=== PATIENT | male | born 1935 | race Caucasian/White ===

== ENCOUNTER 2016-07-30 16:51 | Inpatient (IN) | payer MEDICARE, BC ==
[~2016-07-30] VITALS: Ht 175.3 cm; Wt 82.0 kg
[~2016-07-30 16:51] MED LIST: B-COCAP9 PO; CALC500T17 PO; LORA-373 PO; NEXI40CA PO; VENL75TA PO; VITA20003 PO
[2016-07-30 17:07] VITALS: BP 163/79; PULSE 88; RESP 20; TEMP 98.7; O2SAT 94
[2016-07-30 17:13] VITALS: BP 163/79; PULSE 88; RESP 20; TEMP 98.7; O2SAT 94
[2016-07-30] MEDS ORDERED: SODIUM CHLOR 0.9% 1000 ML INJ 1,000 ML IV SCH (17:23)
[2016-07-30] MEDS ORDERED: SODIUM CHLORIDE 0.9% FLUSH 5 ML FLUSH IVF PRN (17:30)
[2016-07-30 17:40] VITALS: O2SAT 94
[2016-07-30 17:50] LABS: AUTOMATED NEUTROPHIL # 9.4 TH/MM3 (1.8-7.7); BASOPHIL # 0.1 TH/MM3 (0-0.2); BASOPHIL % 0.7 % (0.0-2.0); EOSINOPHIL # 0.1 TH/MM3 (0-0.4); EOSINOPHIL % 0.7 % (0.0-4.0); HEMATOCRIT 40.7 % (39.0-51.0); HEMO FLAGS DIFF FINAL; LYMPH % 13.4 % (9.0-44.0); LYMPHOCYTE # 1.6 TH/MM3 (1.0-4.8); MEAN CELL VOLUME 91.7 FL (80.0-100.0); MEAN CORPUSCULAR HEMOGLOBIN 31.2 PG (27.0-34.0); MONO % 8.7 % (0.0-8.0); NEUT % 76.5 % (16.0-70.0); PLATELET COUNT 389 TH/MM3 (150-450); RED BLOOD COUNT 4.44 MIL/MM3 (4.50-5.90); WHITE BLOOD COUNT 12.3 TH/MM3 (4.0-11.0)
[2016-07-30 17:54] LABS: APTT (PATIENT) 27.2 SEC (24.3-30.1); PROTHROMBIN TIME - PATIENT 11.2 SEC (9.8-11.6)
[2016-07-30 18:09] LABS: BACTERIA, URINE RARE /hpf; BLOOD, URINE NEG (NEG); COMMENT (UR) CULT NOT INDICATED; CULTURE IF INDICATED CULT NOT INDICATED; GLUCOSE,URINE NEG (NEG); KETONE, URINE 80 mg/dL (NEG); MUCUS URINE FEW /lpf (OCC); NITRITE,URINE NEG (NEG); URINE COLOR YELLOW (YELLW/STRAW)
[2016-07-30 18:15] LABS: ALKALINE PHOSPHATASE 135 U/L (45-117); TOTAL BILIRUBIN ADULT 0.5 MG/DL (0.2-1.0)
[2016-07-30] MEDS ORDERED: ONDANSETRON HCL 4 MG/2 ML VIAL IVP ONE (18:15)
[2016-07-30] MEDS ORDERED: MORPHINE SULFATE 4 MG/ML INJ IV PUSH ONE (18:15)
[2016-07-30 18:16] LABS: ALT (GPT) 51 U/L (12-78); ANION GAP 12 MEQ/L (5-15); AST (GOT) 45 U/L (15-37); BLOOD UREA NITROGEN 13 MG/DL (7-18); CHLORIDE 103 MEQ/L (98-107); GLOMERULAR FILTRATION RATE 72 ML/MIN (>89); SODIUM (NA) 138 MEQ/L (136-145)
[2016-07-30 18:17] LABS: POTASSIUM 4.2 MEQ/L (3.5-5.1)
--- NOTE | 2016-07-30 18:38 | RADRPT ---
EXAM DATE/TIME: 07/30/2016 18:19 [place] COMPARISON: No previous studies available for comparison. INDICATIONS : Abdominal pain and possible obstruction. ORAL CONTRAST: No oral contrast ingested. RADIATION DOSE: 15.78 CTDIvol (mGy) MEDICAL HISTORY : Cardiovascular disease. Gastroesophageal reflux disease. SURGICAL HISTORY : Inguinal hernia repair. Shunt placed 2015 ENCOUNTER: Initial ACUITY: 1 day PAIN SCALE: 8/10 LOCATION: Bilateral lower quadrant TECHNIQUE: Volumetric scanning of the abdomen and pelvis was performed. Using automated exposure control and ad justment of the mA and/or kV according to patient size, radiation dose was kept as low as reasonably achievable to obtain optimal diagnostic quality images. FINDINGS: LOWER LUNGS: The visualized lower lungs are clear. LIVER: Homogeneous density without lesion. There is no dilation of the biliary tree. Cholecystectomy clips. SPLEEN: Normal size without lesion. PANCREAS: Within normal limits. KIDNEYS: Normal in size and shape. There is no mass, stone, or hydronephrosis. ADRENAL GLANDS: Within normal limits. VASCULAR: There is no aortic aneurysm. BOWEL/MESENTERY: Copious stool in the rectum. No obstruction. Diverticulosis of the colon without diverticulitis.. Th ere is no free intraperitoneal air or fluid. ABDOMINAL WALL: Within normal limits. RETROPERITONEUM: There is no lymphadenopathy. BLADDER: Michelle catheter decompresses the urinary bladder. REPRODUCTIVE: Prostatectomy.. INGUINAL: There is no lymphadenopathy or hernia. MUSCULOSKELETAL: Within normal limits for patient age. CONCLUSION: 1. Copious amount of stool in the rectum. No bowel obstruction. 2. Diverticulosis without diverticulitis. 3. Status post prostatectomy and cholecystectomy. Krunal Rodriguez MD on July 30, 2016 at 18:31 Board Certified Radiologist. This report was verified electronically.
[2016-07-30] MEDS ORDERED: LORazepam 2 MG/ML VIAL IV PUSH ONE ×2 (18:45→20:15)
[2016-07-30] MEDS ORDERED: MACR100C2 PO (18:51)
--- NOTE | 2016-07-30 18:52 | PD ---
HPI Chief Complaint: Complaint Time Seen by Provider: 17:12 Travel History International Travel<30 days: No Contact w/Intl Traveler<30days: No Traveled to known affect area: No History of Present Illness HPI Patient is a 81-year-old male with history dementia who presents from rehabilitation with complaints of acute urinary retention. Patient with history of dementia, unable to provide history of present illness. As per prison paperwork, patient is currently at the rehabilitation center for treatment of a broken back. Reports concern as patient was experiencing acute urinary retention and was unable to pass his urine. Reports that attempt was made to place Michelle catheter 3 times, Michelle catheter was unable to be placed at rehabilitation Center. Patient was transported to ER for Michelle catheter placement. Patient's daughter is at bedside, reports concern as patient may have constipation and may have small bowel obstruction as she is unsure when he last had a bowel movement. Daughter requests evaluation for possible small bowel obstruction. PFSH Past Medical History Arthritis: No Asthma: No Anxiety: No Depression: No Heart Rhythm Problems: No Cancer: Yes (Skin [place]er--spots removed) Cardiovascular Problems: Yes High Cholesterol: Yes Chest Pain: No Congestive Heart Failure: No COPD: No Cerebrovascular Accident: No Diabetes: No Diminished Hearing: No Endocrine: No GERD: Yes Glaucoma: No Headaches: Yes Hepatitis: No Hiatal Hernia: Yes (repaired) Hypertension: No Kidney Stones: Yes Musculoskeletal: Yes Neurologic: Yes (hydrocephalus) Psychiatric: No Respiratory: Yes Immunizations Current: No Migraines: No Seizures: No Sleep Apnea: Yes Thyroid Disease: No Ulcer: No ?: Not Past Surgical History Abdominal Surgery: Yes AICD: No Arteriovenous Shunt: No Cardiac Surgery: No Cholecystectomy: Yes Ear Surgery: No Eye Surgery: Yes (CATARACTS REMOVED BILAT) Genitourinary Surgery: Yes (PROSTATE, LEFT INGUINAL HERNIA) Insulin Pump: No Joint Replacement: No Oral Surgery: No Pacemaker: No Thoracic Surgery: No Other Surgery: Yes (crainotomy 2013, SHUNT 2015 ) Family History Family History: Negative Social History Alcohol Use: Yes (2 PER NIGHT) Tobacco Use: No Substance Use: No Allergies-Medications (Allergen,Severity, Reaction): Coded Allergies: No Known Allergies (Verified , 06/13/16) Reported Meds & Prescriptions Reported Meds & Active Scripts Active Macrobid (Nitrofurantoin Monoh/Nitrofur Macro) 100 Mg Cap 100 Mg PO BID 10 Days Reported Vitamin D (Cholecalciferol) 2,000 Unit Tab 2,000 Units PO DAILY Calcium (Calcium Carbonate) 1,250 Mg Tab 1,200 Mg PO DAILY 1,250 mg calcium carbonate (500 mg elemental calcium) Super B-Complex (B-Complex W/Biotin & Folic Acid) 1 Cap 1 Cap PO Lorazepam 0.5 Mg Tab 0.5 Mg PO BID PRN Effexor (Venlafaxine HCl) 75 Mg Tab 150 Mg PO BID Nexium (Esomeprazole DR) 40 Mg Capdr 40 Mg PO DAILY Review of Systems ROS Limitations: Altered Mental Status General / Constitutional: No: Fever Eyes: No: Visual changes HENT: No: Headaches Cardiovascular: No: Chest Pain or Discomfort Respiratory: No: Shortness of Breath Gastrointestinal: No: Abdominal Pain Genitourinary: No: Dysuria Musculoskeletal: No: Pain Skin: No Rash Neurologic: No: Weakness Psychiatric: No: Depression Endocrine: No: Polydipsia Hematologic/Lymphatic: No: Easy Bruising Physical Exam Exam Limitations: Altered Mental Status Narrative GENERAL: No acute distress, nontoxic SKIN: Warm and dry. HEAD: Atraumatic. Normocephalic. EYES: Pupils equal and round. No scleral icterus. No injection or drainage. ENT: No nasal bleeding or discharge. Mucous membranes pink and moist. NECK: Trachea midline. No JVD. CARDIOVASCULAR: Regular rate and rhythm. No murmur appreciated. RESPIRATORY: No accessory muscle use. Clear to auscultation. Breath sounds equal bilaterally. GASTROINTESTINAL: Abdomen soft, non-tender, nondistended. Hepatic and splenic margins not palpable. MUSCULOSKELETAL: No obvious deformities. No clubbing. No cyanosis. No edema. NEUROLOGICAL: Awake and alert. No obvious cranial nerve deficits. Motor grossly within normal limits. Normal speech. PSYCHIATRIC: Patient pleasantly confused Data Data Last Documented VS Vital Signs Date Time Temp Pulse Resp B/P Pulse Ox O2 Delivery O2 Flow Rate FiO2 07/30/16 17:40 94 Room Air 07/30/16 17:13 98.7 88 20 163/79 Orders Complete Blood Count With Diff (07/30/16 17:23) Comprehensive Metabolic Panel (07/30/16 17:23) Prothrombin Time / Inr (Pt) (07/30/16 17:23) Act Partial Throm Time (Ptt) (07/30/16 17:23) Urinalysis - C+S If Indicated (07/30/16 17:23) Iv Access Insert/Monitor (07/30/16 17:23) Oximetry (07/30/16 17:23) Sodium Chlor 0.9% 1000 Ml Inj (Ns 1000 M (07/30/16 17:23) Sodium Chloride 0.9% Flush (Ns Flush) (07/30/16 17:30) Urinary Catheter Insert/Apply (07/30/16 17:23) Ct Abd/Pel W/O Iv Contrast (07/30/16 18:02) Morphine Inj (Morphine Inj) (07/30/16 18:15) Ondansetron Inj (Zofran Inj) (07/30/16 18:15) Lorazepam Inj (Ativan Inj) (07/30/16 18:45) Nitrofurantoin Monohyd Macrocr (Macrobid (07/30/16 19:00) Labs Laboratory Tests Test 07/30/16 17:30 White Blood Count 12.3 TH/MM3 Red Blood Count 4.44 MIL/MM3 Hemoglobin 13.8 GM/DL Hematocrit 40.7 % Mean Corpuscular Volume 91.7 FL Mean Corpuscular Hemoglobin 31.2 PG Mean Corpuscular Hemoglobin 34.0 % Concent Red Cell Distribution Width 13.0 % Platelet Count 389 TH/MM3 Mean Platelet Volume 7.6 FL Neutrophils (%) (Auto) 76.5 % Lymphocytes (%) (Auto) 13.4 % Monocytes (%) (Auto) 8.7 % Eosinophils (%) (Auto) 0.7 % Basophils (%) (Auto) 0.7 % Neutrophils # (Auto) 9.4 TH/MM3 Lymphocytes # (Auto) 1.6 TH/MM3 Monocytes # (Auto) 1.1 TH/MM3 Eosinophils # (Auto) 0.1 TH/MM3 Basophils # (Auto) 0.1 TH/MM3 CBC Comment DIFF FINAL Differential Comment Prothrombin Time 11.2 SEC Prothromb Time International 1.0 RATIO Ratio Activated Partial 27.2 SEC Thromboplast Time Urine Color YELLOW Urine Turbidity CLEAR Urine pH 6.0 Urine Specific [place] 1.030 Urine Protein TRACE mg/dL Urine Glucose (UA) NEG mg/dL Urine Ketones 80 mg/dL Urine Occult Blood NEG Urine Nitrite NEG Urine Bilirubin NEG Urine Urobilinogen 2.0 MG/DL Urine Leukocyte Esterase MOD Urine RBC 2 /hpf Urine WBC 4 /hpf Urine Bacteria RARE /hpf Urine Mucus FEW /lpf Microscopic Urinalysis Comment CULT NOT INDICATED Sodium Level 138 MEQ/L Potassium Level 4.2 MEQ/L Chloride Level 103 MEQ/L Carbon Dioxide Level 23.0 MEQ/L Anion Gap 12 MEQ/L Blood Urea Nitrogen 13 MG/DL Creatinine 1.00 MG/DL Estimat Glomerular Filtration 72 ML/MIN Rate Random Glucose 95 MG/DL Calcium Level 9.3 MG/DL Total Bilirubin 0.5 MG/DL Aspartate Amino Transf 45 U/L (AST/SGOT) Alanine Aminotransferase 51 U/L (ALT/SGPT) Alkaline Phosphatase 135 U/L Total Protein 7.6 GM/DL Albumin 3.7 GM/DL MDM Medical Decision Making Medical Screen Exam Complete: Yes Emergency Medical Condition: Yes Interpretation(s) Vital Signs Date Time Temp Pulse Resp B/P Pulse Ox O2 Delivery O2 Flow Rate FiO2 07/30/16 17:40 94 Room Air 07/30/16 17:13 98.7 88 20 163/79 94 Room Air 07/30/16 17:07 98.7 88 20 163/79 94 Laboratory Tests Test 07/30/16 17:30 White Blood Count 12.3 TH/MM3 (4.0-11.0) Red Blood Count 4.44 MIL/MM3 (4.50-5.90) Hemoglobin 13.8 GM/DL (13.0-17.0) Hematocrit 40.7 % (39.0-51.0) Mean Corpuscular Volume 91.7 FL (80.0-100.0) Mean Corpuscular Hemoglobin 31.2 PG (27.0-34.0) Mean Corpuscular Hemoglobin 34.0 % Concent (32.0-36.0) Red Cell Distribution Width 13.0 % (11.6-17.2) Platelet Count 389 TH/MM3 (150-450) Mean Platelet Volume 7.6 FL (7.0-11.0) Neutrophils (%) (Auto) 76.5 % (16.0-70.0) Lymphocytes (%) (Auto) 13.4 % (9.0-44.0) Monocytes (%) (Auto) 8.7 % (0.0-8.0) Eosinophils (%) (Auto) 0.7 % (0.0-4.0) Basophils (%) (Auto) 0.7 % (0.0-2.0) Neutrophils # (Auto) 9.4 TH/MM3 (1.8-7.7) Lymphocytes # (Auto) 1.6 TH/MM3 (1.0-4.8) Monocytes # (Auto) 1.1 TH/MM3 (0-0.9) Eosinophils # (Auto) 0.1 TH/MM3 (0-0.4) Basophils # (Auto) 0.1 TH/MM3 (0-0.2) CBC Comment DIFF FINAL Differential Comment Prothrombin Time 11.2 SEC (9.8-11.6) Prothromb Time International 1.0 RATIO Ratio Activated Partial 27.2 SEC Thromboplast Time (24.3-30.1) Urine Color YELLOW (YELLW/STRAW) Urine Turbidity CLEAR (CLEAR) Urine pH 6.0 (5.0-8.5) Urine Specific [place] 1.030 (1.002-1.035) Urine Protein TRACE mg/dL (NEG-TRACE) Urine Glucose (UA) NEG mg/dL (NEG) Urine Ketones 80 mg/dL (NEG) Urine Occult Blood NEG (NEG) Urine Nitrite NEG (NEG) Urine Bilirubin NEG (NEG) Urine Urobilinogen 2.0 MG/DL (LESS THAN 2.0) Urine Leukocyte Esterase MOD (NEG) Urine RBC 2 /hpf (0-3) Urine WBC 4 /hpf (0-5) Urine Bacteria RARE /hpf (NONE) Urine Mucus FEW /lpf (OCC) Microscopic Urinalysis Comment CULT NOT INDICATED Sodium Level 138 MEQ/L (136-145) Potassium Level 4.2 MEQ/L (3.5-5.1) Chloride Level 103 MEQ/L (98-107) Carbon Dioxide Level 23.0 MEQ/L (21.0-32.0) Anion Gap 12 MEQ/L (5-15) Blood Urea Nitrogen 13 MG/DL (7-18) Creatinine 1.00 MG/DL (0.60-1.30) Estimat Glomerular Filtration 72 ML/MIN (>89) Rate Random Glucose 95 MG/DL (74-106) Calcium Level 9.3 MG/DL (8.5-10.1) Total Bilirubin 0.5 MG/DL (0.2-1.0) Aspartate Amino Transf 45 U/L (15-37) (AST/SGOT) Alanine Aminotransferase 51 U/L (12-78) (ALT/SGPT) Alkaline Phosphatase 135 U/L (45-117) Total Protein 7.6 GM/DL (6.4-8.2) Albumin 3.7 GM/DL (3.4-5.0) Last Impressions Abdomen/Pelvis CT 07/30/16 1802 Signed Impressions: Service Date/Time: Saturday, July 30, 2016 18:19 - CONCLUSION: 1. Copious amount of stool in the rectum. No bowel obstruction. 2. Diverticulosis without diverticulitis. 3. Status post prostatectomy and cholecystectomy. Krunal Rodriguez MD Differential Diagnosis UTI, urinary retention, electrolyte abnormality, constipation, small bowel obstruction Narrative Course Patient is a 81-year-old male with history of dementia who presents to emergency room from rehabilitation Center for evaluation of acute urinary retention. Patient appeared to be in acute urinary retention at rehabilitation Center, attempt was made for Michelle catheter placement 3 at rehabilitation, Michelle catheter was placed easily here in ER. Ct of abdomen and pelvis ordered for evaluation of possible small bowel obstruction. CBC, BMP, UA ordered. Case reviewed with Dr. Silva who request that patient be obs for 23 hours. UA with moderate leuk esterase and rare bacteria, patient with questionable UTI. Concern as patient has increased altered mental status, plan to obs for [address] Silva's service. Physician Communication Physician Communication Dr Silva Diagnosis Primary Impression: Acute urinary retention Additional Impressions: UTI (urinary tract infection) Qualified Code: N30.00 - Acute cystitis without hematuria Constipation Qualified Code: K59.00 - Constipation, unspecified constipation type Admitting Information Admitting Physician Requests: Observation Patient Instructions: General Instructions, Narcotic given in the ED Med/Other Pt SpecificInfo: Prescription(s) given Scripts Polyethylene Glycol 3350 Powder (Miralax Powder)17 Gm Powd17 Gm PO DAILY #1 BOTTLE Ref 0 Mix and dissolve one measuring cap-ful (17 grams) in water or juice. Prov:Jewels Hoover DO 07/30/16 Nitrofurantoin Monohydrate Macrocrystals (Macrobid)100 Mg Hfu325 Mg PO BID 10 Days Ref 0 Prov:Jewels Hoover DO 07/30/16 Disposition: 01 DISCHARGE HOME Condition: Stable Jewels Hoover DO Jul 30, 2016 18:52
[2016-07-30] MEDS ORDERED: MIRA33504 PO (18:58)
[2016-07-30] MEDS ORDERED: NITROFURANTOIN MONOHYD MACROCR 100 MG CAP PO ONE (19:00)
[2016-07-30] MEDS ORDERED: NALOXONE HCL 0.4 MG/ML AMP IV PRN (20:00)
[2016-07-30] MEDS: DOCUSATE SODIUM 100 MG CAP PO SCH (20:00)
[2016-07-30] MEDS ORDERED: ONDANSETRON HCL 4 MG/2 ML VIAL IVP PRN (20:00)
[2016-07-30] MEDS ORDERED: SODIUM CHLORIDE 0.9% FLUSH 5 ML FLUSH FLUSH PRN (20:00)
[2016-07-30] MEDS: LEVOFLOXACIN 500 MG PREMIX INJ 100 ML IV SCH (20:09)
[2016-07-30] MEDS: SODIUM CHLORIDE 0.9% FLUSH 5 ML FLUSH FLUSH SCH (20:10)
[2016-07-30 20:23] VITALS: BP 129/73; PULSE 80; RESP 18; O2SAT 96
[2016-07-30] MEDS: ACETAMINOPHEN 325 MG TAB PO PRN (20:35)
[2016-07-30] MEDS ORDERED: BISACODYL EC 5 MG TABEC PO ONE (21:00)
[2016-07-30] MEDS: ENOXAPARIN SODIUM 40 MG/0.4 ML SYRINGE SQ SCH (21:11)
[2016-07-30] MEDS: VENLAFAXINE HCL XR 75 MG CAP PO SCH (21:12)
[2016-07-30] MEDS: LORazepam 0.5 MG TAB PO PRN (21:12)
[2016-07-30] MEDS: metroNIDAZOLE 500 MG INJ 100 ML IV SCH (21:13)
[2016-07-30] MEDS: TAMSULOSIN HCL 0.4 MG CAP PO SCH (21:13)
[2016-07-30] MEDS: LACTATED RINGER'S 1000 ML INJ 1,000 ML IV SCH (22:39)
[2016-07-31] VITALS: BP 156/84; PULSE 96; RESP 20; TEMP 97.6; O2SAT 95
[2016-07-31 04:00] VITALS: BP 140/74; PULSE 77; RESP 18; TEMP 97; O2SAT 97
[2016-07-31] MEDS: metroNIDAZOLE 500 MG INJ 100 ML IV SCH ×3 (04:40→22:22)
[2016-07-31] MEDS: ACETAMINOPHEN 325 MG TAB PO PRN (04:46)
[2016-07-31 05:08] LABS: AUTOMATED NEUTROPHIL # 8.5 TH/MM3 (1.8-7.7); BASOPHIL # 0.1 TH/MM3 (0-0.2); BASOPHIL % 0.5 % (0.0-2.0); EOSINOPHIL # 0.1 TH/MM3 (0-0.4); EOSINOPHIL % 1.1 % (0.0-4.0); HEMATOCRIT 35.2 % (39.0-51.0); HEMO FLAGS DIFF FINAL; LYMPH % 12.4 % (9.0-44.0); LYMPHOCYTE # 1.4 TH/MM3 (1.0-4.8); MEAN CELL VOLUME 91.4 FL (80.0-100.0); MEAN CORPUSCULAR HEMOGLOBIN 31.5 PG (27.0-34.0); MEAN CORPUSCULAR HGB CONC 34.4 % (32.0-36.0); MONO % 9.9 % (0.0-8.0); NEUT % 76.1 % (16.0-70.0); PLATELET COUNT 313 TH/MM3 (150-450); RED BLOOD COUNT 3.85 MIL/MM3 (4.50-5.90); RED CELL DISTRIBUTION WIDTH 13.3 % (11.6-17.2); WHITE BLOOD COUNT 11.2 TH/MM3 (4.0-11.0)
[2016-07-31 05:40] LABS: BICARBONATE 24.3 MEQ/L (21.0-32.0); INDIRECT BILIRUBIN 0.5 MG/DL (0.0-0.8); MAGNESIUM 1.9 MG/DL (1.5-2.5); POTASSIUM 3.5 MEQ/L (3.5-5.1); TOTAL BILIRUBIN ADULT 0.6 MG/DL (0.2-1.0)
[2016-07-31 08:00] VITALS: BP 132/71; PULSE 92; RESP 16; TEMP 96.6; O2SAT 98
[2016-07-31] MEDS: TAMSULOSIN HCL 0.4 MG CAP PO SCH ×2 (08:01→22:22)
[2016-07-31] MEDS: PANTOPRAZOLE SOD 40 MG DELAYED RELEASE TAB PO SCH (08:01)
[2016-07-31] MEDS: DOCUSATE SODIUM 100 MG CAP PO SCH ×2 (08:01→22:23)
[2016-07-31] MEDS: LORazepam 0.5 MG TAB PO PRN ×2 (08:01→22:21)
[2016-07-31] MEDS: CHOLECALCIFEROL (VIT D3) 1000 UNIT TAB PO SCH (08:01)
[2016-07-31] MEDS: POLYETHYLENE GLYCOL 17 GM PKG PO SCH (08:01)
[2016-07-31] MEDS: SODIUM CHLORIDE 0.9% FLUSH 5 ML FLUSH FLUSH SCH ×2 (08:02→21:00)
[2016-07-31] MEDS: LACTATED RINGER'S 1000 ML INJ 1,000 ML IV SCH ×2 (08:02→16:00)
[2016-07-31 12:00] VITALS: BP 133/69; PULSE 86; RESP 18; TEMP 96.6; O2SAT 96
--- NOTE | 2016-07-31 14:13 | HHI.HP ---
History of Present Illness Service INTERNAL MEDICINE Primary Care Physician ENRIQUE SILVA MD Admission Diagnosis ACUTE GASTROENTERITIS. INTRACTABLE PAIN. SEVERE CONSTIPATION. ALTERED MENTAL STATUS. Diagnoses: History of Present Illness This patient presents with a history of having a change from his usual mentation along with complaints of severe abdominal pain. He also has multiple reports of marked difficulty for any consistent urination. There was also associated nausea and vomiting episodes. Further concern was for a possible urinary tract infection as he was with a change from his usual mentation. He was in a rehabilitation center for history of multiple falls and compression fractures of the spine. Due to the adverse changes, he was transported to the [facility] Emergency Room and evaluation led to his admission. There is no history of recent infection or trauma. Due to the presentation, he is now admitted for further evaluation and treatment. Review of Systems Constitutional: COMPLAINS OF: Fatigue, Weight loss, Change in appetite Gastrointestinal: COMPLAINS OF: Constipation, Nausea, Vomiting Musculoskeletal: COMPLAINS OF: Stiffness, Back pain Neurologic: COMPLAINS OF: Abnormal gait, Poor Balance Psychiatric: COMPLAINS OF: Anxiety, Confusion, Hallucinations, Agitation Past Family Social History Allergies: Coded Allergies: No Known Allergies (Verified , 06/13/16) Past Medical History 1. Chronic Peptic Ulcer Disease. 2. Alcoholism. 3. Hyperlipidemia. 4. Cerebellar Degeneration. 5. Gait Disturbance. 6. Subdural Hematoma. 7. Normal Pressure Hydrocephalus. 8. Obstructive Sleep Apnea Syndrome. 9. Compression Fractures of Spine. 10. Depression. Past Surgical History 1. Ventriculoperitoneal Shunt Placement. 2. Craniotomy with Evacuation of Subdural Hematoma. 3. Cholecystectomy. 4. Inguinal Hernia Repair. 5. Prostatectomy. 6. Colonoscopy. Family History This patient is an only child. He has a daughter with "gastrointestinal problems". He has a granddaughter in good health. Social History He is retired and is . He is a nonsmoker and has a strong history of heavy alcohol intake. His use of alcohol is diminished over the past year to no usage at all at this time There is no use of recreational drugs. Physical Exam Vital Signs Vital Signs Date Time Temp Pulse Resp B/P Pulse Ox O2 Delivery O2 Flow Rate FiO2 07/31/16 12:00 96.6 86 18 133/69 96 07/31/16 08:00 96.6 92 16 132/71 98 07/31/16 04:00 97.0 77 18 140/74 97 07/31/16 00:00 97.6 96 20 156/84 95 07/30/16 20:23 80 18 129/73 96 Room Air 07/30/16 17:40 94 Room Air 07/30/16 17:13 98.7 88 20 163/79 94 Room Air 07/30/16 17:07 98.7 88 20 163/79 94 Physical Exam GENERAL: This is a well-nourished, well-developed patient, in no apparent distress. SKIN: No rashes, ecchymoses or lesions. Cool and dry. HEAD: Atraumatic. Normocephalic. No temporal or scalp tenderness. EYES: Pupils equal round and reactive. Extraocular motions intact. No scleral icterus. No injection or drainage. ENT: Nasal passages are clear and without drainage or septal hematoma. Throat without erythema, tonsillar hypertrophy or exudate. Uvula midline. Airway patent. NECK: Trachea midline. No JVD or lymphadenopathy. Supple with good range of motion. There is no thyromegaly, carotid bruits or masses. The exam is nontender. CARDIOVASCULAR: Regular rate and rhythm without murmurs, gallops, or rubs. RESPIRATORY: Clear to auscultation. Breath sounds equal bilaterally. No wheezes , rales, or rhonchi. GASTROINTESTINAL: Abdomen is soft with some tenderness to palpation in the epigastric and periumbilical areas. It is nondistended. No hepato-splenomegaly or palpable masses. No guarding. MUSCULOSKELETAL: Extremities without clubbing, cyanosis, or edema. No joint tenderness, effusion, or edema noted. No calf tenderness. Negative Homans sign bilaterally. NEUROLOGICAL: Awake and alert. Cranial nerves II through XII intact. Motor and sensory grossly within normal limits. Normal speech. The gait is unsteady. Laboratory Laboratory Tests Test 07/30/16 07/31/16 17:30 03:59 White Blood Count 12.3 11.2 Red Blood Count 4.44 3.85 Hemoglobin 13.8 12.1 Hematocrit 40.7 35.2 Mean Corpuscular Volume 91.7 91.4 Mean Corpuscular Hemoglobin 31.2 31.5 Mean Corpuscular Hemoglobin 34.0 34.4 Concent Red Cell Distribution Width 13.0 13.3 Platelet Count 389 313 Mean Platelet Volume 7.6 7.7 Neutrophils (%) (Auto) 76.5 76.1 Lymphocytes (%) (Auto) 13.4 12.4 Monocytes (%) (Auto) 8.7 9.9 Eosinophils (%) (Auto) 0.7 1.1 Basophils (%) (Auto) 0.7 0.5 Neutrophils # (Auto) 9.4 8.5 Lymphocytes # (Auto) 1.6 1.4 Monocytes # (Auto) 1.1 1.1 Eosinophils # (Auto) 0.1 0.1 Basophils # (Auto) 0.1 0.1 CBC Comment DIFF FINAL DIFF FINAL Differential Comment Prothrombin Time 11.2 Prothromb Time International 1.0 Ratio Activated Partial 27.2 Thromboplast Time Urine Color YELLOW Urine Turbidity CLEAR Urine pH 6.0 Urine Specific [place] 1.030 Urine Protein TRACE Urine Glucose (UA) NEG Urine Ketones 80 Urine Occult Blood NEG Urine Nitrite NEG Urine Bilirubin NEG Urine Urobilinogen 2.0 Urine Leukocyte Esterase MOD Urine RBC 2 Urine WBC 4 Urine Bacteria RARE Urine Mucus FEW Microscopic Urinalysis Comment CULT NOT INDICATED Sodium Level 138 140 Potassium Level 4.2 3.5 Chloride Level 103 104 Carbon Dioxide Level 23.0 24.3 Anion Gap 12 12 Blood Urea Nitrogen 13 12 Creatinine 1.00 0.91 Estimat Glomerular Filtration 72 80 Rate Random Glucose 95 86 Calcium Level 9.3 8.4 Total Bilirubin 0.5 0.6 Aspartate Amino Transf 45 48 (AST/SGOT) Alanine Aminotransferase 51 61 (ALT/SGPT) Alkaline Phosphatase 135 120 Total Protein 7.6 6.1 Albumin 3.7 3.0 Magnesium Level 1.9 Direct Bilirubin 0.1 Indirect Bilirubin 0.5 Result Diagram: 07/31/16 0359 07/31/16 0359 Assessment and Plan Assessment and Plan ASSESSMENT 1. Acute Gastroenteritis. 2. Intractable Nausea and Vomiting. 3. Intractable Abdominal Pain. 4. Acute Urinary Retention. 5. Possible subacute urinary tract infection. 6. Mental Confusion with Episodic Hallucinations. 7. Severe Constipation. 8. Normal Pressure Hydrocephalus. 9. Chronic Peptic Ulcer Disease. PLAN 1. Admit to the hospital as an Inpatient. 2. Intravenous hydration. 3. Consultation to Urology. 4. Consultation to Gstroenterology. 5. Bowel evacuation of excessive stool. 6. Follow up laboratory assessment. 7. DVT, PE and PUD prophylaxis. Enrique Silva MD Jul 31, 2016 14:13
[2016-07-31] MEDS ORDERED: BISACODYL 10 MG SUPP RECTAL ONE (14:45)
[2016-07-31 16:00] VITALS: BP 137/67; PULSE 80; RESP 18; TEMP 97.4; O2SAT 96
[2016-07-31 20:00] VITALS: BP 149/83; PULSE 76; RESP 19; TEMP 98.6; O2SAT 97
[2016-07-31] MEDS: LEVOFLOXACIN 500 MG PREMIX INJ 100 ML IV SCH (22:20)
[2016-07-31] MEDS: ENOXAPARIN SODIUM 40 MG/0.4 ML SYRINGE SQ SCH (22:22)
[2016-07-31] MEDS: VENLAFAXINE HCL XR 75 MG CAP PO SCH (22:23)
[2016-08-01] VITALS: BP 154/80; PULSE 90; RESP 18; TEMP 98.6; O2SAT 95
[2016-08-01] MEDS: LACTATED RINGER'S 1000 ML INJ 1,000 ML IV SCH ×3 (02:26→20:00)
[2016-08-01] MEDS: metroNIDAZOLE 500 MG INJ 100 ML IV SCH ×3 (05:14→20:00)
[2016-08-01] MEDS: LORazepam 0.5 MG TAB PO PRN (05:59)
[2016-08-01] MEDS: POLYETHYLENE GLYCOL 17 GM PKG PO SCH (07:14)
[2016-08-01] MEDS: DOCUSATE SODIUM 100 MG CAP PO SCH (07:14)
[2016-08-01] MEDS: TAMSULOSIN HCL 0.4 MG CAP PO SCH ×2 (07:45→19:57)
[2016-08-01] MEDS: CHOLECALCIFEROL (VIT D3) 1000 UNIT TAB PO SCH (07:45)
[2016-08-01] MEDS: SODIUM CHLORIDE 0.9% FLUSH 5 ML FLUSH FLUSH SCH ×2 (07:45→20:00)
[2016-08-01] MEDS: PANTOPRAZOLE SOD 40 MG DELAYED RELEASE TAB PO SCH (07:45)
[2016-08-01 08:00] VITALS: BP 135/99; PULSE 105
[2016-08-01] MEDS ORDERED: HALOPERIDOL LACTATE 5 MG/ML AMP IM ONE (09:30)
[2016-08-01 12:00] VITALS: BP 123/81; PULSE 83
--- NOTE | 2016-08-01 13:08 | PD.CONS ---
HPI Service Urology Consult Requested By Reason for Consult Hematuria, Retention Primary Care Physician Enrique Silva MD Diagnosis: History of Present Illness 81yo male currently admitted for a UTI with change in mental status now seen in consultation for hematuria. Patient also has a history of radical prostatectomy in the early by Dr. Marks. Patient has been following with Dr. Marks, however has not seen him in a few years. Patient lives an a facility where he was found to be having increasing mental status changes. Family also reports he has been having increasing difficulty with urination. At the facility a catheter was attempted to be placed, however this was unsuccessful. A catheter was successfully placed in the ED here, however hematuria was noted. This has been clearing up with no clots. No fevers. Review of Systems ROS Limitations: Clinical Condition Constitutional: DENIES: Fever Endocrine: DENIES: Heat/cold intolerance Eyes: DENIES: Blurred vision Ears, nose, mouth, throat: DENIES: Hearing loss Respiratory: DENIES: Apneas Cardiovascular: DENIES: Chest pain Gastrointestinal: COMPLAINS OF: Abdominal pain Genitourinary: COMPLAINS OF: Hematuria Musculoskeletal: DENIES: Joint pain Integumentary: DENIES: Abnormal pigmentation Hematologic/lymphatic: DENIES: Bruising Immunologic/allergic: DENIES: Eczema Neurologic: DENIES: Abnormal gait Psychiatric: COMPLAINS OF: Confusion, Agitation, DENIES: Anxiety Past Family Social History Past Medical History Depression AMS Hx of Hydrocephalus Past Surgical History Hydrocephalus CHIP TUNER shunt placement Radical prostatectomy Cholecystectomy Reported Medications Reported Meds & Active Scripts Active Miralax Powder (Polyethylene Glycol 3350 Powder) 17 Gm Powd 17 Gm PO DAILY Mix and dissolve one measuring cap-ful (17 grams) in water or juice. Macrobid (Nitrofurantoin Monoh/Nitrofur Macro) 100 Mg Cap 100 Mg PO BID 10 Days Reported Vitamin D (Cholecalciferol) 2,000 Unit Tab 2,000 Units PO DAILY Calcium (Calcium Carbonate) 1,250 Mg Tab 1,200 Mg PO DAILY 1,250 mg calcium carbonate (500 mg elemental calcium) Super B-Complex (B-Complex W/Biotin & Folic Acid) 1 Cap 1 Cap PO Lorazepam 0.5 Mg Tab 0.5 Mg PO BID PRN Effexor (Venlafaxine HCl) 75 Mg Tab 150 Mg PO BID Nexium (Esomeprazole DR) 40 Mg Capdr 40 Mg PO DAILY Allergies: Coded Allergies: No Known Allergies (Verified , 06/13/16) Active Ordered Medications Current Medications Medications (Trade) Dose Ordered Sig/David Route Start Time Stop Time Status Last Admin (Lr 1000 ml Inj) 1,000 ml @ 100 mls/hr Q10H IV 07/30/16 20:00 08/01/16 02:26 (NS Flush) 2 ml UNSCH PRN FLUSH 07/30/16 20:00 (NS Flush) 2 ml BID FLUSH 07/30/16 21:00 07/30/16 20:10 (Tylenol) 650 mg Q4H PRN PO 07/30/16 20:00 07/31/16 04:46 (Zofran Inj) 4 mg Q6H PRN IVP 07/30/16 20:00 (Colace) 100 mg Q12H PO 07/30/16 20:00 07/31/16 22:23 (Lovenox Inj) 40 mg Q24H SQ 07/30/16 21:00 07/31/16 22:22 Naloxone HCl 0.4 mg 0.4 mg UNSCH PRN IV 07/30/16 20:00 Metronidazole 100 ml @ 100 mls/hr Q8H IV 07/30/16 21:00 08/01/16 12:09 (Levaquin 500 Mg Premix Inj) 100 ml @ 100 mls/hr Q24H IV 07/30/16 20:00 07/31/16 22:20 (Flomax) 0.4 mg Q12HR PO 07/30/16 21:00 07/31/16 22:22 (Ativan) 0.5 mg BID PRN PO 07/30/16 20:00 07/31/16 22:21 (Miralax) 17 gm DAILY PO 07/31/16 09:00 07/31/16 08:01 (Vitamin D3) 2,000 units DAILY PO 07/31/16 09:00 07/31/16 08:01 (Protonix) 40 mg DAILY PO 07/31/16 09:00 07/31/16 08:01 (Effexor Xr) 225 mg Q24H PO 07/30/16 21:00 07/31/16 22:23 Family History Family history reviewed and noncontributory to present illness Social History Former smoker; Occasional ETOH use Physical Exam Vital Signs Vital Signs Date Time Temp Pulse Resp B/P Pulse Ox O2 Delivery O2 Flow Rate FiO2 08/01/16 12:00 83 123/81 08/01/16 08:00 105 135/99 08/01/16 00:00 98.6 90 18 154/80 95 07/31/16 20:00 98.6 76 19 149/83 97 07/31/16 16:00 97.4 80 18 137/67 96 Physical Exam GENERAL: This is a well-nourished, well-developed patient, in no apparent distress. SKIN: No rashes, ecchymoses or lesions. Cool and dry. HEAD: Atraumatic. Normocephalic. EYES: Extraocular motions intact. No scleral icterus. No injection or drainage. ENT: Nose without bleeding, purulent drainage Airway patent. NECK: Trachea midline. No JVD or lymphadenopathy. CARDIOVASCULAR: Extremities well perfused, normal pulses RESPIRATORY: Nonlabored respirations, equal chest rise GASTROINTESTINAL: Abdomen soft, non-tender, nondistended. No hepato-splenomegaly , or palpable masses. No guarding. : 16fr moraes catheter in place with zabrina colored urine; yellow urine in tubing. Penis is uncircumcised with evidence of paraphimosis and distal penile swelling and pain MUSCULOSKELETAL: Extremities without clubbing, cyanosis, or edema. NEUROLOGICAL: Awake, however confused, no oriented. Motor and sensory grossly within normal limits. Normal speech. Result Diagram: 07/31/16 0359 07/31/16 0359 Imaging Last 72 hours Impressions Abdomen/Pelvis CT 07/30/16 1802 Signed Impressions: Service Date/Time: Saturday, July 30, 2016 18:19 - CONCLUSION: 1. Copious amount of stool in the rectum. No bowel obstruction. 2. Diverticulosis without diverticulitis. 3. Status post prostatectomy and cholecystectomy. Krunal Rodriguez MD Assessment and Plan Problem List: (1) Depression ICD Code: F32.9 Status: Acute (2) UTI (urinary tract infection) ICD Code: N39.0 Status: Acute (3) Paraphimosis ICD Code: N47.2 Status: Acute Assessment and Plan 81yo male with hematuria that appears to be resolving as well as paraphimosis -Paraphimosis reduced at bedside with the foreskin overlying the head of the penis. Please continue to ensure foreskin remains in the proper position over the penis. -Continue treatment for UTI based on culture results -Maintain moraes catheter. Given the patient's history, recommend leaving the catheter in place until Urology follow-up with Dr. Marks or myself to further evaluate his urinary retention and hematuria. -Patient may be discharged with catheter in place with close urology follow-up -Please call with questions Discussed Condition With Family and Nurse Problem Qualifiers (1) UTI (urinary tract infection): Qualified Code: N30.00 - Acute cystitis without hematuria Marino Keller MD Aug 01, 2016 13:08
[2016-08-01 16:00] VITALS: BP 133/63; PULSE 88; RESP 17; TEMP 96.6; O2SAT 96
--- NOTE | 2016-08-01 17:19 | HHI.PR ---
Subjective Remarks He was seen by Urology with the assessment and disposition noted. He continues to complain of abdominal pain and recurrent episodes of nausea. He is to start with physical therapy and to continue observation on the current medications with respect to his mental status. He had bowel movements after cathartic agents used. His appetite is still not very good. Objective Vital Signs Date Time Temp Pulse Resp B/P Pulse Ox O2 Delivery O2 Flow Rate FiO2 08/01/16 16:00 96.6 88 17 133/63 96 08/01/16 12:00 83 123/81 08/01/16 08:00 105 135/99 08/01/16 00:00 98.6 90 18 154/80 95 07/31/16 20:00 98.6 76 19 149/83 97 I/O 07/31/16 07/31/16 07/31/16 08/01/16 08/01/16 08/01/16 06:59 14:59 22:59 06:59 14:59 22:59 Intake Total 690 ml 1665 ml 1051 ml 812 ml 796 ml Output Total 250 ml 500 ml 300 ml 450 ml 900 ml Balance 440 ml 1165 ml 751 ml 362 ml -104 ml Intake Oral 750 ml 240 ml 120 ml IV Total 690 ml 915 ml 811 ml 692 ml 796 ml Output Urine Total 250 ml 500 ml 300 ml 450 ml 900 ml # Bowel Movements 0 1 0 2 2 Result Diagram: 07/31/169 07/31/16 035 Objective Remarks GENERAL: Alert with some mental confusion for time. SKIN: Warm and dry. HEAD: Normocephalic. EYES: No scleral icterus. No injection or drainage. NECK: Supple, trachea midline. No JVD or lymphadenopathy. CARDIOVASCULAR: Regular rate and rhythm without murmurs, gallops, or rubs. RESPIRATORY: Breath sounds equal bilaterally. No accessory muscle use. GASTROINTESTINAL: Abdomen is soft with mild tenderness to palpation. It is nondistended. MUSCULOSKELETAL: No cyanosis, or edema. BACK: Mildly tender in the lower thoracic to upper lumbar areas without obvious deformity. No CVA tenderness. Assessment and Plan Assessment and Plan ASSESSMENT 1. Acute Gastroenteritis. 2. Intractable Nausea and Vomiting. 3. Intractable Abdominal Pain. 4. Acute Urinary Retention. 5. Severe Constipation. 6. Chronic Peptic Ulcer Disease. 7. Mental Confusion. 8. Normal Pressure Hydrocephalus. 9. Cerebellar Dysfunction. PLAN 1. Consultation to Gastroenterology. 2. Continue with the current meds. 3. Follow up laboratory assessment. 4. Physical Therapy treatment. 5. DVT, PE and PUD prophylaxis. Enrique Silva MD Aug 01, 2016 17:19
[2016-08-01] MEDS: LORazepam 0.5 MG TAB PO SCH (17:37)
--- NOTE | 2016-08-01 18:04 | RADRPT ---
EXAM DATE/TIME: 08/01/2016 17:17 [place] COMPARISON: No previous studies available for comparison. INDICATIONS : Abdominal pain. MEDICAL HISTORY : None. SURGICAL HISTORY : Shunt. ENCOUNTER: Initial ACUITY: 2 days PAIN SCORE: 10/10 LOCATION: Bilateral lower quadrant abdomen. FINDINGS: Supine and upright views of the abdomen were performed. The abdominal bowel gas pattern is normal. No air fluid levels are seen. No abnormal masses, calcifications, or organomegaly is seen. The visu alized lower lungs are clear. No evidence of free intraperitoneal gas. The osseous structures are u nremarkable. Distal portions of a ventriculoperitoneal shunt catheter are seen, tip left lower quadrant. CONCLUSION: Nonobstructive bowel gas pattern. No evidence of free air. Favio Sneed MD on August 01, 2016 at 18:01 Board Certified Radiologist. This report was verified electronically.
[2016-08-01] MEDS: ENOXAPARIN SODIUM 40 MG/0.4 ML SYRINGE SQ SCH (19:57)
[2016-08-01 20:00] VITALS: BP 125/64; PULSE 86; RESP 20; TEMP 96.9; O2SAT 97
[2016-08-01] MEDS: QUEtiapine FUMARATE 25 MG TAB PO SCH (20:00)
[2016-08-01] MEDS: VENLAFAXINE HCL XR 75 MG CAP PO SCH (20:00)
[2016-08-01] MEDS: LEVOFLOXACIN 500 MG PREMIX INJ 100 ML IV SCH (20:00)
[2016-08-02] VITALS: BP 142/72; PULSE 81; RESP 18; TEMP 97; O2SAT 95
[2016-08-02] MEDS: metroNIDAZOLE 500 MG INJ 100 ML IV SCH ×3 (05:12→21:20)
[2016-08-02] MEDS: LACTATED RINGER'S 1000 ML INJ 1,000 ML IV SCH ×2 (05:14→17:51)
[2016-08-02 05:55] LABS: AUTOMATED NEUTROPHIL # 5.8 TH/MM3 (1.8-7.7); BASOPHIL % 0.4 % (0.0-2.0); EOSINOPHIL # 0.2 TH/MM3 (0-0.4); EOSINOPHIL % 2.4 % (0.0-4.0); HEMATOCRIT 33.2 % (39.0-51.0); HEMO FLAGS DIFF FINAL; LYMPH % 18.2 % (9.0-44.0); LYMPHOCYTE # 1.6 TH/MM3 (1.0-4.8); MEAN CELL VOLUME 90.6 FL (80.0-100.0); MEAN CORPUSCULAR HEMOGLOBIN 32.1 PG (27.0-34.0); MEAN CORPUSCULAR HGB CONC 35.4 % (32.0-36.0); MONO % 11.4 % (0.0-8.0); NEUT % 67.6 % (16.0-70.0); PLATELET COUNT 311 TH/MM3 (150-450); RED BLOOD COUNT 3.67 MIL/MM3 (4.50-5.90); RED CELL DISTRIBUTION WIDTH 12.9 % (11.6-17.2); WHITE BLOOD COUNT 8.5 TH/MM3 (4.0-11.0)
[2016-08-02 06:11] LABS: BICARBONATE 25.7 MEQ/L (21.0-32.0); POTASSIUM 3.4 MEQ/L (3.5-5.1)
[2016-08-02] MEDS: LORazepam 0.5 MG TAB PO SCH ×2 (06:54→17:51)
[2016-08-02 08:00] VITALS: BP 128/70; PULSE 90; RESP 17; TEMP 98.7; O2SAT 94
[2016-08-02] MEDS: SODIUM CHLORIDE 0.9% FLUSH 5 ML FLUSH FLUSH SCH ×2 (09:00→20:08)
[2016-08-02] MEDS: PANTOPRAZOLE SOD 40 MG DELAYED RELEASE TAB PO SCH (09:13)
[2016-08-02] MEDS: CHOLECALCIFEROL (VIT D3) 1000 UNIT TAB PO SCH (09:14)
[2016-08-02] MEDS: POLYETHYLENE GLYCOL 17 GM PKG PO SCH (09:14)
[2016-08-02] MEDS: TAMSULOSIN HCL 0.4 MG CAP PO SCH ×2 (09:14→20:47)
[2016-08-02] MEDS ORDERED: POTASSIUM CHLORIDE 20 MEQ CONTROLLED RELEASE TAB PO ONE (10:00)
[2016-08-02 12:00] VITALS: BP_SYST 126; BP_SYST 142; BP_DIAS 66; BP_DIAS 71; PULSE 64; PULSE 90; RESP 17; TEMP 94.6; TEMP 97.6; O2SAT 94; O2SAT 96
[2016-08-02] MEDS ORDERED: HALOPERIDOL LACTATE 5 MG/ML AMP IM ONE (13:30)
--- NOTE | 2016-08-02 15:00 | PD.CONS ---
HPI History of Present Illness This is a 81 year old male admitted with acute gastroenteritis, intractable abdominal pain, severe constipation and altered mental status. He had many episodes of N/V. He is feeling better today but still has some epigastric tenderness and nausea. His daughter is present at the bedside and states her father's vomiting has been a problem since July. He does have a history of ulcers and has not had an EGD for quite some time. He also has a Hx of irritable bowel with alternating diarrhea or constipation. last colonoscopy was one year ago and he was found to have a polyp. He had a previous subdural hematoma resulting in a shunt and she did notice some nausea/vomiting since that procedure. (Laura Currie) [facility] Past Medical History 1. Chronic Peptic Ulcer Disease. 2. Alcoholism. 3. Hyperlipidemia. 4. Cerebellar Degeneration. 5. Gait Disturbance. 6. Subdural Hematoma. 7. Normal Pressure Hydrocephalus. 8. Obstructive Sleep Apnea Syndrome. 9. Compression Fractures of Spine. 10. Depression. Past Surgical History Past Surgical History 1. Ventriculoperitoneal Shunt Placement. 2. Craniotomy with Evacuation of Subdural Hematoma. 3. Cholecystectomy. 4. Inguinal Hernia Repair. 5. Prostatectomy. 6. Colonoscopy. (Laura Currie) Coded Allergies: No Known Allergies (Verified , 06/13/16) Medications Reported Meds & Active Scripts Active Miralax Powder (Polyethylene Glycol 3350 Powder) 17 Gm Powd 17 Gm PO DAILY Mix and dissolve one measuring cap-ful (17 grams) in water or juice. Macrobid (Nitrofurantoin Monoh/Nitrofur Macro) 100 Mg Cap 100 Mg PO BID 10 Days Reported Vitamin D (Cholecalciferol) 2,000 Unit Tab 2,000 Units PO DAILY Calcium (Calcium Carbonate) 1,250 Mg Tab 1,200 Mg PO DAILY 1,250 mg calcium carbonate (500 mg elemental calcium) Super B-Complex (B-Complex W/Biotin & Folic Acid) 1 Cap 1 Cap PO Lorazepam 0.5 Mg Tab 0.5 Mg PO BID PRN Effexor (Venlafaxine HCl) 75 Mg Tab 150 Mg PO BID Nexium (Esomeprazole DR) 40 Mg Capdr 40 Mg PO DAILY Family History Family history is positive for blood cancers and has a sister with leukemia Social History Retired, non-smoker, strong Hx of alcohol use in the past. (Laura Currie ) Review of Systems Gastrointestinal: COMPLAINS OF: Abdominal pain (epigastric), Constipation, Diarrhea, Nausea, Vomiting, DENIES: Black stools, Difficulty Swallowing (Laura Currie) GI Exam Vitals I&O Vital Signs Date Time Temp Pulse Resp B/P Pulse Ox O2 Delivery O2 Flow Rate FiO2 08/02/16 12:00 94.6 64 17 142/66 96 08/02/16 12:00 97.6 90 17 126/71 94 08/02/16 08:00 98.7 90 17 128/70 94 08/02/16 00:00 97.0 81 18 142/72 95 08/01/16 20:00 96.9 86 20 125/64 97 08/01/16 16:00 96.6 88 17 133/63 96 I/O 08/01/16 08/01/16 08/01/16 08/02/16 08/02/16 08/02/16 07:00 15:00 23:00 07:00 15:00 23:00 Intake Total 812 ml 796 ml 791 ml 720 ml Output Total 450 ml 900 ml 650 ml 350 ml Balance 362 ml -104 ml 141 ml 370 ml Intake Oral 120 ml 240 ml 120 ml IV Total 692 ml 796 ml 551 ml 600 ml Output Urine Total 450 ml 900 ml 650 ml 350 ml # Bowel Movements 2 2 1 1 Imaging Last 72 hours Impressions Abdomen X-Ray 08/01/16 0000 Signed Impressions: Service Date/Time: Monday, August 01, 2016 17:17 - CONCLUSION: Nonobstructive bowel gas pattern. No evidence of free air. Favio Sneed MD Abdomen/Pelvis CT 07/30/16 1802 Signed Impressions: Service Date/Time: Saturday, July 30, 2016 18:19 - CONCLUSION: 1. Copious amount of stool in the rectum. No bowel obstruction. 2. Diverticulosis without diverticulitis. 3. Status post prostatectomy and cholecystectomy. Krunal Rodriguez MD Laboratory Test 08/02/16 04:48 White Blood Count 8.5 TH/MM3 Red Blood Count 3.67 MIL/MM3 Hemoglobin 11.8 GM/DL Hematocrit 33.2 % Mean Corpuscular Volume 90.6 FL Mean Corpuscular Hemoglobin 32.1 PG Mean Corpuscular Hemoglobin 35.4 % Concent Red Cell Distribution Width 12.9 % Platelet Count 311 TH/MM3 Mean Platelet Volume 7.4 FL Neutrophils (%) (Auto) 67.6 % Lymphocytes (%) (Auto) 18.2 % Monocytes (%) (Auto) 11.4 % Eosinophils (%) (Auto) 2.4 % Basophils (%) (Auto) 0.4 % Neutrophils # (Auto) 5.8 TH/MM3 Lymphocytes # (Auto) 1.6 TH/MM3 Monocytes # (Auto) 1.0 TH/MM3 Eosinophils # (Auto) 0.2 TH/MM3 Basophils # (Auto) 0.0 TH/MM3 CBC Comment DIFF FINAL Differential Comment Sodium Level 141 MEQ/L Potassium Level 3.4 MEQ/L Chloride Level 106 MEQ/L Carbon Dioxide Level 25.7 MEQ/L Anion Gap 9 MEQ/L Blood Urea Nitrogen 7 MG/DL Creatinine 0.87 MG/DL Estimat Glomerular Filtration 85 ML/MIN Rate Random Glucose 87 MG/DL Calcium Level 8.2 MG/DL Magnesium Level 2.0 MG/DL Physical Examination HEENT: Pupils round and reactive to light; normocephalic; atraumatic; no jaundice. Throat is clear. NECK: Neck is supple, no JVD, no lymphadenopathy. CHEST: Chest is clear to auscultation and percussion. CARDIAC: Regular rate and rhythm with no murmur gallop or rubs. ABDOMEN: Soft, nondistended, tender epigastric area; no hepatosplenomegaly; bowel sounds are present in all four quadrants. EXTREMITIES: No clubbing, cyanosis, or edema. SKIN: Normal; no rash; no jaundice. PECAN PICKER: No focal deficits; alert and oriented times three. (Laura Currie [facility]) Assessment and Plan Assessment: (1) Acute gastroenteritis Plan: Had N/V and severe accompanied by severe abdominal pain Abdomen X-Ray 08/01/16 -- Nonobstructive bowel gas pattern. No evidence of free air. Abdomen/Pelvis CT 07/30/16 > 1. Copious amount of stool in the rectum. No bowel obstruction. 2. Diverticulosis without diverticulitis. 3. Status post prostatectomy and cholecystectomy Has a Hx of Peptic ulcer disease N/V improved but still has epigastric tenderness (2) Nausea & vomiting Plan: Improving Continue antiemetics (3) Epigastric abdominal pain Plan: Has hx chronic peptic ulcer disease No EGD for many years Continue PPI Will schedule an EGD (4) Irritable bowel disease Plan: Has Hx of IBD Last colonoscopy was one year ago and showed polyps Plan Plan -IV fluids -Antiemetics PRN -Consent for EGD on Tuesday -EGD on Tuesday -Continue PPI -Supportive care Thank you for the consult Patient was seen and examined by and myself this note is written on his behalf. (Laura Currie) Physician Comments Seen and examined, plan as above, agree with management plan, will follow up with you. (Bobby Mcfadden MD) Problem Qualifiers (1) Nausea & vomiting: Qualified Code: R11.2 - Nausea and vomiting, intractability of vomiting not specified, unspecified vomiting type (2) Irritable bowel disease: Qualified Code: K58.2 - Irritable bowel syndrome with both constipation and diarrhea Laura Currie Aug 02, 2016 14:59 Bobby Mcfadden MD Aug 02, 2016 22:08
[2016-08-02 16:00] VITALS: BP 149/67; PULSE 83; RESP 17; TEMP 96.4; O2SAT 95
--- NOTE | 2016-08-02 16:42 | HHI.PR ---
Subjective Remarks He is to be seen by Gastroenterology. He continues to complain of abdominal pain and recurrent episodes of nausea. He had transient agitation and appeared to talk about people who were not real for his mental status. His appetite appears to be improving. Objective Vital Signs Date Time Temp Pulse Resp B/P Pulse Ox O2 Delivery O2 Flow Rate FiO2 08/02/16 16:00 96.4 83 17 149/67 95 08/02/16 12:00 94.6 64 17 142/66 96 08/02/16 12:00 97.6 90 17 126/71 94 08/02/16 08:00 98.7 90 17 128/70 94 08/02/16 00:00 97.0 81 18 142/72 95 08/01/16 20:00 96.9 86 20 125/64 97 I/O 08/01/16 08/01/16 08/01/16 08/02/16 08/02/16 08/02/16 07:00 15:00 23:00 07:00 15:00 23:00 Intake Total 812 ml 796 ml 791 ml 720 ml Output Total 450 ml 900 ml 650 ml 350 ml 600 ml Balance 362 ml -104 ml 141 ml 370 ml -600 ml Intake Oral 120 ml 240 ml 120 ml IV Total 692 ml 796 ml 551 ml 600 ml Output Urine Total 450 ml 900 ml 650 ml 350 ml 600 ml # Bowel Movements 2 2 1 1 3 Result Diagram: 08/02/168 08/02/16 0448 Objective Remarks GENERAL: Alert with some mental confusion for time. SKIN: Warm and dry. HEAD: Normocephalic. EYES: No scleral icterus. No injection or drainage. NECK: Supple, trachea midline. No JVD or lymphadenopathy. CARDIOVASCULAR: Regular rate and rhythm without murmurs, gallops, or rubs. RESPIRATORY: Breath sounds equal bilaterally. No accessory muscle use. GASTROINTESTINAL: Abdomen is soft with mild tenderness to palpation. It is nondistended. MUSCULOSKELETAL: No cyanosis, or edema. BACK: Mildly tender in the lower thoracic to upper lumbar areas without obvious deformity. No CVA tenderness. Assessment and Plan Assessment and Plan ASSESSMENT 1. Acute Gastroenteritis. 2. Intractable Nausea and Vomiting. 3. Intractable Abdominal Pain. 4. Acute Urinary Retention. 5. Severe Constipation. 6. Chronic Peptic Ulcer Disease. 7. Mental Confusion with some hallucinations. 8. Normal Pressure Hydrocephalus. 9. Cerebellar Dysfunction. PLAN 1. Consultation to Gastroenterology. 2. Continue with the current medications. 3. Follow up laboratory assessment. 4. Physical Therapy treatment. 5. DVT, PE and PUD prophylaxis. Enrique Silva MD Aug 02, 2016 16:42
[2016-08-02 20:00] VITALS: BP 149/87
[2016-08-02] MEDS ORDERED: LORazepam 2 MG/ML VIAL IV ONE (20:00)
[2016-08-02] MEDS: LEVOFLOXACIN 500 MG PREMIX INJ 100 ML IV SCH (20:05)
[2016-08-02] MEDS: ENOXAPARIN SODIUM 40 MG/0.4 ML SYRINGE SQ SCH (20:47)
[2016-08-02] MEDS: QUEtiapine FUMARATE 25 MG TAB PO SCH (20:47)
[2016-08-02] MEDS: VENLAFAXINE HCL XR 75 MG CAP PO SCH (20:48)
[2016-08-03] VITALS: BP 138/82; PULSE 88; RESP 22; TEMP 97.4; O2SAT 96
[2016-08-03] MEDS: LACTATED RINGER'S 1000 ML INJ 1,000 ML IV SCH ×3 (04:44→22:43)
[2016-08-03] MEDS: metroNIDAZOLE 500 MG INJ 100 ML IV SCH ×3 (04:44→19:55)
[2016-08-03] MEDS ORDERED: LORazepam 2 MG/ML VIAL IV ONE (04:45)
[2016-08-03 08:00] VITALS: BP 154/79; PULSE 94; RESP 16; TEMP 97.5; O2SAT 95
[2016-08-03] MEDS: SODIUM CHLORIDE 0.9% FLUSH 5 ML FLUSH FLUSH SCH ×2 (08:01→19:55)
[2016-08-03] MEDS: PANTOPRAZOLE SOD 40 MG DELAYED RELEASE TAB PO SCH (08:01)
[2016-08-03] MEDS: TAMSULOSIN HCL 0.4 MG CAP PO SCH ×2 (08:01→19:54)
[2016-08-03] MEDS: CHOLECALCIFEROL (VIT D3) 1000 UNIT TAB PO SCH (08:01)
[2016-08-03] MEDS: POLYETHYLENE GLYCOL 17 GM PKG PO SCH ×2 (08:02→08:04)
[2016-08-03] MEDS: LORazepam 0.5 MG TAB PO SCH ×2 (08:02→17:28)
--- NOTE | 2016-08-03 10:03 | HHI.GIFU ---
Subjective Remarks Resting in bed. Tolerating clears. No n/v. No abdominal pain. (Juana Lamas) Objective Vitals I&O Vital Signs Date Time Temp Pulse Resp B/P Pulse Ox O2 Delivery O2 Flow Rate FiO2 08/03/16 08:00 97.5 94 16 154/79 95 08/03/16 00:00 97.4 88 22 138/82 96 08/02/16 20:00 149/87 08/02/16 16:00 96.4 83 17 149/67 95 08/02/16 12:00 94.6 64 17 142/66 96 08/02/16 12:00 97.6 90 17 126/71 94 I/O 08/02/16 08/02/16 08/02/16 08/03/16 08/03/16 08/03/16 07:00 15:00 23:00 07:00 15:00 23:00 Intake Total 720 ml 903 ml 1040 ml 640 ml Output Total 350 ml 600 ml 850 ml 700 ml Balance 370 ml 303 ml 190 ml -60 ml Intake Oral 120 ml 240 ml 240 ml IV Total 600 ml 903 ml 800 ml 400 ml Output Urine Total 350 ml 600 ml 850 ml 700 ml # Bowel Movements 1 3 2 0 Imaging Last Impressions Abdomen X-Ray 08/01/16 0000 Signed Impressions: Service Date/Time: Monday, August 01, 2016 17:17 - CONCLUSION: Nonobstructive bowel gas pattern. No evidence of free air. Favio Sneed MD Abdomen/Pelvis CT 07/30/16 1802 Signed Impressions: Service Date/Time: Saturday, July 30, 2016 18:19 - CONCLUSION: 1. Copious amount of stool in the rectum. No bowel obstruction. 2. Diverticulosis without diverticulitis. 3. Status post prostatectomy and cholecystectomy. Krunal Rodriguez MD Physical Exam HEENT: Normocephalic; atraumatic; no jaundice. CHEST: CTA. CARDIAC: RRR. ABDOMEN: Soft, nondistended, nontender; no hepatosplenomegaly; bowel sounds are present in all four quadrants. EXTREMITIES: No clubbing, cyanosis, or edema. SKIN: Normal; no rash; no jaundice. INFORMATION TECHNOLOGY PROGRAM MANAGER: No focal deficits; alert and oriented to self and place (Lamas,Juana Blank [employer]) Assessment and Plan Plan ASSESSMENT: - Nausea, vomiting, epigastric pain, possibly gastroenteritis. Abdomen/Pelvis CT (07/30/16)----> 1. Copious amount of stool in the rectum. No bowel obstruction. 2. Diverticulosis without diverticulitis. 3. Status post prostatectomy and cholecystectomy. PPI. Clinically doing well. Plan for EGD in am. - Constipation. CT with copious amount of stool in the rectum, no bowel obstruction. KUB (08/01/16)-----> Nonobstructive bowel gas pattern. No evidence of free air. Miralax. + Multiple BMs. - Anemia. 11.8/33.2 No active bleeding. EGD in am - Mild elevation of lfts. T. Bili 0.6, AST 48, ALT 61, Alk phosph 120. CT unremarkable as far as biliary tract, s/p cholecystectomy PLAN: - Plan for egd in am - Obtain consents - Full liquids today - NPO after MN - Cont. PPI - Cont. Miralax - CBC in am - Supportive care - Further recommendations to follow based on results of above - Pt seen and examined by Dr. Sherman and myself and this note is written on his behalf (Juana Lamas) Physician Comments Patient was seen and examined, agree with above note. we will check labs, continue supportive care.EGD in am (Festus Sherman MD) Juana Lamas Aug 03, 2016 10:03 Festus Shemran MD Aug 03, 2016 21:41
[2016-08-03 10:59] LABS: AUTOMATED NEUTROPHIL # 6.9 TH/MM3 (1.8-7.7); BASOPHIL % 0.5 % (0.0-2.0); EOSINOPHIL # 0.1 TH/MM3 (0-0.4); EOSINOPHIL % 1.4 % (0.0-4.0); HEMATOCRIT 37.7 % (39.0-51.0); HEMO FLAGS DIFF FINAL; LYMPH % 17.9 % (9.0-44.0); LYMPHOCYTE # 1.8 TH/MM3 (1.0-4.8); MEAN CORPUSCULAR HEMOGLOBIN 31.4 PG (27.0-34.0); MEAN CORPUSCULAR HGB CONC 34.2 % (32.0-36.0); MONO % 10.6 % (0.0-8.0); NEUT % 69.6 % (16.0-70.0); PLATELET COUNT 362 TH/MM3 (150-450); RED BLOOD COUNT 4.09 MIL/MM3 (4.50-5.90); RED CELL DISTRIBUTION WIDTH 13.7 % (11.6-17.2); WHITE BLOOD COUNT 9.9 TH/MM3 (4.0-11.0)
[2016-08-03 11:11] LABS: BICARBONATE 24.3 MEQ/L (21.0-32.0); POTASSIUM 3.3 MEQ/L (3.5-5.1)
[2016-08-03 11:25] LABS: INDIRECT BILIRUBIN 0.3 MG/DL (0.0-0.8); THYROXINE (T4) 9.4 MCG/DL (4.5-12.1); TOTAL BILIRUBIN ADULT 0.5 MG/DL (0.2-1.0)
[2016-08-03 12:00] VITALS: BP 157/81; PULSE 100; RESP 17; TEMP 98.2; O2SAT 97
--- NOTE | 2016-08-03 15:58 | PD.CONS ---
Provisional Diagnosis Admission Date Jul 30, 2016 at 19:06 [place] I. Dementia without behavioral disturbances History of Present Illness Service Psychiatry Consult Requested By Primary Care Physician Enrique Silva MD HPI The patient is a 81 years old man, domiciled with in [place] , with psychiatric history of depression and dementia, no previous psychiatric hospitalizations, no previous suicidal attempts, he is on Effexor 225 mg clonazepam 0.5 mg twice a day prescribed by PCP, started on Seroquel 50 mg twice a day or behavior control, medical history of Chronic Peptic Ulcer Disease , Alcoholism, Hyperlipidemia, Cerebellar Degeneration, Gait Disturbance., Subdural Hematoma, Normal Pressure Hydrocephalus, Obstructive Sleep Apnea Syndrome, Compression Fractures of Spine, who was hospitalized this time due to urinary retention, abdominal pain and nausea. He was consulted to psychiatry due to visual hallucinations and recurrent agitation, especially at night. Chart was reviewed, case discussed with nurse in charge, collateral information from his daughter Demi Wiseman, was obtained, patient was evaluated at bedside in the medical floor. On psychiatric evaluation the patient is calm and cooperative, pleasantly demented and confused. Patient is stays that he is happy to be here with his parents and his house in [place]. He described his mood as"very good", he denies depressive symptoms, he denies anxiety, he denies pain or distress, he denies suicidal and homicidal ideation. He says that he loves the life he loves his family and he doesn't want to . He doesn't know the reason he is in the hospital, he does says that he had abdominal pain, and he is going frequent into the back to, but other than that he doesn't have any other complain. Patient is disoriented in time too, he says that he is nov 30 1974. He reports that he takes all his medication "because I want to get better ". Even though patient has visibly memory problems, he is fully alert, and he doesn't seem to have fluctuation of consciousness and attention deficit at this moment. No agitation or aggressive behavior are observed. No mood and behavior dysregulation are present at this moment. He denies visual and auditory hallucinations. He doesn't seem to be internally preoccupied, guarded , paranoid at this moment. Nurse reported the patient at night becomes combative and aggressive, his daughter states that this is not usual on her father. He is usually a very [place] and calm person. Review of Systems Constitutional: DENIES: Diaphoretic episodes, Fatigue, Fever, Weight gain, Weight loss, Chills, Dizziness, Change in appetite, Night Sweats Endocrine: DENIES: Heat/cold intolerance, Polydipsia, Polyuria, Polyphagia Eyes: DENIES: Blurred vision, Diplopia, Eye inflammation, Eye pain, Vision loss , Photosensitivity, Double Vision Respiratory: DENIES: Apneas, Cough, Snoring, Wheezing, Hemoptysis, Sputum production, Shortness of breath Gastrointestinal: COMPLAINS OF: Diarrhea, Nausea Musculoskeletal: DENIES: Joint pain, Muscle aches, Stiffness, Joint Swelling, Back pain, Neck pain Integumentary: DENIES: Abnormal pigmentation, Nail changes, Pruritus, Rash Hematologic/lymphatic: DENIES: Bruising, Lymphadenopathy Immunologic/allergic: DENIES: Eczema, Urticaria Neurologic: DENIES: Abnormal gait, Headache, Localized weakness, Paresthesias, Seizures, Speech Problems, Tremor, Poor Balance Psychiatric: COMPLAINS OF: Confusion Past Family Social History Coded Allergies: No Known Allergies (Verified , 06/13/16) Active Scripts Polyethylene Glycol 3350 Powder (Miralax Powder)17 Gm Powd17 Gm PO DAILY #1 BOTTLE Ref 0 Mix and dissolve one measuring cap-ful (17 grams) in water or juice. Prov:Jewels Hoover DO 07/30/16 Nitrofurantoin Monohydrate Macrocrystals (Macrobid)100 Mg [id number] Mg PO BID 10 Days Ref 0 Prov:Jewels Hoover DO 07/30/16 Reported Medications Cholecalciferol (Vitamin D)2,000 Unit Tab2,000 Units PO DAILY 06/14/16 Calcium Carbonate (Calcium)1,250 Mg Tab1,200 Mg PO DAILY 1,250 mg calcium carbonate (500 mg elemental calcium) 06/13/16 B-Complex W/Biotin & Folic Acid (Super B-Complex)1 Cap1 Cap PO #1 BOTTLE 06/13/16 Lorazepam 0.5 Mg Tab0.5 Mg PO BID PRN (ANXIETY) Ref 0 06/13/16 Venlafaxine (Effexor)75 Mg [id number] Mg PO BID #30 TAB Ref 0 06/13/[address] (Nexium)40 Mg Capdr40 Mg PO DAILY Ref 0 06/13/16 Current Medications Medications (Trade) Dose Ordered Sig/David Route Start Time Stop Time Status Last Admin (Lr 1000 ml Inj) 1,000 ml @ 100 mls/hr Q10H IV 07/30/16 20:00 08/03/16 13:03 (NS Flush) 2 ml UNSCH PRN FLUSH 07/30/16 20:00 (NS Flush) 2 ml BID FLUSH 07/30/16 21:00 07/30/16 20:10 (Tylenol) 650 mg Q4H PRN PO 07/30/16 20:00 07/31/16 04:46 (Zofran Inj) 4 mg Q6H PRN IVP 07/30/16 20:00 (Lovenox Inj) 40 mg Q24H SQ 07/30/16 21:00 Future Hold 08/01/16 19:57 Naloxone HCl 0.4 mg 0.4 mg UNSCH PRN IV 07/30/16 20:00 Metronidazole 100 ml @ 100 mls/hr Q8H IV 07/30/16 21:00 08/03/16 13:02 (Levaquin 500 Mg Premix Inj) 100 ml @ 100 mls/hr Q24H IV 07/30/16 20:00 08/02/16 20:05 (Flomax) 0.4 mg Q12HR PO 07/30/16 21:00 08/03/16 08:01 (Miralax) 17 gm DAILY PO 07/31/16 09:00 08/02/16 09:14 (Vitamin D3) 2,000 units DAILY PO 07/31/16 09:00 08/03/16 08:01 (Protonix) 40 mg DAILY PO 07/31/16 09:00 08/03/16 08:01 (Effexor Xr) 225 mg Q24H PO 07/30/16 21:00 08/01/16 20:00 (SEROquel) 50 mg HS PO 08/01/16 21:00 08/01/16 20:00 (Ativan) 0.5 mg BID@,17 PO 08/01/16 17:10 08/03/16 08:02 Physical Exam Vital Signs Vital Signs Date Time Temp Pulse Resp B/P Pulse Ox O2 Delivery O2 Flow Rate FiO2 08/03/16 12:00 98.2 100 17 157/81 97 07/30/16 20:23 Room Air I/O 08/02/16 08/02/16 08/03/16 08:00 16:00 00:00 Intake Total 720 ml 903 ml 1040 ml Output Total 350 ml 600 ml 850 ml Balance 370 ml 303 ml 190 ml Mental Status Examination Appearance man, overweight, age appearing, calm, superficially cooperative, confused demented Speech: Hesitant, Slow Orientation: Person Memory: Impaired (describe) Thought Process: Loose Association Thought Content: Unremarkable Attention and Concentration: Good Suicidal Ideation: No Homicidal Ideation: No Judgement: Poor Affect: Euthymic Mood: Euthymic Motor Activity: Normal gait Assessment & Plan Problem List: (1) Dementia with behavioral disturbance Assessment & Plan: The patient is a 81 years old man, with psychiatric history of depression and dementia, no previous psychiatric hospitalizations, no previous suicidal attempts, he is on Effexor 225 mg clonazepam 0.5 mg twice a day prescribed by PCP, started on Seroquel 50 mg twice a day or behavior control, medical history of Chronic Peptic Ulcer Disease , Alcoholism, Hyperlipidemia, Cerebellar Degeneration, Gait Disturbance., Subdural Hematoma, Normal Pressure Hydrocephalus, Obstructive Sleep Apnea Syndrome, Compression Fractures of Spine, who was hospitalized this time due to urinary retention, abdominal pain and nausea. He was consulted to psychiatry due to visual hallucinations and recurrent agitation, especially at night. On psychiatric evaluation the patient does not present any evident subjective or objective depression, anxiety, saranya or perceptual disturbances. He is pleasantly demented and confused, which is his baseline, as per daughter, disoriented in time and place, tangential, unable to provide meaningful information for psychiatric assessment. However, no paranoia, delusions, internal preoccupation, visual, auditory hallucinations, aggressive behavior or agitation could not be elicited during this event. No behavior or mood disorder regression could be observed. He was alert, attentive, without any fluctuation of consciousness or attention deficit. Since patient has several risk factors for delirium, it is highly probable that his presenting sundowning at night as a cause of his described agitation and combativeness. Frequent reorientation, sensory stimulation, a familiar face at bedside, visible o'clock and calendar, appropriate like and really help to avoid this episode. Seroquel 50 mg twice a day can really help, if patient continued to be agitated at night Seroquel can be increased at 100 mg at bedtime. He can continue continue clonazepam 0.5 mg and Effexor to 225 mg daily for depression. Patient does not meet criteria for psychiatric admission at this moment. We will continue follow -up. ICD Code: F03.91 Assessment & Plan Estimated LOS: days Problem Qualifiers (1) Dementia with behavioral disturbance: Qualified Code: F01.51 - Vascular dementia with behavior disturbance Shlomo Bolton MD Aug 03, 2016 15:57
[2016-08-03 16:00] VITALS: BP 167/81; PULSE 87; RESP 18; TEMP 98.4; O2SAT 96
[2016-08-03] MEDS: VENLAFAXINE HCL XR 75 MG CAP PO SCH (19:54)
[2016-08-03] MEDS: LEVOFLOXACIN 500 MG PREMIX INJ 100 ML IV SCH (19:54)
[2016-08-03] MEDS: ENOXAPARIN SODIUM 40 MG/0.4 ML SYRINGE SQ SCH (19:54)
[2016-08-03] MEDS: QUEtiapine FUMARATE 25 MG TAB PO SCH (19:54)
[2016-08-03 20:00] VITALS: BP 146/84; PULSE 89; RESP 20; TEMP 97; O2SAT 96
--- NOTE | 2016-08-03 20:36 | HHI.PR ---
Subjective Remarks He is to be seen by Gastroenterology as well as by Psychiatry today. He is being monitored on the current medication regimen for control of the agitation and hallucinogenic type mental behavior. He currently appears to be calm and shows no agitation. He appears to be tolerating the medications well. Objective Vital Signs Date Time Temp Pulse Resp B/P Pulse Ox O2 Delivery O2 Flow Rate FiO2 08/03/16 16:00 98.4 87 18 167/81 96 08/03/16 12:00 98.2 100 17 157/81 97 08/03/16 08:00 97.5 94 16 154/79 95 08/03/16 00:00 97.4 88 22 138/82 96 I/O 08/02/16 08/02/16 08/02/16 08/03/16 08/03/16 08/03/16 07:00 15:00 23:00 07:00 15:00 23:00 Intake Total 720 ml 903 ml 1040 ml 640 ml 1621 ml Output Total 350 ml 600 ml 850 ml 700 ml 1000 ml Balance 370 ml 303 ml 190 ml -60 ml 621 ml Intake Oral 120 ml 240 ml 240 ml 810 ml IV Total 600 ml 903 ml 800 ml 400 ml 811 ml Output Urine Total 350 ml 600 ml 850 ml 700 ml 1000 ml # Bowel Movements 1 3 2 0 4 Result Diagram: 08/03/16 1021 08/03/16 1021 Objective Remarks GENERAL: Alert with some continued mental confusion for time. SKIN: Warm and dry. HEAD: Normocephalic. EYES: No scleral icterus. No injection or drainage. NECK: Supple, trachea midline. No JVD or lymphadenopathy. CARDIOVASCULAR: Regular rate and rhythm without murmurs, gallops, or rubs. RESPIRATORY: Breath sounds equal bilaterally. No accessory muscle use. GASTROINTESTINAL: Abdomen is soft with mild tenderness to palpation. It is nondistended. MUSCULOSKELETAL: No cyanosis, or edema. BACK: Mildly tender in the lower thoracic to upper lumbar areas without obvious deformity. No CVA tenderness. Assessment and Plan Assessment and Plan ASSESSMENT 1. Acute Gastroenteritis. 2. Intractable Nausea and Vomiting. 3. Intractable Abdominal Pain. 4. Acute Urinary Retention. 5. Severe Constipation. 6. Chronic Peptic Ulcer Disease. 7. Mental Confusion with some hallucinations. 8. Normal Pressure Hydrocephalus. 9. Cerebellar Dysfunction. PLAN 1. Continue follow up by Gastroenterology and Psychiatry. 2. Continue with the current medications. 3. Follow up laboratory assessment. 4. Physical Therapy treatment. 5. DVT, PE and PUD prophylaxis. Enrique Silva MD Aug 03, 2016 20:36
[2016-08-04] VITALS (8 sets, daily range): BP systolic 119–151; BP diastolic 64–82; PULSE 74–102; RESP 17–22; TEMP 96.3–98.5; O2SAT 92–97
[2016-08-04] MEDS: LACTATED RINGER'S 1000 ML IV SCH ×2 (01:14→21:25)
[2016-08-04] MEDS: metroNIDAZOLE 500 MG INJ 100 ML IV SCH ×3 (04:35→20:10)
[2016-08-04 06:36] LABS: BASOPHIL # 0.1 TH/MM3 (0-0.2); BASOPHIL % 0.7 % (0.0-2.0); EOSINOPHIL # 0.2 TH/MM3 (0-0.4); EOSINOPHIL % 2.6 % (0.0-4.0); HEMATOCRIT 34.7 % (39.0-51.0); HEMO FLAGS DIFF FINAL; LYMPH % 21.3 % (9.0-44.0); MEAN CELL VOLUME 90.9 FL (80.0-100.0); MEAN CORPUSCULAR HEMOGLOBIN 31.7 PG (27.0-34.0); MEAN CORPUSCULAR HGB CONC 34.9 % (32.0-36.0); NEUT % 64.4 % (16.0-70.0); PLATELET COUNT 369 TH/MM3 (150-450); RED BLOOD COUNT 3.82 MIL/MM3 (4.50-5.90); WHITE BLOOD COUNT 9.4 TH/MM3 (4.0-11.0)
[2016-08-04 06:58] LABS: BICARBONATE 24.5 MEQ/L (21.0-32.0); MAGNESIUM 1.7 MG/DL (1.5-2.5); POTASSIUM 3.3 MEQ/L (3.5-5.1)
[2016-08-04 07:01] LABS: INDIRECT BILIRUBIN 0.3 MG/DL (0.0-0.8); TOTAL BILIRUBIN ADULT 0.4 MG/DL (0.2-1.0)
[2016-08-04] MEDS: CHOLECALCIFEROL (VIT D3) 1000 UNIT TAB PO SCH (08:30)
[2016-08-04] MEDS: SODIUM CHLORIDE 0.9% FLUSH 5 ML FLUSH FLUSH SCH ×2 (08:30→20:15)
[2016-08-04] MEDS: LORazepam 0.5 MG TAB PO SCH ×2 (08:30→16:50)
[2016-08-04] MEDS: TAMSULOSIN HCL 0.4 MG CAP PO SCH ×2 (08:30→20:10)
[2016-08-04] MEDS: POLYETHYLENE GLYCOL 17 GM PKG PO SCH (08:30)
[2016-08-04] MEDS: PANTOPRAZOLE SOD 40 MG DELAYED RELEASE TAB PO SCH (08:30)
[2016-08-04] MEDS: LACTATED RINGER'S 1000 ML INJ 1,000 ML IV SCH ×2 (08:30→20:15)
[2016-08-04] MEDS ORDERED: POTASSIUM CHLORIDE 20 MEQ CONTROLLED RELEASE TAB PO ONE ×2 (09:00→16:00)
[2016-08-04] MEDS ORDERED: PROPOFOL 200 MG/20 ML AMP IV ONE (10:03)
--- NOTE | 2016-08-04 10:42 | HHI.GIFU ---
Subjective Remarks feels ok, mild abdominal discomfort Objective Vitals I&O Vital Signs Date Time Temp Pulse Resp B/P Pulse Ox O2 Delivery O2 Flow Rate FiO2 08/04/16 08:45 97.1 89 17 151/74 96 08/04/16 08:00 97.1 89 17 151/74 96 08/04/16 04:00 97.6 90 22 136/82 97 08/04/16 00:00 97.4 74 20 136/82 95 08/03/16 20:00 97.0 89 20 146/84 96 08/03/16 16:00 98.4 87 18 167/81 96 08/03/16 12:00 98.2 100 17 157/81 97 I/O 08/03/16 08/03/16 08/03/16 08/04/16 08/04/16 08/04/16 07:00 15:00 23:00 07:00 15:00 23:00 Intake Total 640 ml 1621 ml 1130 ml 860 ml Output Total 700 ml 1000 ml 800 ml Balance -60 ml 621 ml 1130 ml 60 ml Intake Oral 240 ml 810 ml 540 ml 0 ml IV Total 400 ml 811 ml 590 ml 860 ml Output Urine Total 700 ml 1000 ml 800 ml # Bowel Movements 0 4 2 Laboratory Laboratory Tests Test 08/04/16 05:02 White Blood Count 9.4 Red Blood Count 3.82 Hemoglobin 12.1 Hematocrit 34.7 Mean Corpuscular Volume 90.9 Mean Corpuscular Hemoglobin 31.7 Mean Corpuscular Hemoglobin 34.9 Concent Red Cell Distribution Width 13.0 Platelet Count 369 Mean Platelet Volume 7.3 Neutrophils (%) (Auto) 64.4 Lymphocytes (%) (Auto) 21.3 Monocytes (%) (Auto) 11.0 Eosinophils (%) (Auto) 2.6 Basophils (%) (Auto) 0.7 Neutrophils # (Auto) 6.0 Lymphocytes # (Auto) 2.0 Monocytes # (Auto) 1.0 Eosinophils # (Auto) 0.2 Basophils # (Auto) 0.1 CBC Comment DIFF FINAL Differential Comment Sodium Level 141 Potassium Level 3.3 Chloride Level 104 Carbon Dioxide Level 24.5 Anion Gap 13 Blood Urea Nitrogen 3 Creatinine 0.90 Estimat Glomerular Filtration 81 Rate Random Glucose 86 Calcium Level 8.5 Magnesium Level 1.7 Total Bilirubin 0.4 Direct Bilirubin 0.1 Indirect Bilirubin 0.3 Aspartate Amino Transf 57 (AST/SGOT) Alanine Aminotransferase 78 (ALT/SGPT) Alkaline Phosphatase 104 Total Protein 6.0 Albumin 2.7 Physical Exam HEENT: Normocephalic; atraumatic; no jaundice. CHEST: CTA. CARDIAC: RRR. ABDOMEN: Soft, nondistended, nontender; no hepatosplenomegaly; bowel sounds are present in all four quadrants. EXTREMITIES: No clubbing, cyanosis, or edema. SKIN: Normal; no rash; no jaundice. LICENSED THERAPIST: No focal deficits; alert and oriented to self and place Assessment and Plan Assessment: (1) Acute gastroenteritis Plan: Had N/V and severe accompanied by severe abdominal pain Abdomen X-Ray 08/01/16 -- Nonobstructive bowel gas pattern. No evidence of free air. Abdomen/Pelvis CT 07/30/16 > 1. Copious amount of stool in the rectum. No bowel obstruction. 2. Diverticulosis without diverticulitis. 3. Status post prostatectomy and cholecystectomy Has a Hx of Peptic ulcer disease N/V improved and less epigastric tenderness EGD today showed small H. Hernia, mild gastritis, O/W normal (2) Nausea & vomiting Plan: Improving Continue antiemetics as needed (3) Epigastric abdominal pain Plan: Has hx chronic peptic ulcer disease, no ulcer on today's EGD Continue PPI (4) Irritable bowel disease Plan: Has Hx of IBD Last colonoscopy was one year ago and showed polyps Plan ASSESSMENT: - Nausea, vomiting, epigastric pain, possibly gastroenteritis. Abdomen/Pelvis CT (07/30/16)----> 1. Copious amount of stool in the rectum. No bowel obstruction. 2. Diverticulosis without diverticulitis. 3. Status post prostatectomy and cholecystectomy. PPI. Clinically doing well. Plan for EGD in am. - Constipation. CT with copious amount of stool in the rectum, no bowel obstruction. KUB (08/01/16)-----> Nonobstructive bowel gas pattern. No evidence of free air. Miralax. + Multiple BMs. - Anemia. 11.8/33.2 No active bleeding. EGD done today pls see results - Mild elevation of lfts. T. Bili 0.6, AST 48, ALT 61, Alk phosph 120. CT unremarkable as far as biliary tract, s/p cholecystectomy PLAN: - ANDREW - NPO after MN - Cont. PPI - Cont. Miralax - Supportive care , we will sign off Problem Qualifiers (1) Nausea & vomiting: Qualified Code: R11.2 - Nausea and vomiting, intractability of vomiting not specified, unspecified vomiting type (2) Irritable bowel disease: Qualified Code: K58.2 - Irritable bowel syndrome with both constipation and diarrhea Festus Sherman MD Aug 04, 2016 10:42
[2016-08-04] MEDS: MAGNESIUM SULFATE 1 GM PREMIX 100 ML IV SCH ×2 (11:43→12:59)
[2016-08-04] MEDS ORDERED: HALOPERIDOL LACTATE 5 MG/ML AMP IM ONE (16:00)
--- NOTE | 2016-08-04 17:39 | HHI.PR ---
Subjective Remarks He had endoscopic procedure done today. He continues follow up by Gastroenterology and by Psychiatry. He continues to be monitored on the current medication regimen for adjustments to establish control of the agitation and hallucinogenic type mental behavior. He was calm earlier and now shows some agitation in the latter part of this evening. He appears to be tolerating the medications well. Laboratory results showed low potassium and low magnesium levels today. Objective Vital Signs Date Time Temp Pulse Resp B/P Pulse Ox O2 Delivery O2 Flow Rate FiO2 08/04/16 16:00 98.5 102 18 119/66 92 08/04/16 12:00 96.3 90 18 150/82 95 08/04/16 10:22 86 16 112/65 98 08/04/16 10:17 87 16 108/63 98 08/04/16 10:12 97.4 90 16 107/63 95 08/04/16 08:45 97.1 89 17 151/74 96 08/04/16 08:00 97.1 89 17 151/74 96 08/04/16 04:00 97.6 90 22 136/82 97 08/04/16 00:00 97.4 74 20 136/82 95 08/03/16 20:00 97.0 89 20 146/84 96 I/O 08/03/16 08/03/16 08/03/16 08/04/16 08/04/16 08/04/16 06:59 14:59 22:59 06:59 14:59 22:59 Intake Total 640 ml 1621 ml 1130 ml 860 ml 1345 ml Output Total 700 ml 1000 ml 800 ml 900 ml Balance -60 ml 621 ml 1130 ml 60 ml 445 ml Intake Oral 240 ml 810 ml 540 ml 0 ml 120 ml IV Total 400 ml 811 ml 590 ml 860 ml 1225 ml Output Urine Total 700 ml 1000 ml 800 ml 900 ml # Bowel Movements 0 4 2 2 Result Diagram: 08/04/16 0502 08/04/16 0502 Objective Remarks GENERAL: Alert with some continued mental confusion for time. SKIN: Warm and dry. HEAD: Normocephalic. EYES: No scleral icterus. No injection or drainage. NECK: Supple, trachea midline. No JVD or lymphadenopathy. CARDIOVASCULAR: Regular rate and rhythm without murmurs, gallops, or rubs. RESPIRATORY: Breath sounds equal bilaterally. No accessory muscle use. GASTROINTESTINAL: Abdomen is soft with mild tenderness to palpation. It is nondistended. MUSCULOSKELETAL: No cyanosis, or edema. BACK: Mildly tender in the lower thoracic to upper lumbar areas without obvious deformity. No CVA tenderness. Assessment and Plan Assessment and Plan ASSESSMENT 1. Acute Gastroenteritis. 2. Intractable Nausea and Vomiting. 3. Intractable Abdominal Pain. 4. Acute Urinary Retention. 5. Severe Constipation. 6. Chronic Peptic Ulcer Disease. 7. Mental Confusion with some hallucinations. 8. Normal Pressure Hydrocephalus. 9. Cerebellar Dysfunction. 10. Hypomagnesemia and Hypokalemia. PLAN 1. Continue follow up by Gastroenterology and Psychiatry. 2. Adjust the medications for better agitation control. 3. Potassium and Magnesium repletion. 4. Physical Therapy treatment. 5. DVT, PE and PUD prophylaxis. Enrique Silva MD Aug 04, 2016 17:39
[2016-08-04] MEDS: VENLAFAXINE HCL XR 75 MG CAP PO SCH (20:10)
[2016-08-04] MEDS: QUEtiapine FUMARATE 25 MG TAB PO SCH (20:10)
[2016-08-04] MEDS: LEVOFLOXACIN 500 MG PREMIX INJ 100 ML IV SCH (20:11)
[2016-08-05] MEDS: metroNIDAZOLE 500 MG INJ 100 ML IV SCH ×3 (05:12→19:33)
[2016-08-05] MEDS: LACTATED RINGER'S 1000 ML INJ 1,000 ML IV SCH ×2 (05:12→17:58)
[2016-08-05 08:00] VITALS: BP 121/62; PULSE 83; RESP 17; TEMP 97.7; O2SAT 94
[2016-08-05] MEDS: SODIUM CHLORIDE 0.9% FLUSH 5 ML FLUSH FLUSH SCH ×2 (09:00→19:32)
[2016-08-05] MEDS: CHOLECALCIFEROL (VIT D3) 1000 UNIT TAB PO SCH (09:49)
[2016-08-05] MEDS: TAMSULOSIN HCL 0.4 MG CAP PO SCH ×2 (09:49→19:34)
[2016-08-05] MEDS: LORazepam 0.5 MG TAB PO SCH ×2 (09:49→17:57)
[2016-08-05] MEDS: PANTOPRAZOLE SOD 40 MG DELAYED RELEASE TAB PO SCH (09:49)
[2016-08-05] MEDS: POLYETHYLENE GLYCOL 17 GM PKG PO SCH (09:49)
[2016-08-05 12:00] VITALS: BP 127/67; PULSE 88; RESP 16; TEMP 96.5; O2SAT 95
[2016-08-05 16:00] VITALS: BP 143/75; PULSE 86; RESP 17; TEMP 97.3; O2SAT 96
[2016-08-05] MEDS: LEVOFLOXACIN 500 MG PREMIX INJ 100 ML IV SCH (19:32)
[2016-08-05] MEDS: VENLAFAXINE HCL XR 75 MG CAP PO SCH (19:33)
[2016-08-05] MEDS: QUEtiapine FUMARATE 25 MG TAB PO SCH (19:34)
[2016-08-05 20:00] VITALS: BP 139/74; PULSE 79; RESP 19; TEMP 96.6; O2SAT 96
[2016-08-06] VITALS: BP 120/77; PULSE 93; RESP 19; TEMP 97.5; O2SAT 94
[2016-08-06] MEDS: LACTATED RINGER'S 1000 ML IV SCH (01:00)
[2016-08-06] MEDS: metroNIDAZOLE 500 MG INJ 100 ML IV SCH ×2 (04:06→12:16)
[2016-08-06] MEDS: LACTATED RINGER'S 1000 ML INJ 1,000 ML IV SCH ×2 (04:08→12:15)
[2016-08-06 08:00] VITALS: BP 140/85; PULSE 90; RESP 20; TEMP 97.7; O2SAT 97
[2016-08-06] MEDS: CHOLECALCIFEROL (VIT D3) 1000 UNIT TAB PO SCH (08:08)
[2016-08-06] MEDS: POLYETHYLENE GLYCOL 17 GM PKG PO SCH (08:08)
[2016-08-06] MEDS: SODIUM CHLORIDE 0.9% FLUSH 5 ML FLUSH FLUSH SCH (08:08)
[2016-08-06] MEDS: LORazepam 0.5 MG TAB PO SCH (08:08)
[2016-08-06] MEDS: TAMSULOSIN HCL 0.4 MG CAP PO SCH (08:08)
[2016-08-06] MEDS: PANTOPRAZOLE SOD 40 MG DELAYED RELEASE TAB PO SCH (08:08)
--- NOTE | 2016-08-06 09:05 | HHI.PR ---
Subjective Remarks He does not have any new adverse changes reported. Current intake appears to be okay. Current medications appear to be tolerated. Objective Vital Signs Date Time Temp Pulse Resp B/P Pulse Ox O2 Delivery O2 Flow Rate FiO2 08/06/16 08:00 97.7 90 20 140/85 97 08/06/16 00:00 97.5 93 19 120/77 94 08/05/16 20:00 96.6 79 19 139/74 96 08/05/16 16:00 97.3 86 17 143/75 96 08/05/16 12:00 96.5 88 16 127/67 95 I/O 08/05/16 08/05/16 08/05/16 08/06/16 08/06/16 08/06/16 07:00 15:00 23:00 07:00 15:00 23:00 Intake Total 1330 ml 1662 ml 706 ml 1200 ml Output Total 1800 ml 1600 ml 2000 ml 950 ml Balance -470 ml 62 ml -1294 ml 250 ml Intake Oral 480 ml 840 ml 120 ml 360 ml IV Total 850 ml 822 ml 586 ml 840 ml Output Urine Total 1800 ml 1600 ml 2000 ml 950 ml # Bowel Movements 1 0 1 2 Result Diagram: 08/04/16 0502 08/04/16 0502 Objective Remarks GENERAL: Alert with improved status for mental confusion. SKIN: Warm and dry. HEAD: Normocephalic. EYES: No scleral icterus. No injection or drainage. NECK: Supple, trachea midline. No JVD or lymphadenopathy. CARDIOVASCULAR: Regular rate and rhythm without murmurs, gallops, or rubs. RESPIRATORY: Breath sounds equal bilaterally. No accessory muscle use. GASTROINTESTINAL: Abdomen is soft with mild tenderness to palpation. It is nondistended. MUSCULOSKELETAL: No cyanosis, or edema. BACK: Mildly tender in the lower thoracic to upper lumbar areas without obvious deformity. No CVA tenderness. Assessment and Plan Assessment and Plan ASSESSMENT 1. Acute Gastroenteritis. 2. Intractable Nausea and Vomiting. 3. Intractable Abdominal Pain. 4. Acute Urinary Retention. 5. Severe Constipation. 6. Chronic Peptic Ulcer Disease. 7. Mental Confusion with some hallucinations. 8. Normal Pressure Hydrocephalus. 9. Cerebellar Dysfunction. 10. Hypomagnesemia and Hypokalemia. OVERALL, MEDICAL STATUS IS IMPROVED. PLAN 1. Continue with the current medication regimen. 2. Activity as per Physical Therapy. 3. Discharge Planning. OKAY TO GO TO SNF FOR REHAB TODAY. Enrique Silva MD Aug 06, 2016 09:04
[2016-08-06] MEDS ORDERED: LORA-392 PO (09:14)
[2016-08-06] MEDS ORDERED: QUET1TAB7 PO (09:14)
[2016-08-06] MEDS ORDERED: TAMS5CAP PO (09:14)
[2016-08-06 12:00] VITALS: BP 143/84; PULSE 103; RESP 20; TEMP 97.9; O2SAT 93
[2016-08-16] MEDS ORDERED: TRAM50TA (09:09)
[2016-08-16] MEDS ORDERED: KETO2SHA (09:09)
[2016-08-16] MEDS ORDERED: PRAV20TA2 (09:09)
[2016-08-16] MEDS ORDERED: DOXY50 (09:09)
[2016-08-16] MEDS ORDERED: AZEL0.056 (09:09)
[2016-08-16] MEDS ORDERED: DESO0.0560 (09:09)
[2016-08-16] MEDS ORDERED: FLUO0.0121 (09:09)
[2016-08-16] MEDS ORDERED: MICR1TAB (09:09)
[2016-08-16] MEDS ORDERED: PYRI60 (09:09)
[2016-08-16] MEDS ORDERED: LORA-373 (09:09)
[2016-08-16] MEDS ORDERED: BACT800T5 PO (09:58)
[2016-10-05] MEDS ORDERED: LEVE500 PO (09:50)
--- NOTE | 2017-01-05 08:14 | MD ---
cc: ROHIT SILVA M.D. ADMISSION DATE: 07/30/2016 DISCHARGE DATE: 08/06/2016 ADMITTING DIAGNOSIS Intractable abdominal pain. DISCHARGE DIAGNOSIS 1. Acute gastroenteritis. 2. Intractable nausea and vomiting. 3. Intractable abdominal pain. 4. Acute urinary retention. 5. Severe constipation. 6. Chronic peptic ulcer disease. 7. Mental confusion with hallucinations. 8. Normal pressure hydrocephalus. 9. Cerebellar dysfunction with ataxia. 10.Hypomagnesemia. 11.Hypokalemia. BRIEF HISTORY This patient is a 81-year-old male who presented with mental status changes and had complaints of severe abdominal pain. The patient had difficulty for any reasonable urination as well. With the symptoms persisting he also had nausea and multiple vomiting episodes. The patient had a major concern for the abdominal and urinary status. For this reason he was transported to the [facility] Department for evaluation. There had been no recent illness or any major trauma. The patient was stabilized and found on presentation to have gastroenteritis in the setting of urinary tract infection. He was admitted to the hospital in this regard. PERTINENT PHYSICAL FINDINGS GENERAL: The patient was alert and periodically with some confused state. HEART: Regular rhythm with S1 and S2 distinct. LUNGS: Clear bilaterally to auscultation. ABDOMEN: Soft with presentation of upper region tenderness. Bowel sounds were mildly hyperactive to exam. EXTREMITIES: Good range of motion. Pulses 2+/4+ and no peripheral edema. NEUROLOGIC: The patient's gait was unsteady. The patient otherwise displayed no lateralizing focal motor deficits to exam. HOSPITAL COURSE The patient was admitted to the hospital and had intravenous hydration with electrolyte repletion. Consultation was made to urology as well as to gastroenterology. Cathartic agents were used for bowel evacuation of excessive stool. Close monitoring of the patient's intake and output was done as well as follow-up of laboratory investigations. With the evaluation by gastroenterology it was felt that the patient would be considered conservatively managed with regard to gastroenteritis and try to establish a bowel regimen with consistent bowel movements. Urology recommended the placement of a urinary catheter for this patient and also felt the patient could benefit from an agent to help with motility of the urinary tract. There was concern for paraphimosis. With the recommendations in place the patient was continued with intravenous hydration, electrolyte replacement and evacuation of the bowel. Discussion was done with the family with regard to the patient's discharge status and recommendation. The family was for a rehabilitation center for the patient to get stronger. With the patient's mental status being of concern consultation also had been made to psychiatry in this regard. It was felt that the patient should be treated conservatively and antidepressant medication would be utilized. He was to be monitored whether or not his hallucinations were to remain consistent or get any worse. This did not occur for the patient and psychiatry deferred to conservative management of the patient's status. With the improvement of his gastrointestinal tract his activity was advanced with physical therapy. On 08/06/2016 the patient appeared with much improved status and discharge disposition was that he was stable for medical discharge on this date. Case Management had been contacted and arrangements were being made for the patient to go to a rehabilitation center. DISCHARGE DISPOSITION Diet: The patient will be on a general healthful diet. Medications: Vitamin-B complex, one daily. Calcium carbonate 1200 mg daily. Vitamin-D3 2000 IU daily. Nexium 40 mg daily. Keppra 500 mg b.i.d. Lorazepam 1 mg q.h.s. Namenda 5 mg daily. Tamsulosin 0.4 mg q.12h. Venlafaxine 75 mg b.i.d. Activity: As per physical therapy at the rehabilitation center. Follow-up: The patient will be discharged to a rehab center for continued rehabilitation on his behalf. It is recommended the patient see Dr. Silva one week after discharge from the rehab center. MD SEVERIANO Jacobsen/BT /12:58 PM /7:45 AM
== END 2016-08-06 13:52 | DRG 392 ==
LOC: NEPA 16:51 → OBSVTOIN 19:06 → NEDA 19:06 → N07A 22:16
PROVIDERS: ADMIT Internal Medicine; ATTEND Internal Medicine
PROC: 0T9B70Z Drainage of Bladder with Drainage Device, Via Natural or Artificial Opening (ICD-10-PCS; 2016-07-30)
PROC: 0VNTXZZ Release Prepuce, External Approach (ICD-10-PCS; 2016-08-01)
PROC: 0DB68ZX Excision of Stomach, Via Natural or Artificial Opening Endoscopic, Diagnostic (ICD-10-PCS; 2016-08-04)
PROC: 0DB48ZX Excision of Esophagogastric Junction, Via Natural or Artificial Opening Endoscopic, Diagnostic (ICD-10-PCS; principal; 2016-08-04 09:30)
DX: K52.9 Noninfective gastroenteritis and colitis, unspecified (principal); F01.51 Vascular dementia, unspecified severity, with behavioral disturbance; G91.2 (Idiopathic) normal pressure hydrocephalus; R33.9 Retention of urine, unspecified; G93.89 Other specified disorders of brain; E83.42 Hypomagnesemia; E87.6 Hypokalemia; N47.2 Paraphimosis; K58.1 Irritable bowel syndrome with constipation; R31.9 Hematuria, unspecified; D64.9 Anemia, unspecified; K29.70 Gastritis, unspecified, without bleeding; K57.30 Diverticulosis of large intestine without perforation or abscess without bleeding; K27.7 Chronic peptic ulcer, site unspecified, without hemorrhage or perforation; K44.9 Diaphragmatic hernia without obstruction or gangrene; G47.33 Obstructive sleep apnea (adult) (pediatric); F32.9 Major depressive disorder, single episode, unspecified; E78.5 Hyperlipidemia, unspecified; K21.9 Gastro-esophageal reflux disease without esophagitis; Z91.81 History of falling; Z98.2 Presence of cerebrospinal fluid drainage device; Z87.891 Personal history of nicotine dependence
CPT/HCPCS: 51702; 74020; 74176; 80048; 80053; 80076; 81001; 82607; 82746; 83735; 84436; 84443; 85025; 85610; 85730; 86592; 88305; 88312; 96361; 96374; 96375; J1630; J1650; J1956; J2060; J2270; J2405; J3475; J7030; J7120

== ENCOUNTER 2016-09-17 18:35 | Inpatient (IN) | payer MEDICARE ==
[~2016-09-17] VITALS: Ht 170.2 cm; Wt 88.3 kg
[~2016-09-17 18:35] MED LIST changes: +AZEL0.056; +BACT800T5 PO; +DESO0.0560; +DOXY50; +FLUO0.0121; +KETO2SHA; +LORA-373; -LORA-373 PO; +LORA-392 PO; +MICR1TAB; +MIRA33504 PO; +PRAV20TA2; +PYRI60; +QUET1TAB7 PO; +TAMS5CAP PO; +TRAM50TA
[2016-09-17 18:40] VITALS: BP 109/57; PULSE 102; RESP 14; TEMP 97.6; O2SAT 95
--- NOTE | 2016-09-17 20:13 | PD ---
HPI . Worsening AMX x 2 days Chief Complaint: Altered Mental Status Time Seen by Provider: 20:00 Travel History International Travel<30 days: No Contact w/Intl Traveler<30days: No Traveled to known affect area: No History of Present Illness HPI 81 yr old male with past medical history significant for chronic peptic ulcer disease, alcoholism in remission for 2 years now, hyperlipidemia, cerebellar degeneration, gait disturbance, subdural hematoma in March 2014 status post craniotomy then, Parkinson's, normal pressure hydrocephalus with [employer] shunt in 2016, vascular dementia, obstructive sleep apnea, compression fractures of the spine and depression here after his daughter noticed worsening altered mental status for 2 days. Unfortunately patient is a poor historian and all of this information was gathered from his daughter Demi. Apparently patient was in his baseline state of functioning (able to stand, walk and slight incontinence) 2 days ago, and then suddenly started to decline. Per daughter's report patient can usually ambulate with assistance and stand on his own, however today he had difficulty walking. Now while he is in the emergency department he is unable to stand. Patient has also been sleeping excessively. Per daughter's report patient had some left-sided weakness 2 days ago that is now resolved. He is also suffering from more incontinence than he usually has. He is a patient of Dr. Silva. He resides at home with his who also has dementia. Demi, the daughter spends most of her time there with them. Patient denies any fever, chills, cold sxs, cp, sob, nausea, vomiting, diarrhea, constipation, or abdominal pain. PFSH Past Medical History Arthritis: No Asthma: No Anxiety: No Depression: No Heart Rhythm Problems: No Cancer: Yes (Skin Cancer--spots removed) Cardiovascular Problems: Yes High Cholesterol: Yes Chest Pain: No Congestive Heart Failure: No COPD: No Cerebrovascular Accident: No Dementia: Yes Diabetes: No Diminished Hearing: No Endocrine: No Gastrointestinal Disorders: Yes GERD: Yes Glaucoma: No Genitourinary: Yes Headaches: Yes Hepatitis: No Hiatal Hernia: Yes (repaired) Hypertension: No Kidney Stones: Yes Musculoskeletal: Yes Neurologic: Yes (hydrocephalus) Parkinson's Disease: Yes Psychiatric: No Reproductive: No Respiratory: Yes Immunizations Current: No Migraines: No Seizures: No Sleep Apnea: Yes Thyroid Disease: No Ulcer: No Tetanus Vaccination: Unknown Influenza Vaccination: No Past Surgical History Abdominal Surgery: Yes AICD: No Arteriovenous Shunt: No Cardiac Surgery: No Cholecystectomy: Yes Ear Surgery: No Eye Surgery: Yes (CATARACTS REMOVED BILAT) Genitourinary Surgery: Yes (PROSTATE, LEFT INGUINAL HERNIA) Insulin Pump: No Joint Replacement: No Oral Surgery: No Pacemaker: No Prostatectomy: Yes Thoracic Surgery: No Other Surgery: Yes (crainotomy 2014, [employer] SHUNT 2016 ) Social History Alcohol Use: No Tobacco Use: No Substance Use: No Allergies-Medications (Allergen,Severity, Reaction): Coded Allergies: No Known Allergies (Verified , 09/17/16) Reported Meds & Prescriptions Reported Meds & Active Scripts Active Flomax (Tamsulosin HCl) 0.4 Mg Cap 0.4 Mg PO Q12HR Quetiapine (Quetiapine Fumarate) 25 Mg Tab 100 Mg PO HS Ativan (Lorazepam) 0.5 Mg Tab 0.5 Mg PO BID@ Reported Lorazepam 0.5 Mg Tab Vitamin D (Cholecalciferol) 2,000 Unit Tab 2,000 Units PO DAILY Calcium (Calcium Carbonate) 1,250 Mg Tab 1,200 Mg PO DAILY 1,250 mg calcium carbonate (500 mg elemental calcium) Super B-Complex (B-Complex W/Biotin & Folic Acid) 1 Cap 1 Cap PO Effexor (Venlafaxine HCl) 75 Mg Tab 150 Mg PO BID Nexium (Esomeprazole DR) 40 Mg Capdr 40 Mg PO DAILY Review of Systems General / Constitutional: No: Fever Eyes: No: Visual changes HENT: No: Headaches Cardiovascular: No: Chest Pain or Discomfort Respiratory: No: Shortness of Breath Gastrointestinal: No: Abdominal Pain Genitourinary: No: Dysuria Musculoskeletal: No: Pain Skin: No Rash Neurologic: Positive: Tremor, Ataxia, Change in Mentation, No: Weakness Psychiatric: No: Depression Endocrine: No: Polydipsia Hematologic/Lymphatic: No: Easy Bruising Physical Exam Narrative GENERAL: AAO x 2, slightly lethargic on examination, but responds appropriately SKIN: Warm and dry. No visible rashes or bruising. HEAD: Normocephalic and atraumatic. EYES: No scleral icterus. No injection or drainage. EOM intact, PERRLA ENT: No nasal drainage noted. Mucous membranes pink. Airway patent. NECK: Supple, trachea midline. No JVD. CARDIOVASCULAR: Distant heart sounds, but regular rate and rhythm without murmurs, gallops, or rubs. RESPIRATORY: Breath sounds equal and slightly diminished bilaterally. No accessory muscle use. No rhonchi or rales. GASTROINTESTINAL: Abdomen soft, non-tender, nondistended. EXTREMITIES: No cyanosis or edema. BACK: Nontender without obvious deformity. No CVA tenderness. PSYCH: AAO x 2, flat affect He is aware of place and person. Data Data Last Documented VS Vital Signs Date Time Temp Pulse Resp B/P Pulse Ox O2 Delivery O2 Flow Rate FiO2 09/17/16 21:54 87 18 115/61 95 Room Air 09/17/16 18:40 97.6 Orders Electrocardiogram (09/17/16 20:13) Complete Blood Count With Diff (09/17/16 20:13) Comprehensive Metabolic Panel (09/17/16 20:13) Creatine Kinase (Cpk) (09/17/16 20:13) Prothrombin Time / Inr (Pt) (09/17/16 20:13) Act Partial Throm Time (Ptt) (09/17/16 20:13) Troponin I (09/17/16 20:13) Lactic Acid Sepsis Protocol (09/17/16 20:13) Urinalysis - C+S If Indicated (09/17/16 20:13) Blood Culture (09/17/16 20:13) Chest, Single Ap (09/17/16 20:13) Ct Brain W/O Iv Contrast(Rout) (09/17/16 20:13) Blood Glucose (09/17/16 20:13) Ecg Monitoring (09/17/16 20:13) Iv Access Insert/Monitor (09/17/16 20:13) Oximetry (09/17/16 20:13) Sodium Chloride 0.9% Flush (Ns Flush) (09/17/16 20:15) Shuntogram (09/17/16 ) Magnesium (Mg) (09/17/16 21:01) Ceftriaxone Inj (Rocephin Inj) (09/17/16 21:45) Azithromycin Inj (Zithromax Inj) (09/17/16 21:45) Admit Order (Ed Use Only) (09/17/16 21:56) Labs Laboratory Tests Test 09/17/16 09/17/16 20:20 20:25 White Blood Count 17.6 TH/MM3 Red Blood Count 4.37 MIL/MM3 Hemoglobin 13.7 GM/DL Hematocrit 40.7 % Mean Corpuscular Volume 93.1 FL Mean Corpuscular Hemoglobin 31.5 PG Mean Corpuscular Hemoglobin 33.8 % Concent Red Cell Distribution Width 13.7 % Platelet Count 336 TH/MM3 Mean Platelet Volume 7.7 FL Neutrophils (%) (Auto) 80.7 % Lymphocytes (%) (Auto) 12.3 % Monocytes (%) (Auto) 5.5 % Eosinophils (%) (Auto) 1.0 % Basophils (%) (Auto) 0.5 % Neutrophils # (Auto) 14.2 TH/MM3 Lymphocytes # (Auto) 2.2 TH/MM3 Monocytes # (Auto) 1.0 TH/MM3 Eosinophils # (Auto) 0.2 TH/MM3 Basophils # (Auto) 0.1 TH/MM3 CBC Comment DIFF FINAL Differential Comment Prothrombin Time 12.2 SEC Prothromb Time International 1.1 RATIO Ratio Activated Partial 28.3 SEC Thromboplast Time Sodium Level 133 MEQ/L Potassium Level 3.9 MEQ/L Chloride Level 99 MEQ/L Carbon Dioxide Level 25.1 MEQ/L Anion Gap 9 MEQ/L Blood Urea Nitrogen 21 MG/DL Creatinine 1.71 MG/DL Estimat Glomerular Filtration 39 ML/MIN Rate Random Glucose 109 MG/DL Calcium Level 9.1 MG/DL Magnesium Level 2.1 MG/DL Total Bilirubin 0.9 MG/DL Aspartate Amino Transf 17 U/L (AST/SGOT) Alanine Aminotransferase 27 U/L (ALT/SGPT) Alkaline Phosphatase 112 U/L Total Creatine Kinase 54 U/L Troponin I LESS THAN 0.02 NG/ML Total Protein 7.9 GM/DL Albumin 3.6 GM/DL Lactic Acid Level 1.7 mmol/L [facility] Medical Decision Making Medical Screen Exam Complete: Yes Emergency Medical Condition: Yes Medical Record Reviewed: Yes Differential Diagnosis worsening NPH, TIA, UTI, sepsis Narrative Course 81 yr old male with past medical history significant for chronic peptic ulcer disease, alcoholism in remission for 2 years now, hyperlipidemia, cerebellar degeneration, gait disturbance, subdural hematoma in March 2014 status post craniotomy then, Parkinson's, normal pressure hydrocephalus with [employer] shunt in 2016, vascular dementia, obstructive sleep apnea, compression fractures of the spine and depression here after his daughter noticed worsening altered mental status for 2 days. Unfortunately patient is a poor historian and all of this information was gathered from his daughter Demi. Apparently patient was in his baseline state of functioning (able to stand, walk and slight incontinence) 2 days ago, and then suddenly started to decline. Per daughter's report patient can usually ambulate with assistance and stand on his own, however today he had difficulty walking. Now while he is in the emergency department he is unable to stand. Patient has also been sleeping excessively. Per daughter's report patient had some left-sided weakness 2 days ago that is now resolved. He is also suffering from more incontinence than he usually has. He is a patient of Dr. Silva. He resides at home with his who also has dementia. Demi, the daughter spends most of her time there with them. Patient denies any cp, sob, nausea, vomiting, diarrhea, constipation, or abdominal pain. Patient seen and examined. Case discussed with Dr. Bolden. Labs, EKG, UA, CT of brain ordered. WBC 17.6, with abnormal cxr likely Pneumonia. Radiologist report: LLL consolidation vs. atelectasis BUN 21/Creatinine 1.71 Na+ 133 Admitted with Sepsis, PNA, AMS, ERIK, Notified patient's daughter of test results and treatment initiated in ED ( rocephin and azithromycin) 21:[address] Silva to call regarding admission on patient discussed with Dr. Silva Sepsis Criteria SIRS Criteria (2 or more): Heart rate over 90, WBC > 47075, < 4000 or > 10% bands Criteria Outcome: Meets sepsis criteria Diagnosis Primary Impression: Sepsis Qualified Code: A41.9 - Sepsis, due to unspecified organism Additional Impression: Pneumonia involving left lung Qualified Code: J18.9 - Pneumonia of left lung due to infectious organism, unspecified part of lung Admitting Information Admitting Physician Requests: Admit Condition: Stable Yolanda Villanueva Sep 17, 2016 20:13
[2016-09-17] MEDS ORDERED: SODIUM CHLORIDE 0.9% FLUSH 5 ML FLUSH IVF PRN (20:15)
[2016-09-17 21:17] LABS: APTT (PATIENT) 28.3 SEC (24.3-30.1); INTERNATIONAL NORMALIZED RATIO 1.1 RATIO; PROTHROMBIN TIME - PATIENT 12.2 SEC (9.8-11.6)
[2016-09-17 21:18] LABS: AUTOMATED NEUTROPHIL # 14.2 TH/MM3 (1.8-7.7); BASOPHIL # 0.1 TH/MM3 (0-0.2); BASOPHIL % 0.5 % (0.0-2.0); EOSINOPHIL # 0.2 TH/MM3 (0-0.4); HEMATOCRIT 40.7 % (39.0-51.0); HEMO FLAGS DIFF FINAL; LYMPH % 12.3 % (9.0-44.0); LYMPHOCYTE # 2.2 TH/MM3 (1.0-4.8); MEAN CELL VOLUME 93.1 FL (80.0-100.0); MEAN CORPUSCULAR HEMOGLOBIN 31.5 PG (27.0-34.0); MEAN CORPUSCULAR HGB CONC 33.8 % (32.0-36.0); MONO % 5.5 % (0.0-8.0); NEUT % 80.7 % (16.0-70.0); PLATELET COUNT 336 TH/MM3 (150-450); RED BLOOD COUNT 4.37 MIL/MM3 (4.50-5.90); RED CELL DISTRIBUTION WIDTH 13.7 % (11.6-17.2); WHITE BLOOD COUNT 17.6 TH/MM3 (4.0-11.0)
[2016-09-17 21:19] LABS: ANION GAP 9 MEQ/L (5-15); AST (GOT) 17 U/L (15-37); BICARBONATE 25.1 MEQ/L (21.0-32.0); BLOOD UREA NITROGEN 21 MG/DL (7-18); CHLORIDE 99 MEQ/L (98-107); GLOMERULAR FILTRATION RATE 39 ML/MIN (>89); POTASSIUM 3.9 MEQ/L (3.5-5.1); SODIUM (NA) 133 MEQ/L (136-145)
[2016-09-17 21:24] LABS: ALKALINE PHOSPHATASE 112 U/L (45-117); ALT (GPT) 27 U/L (12-78); TOTAL BILIRUBIN ADULT 0.9 MG/DL (0.2-1.0)
[2016-09-17 21:26] LABS: CREATINE KINASE 54 U/L (39-308)
[2016-09-17] MEDS ORDERED: cefTRIAXone INJ 1,000 MG in SODIUM CHLORIDE 0.9% INJ 100 ML IV ONE (21:45)
[2016-09-17] MEDS ORDERED: AZITHROMYCIN INJ 500 MG in SODIUM CHLOR 0.9% 250 ML INJ 250 ML IV ONE (21:45)
--- NOTE | 2016-09-17 21:45 | RADRPT ---
EXAM DATE/TIME: 09/17/2016 20:33 [facility] COMPARISON: CT BRAIN W/O CONTRAST, June 13, 2016, 15:27. INDICATIONS : Altered mental status and generalized weakness. RADIATION DOSE: 69.15 CTDIvol (mGy) MEDICAL HISTORY : Parkinson's. Dementia. Hydrocephalus SURGICAL HISTORY : Craniotomy. [employer] Shunt ENCOUNTER: Initial ACUITY: 1 day PAIN SCALE: 0/10 LOCATION: cranial TECHNIQUE: Multiple contiguous axial images were obtained of the head. Using automated exposure control and adjustment of the mA and/or kV according to patient size, radiation dose was kept as low as reasonably achievable to obtain optimal diagnostic quality images. FINDINGS: There is a ventriculostomy tube in place from the right frontal approach with the tip s een in the left lateral ventricle. There is dilatation of the ventricles especially at the lateral an d third ventricles. There is some mild widening of the cortical sulci. There is some expansion of t he extraaxial spaces over the frontal lobes bilaterally likely representing hygromas. An acute area of hemorrhage or mass effect is not seen. An acute area of infarction is not seen. There is some exp ansion of the extraaxial spaces around the cerebellum. The patient is status post right craniotomy. There is ethmoid sinus disease. CONCLUSION: 1. Ventriculostomy tube in place with persistent dilatation of the lateral and third ventricles. Thi s configuration is unchanged. 2. Some expansion of the extraaxial spaces of the frontal lobes and the cerebellar hemispheres. This configuration is unchanged. 3. Age-related atrophy. Favio Salas MD on September 17, 2016 at 21:29 Board Certified Radiologist. This report was verified electronically.
[2016-09-17 21:54] VITALS: BP 115/61; PULSE 87; RESP 18; O2SAT 95
--- NOTE | 2016-09-17 21:57 | RADRPT ---
EXAM DATE/TIME: 09/17/2016 20:34 [facility] COMPARISON: CHEST SINGLE AP, June 13, 2016, 14:10. INDICATIONS : Syncopal episode. MEDICAL HISTORY : None. SURGICAL HISTORY : Shunt. ENCOUNTER: Initial ACUITY: 1 day PAIN SCORE: 0/10 LOCATION: chest FINDINGS: The heart size is upper limits of normal. There is some increased density identified a t the left base. The right lung appears relatively clear. A significant effusion is not clearly seen. There is tubing seen over the right chest likely related to GRIP[employer]ER shunt tubing. CONCLUSION: Suspected left lower lobe consolidation or atelectasis. Favio Salas MD on September 17, 2016 at 21:54 Board Certified Radiologist. This report was verified electronically.
[2016-09-17] MEDS ORDERED: NALOXONE HCL 0.4 MG/ML AMP IV PRN (22:15)
[2016-09-17] MEDS ORDERED: ONDANSETRON HCL 4 MG/2 ML VIAL IVP PRN (22:15)
[2016-09-17] MEDS ORDERED: ACETAMINOPHEN 325 MG TAB PO PRN (22:15)
[2016-09-17] MEDS ORDERED: SODIUM CHLORIDE 0.9% FLUSH 5 ML FLUSH FLUSH PRN (22:15)
[2016-09-17] MEDS: ENOXAPARIN SODIUM 30 MG/0.3 ML SYRINGE SQ SCH (22:21)
[2016-09-17] MEDS: SODIUM CHLOR 0.9% 1000 ML INJ 1,000 ML IV SCH (22:21)
[2016-09-17 23:02] LABS: BACTERIA, URINE RARE /hpf; BLOOD, URINE NEG (NEG); GLUCOSE,URINE NEG (NEG); HYALINE CAST, URINE 1 /lpf (RARE); KETONE, URINE NEG (NEG); MUCUS URINE FEW /lpf (OCC); NITRITE,URINE NEG (NEG); PH, URINE 6.5 (5.0-8.5); SQUAMOUS EPITHELIAL CELL URINE <1 /hpf (0-5); URINE COLOR YELLOW (YELLW/STRAW)
[2016-09-17 23:03] LABS: COMMENT (UR) CATH-CULTURE IND; CULTURE IF INDICATED CATH CULTURE IND
[2016-09-18] VITALS (8 sets, daily range): BP systolic 116–153; BP diastolic 68–84; PULSE 68–97; RESP 17–18; TEMP 97.8–98.7; O2SAT 93–98
[2016-09-18 06:05] LABS: AUTOMATED NEUTROPHIL # 8.5 TH/MM3 (1.8-7.7); BASOPHIL # 0.1 TH/MM3 (0-0.2); BASOPHIL % 0.7 % (0.0-2.0); EOSINOPHIL # 0.3 TH/MM3 (0-0.4); EOSINOPHIL % 2.9 % (0.0-4.0); HEMATOCRIT 35.7 % (39.0-51.0); HEMO FLAGS DIFF FINAL; LYMPH % 19.8 % (9.0-44.0); LYMPHOCYTE # 2.4 TH/MM3 (1.0-4.8); MEAN CELL VOLUME 92.9 FL (80.0-100.0); MEAN CORPUSCULAR HEMOGLOBIN 31.7 PG (27.0-34.0); MEAN CORPUSCULAR HGB CONC 34.1 % (32.0-36.0); MONO % 6.3 % (0.0-8.0); NEUT % 70.3 % (16.0-70.0); PLATELET COUNT 285 TH/MM3 (150-450); RED BLOOD COUNT 3.84 MIL/MM3 (4.50-5.90); RED CELL DISTRIBUTION WIDTH 13.6 % (11.6-17.2); WHITE BLOOD COUNT 12.1 TH/MM3 (4.0-11.0)
[2016-09-18 06:38] LABS: BICARBONATE 24.9 MEQ/L (21.0-32.0); POTASSIUM 3.8 MEQ/L (3.5-5.1)
[2016-09-18] MEDS: RESP: ALBUTEROL 2.5 MG/IPRATROPIUM 0.5 MG NEB (SCH) NEB ×3 (08:39→20:29)
[2016-09-18] MEDS: SODIUM CHLORIDE 0.9% FLUSH 5 ML FLUSH FLUSH SCH ×2 (09:00→21:00)
[2016-09-18] MEDS ORDERED: methylPREDNISolone SOD SUCC 125 MG/2 ML VIAL IV PUSH SCH (09:00)
[2016-09-18] MEDS: CALCIUM CARBONATE 1.25 GM (CA 500 MG) TAB PO SCH (09:21)
[2016-09-18] MEDS: PANTOPRAZOLE SOD 40 MG DELAYED RELEASE TAB PO SCH (09:21)
[2016-09-18] MEDS: CHOLECALCIFEROL (VIT D3) 1000 UNIT TAB PO SCH (09:21)
[2016-09-18] MEDS: BENZONATATE 100 MG CAP PO SCH ×3 (09:21→18:13)
[2016-09-18] MEDS: VENLAFAXINE HCL XR 75 MG CAP PO SCH ×2 (09:21→21:07)
[2016-09-18] MEDS: TAMSULOSIN HCL 0.4 MG CAP PO SCH ×2 (09:21→21:07)
[2016-09-18] MEDS: LORazepam 0.5 MG TAB PO SCH ×2 (09:21→18:13)
[2016-09-18] MEDS: cefTRIAXone INJ 1,000 MG in SODIUM CHLORIDE 0.9% INJ 100 ML IV SCH (09:22)
[2016-09-18] MEDS: AZITHROMYCIN INJ 500 MG in SODIUM CHLOR 0.9% 250 ML INJ 250 ML IV SCH (09:22)
[2016-09-18] MEDS: SODIUM CHLOR 0.9% 1000 ML INJ 1,000 ML IV SCH (09:23)
--- NOTE | 2016-09-18 09:30 | HHI.HP ---
History of Present Illness Service INTERNAL MEDICINE Primary Care Physician ENRIQUE SILVA MD Admission Diagnosis EARLY SEPSIS. PNEUMONIA. ACUTE ENCEPHALOPATHY. ACUTE KIDNEY INJURY. Diagnoses: History of Present Illness This patient is a 81 year old male who has been noticed by his daughter to be with a change of activity and mental character over the past week. He usually gets physical therapy and has had difficulty in following simple instructions. He also has shown signs of becoming very weak to the point of not being able to stand on his own. There was denial of any fever or chills by report. His oral intake of food and drink has been quite diminished as well. Due to the changes observed, he was transported to the [facility] Emergency Room for evaluation. He is found with pneumonia presentation, mental confusion and somewhat dehydrated state. He is admitted to further assess and aggressively treat. Review of Systems Constitutional: COMPLAINS OF: Fatigue, Weight loss, Change in appetite Endocrine: COMPLAINS OF: Polyuria Respiratory: COMPLAINS OF: Cough Cardiovascular: COMPLAINS OF: Dyspnea on Exertion Musculoskeletal: COMPLAINS OF: Stiffness Neurologic: COMPLAINS OF: Abnormal gait, Tremor, Poor Balance Psychiatric: COMPLAINS OF: Anxiety, Confusion, Depression Past Family Social History Allergies: Coded Allergies: No Known Allergies (Verified , 09/17/16) Past Medical History 1. Chronic Peptic Ulcer Disease. 2. Alcoholism. 3. Hyperlipidemia. 4. Cerebellar Degeneration. 5. Gait Disturbance. 6. Subdural Hematoma. 7. Normal Pressure Hydrocephalus. 8. Obstructive Sleep Apnea Syndrome. 9. Compression Fractures of Spine. 10. Parkinson's Disease. 11. Anxiety Disorder. 12. Depression. Past Surgical History 1. Ventriculoperitoneal Shunt Placement. 2. Craniotomy with Evacuation of Subdural Hematoma. 3. Cholecystectomy. 4. Inguinal Hernia Repair. 5. Prostatectomy. 6. Colonoscopy. Family History This patient is an only child. He has a daughter with "gastrointestinal problems". He has a granddaughter in good health. Social History He is retired and is . He is a nonsmoker and has a strong history of heavy alcohol intake. His use of alcohol is diminished over the past year to no usage at all at this time There is no use of recreational drugs. Physical Exam Vital Signs Vital Signs Date Time Temp Pulse Resp B/P Pulse Ox O2 Delivery O2 Flow Rate FiO2 09/18/16 08:42 95 21 09/18/16 07:38 97.9 78 17 116/68 93 09/18/16 05:35 98.7 78 18 131/74 97 09/17/16 21:54 87 18 115/61 95 Room Air 09/17/16 18:40 97.6 102 14 109/57 95 Physical Exam GENERAL: He appears in no severe distress, but appears with some confusion. SKIN: No rashes, ecchymoses or lesions. Cool and dry. HEAD: Atraumatic. Normocephalic. No temporal or scalp tenderness. EYES: Pupils equal round and reactive. Extraocular motions intact. No scleral icterus. No injection or drainage. ENT: Nasal passages are with mild congestive changes. Throat without erythema, tonsillar hypertrophy or exudate. Uvula midline. Airway patent. NECK: Trachea midline. No carotid bruits, thyromegaly or JVD. Supple, nontender and no meningeal signs. CARDIOVASCULAR: Regular rate and rhythm without murmurs, gallops, or rubs. RESPIRATORY: Bilateral rhonchous sounds are present with a few wheezes. Breath sounds appear equal bilaterally. GASTROINTESTINAL: Abdomen is soft, non-tender, nondistended. No hepato- splenomegaly or palpable masses. No guarding. MUSCULOSKELETAL: Extremities without clubbing, cyanosis or edema. No joint tenderness, effusion or edema noted. No calf tenderness. Negative Homans sign bilaterally. NEUROLOGICAL: Awake and alert. Cranial nerves II through XII intact. Normal speech. Laboratory Laboratory Tests Test 09/17/16 09/17/16 09/17/16 09/18/16 20:20 20:25 22:40 05:14 White Blood Count 17.6 12.1 Red Blood Count 4.37 3.84 Hemoglobin 13.7 12.2 Hematocrit 40.7 35.7 Mean Corpuscular Volume 93.1 92.9 Mean Corpuscular Hemoglobin 31.5 31.7 Mean Corpuscular Hemoglobin 33.8 34.1 Concent Red Cell Distribution Width 13.7 13.6 Platelet Count 336 285 Mean Platelet Volume 7.7 7.4 Neutrophils (%) (Auto) 80.7 70.3 Lymphocytes (%) (Auto) 12.3 19.8 Monocytes (%) (Auto) 5.5 6.3 Eosinophils (%) (Auto) 1.0 2.9 Basophils (%) (Auto) 0.5 0.7 Neutrophils # (Auto) 14.2 8.5 Lymphocytes # (Auto) 2.2 2.4 Monocytes # (Auto) 1.0 0.8 Eosinophils # (Auto) 0.2 0.3 Basophils # (Auto) 0.1 0.1 CBC Comment DIFF FINAL DIFF FINAL Differential Comment Prothrombin Time 12.2 Prothromb Time International 1.1 Ratio Activated Partial 28.3 Thromboplast Time Sodium Level 133 140 Potassium Level 3.9 3.8 Chloride Level 99 107 Carbon Dioxide Level 25.1 24.9 Anion Gap 9 8 Blood Urea Nitrogen 21 20 Creatinine 1.71 1.20 Estimat Glomerular Filtration 39 58 Rate Random Glucose 109 90 Calcium Level 9.1 8.4 Magnesium Level 2.1 Total Bilirubin 0.9 Aspartate Amino Transf 17 (AST/SGOT) Alanine Aminotransferase 27 (ALT/SGPT) Alkaline Phosphatase 112 Total Creatine Kinase 54 Troponin I LESS THAN 0.02 Total Protein 7.9 Albumin 3.6 Lactic Acid Level 1.7 Urine Color YELLOW Urine Turbidity CLEAR Urine pH 6.5 Urine Specific [place] 1.024 Urine Protein 30 Urine Glucose (UA) NEG Urine Ketones NEG Urine Occult Blood NEG Urine Nitrite NEG Urine Bilirubin NEG Urine Urobilinogen 2.0 Urine Leukocyte Esterase TRACE Urine WBC 4 Urine Squamous Epithelial <1 Cells Urine Bacteria RARE Urine Hyaline Casts 1 Urine Mucus FEW Microscopic Urinalysis Comment CATH-CULTURE IND Date/Time Procedure Status Source Growth 09/17/16 22:40 Urine Culture Worksheet Urine Catheterized Urine Pending 09/17/16 20:25 Aerobic Blood Culture Received Blood Peripheral Pending 09/17/16 20:25 Anaerobic Blood Culture Received Blood Peripheral Pending Result Diagram: 09/18/16 0514 09/18/16 0514 Assessment and Plan Assessment and Plan ASSESSMENT 1. Early Sepsis. 2. Acute Community Acquired Pneumonia. 3. Acute Encephalopathy. 4. Urinary Tract Infection, on admission. 5. Acute Kidney Injury. 6. Dehydration. 7. 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 PLAN 1. Admit to the hospital as an Inpatient. 2. Blood and urine cultures. 3. Intravenous antibiotics. 4. Bronchodilator via Nebulizer. 5. Intravenous corticosteroids. 6. Intravenous hydration with electrolyte repletion. 7. Monitor intake and output closely. 8. Follow up laboratory assessment. 9. DVT, PE and PUD prophylaxis. Enrique Silva MD Sep 18, 2016 09:30
--- NOTE | 2016-09-18 17:17 | EKG ---
Date Performed: 09/17/2016 Time Performed: 20:30:05 PTAGE: 81 years EKG: Sinus rhythm Left axis deviation Poor R wave progression across the precordium, which may be due to left axis dev iation Low QRS voltage in precordial leads Compared to prior tracing no significant change BORDERLINE ECG PREVIOUS TRACING : 06/13/2016 14.21 DOCTOR: Isauro Garcia Interpretating Date/Time 09/18/2016 17:16:48
[2016-09-18] MEDS: ENOXAPARIN SODIUM 30 MG/0.3 ML SYRINGE SQ SCH (21:07)
[2016-09-18] MEDS: QUEtiapine FUMARATE 25 MG TAB PO SCH (21:07)
[2016-09-19] MEDS: SODIUM CHLOR 0.9% 1000 ML INJ 1,000 ML IV SCH ×3 (04:04→17:31)
[2016-09-19 05:28] LABS: AUTOMATED NEUTROPHIL # 13.3 TH/MM3 (1.8-7.7); BASOPHIL % 0.1 % (0.0-2.0); HEMATOCRIT 34.5 % (39.0-51.0); HEMO FLAGS DIFF FINAL; LYMPH % 8.7 % (9.0-44.0); LYMPHOCYTE # 1.4 TH/MM3 (1.0-4.8); MEAN CELL VOLUME 91.8 FL (80.0-100.0); MEAN CORPUSCULAR HEMOGLOBIN 31.6 PG (27.0-34.0); MEAN CORPUSCULAR HGB CONC 34.4 % (32.0-36.0); MONO % 6.9 % (0.0-8.0); NEUT % 84.3 % (16.0-70.0); PLATELET COUNT 331 TH/MM3 (150-450); RED BLOOD COUNT 3.76 MIL/MM3 (4.50-5.90); RED CELL DISTRIBUTION WIDTH 13.5 % (11.6-17.2); WHITE BLOOD COUNT 15.7 TH/MM3 (4.0-11.0)
[2016-09-19 05:59] LABS: BICARBONATE 22.8 MEQ/L (21.0-32.0); POTASSIUM 4.2 MEQ/L (3.5-5.1)
[2016-09-19] MEDS: RESP: ALBUTEROL 2.5 MG/IPRATROPIUM 0.5 MG NEB (SCH) NEB ×3 (08:00→21:53)
[2016-09-19 08:44] VITALS: BP 136/80; PULSE 78; RESP 20; TEMP 97.8; O2SAT 94
[2016-09-19] MEDS: VENLAFAXINE HCL XR 75 MG CAP PO SCH ×2 (09:00→21:49)
[2016-09-19] MEDS: TAMSULOSIN HCL 0.4 MG CAP PO SCH ×2 (09:00→21:49)
[2016-09-19] MEDS: QUEtiapine FUMARATE 25 MG TAB PO SCH (09:00)
[2016-09-19] MEDS: CHOLECALCIFEROL (VIT D3) 1000 UNIT TAB PO SCH (09:00)
[2016-09-19] MEDS: BENZONATATE 100 MG CAP PO SCH ×4 (09:00→17:32)
[2016-09-19] MEDS: PANTOPRAZOLE SOD 40 MG DELAYED RELEASE TAB PO SCH (09:00)
[2016-09-19] MEDS: LORazepam 0.5 MG TAB PO SCH ×3 (09:00→17:16)
[2016-09-19] MEDS: SODIUM CHLORIDE 0.9% FLUSH 5 ML FLUSH FLUSH SCH ×2 (09:00→21:00)
[2016-09-19] MEDS: CALCIUM CARBONATE 1.25 GM (CA 500 MG) TAB PO SCH (09:00)
[2016-09-19] MEDS: cefTRIAXone INJ 1,000 MG in SODIUM CHLORIDE 0.9% INJ 100 ML IV SCH (10:00)
[2016-09-19] MEDS: AZITHROMYCIN INJ 500 MG in SODIUM CHLOR 0.9% 250 ML INJ 250 ML IV SCH (10:00)
[2016-09-19] MEDS ORDERED: LORazepam 2 MG/ML VIAL IV ONE (12:15)
[2016-09-19 12:18] VITALS: BP 143/86; PULSE 85; RESP 20; TEMP 98.1; O2SAT 92
[2016-09-19 16:18] VITALS: BP 109/60; PULSE 91; RESP 20; TEMP 97.6; O2SAT 93
[2016-09-19 16:51] VITALS: BP 124/69; PULSE 92; RESP 20; TEMP 98.3; O2SAT 96
[2016-09-19] MEDS ORDERED: HALOPERIDOL LACTATE 5 MG/ML AMP IM ONE (18:00)
--- NOTE | 2016-09-19 19:30 | HHI.PR ---
Subjective Remarks He had a great deal of confusion today. He is still with some confusion, but has more cooperativeness. He appears to be tolerating the medications well. His appetite appears to be very good also. Objective Vital Signs Date Time Temp Pulse Resp B/P Pulse Ox O2 Delivery O2 Flow Rate FiO2 09/19/16 16:51 98.3 92 20 124/69 96 09/19/16 16:18 97.6 91 20 109/60 93 09/19/16 12:59 21 09/19/16 12:18 98.1 85 20 143/86 92 09/19/16 08:44 97.8 78 20 136/80 94 09/18/16 23:56 97.8 68 18 121/84 94 09/18/16 20:30 98 09/18/16 19:44 98.3 94 18 128/80 93 I/O 09/18/16 09/18/16 09/18/16 09/19/16 09/19/16 09/19/16 07:00 15:00 23:00 07:00 15:00 23:00 Intake Total 980 ml 1900 ml Output Total 1900 ml 1400 ml Balance -920 ml 1900 ml -1400 ml Intake Oral 980 ml IV Total 1900 ml Output Urine Total 1900 ml 1400 ml # Voids 1 # Bowel Movements 1 Result Diagram: [id number]/19/[id number]/16439 Objective Remarks GENERAL: Alert with some residual confusion. SKIN: Warm and dry. HEAD: Atraumatic. Normocephalic. EYES: Pupils equal and round. No scleral icterus. No injection or drainage. ENT: No nasal bleeding or discharge. Mucous membranes pink and moist. NECK: Trachea midline. No JVD. CARDIOVASCULAR: Regular rate and rhythm. RESPIRATORY: No accessory muscle use. Clear to auscultation. Breath sounds equal bilaterally. GASTROINTESTINAL: Abdomen soft, non-tender, nondistended. Hepatic and splenic margins not palpable. MUSCULOSKELETAL: Extremities without clubbing, cyanosis, or edema. No obvious deformities. NEUROLOGICAL: Awake and alert. No obvious cranial nerve deficits. Motor grossly within normal limits. Five out of 5 muscle strength in the arms and legs. Normal speech. PSYCHIATRIC: Some residual confusion. Assessment and Plan Assessment and Plan ASSESSMENT 1. Early Sepsis. 2. Acute Community Acquired Pneumonia. 3. Acute Encephalopathy with Mental Confusion. 4. Urinary Tract Infection, on admission. 5. Acute Kidney Injury. 6. Dehydration. 7. 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 8. Normal Pressure Hydrocephalus. 9. Dementia with Memory Loss. PLAN 1. Will continue with the current medication regimen. 2. Use of intravenous benzodiazepine as needed. 3. Intravenous antibiotics. 4. Bronchodilator via Nebulizer. 5. Intravenous corticosteroids. 6. Intravenous hydration with electrolyte repletion. 7. Monitor intake and output closely. 8. Follow up laboratory assessment. 9. DVT, PE and PUD prophylaxis. Enrique Silva MD Sep 19, 2016 19:30
[2016-09-19 20:00] VITALS: BP 141/67; PULSE 79; RESP 16; TEMP 98.1; O2SAT 96
[2016-09-19] MEDS: ENOXAPARIN SODIUM 30 MG/0.3 ML SYRINGE SQ SCH (21:49)
[2016-09-19] MEDS: QUEtiapine FUMARATE 100 MG TAB PO SCH (21:49)
--- NOTE | 2016-09-20 07:15 | HHI.PR ---
Subjective Remarks He is still with some confusion this morning, but shows cooperativeness. He appears to be tolerating the medications well, as his Seroquel dose has been increased. His appetite appears to be very good also. Objective Vital Signs Date Time Temp Pulse Resp B/P Pulse Ox O2 Delivery O2 Flow Rate FiO2 09/19/16 20:00 98.1 79 16 141/67 96 09/19/16 16:51 98.3 92 20 124/69 96 09/19/16 16:18 97.6 91 20 109/60 93 09/19/16 12:59 21 09/19/16 12:18 98.1 85 20 143/86 92 09/19/16 08:44 97.8 78 20 136/80 94 I/O 09/19/16 09/19/16 09/19/16 09/20/16 09/20/16 09/20/16 07:00 15:00 23:00 07:00 15:00 23:00 Intake Total 1900 ml 0 ml 80 ml Output Total 1800 ml 1250 ml Balance 1900 ml -1800 ml -1170 ml Intake Oral 0 ml 80 ml IV Total 1900 ml Output Urine Total 1800 ml 1250 ml # Bowel Movements 0 Result Diagram: 09/19/16 0440 09/19/16 0440 Objective Remarks GENERAL: Alert with less presentation of confusion, though some persists. SKIN: Warm and dry. HEAD: Atraumatic. Normocephalic. EYES: Pupils equal and round. No scleral icterus. No injection or drainage. ENT: No nasal bleeding or discharge. Mucous membranes pink and moist. NECK: Trachea midline. No JVD. CARDIOVASCULAR: Regular rate and rhythm. RESPIRATORY: No accessory muscle use. Clear to auscultation. Breath sounds equal bilaterally. GASTROINTESTINAL: Abdomen soft, non-tender, nondistended. Hepatic and splenic margins not palpable. MUSCULOSKELETAL: Extremities without clubbing, cyanosis, or edema. No obvious deformities. NEUROLOGICAL: Awake and alert. No obvious cranial nerve deficits. Motor grossly within normal limits. Five out of 5 muscle strength in the arms and legs. Normal speech. PSYCHIATRIC: Some labile status for periodic confusion. Assessment and Plan Assessment and Plan ASSESSMENT 1. Early Sepsis. 2. Acute Community Acquired Pneumonia. 3. Acute Encephalopathy. 4. Urinary Tract Infection, on admission. 5. Acute Kidney Injury. 6. Dehydration. 7. 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 8. Occlusion of Ventricular-Peritoneal Shunt. 9. Normal Pressure Hydrocephalus. 10. Dementia with Memory Loss. PLAN 1. Will continue with the current medication regimen. 2. Increase the evening dose of Seroquel. 3. Continue Intravenous antibiotics. 4. Bronchodilator via Nebulizer. 5. Taper Intravenous corticosteroids. 6. Intravenous hydration with electrolyte repletion. 7. Monitor intake and output closely. 8. Follow up laboratory assessment. 9. Consultation to Neurosurgery to evaluate the shunt. 10. DVT, PE and PUD prophylaxis. Enrique Silva MD Sep 20, 2016 07:15
[2016-09-20] MEDS: RESP: ALBUTEROL 2.5 MG/IPRATROPIUM 0.5 MG NEB (SCH) NEB ×3 (07:31→20:00)
[2016-09-20 08:00] VITALS: BP 171/81; PULSE 80; RESP 20; TEMP 98.8; O2SAT 94
[2016-09-20] MEDS: SODIUM CHLORIDE 0.9% FLUSH 5 ML FLUSH FLUSH SCH ×2 (09:00→23:00)
--- NOTE | 2016-09-20 10:21 | PD.RAD ---
Post Procedure Progress Note Pre Procedure Diagnosis: (1) Normal pressure hydrocephalus (2) Altered mental status Post Procedure Diagnosis: (1) Normal pressure hydrocephalus (2) Altered mental status Procedure Date: Sep 20, 2016 Supervising Radiologist: Shoaib Saleem JR Proceduralist/Assist: Driss Yu, RT(R), Beth Gannon RT(R)() Anesthesia: Other Plan of Activity Patient to Unit: Nursing Unit Patient Condition: Good Additional Comments: Shunt patency injection. Portion of shunt from valve to lateral ventricle is patent. Component from valve to peritoneum is not patent. See PACS Report for procedural detail/treatment Jr. Stiven,Shaoib Quiñones MD Sep 20, 2016 10:21
[2016-09-20] MEDS: PANTOPRAZOLE SOD 40 MG DELAYED RELEASE TAB PO SCH (11:16)
[2016-09-20] MEDS: QUEtiapine FUMARATE 25 MG TAB PO SCH (11:16)
[2016-09-20] MEDS: LORazepam 0.5 MG TAB PO SCH ×2 (11:16→17:15)
[2016-09-20] MEDS: BENZONATATE 100 MG CAP PO SCH ×3 (11:16→17:15)
[2016-09-20] MEDS: CHOLECALCIFEROL (VIT D3) 1000 UNIT TAB PO SCH (11:16)
[2016-09-20] MEDS: CALCIUM CARBONATE 1.25 GM (CA 500 MG) TAB PO SCH (11:16)
[2016-09-20] MEDS: VENLAFAXINE HCL XR 75 MG CAP PO SCH ×2 (11:16→22:59)
[2016-09-20] MEDS: cefTRIAXone INJ 1,000 MG in SODIUM CHLORIDE 0.9% INJ 100 ML IV SCH (11:17)
[2016-09-20] MEDS: TAMSULOSIN HCL 0.4 MG CAP PO SCH ×2 (11:17→22:59)
[2016-09-20 12:00] VITALS: BP 142/76; PULSE 87; RESP 20; TEMP 98.1; O2SAT 93
[2016-09-20] MEDS: AZITHROMYCIN INJ 500 MG in SODIUM CHLOR 0.9% 250 ML INJ 250 ML IV SCH (13:30)
--- NOTE | 2016-09-20 14:38 | RADRPT ---
EXAM DATE/TIME: 09/20/2016 09:45 [facility] COMPARISON: No previous studies available for comparison. INDICATIONS : Patient is in need of a shuntogram for evaluation due to non functionality. 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 SURGICAL HISTORY : History of ANALYSIS DIRECTOR shunt placement, craniotomy, cholecystectomy, hernia repair, prostatectomy, colonoscopy . ENCOUNTER: Initial ACUITY: 2 days PAIN SCORE: 0/10 2.3 minutes CONTRAST: 10 cc Omnipaque (iohexol) 350 PROCEDURE : 1. Fluoroscopically guided shuntogram. The risks, benefits and alternatives to the procedure were explained and verbal and written consent w as obtained. The site was prepped in sterile fashion. Full sterile technique was used, including ca p, mask, sterile gloves and gown and a large sterile sheet. Hand hygiene and 2% chlorhexidine and/or betadine/alcohol prep was utilized per protocol for cutaneous antisepsis. With fluoroscopic guidance the previously placed shunt was injected with a 25 gauge butterfly needle and positive contrast was injected. The contrast quickly opacifies the intracranial component of the shunt and fills the lateral ventricl es. The ventricles are prominent in size. Repeat compression of the valve was performed. Fluoroscopic evaluation of the ANALYSIS DIRECTOR shunt shows the ANALYSIS DIRECTOR shunt enters via a right approach and terminates in the left lateral ventricle. The shunt courses inferiorly along the right chest and terminates in the upper pe ritoneal cavity. There is contrast opacification of the extracranial portion of the shunt extending f rom the valve to the tubing at the level of the supraclavicular region I see no contrast opacificatio n of the tubing inferior to this. I see no free spillage of contrast into the peritoneal cavity. The tip of the catheter tubing is within the left upper quadrant.. CONCLUSION: The intracranial component of the ANALYSIS DIRECTOR shunt is patent. The extracranial component is patent to the lev el of the upper chest but no patency is seen below this level. In particular, no free spillage of con trast into the peritoneal cavity. Shoaib Saleem Jr., MD on September 20, 2016 at 14:28 Board Certified Radiologist. This report was verified electronically.
[2016-09-20 16:00] VITALS: BP 143/50; PULSE 68; RESP 20; TEMP 98.8; O2SAT 92
[2016-09-20 19:30] VITALS: BP 148/80; PULSE 100; RESP 18; TEMP 97.8; O2SAT 95
[2016-09-20] MEDS: QUEtiapine FUMARATE 100 MG TAB PO SCH (22:59)
[2016-09-20] MEDS: ENOXAPARIN SODIUM 30 MG/0.3 ML SYRINGE SQ SCH (23:07)
[2016-09-20 23:43] VITALS: BP 144/83; PULSE 97; RESP 18; TEMP 97.5; O2SAT 95
[2016-09-21 04:50] VITALS: BP 137/82; PULSE 99; RESP 18; TEMP 98.1; O2SAT 95
[2016-09-21 08:00] VITALS: BP 132/85; PULSE 90; RESP 20; TEMP 97.4; O2SAT 96
[2016-09-21] MEDS: RESP: ALBUTEROL 2.5 MG/IPRATROPIUM 0.5 MG NEB (SCH) NEB ×3 (08:23→19:33)
[2016-09-21 08:24] VITALS: O2SAT 94
[2016-09-21] MEDS: SODIUM CHLORIDE 0.9% FLUSH 5 ML FLUSH FLUSH SCH ×2 (09:00→21:38)
[2016-09-21] MEDS: PANTOPRAZOLE SOD 40 MG DELAYED RELEASE TAB PO SCH (09:17)
[2016-09-21] MEDS: CALCIUM CARBONATE 1.25 GM (CA 500 MG) TAB PO SCH (09:17)
[2016-09-21] MEDS: LORazepam 0.5 MG TAB PO SCH ×2 (09:17→16:49)
[2016-09-21] MEDS: cefTRIAXone INJ 1,000 MG in SODIUM CHLORIDE 0.9% INJ 100 ML IV SCH (09:18)
[2016-09-21] MEDS: TAMSULOSIN HCL 0.4 MG CAP PO SCH ×2 (09:18→21:34)
[2016-09-21] MEDS: QUEtiapine FUMARATE 25 MG TAB PO SCH (09:18)
[2016-09-21] MEDS: BENZONATATE 100 MG CAP PO SCH ×3 (09:18→16:49)
[2016-09-21] MEDS: CHOLECALCIFEROL (VIT D3) 1000 UNIT TAB PO SCH (09:18)
[2016-09-21] MEDS: VENLAFAXINE HCL XR 75 MG CAP PO SCH ×2 (09:18→21:34)
[2016-09-21] MEDS: AZITHROMYCIN INJ 500 MG in SODIUM CHLOR 0.9% 250 ML INJ 250 ML IV SCH (11:19)
[2016-09-21 11:38] VITALS: BP 143/78; PULSE 93; RESP 18; TEMP 96; O2SAT 95
[2016-09-21 15:50] VITALS: BP 116/67; PULSE 102; RESP 20; TEMP 96.8; O2SAT 95
[2016-09-21 20:00] VITALS: BP 124/74; PULSE 96; RESP 22; TEMP 97.5; O2SAT 94
--- NOTE | 2016-09-21 21:01 | HHI.PR ---
Subjective Remarks He does display some confusion, but is much more coherent and participates in conversation as well as discusses things on the television in his room in an appropriate manner. Neurosurgery was consulted to assess the status of his ventricular-peritoneal shunt. He appears to be tolerating the medications well , including the Seroquel dose increase. Objective Vital Signs Date Time Temp Pulse Resp B/P Pulse Ox O2 Delivery O2 Flow Rate FiO2 09/21/16 20:00 97.5 96 22 124/74 94 09/21/16 15:50 96.8 102 20 116/67 95 09/21/16 11:38 96.0 93 18 143/78 95 09/21/16 08:24 94 21 09/21/16 08:00 97.4 90 20 132/85 96 09/21/16 04:50 98.1 99 18 137/82 95 09/20/16 23:43 97.5 97 18 144/83 95 I/O 09/20/16 09/20/16 09/20/16 09/21/16 09/21/16 09/21/16 07:00 15:00 23:00 07:00 15:00 23:00 Intake Total 80 ml 1956 ml 0 ml 120 ml 840 ml Output Total 1250 ml 652 ml 950 ml 750 ml 1125 ml Balance -1170 ml 1304 ml -950 ml -630 ml -285 ml Intake Oral 80 ml 240 ml 0 ml 120 ml 840 ml IV Total 1716 ml Output Urine Total 1250 ml 650 ml 950 ml 750 ml 1125 ml Stool Total 2 ml # Bowel Movements 0 0 1 Result Diagram: 09/19/1643909/19/16439 Objective Remarks GENERAL: Alert and appears in no acute distress. SKIN: Warm and dry. HEAD: Atraumatic. Normocephalic. EYES: Pupils equal and round. No scleral icterus. No injection or drainage. ENT: No nasal bleeding or discharge. Mucous membranes pink and moist. NECK: Trachea midline. No JVD. CARDIOVASCULAR: Regular rate and rhythm. RESPIRATORY: No accessory muscle use. Clear to auscultation. Breath sounds equal bilaterally. GASTROINTESTINAL: Abdomen soft, non-tender, nondistended. Hepatic and splenic margins not palpable. MUSCULOSKELETAL: Extremities without clubbing, cyanosis, or edema. No obvious deformities. NEUROLOGICAL: Awake and alert. No obvious cranial nerve deficits. Motor grossly within normal limits. Five out of 5 muscle strength in the arms and legs. Normal speech. PSYCHIATRIC: More appropriate mood today with periods of mild confusion. Assessment and Plan Assessment and Plan ASSESSMENT 1. Early Sepsis. 2. Acute Community Acquired Pneumonia. 3. Acute Encephalopathy. 4. Urinary Tract Infection, on admission. 5. Acute Kidney Injury. 6. Dehydration. 7. 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 8. Occlusion of the Ventricular-Peritoneal Shunt. 9. Normal Pressure Hydrocephalus. 10. Dementia with Memory Loss. PLAN 1. Will continue with the current medication regimen. 2. Use of intravenous benzodiazepine as needed. 3. Intravenous antibiotics. 4. Bronchodilator via Nebulizer. 5. Intravenous corticosteroids. 6. Intravenous hydration with electrolyte repletion. 7. Monitor intake and output closely. 8. Follow up laboratory assessment. 9. DVT, PE and PUD prophylaxis. Enrique Silva MD Sep 21, 2016 21:01
[2016-09-21] MEDS: QUEtiapine FUMARATE 100 MG TAB PO SCH (21:34)
[2016-09-21] MEDS: ENOXAPARIN SODIUM 30 MG/0.3 ML SYRINGE SQ SCH (21:38)
[2016-09-22] VITALS (7 sets, daily range): BP systolic 122–152; BP diastolic 69–85; PULSE 83–95; RESP 20; TEMP 97.4–98.1; O2SAT 93–96
[2016-09-22] MEDS: RESP: ALBUTEROL 2.5 MG/IPRATROPIUM 0.5 MG NEB (SCH) NEB (07:44)
[2016-09-22] MEDS: CALCIUM CARBONATE 1.25 GM (CA 500 MG) TAB PO SCH (08:49)
[2016-09-22] MEDS: BENZONATATE 100 MG CAP PO SCH ×3 (08:49→17:18)
[2016-09-22] MEDS: QUEtiapine FUMARATE 25 MG TAB PO SCH (08:49)
[2016-09-22] MEDS: LORazepam 0.5 MG TAB PO SCH ×2 (08:49→17:16)
[2016-09-22] MEDS: CHOLECALCIFEROL (VIT D3) 1000 UNIT TAB PO SCH (08:49)
[2016-09-22] MEDS: PANTOPRAZOLE SOD 40 MG DELAYED RELEASE TAB PO SCH (08:49)
[2016-09-22] MEDS: TAMSULOSIN HCL 0.4 MG CAP PO SCH ×2 (08:49→20:38)
[2016-09-22] MEDS: VENLAFAXINE HCL XR 75 MG CAP PO SCH ×2 (08:50→20:38)
[2016-09-22] MEDS: SODIUM CHLORIDE 0.9% FLUSH 5 ML FLUSH FLUSH SCH ×2 (08:50→20:39)
[2016-09-22] MEDS: AZITHROMYCIN INJ 500 MG in SODIUM CHLOR 0.9% 250 ML INJ 250 ML IV SCH (10:00)
[2016-09-22] MEDS: cefTRIAXone INJ 1,000 MG in SODIUM CHLORIDE 0.9% INJ 100 ML IV SCH (10:14)
--- NOTE | 2016-09-22 12:19 | PD.CONS ---
(Jose Gee MD) HPI Consult Requested By Primary Care Physician Enrique Silva MD (Jose Gee MD) Service NRS Consult Requested By Dr. Silva Reason for Consult nonfunctioning shunt History of Present Illness Mr. Kang is a 81 year old male who underwent placement of ventriculoperitoneal shunt on 03/21/16 for Normal Pressure Hydrocephalus. Mr. Kang has had episodes of confusion and has had several hospitalizations due to so. He had suffered thoracic compression fractures that was managed nonsurgically, he also was found to have Urinary Tract Infections. Mr. Kang has been followed up in our office accompanied by his daughter, he was doing ok at that time, still at times confused. We had placed him on Bactrim for UTI. He was brought into [place] as he was becoming weak and was unable to stand on his own. He also has had poor oral intake. He is again positive for UTI, and with metabolic abnormalities. A CT Head showed no acute pathology, there is stable signs of hydrocephalus. He underwent a Shuntogram study a few days ago which showed no patency of the catheter from below the chest, no contrast seen into the peritoneum. A neurosurgical evaluation was requested. (Millie Alvarado) Review of Systems ROS Limitations: Clinical Condition, Altered Mental Status (Millie Alvarado) Past Family Social History Allergies: Coded Allergies: No Known Allergies (Verified , 09/17/16) Past Medical History NPH Hypertension Recurrent UTIs Parkinson's Anxiety Depression Thoracic compression fracture Previous SDH that was evacuated Past Surgical History Ventriculoperitoneal shunt Craniotomy with evac of SDH Prostatectomy Cholecystectomy Reported Medications reviewed in EMR Active Ordered Medications Current Medications Medications (Trade) Dose Ordered Sig/David Route PRN Reason Start Time Stop Time Status Last Admin Dose Admin IV Flush (NS Flush) 2 ml UNSCH PRN FLUSH FLUSH AFTER USING IV ACCESS 09/17/16 22:15 IV Flush (NS Flush) 2 ml BID FLUSH 09/18/16 09:00 09/22/16 08:50 Acetaminophen (Tylenol) 650 mg Q4H PRN PO TEMP > 100.4 09/17/16 22:15 Ondansetron HCl (Zofran Inj) 4 mg Q6H PRN IVP NAUSEA OR VOMITING 09/17/16 22:15 Enoxaparin Sodium (Lovenox Inj) 30 mg Q24H SQ 09/17/16 22:15 09/21/16 21:38 Naloxone HCl (Narcan Inj) 0.4 mg UNSCH PRN IV SEE LABEL COMMENTS 09/17/16 22:15 Lorazepam (Ativan) 0.5 mg BID@, PO 09/18/16 09:00 09/22/16 08:49 Tamsulosin HCl (Flomax) 0.4 mg Q12HR PO 09/18/16 09:00 09/22/16 08:49 Calcium Carbonate (Oscal) 1,000 mg DAILY PO 09/18/16 09:00 09/22/16 08:49 Cholecalciferol (Vitamin D3) 2,000 units DAILY PO 09/18/16 09:00 09/22/16 08:49 Pantoprazole Sodium (Protonix) 40 mg DAILY PO 09/18/16 09:00 09/22/16 08:49 Venlafaxine HCl 150 mg 150 mg BID PO 09/18/16 09:00 09/22/16 08:50 Ceftriaxone Sodium 1000 mg/ Sodium Chloride 100 ml @ 200 mls/hr Q24H IV 09/18/16 10:00 09/22/16 10:14 Azithromycin/ Sodium Chloride (Zithromax Inj/ NS 250 ml Inj) 250 ml @ 250 mls/hr Q24H IV 09/18/16 10:00 09/21/16 11:19 Benzonatate (Tessalon) 200 mg TID PO 09/18/16 09:00 09/22/16 08:49 Quetiapine Fumarate (SEROquel) 50 mg DAILY PO 09/20/16 09:00 09/22/16 08:49 Quetiapine Fumarate (SEROquel) 100 mg HS PO 09/19/16 21:00 09/21/16 21:34 Family History cannot obtain a due to clinical condition Social History Per EMR, no tobacco use, history of previous etoh abuse, no illicit drug use. (Millie Alvarado) Physical Exam Vital Signs Vital Signs Date Time Temp Pulse Resp B/P Pulse Ox O2 Delivery O2 Flow Rate FiO2 09/22/16 08:00 98.1 83 20 143/83 95 09/22/16 07:44 95 09/22/16 04:00 97.8 85 20 143/78 93 09/22/16 00:00 97.4 89 20 122/69 94 09/21/16 21:46 Room Air 09/21/16 20:00 97.5 96 22 124/74 94 09/21/16 15:50 96.8 102 20 116/67 95 Physical Exam Mr. Kang is alert, confused, oriented to self. Not following commands consistently. Cranial nerve examination: pupils 4 mm equal, round, and reactive to light. Facial motor function appears normal and symmetrical. Face sensation, hearing, visual guerrero, and olfaction can not be assessed properly due to the patients condition. Neck is soft and supple. Motor: on soft restraints but moving all four extremities Deep tendon reflexes are 1+ and symmetrical in the biceps, triceps, and brachioradialis, bilaterally, in the upper extremities. In the lower extremities , the patellar and Achilles are 1+, bilaterally. There is a bilateral plantar flexion response. There is no clonus or other abnormal reflexes noted. Cerebellar examination is limited due to the patient condition,Mr. Kang is alert, confused, oriented to self. Not following commands consistently. Cranial nerve examination: pupils 4 mm equal, round, and reactive to light. Facial motor function appears normal and symmetrical. Face sensation, hearing, visual guerrero, and olfaction can not be assessed properly due to the patients condition. Neck is soft and supple. Motor: on soft restraints but moving all four extremities sensory exam symmetrical to pin prick Deep tendon reflexes are 1+ and symmetrical in the biceps, triceps, and brachioradialis, bilaterally, in the upper extremities. In the lower extremities , the patellar and Achilles are 1+, bilaterally. There is a bilateral plantar flexion response. There is no clonus . Cerebellar examination is limited due to the patient condition, Laboratory Date/Time Procedure Status Source Growth 09/17/16 22:40 Urine Culture - Final Complete Urine Catheterized Urine NO GROWTH IN 48 HOURS. 09/17/16 20:25 Aerobic Blood Culture - Final Complete Blood Peripheral NO GROWTH IN 5 DAYS 09/17/16 20:25 Anaerobic Blood Culture - Final Complete Blood Peripheral NO GROWTH IN 5 DAYS (Jose Gee MD) Result Diagram: 09/19/16 0440 09/19/16 0440 Imaging Last Impressions Shunt Study 09/20/16 0000 Signed Impressions: Service Date/Time: Tuesday, September 20, 2016 09:45 - CONCLUSION: The intracranial component of the AIRCRAFT PARTS ASSEMBLER shunt is patent. The extracranial component is patent to the level of the upper chest but no patency is seen below this level. In particular, no free spillage of contrast into the peritoneal cavity. Shoaib Saleem Jr., MD Head CT 09/17/162012 Signed Impressions: Service Date/Time: Saturday, September 17, 2016 20:33 - CONCLUSION: 1. Ventriculostomy tube in place with persistent dilatation of the lateral and third ventricles. This configuration is unchanged. 2. Some expansion of the extraaxial spaces of the frontal lobes and the cerebellar hemispheres. This configuration is unchanged. 3. Age-related atrophy. Favio Salas MD Chest X-Ray 09/17/162012 Signed Impressions: Service Date/Time: Saturday, September 17, 2016 20:34 - CONCLUSION: Suspected left lower lobe consolidation or atelectasis. Favio Salas MD (Millie Alvarado) Attending Statement Neuro. I have reviewed her clinical and radiological findings. neuro checks in a serial fashion. His shunt seems to be occluded by shuntogram. I have discussed his condition with his neurologist, Dr. Jake Jean. There is no other etiology for his encephalopathy. We will obtain further blood work Prior to consider revision of the ventriculoperitoneal shunt Respiratory. pulmonary toilette, nasotracheal suction, and breathing treatments with nebulizers. PT and OT Nutrition. Oral diet Renal. monitor closely urine output, BUN and creatinine Endocrine. Monitor serial Acu checks and SSI for tight control ID monitor for signs of infection Protonix for stress ulcer prophylaxis Prosper hose and SCD's for DVT prophylaxis Discussed with his daughter (Jose Gee MD) Jose Gee MD Sep 22, 2016 12:19 Millie Alvarado Sep 22, 2016 13:10 PT and OT Nutrition. Oral diet Renal. monitor closely urine output, BUN and creatinine Endocrine. Monitor serial Acu checks and SSI for tight control ID monitor for signs of infection Protonix for stress ulcer prophylaxis Prosper hose and SCD's for DVT prophylaxis Discussed with his daughter (Jose Gee MD) Jose Gee MD Sep 22, 2016 12:19 Millie Alvarado Sep 22, 2016 13:10 Millie Alvarado Sep 22, 2016 13:10
--- NOTE | 2016-09-22 15:26 | HHI.PR ---
Subjective Remarks He continues to display some confusion. He appears to be somewhat less coherent today as compared to yesterday. Neurosurgery saw him today with the plan to assess the status of his ventricular-peritoneal shunt to be determined. He appears to be tolerating all of the medications. Objective Vital Signs Date Time Temp Pulse Resp B/P Pulse Ox O2 Delivery O2 Flow Rate FiO2 09/22/16 12:00 97.5 91 20 126/75 93 09/22/16 08:00 98.1 83 20 143/83 95 09/22/16 07:44 95 09/22/16 04:00 97.8 85 20 143/78 93 09/22/16 00:00 97.4 89 20 122/69 94 09/21/16 21:46 Room Air 09/21/16 20:00 97.5 96 22 124/74 94 09/21/16 15:50 96.8 102 20 116/67 95 I/O 09/21/16 09/21/16 09/21/16 09/22/16 09/22/16 09/22/16 07:00 15:00 23:00 07:00 15:00 23:00 Intake Total 120 ml 840 ml Output Total 750 ml 1125 ml 300 ml 150 ml Balance -630 ml -285 ml -300 ml -150 ml Intake Oral 120 ml 840 ml Output Urine Total 750 ml 1125 ml 300 ml 150 ml # Bowel Movements 0 1 0 2 Result Diagram: 09/19/1643909/19/16439 Objective Remarks GENERAL: Alert and appears in no acute distress. SKIN: Warm and dry. HEAD: Atraumatic. Normocephalic. EYES: Pupils equal and round. No scleral icterus. No injection or drainage. ENT: No nasal bleeding or discharge. Mucous membranes pink and moist. NECK: Trachea midline. No JVD. CARDIOVASCULAR: Regular rate and rhythm. RESPIRATORY: No accessory muscle use. Clear to auscultation. Breath sounds equal bilaterally. GASTROINTESTINAL: Abdomen soft, non-tender, nondistended. Hepatic and splenic margins not palpable. MUSCULOSKELETAL: Extremities without clubbing, cyanosis, or edema. No obvious deformities. NEUROLOGICAL: Awake and alert. No obvious cranial nerve deficits. Motor grossly within normal limits. Normal speech. PSYCHIATRIC: Appropriate mood with periods of mild confusion. Assessment and Plan Assessment and Plan ASSESSMENT 1. Early Sepsis. 2. Acute Community Acquired Pneumonia. 3. Acute Encephalopathy. 4. Urinary Tract Infection, on admission. 5. Acute Kidney Injury. 6. Dehydration. 7. 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 8. Occlusion of the Ventricular-Peritoneal Shunt. 9. Normal Pressure Hydrocephalus. 10. Dementia with Memory Loss. PLAN 1. Will continue with the current medication regimen. 2. Intravenous benzodiazepine use, only as needed. 3. Intravenous antibiotics to oral form. 4. Bronchodilator via Nebulizer. 5. Intravenous corticosteroids to oral form. 6. Discontinue intravenous hydration. 7. Monitor intake and output closely. 8. Follow up laboratory assessment. 9. DVT, PE and PUD prophylaxis. Enrique Silva MD Sep 22, 2016 15:26
[2016-09-22] MEDS: ENOXAPARIN SODIUM 30 MG/0.3 ML SYRINGE SQ SCH (20:38)
[2016-09-22] MEDS: QUEtiapine FUMARATE 100 MG TAB PO SCH (20:38)
[2016-09-23] VITALS: BP 140/78; PULSE 93; RESP 18; TEMP 97.6; O2SAT 95
[2016-09-23 04:00] VITALS: BP 134/77; PULSE 86; RESP 18; TEMP 97.9; O2SAT 93
[2016-09-23 08:00] VITALS: BP 153/89; PULSE 80; RESP 20; TEMP 97.3; O2SAT 94
--- NOTE | 2016-09-23 08:31 | RADRPT ---
EXAM DATE/TIME: 09/23/2016 08:14 [facility] COMPARISON: CHEST SINGLE AP, September 17, 2016, 20:34. INDICATIONS : Short of breath. MEDICAL HISTORY : Cardiovascular disease. SURGICAL HISTORY : None. ENCOUNTER: Initial ACUITY: 1 day PAIN SCORE: 10 LOCATION: Bilateral chest FINDINGS: Portable AP view the chest demonstrates a normal-sized cardiac silhouette. Lungs are underinflated wi th mild opacity left lung base that is stable. No effusion or pneumothorax is visualized. The bones a nd soft tissues demonstrate no acute finding. Right PNEUMATIC PRESS HAND shunt tubing remains present. CONCLUSION: Stable chest x-ray with underinflation and mild atelectasis versus consolidation at the left lung bas e. Otherwise, no acute finding is visualized. Favio Gimenez MD on September 23, 2016 at 8:27 Board Certified Radiologist. This report was verified electronically.
[2016-09-23] MEDS: CEFUROXIME AXETIL 500 MG TAB PO SCH ×2 (09:00→22:04)
[2016-09-23] MEDS: LORazepam 0.5 MG TAB PO SCH ×2 (09:00→18:27)
[2016-09-23] MEDS: TAMSULOSIN HCL 0.4 MG CAP PO SCH ×2 (09:00→22:04)
[2016-09-23] MEDS: VENLAFAXINE HCL XR 75 MG CAP PO SCH ×2 (09:00→21:00)
[2016-09-23] MEDS: PANTOPRAZOLE SOD 40 MG DELAYED RELEASE TAB PO SCH (09:01)
[2016-09-23] MEDS: CALCIUM CARBONATE 1.25 GM (CA 500 MG) TAB PO SCH (09:01)
[2016-09-23] MEDS: BENZONATATE 100 MG CAP PO SCH ×3 (09:01→18:27)
[2016-09-23] MEDS: QUEtiapine FUMARATE 25 MG TAB PO SCH (09:01)
[2016-09-23] MEDS: AZITHROMYCIN 250 MG TAB PO SCH (09:02)
[2016-09-23] MEDS: SODIUM CHLORIDE 0.9% FLUSH 5 ML FLUSH FLUSH SCH ×2 (09:02→22:05)
[2016-09-23] MEDS: CHOLECALCIFEROL (VIT D3) 1000 UNIT TAB PO SCH (09:02)
[2016-09-23 11:28] LABS: AUTOMATED NEUTROPHIL # 5.6 TH/MM3 (1.8-7.7); BASOPHIL # 0.1 TH/MM3 (0-0.2); BASOPHIL % 0.9 % (0.0-2.0); EOSINOPHIL # 0.5 TH/MM3 (0-0.4); EOSINOPHIL % 5.9 % (0.0-4.0); HEMATOCRIT 38.5 % (39.0-51.0); LYMPH % 21.2 % (9.0-44.0); LYMPHOCYTE # 1.9 TH/MM3 (1.0-4.8); MEAN CELL VOLUME 91.5 FL (80.0-100.0); MEAN CORPUSCULAR HEMOGLOBIN 31.7 PG (27.0-34.0); MEAN CORPUSCULAR HGB CONC 34.6 % (32.0-36.0); MONO % 10.6 % (0.0-8.0); NEUT % 61.4 % (16.0-70.0); PLATELET COUNT 400 TH/MM3 (150-450); RED BLOOD COUNT 4.21 MIL/MM3 (4.50-5.90); RED CELL DISTRIBUTION WIDTH 13.5 % (11.6-17.2)
[2016-09-23 11:30] LABS: HEMO FLAGS AUTO DIFF
[2016-09-23 11:42] LABS: BICARBONATE 24.9 MEQ/L (21.0-32.0); POTASSIUM 3.9 MEQ/L (3.5-5.1)
[2016-09-23 12:00] VITALS: BP 151/80; PULSE 95; RESP 16; TEMP 97.6; O2SAT 96
[2016-09-23 12:30] LABS: PLATELET ESTIMATE SMEAR NORMAL (NORMAL); PLATELET MORPHOLOGY NORMAL (NORMAL); SCAN/DIFF AUTO DIFF CONFIRMED
[2016-09-23 16:00] VITALS: BP 154/81; PULSE 89; RESP 16; TEMP 98.2; O2SAT 93
--- NOTE | 2016-09-23 17:24 | HHI.NSPN ---
(Jose Gee MD) Note Status Status: Progress Note (Jose Gee MD) Status: Progress Note (Millie Alvarado) Interval History Interval History 09/23. No significant clinical improvement. metabolic workup done (Jose Gee MD) Interval History Mr. Kang is a 81 year old male who underwent placement of ventriculoperitoneal shunt on 03/21/16 for Normal Pressure Hydrocephalus. Mr. Kang has had episodes of confusion and has had several hospitalizations due to so. He had suffered thoracic compression fractures that was managed nonsurgically, he also was found to have Urinary Tract Infections. Mr. Kang has been followed up in our office accompanied by his daughter, he was doing ok at that time, still at times confused. We had placed him on Bactrim for UTI. He was brought into [place] as he was becoming weak and was unable to stand on his own. He also has had poor oral intake. He is again positive for UTI, and with metabolic abnormalities. A CT Head showed no acute pathology, there is stable signs of hydrocephalus. He underwent a Shuntogram study a few days ago which showed no patency of the catheter from below the chest, no contrast seen into the peritoneum. A neurosurgical evaluation was requested. 09/23: still confused, evaluated by Neurologist Dr. Peter (Millie Alvarado) Labs, Micro, & Vital Signs Results Date Time Temp Pulse Resp B/P Pulse Ox O2 Delivery O2 Flow Rate FiO2 09/23/16 12:00 97.6 95 16 151/80 96 09/23/16 08:00 96 Room Air 21 09/23/16 08:00 97.3 80 20 153/89 94 09/23/16 04:00 97.9 86 18 134/77 93 09/23/16 00:00 97.6 93 18 140/78 95 09/22/16 20:30 Room Air 09/22/16 20:00 97.8 92 20 152/85 96 09/23/16 07:00 Intake Total 244 ml Output Total 1900 ml Balance -1656 ml Constitutional Vital Signs Date Time Temp Pulse Resp B/P Pulse Ox O2 Delivery O2 Flow Rate FiO2 09/23/16 12:00 97.6 95 16 151/80 96 09/23/16 08:00 96 Room Air 21 09/23/16 08:00 97.3 80 20 153/89 94 09/23/16 04:00 97.9 86 18 134/77 93 09/23/16 00:00 97.6 93 18 140/78 95 09/22/16 20:30 Room Air 09/22/16 20:00 97.8 92 20 152/85 96 09/23/16 07:00 Intake Total 244 ml Output Total 1900 ml Balance -1656 ml (Jose Gee MD) Medications Current Medications Mr. Kang is alert, confused, oriented to self. Not following commands consistently. Cranial nerve examination: pupils 4 mm equal, round, and reactive to light. Facial motor function appears normal and symmetrical. Face sensation, hearing, visual guerrero, and olfaction can not be assessed properly due to the patients condition. Neck is soft and supple. Motor: on soft restraints but moving all four extremities Deep tendon reflexes are 1+ and symmetrical in the biceps, triceps, and brachioradialis, bilaterally, in the upper extremities. In the lower extremities , the patellar and Achilles are 1+, bilaterally. There is a bilateral plantar flexion response. There is no clonus or other abnormal reflexes noted. Cerebellar examination is limited due to the patient condition, but no obvious deficits are noted. Heart: NSR Lungs: clear (Millie Alvarado) Medical Decision Making MDM Remarks 81 y/o male with worsening confusion, shuntogram shows occluded shunt (Millie Alvarado) Plan Plan Remarks Dr. Gee dw Dr. Peter and Dr. Silva for revision of ventriculoperitoneal shunt tomorrow NPO tonight also dw daughter over the phone (Millie Alvarado) Attending Statement His condition has not improved. There is occlusion of the shunt with abnormal findings on the MRI, ventriculomegaly and trans-ependimal fluid migration. I have discussed the case with the neurologist, Dr. Romero and with his admitting physician, Dr. Silva. I recommend revision of the ventriculoperitoneal shunt. I have discussed the case with his doctor in detail. We have discussed the details including the [id number] details of the surgical procedure, its indications, alternatives, risks, and potential complications. Risks and potential complications include, but are not limited to, infection, blood loss, CSF leak, partial or complete loss of sight in one or both eyes, paresis, paralysis, permanent pain or difficulty swallowing, loss of bowel or bladder function, complications from anesthesia, blood clot, stroke, myocardial infarction, or even . She understands. Her questions have been answered. She is in agreement with the plan. No guarantees were given The exam, history, and the medical decision-making described in the above note were completed with the assistance of the mid-level provider. I reviewed and agree with the findings presented. I attest that I had a [id number] encounter with the patient on the same day, and personally performed and documented my assessment and findings in the medical record. (Jose Gee MD) Jose Gee MD Sep 23, 2016 17:24 Millie Alvarado Sep 23, 2016 17:28
[2016-09-23] MEDS: SODIUM CHLOR 0.9% 1000 ML INJ 1,000 ML IV SCH (17:25)
--- NOTE | 2016-09-23 17:44 | MB ---
cc: AMBERLY WEISS DATE OF CONSULTATION: 09/23/2016. REASON FOR CONSULTATION: HISTORY OF PRESENT ILLNESS: This is a 81-year-old man whom I have been seeing in the office. I last saw him in April of last year. I first saw him in November of 2015. A left-handed man with history of hypercholesterolemia, heavy alcohol for years, had some double vision in the past, some memory problems, a fall, right subdural hematoma after falling and hitting his head drinking with his uncle up in [place]. He had to be evacuated. In 2012, he had some memory problems and some double vision and wound up getting treated with IVIG or Mestinon, which did not help with negative myasthenia gravis antibodies. His balance was somewhat off. He had encephalopathy. He was given thiamine back in 2014. He had normal ejection fraction in the past. When I saw him in November of 2015, I stopped his IVIC. I did not think he had myasthenia gravis. He had some depression. I looked back at his MRI in 2014 and there is significant enlargement of his ventricles and diffuse atrophy. NPH was considered. I next saw him in March of 2016. We tried him on some Sinemet but his walking was not any better. He had some urinary incontinence and emotional lability. MRI was unchanged. I thought he may have some NPH. We stopped the Sinemet. We set up a lumbar drain. He wound up getting a lumbar drain and actually his cognition improved quite a bit. 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 His walking was better. His energy was better. His cognition had improved. The last time I saw him was in April of 2016. Evidently he did not show for some appointments. 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 He became very weak and could not even stand on his own. Decreased p.o. Subsequently admitted to the hospital. He was admitted here in July of 2016 with acute urinary retention and could not provide a history at that time. He was having some hallucinations. He saw psychiatry. He saw Dr. Gee yesterday who noted he had a urinary tract infection. Shuntogram a few days prior. No patency of the catheter from below the chest. CT was unchanged from prior. PAST MEDICAL HISTORY: As above. Also the history of: 1. Peptic ulcer disease. 2. Alcoholism. 3. Hyperlipidemia. 4. Normal pressure hydrocephalus. 5. Subdural in the past. 6. Sleep apnea. 7. Anxiety. 8. Depression. FAMILY HISTORY: The daughter had some GI problems. Negative for cancer, seizure or stroke. SOCIAL HISTORY: Retired. Lives with his and daughter. He does not currently drink. CURRENT MEDICATIONS: 1. He is on Zithromax. 2. Ceftin. 3. Seroquel 50 a day and 100 at bedtime. 4. Ativan, he is getting 0.5 p.o. twice a day. 5. Flomax. 6. Os-Edin. 7. Protonix. 8. Effexor. 9. Narcan. 10. Lovenox subcutaneous. PHYSICAL EXAMINATION: VITAL SIGNS: On exam afebrile, 95, 16 151/80. GENERAL: He does recognize me as I walk into the room. NECK: There were no carotid bruits. HEART: Heart was regular rhythm. I do not detect a murmur. NEUROLOGICAL EXAMINATION: Visual guerrero are full. Pupils are equal. Extraocular movements intact without nystagmus. Face is symmetric. There is no nystagmus. He moves all of his extremities well. Tone is normal throughout. Toes were equivocal bilaterally. He is lying in bed in restraints. He is awake and alert. Speech is fluent. He is not aphasic. He does not know the year. He knows he is in the hospital, but not which one. LABORATORY DATA: CBC is essentially normal. Initially his white count was a bit high. RPR has been negative in the past. ROBB was 1:160 in the past. Anti-Hu antibody has been normal in the past. CSF showed 64 white cells in March of 2016, 2500 red cells, 50% lymphocytes, normal protein and glucose, I believe, this was at the time of his shunt and drain. Urinalysis on this admission was really negative. B6 has been normal. B12 has been normal. Thiamin level has been normal. Thyroid has been normal. ___ level has been normal. He has the MGUS, which is followed by Dr. Durham. Ammonia level in the past has been normal. IMAGING STUDIES: Chest x-ray here: mild atelectasis. CT scan of the brain here: Unchanged from prior compared to June of 2016. On review of those films, there are enlarged ventricles and significant white matter changes also noted. Compared to a head CT in 2013 and that was when he was postop and the ventricles are actually quite a bit larger than they were 2014. As compared to March of 2016 and September of 2016 CTs, I cannot say there is any major change in the ventricular size but there appears to be increased white matter changes and there may be some increased transependymal flow. IMPRESSION: 1. Encephalopathy. 2. Some history of normal pressure hydrocephalus with dementia. 3. Some urinary retention. RECOMMENDATIONS/PLAN: 1. Will check a sleep chart on him. 2. My tendency would be to have him on less sedatives. We will see how he is sleeping at night, if that is one of his main problems. 3. I will talk with Dr. Gee. Evidently the shunt is not functioning entirely properly from the study and possibly from the patient's behavior as he had significant improvement when he had the shunt placed back in March of last year. MD MALIA Vásquez/AUNDREA /4:38 PM /5:10 PM
[2016-09-23 20:00] VITALS: BP 158/77; PULSE 84; RESP 20; TEMP 97.8; O2SAT 93
[2016-09-23] MEDS ORDERED: CHLORHEXIDINE GLUCONATE 4% SOLN 120 ML BTL TOP SCH (21:00)
--- NOTE | 2016-09-23 21:25 | HHI.PR ---
Subjective Remarks He was seen by Neurology earlier today. He appears to be more with confusion persisting in certain discussions. Neurosurgery called me in the office today to discuss the plans of monitoring of his status until a disposition is given by the Neurologist. His oral intake of food and drink is fair. He appears to be tolerating all of the medications. Objective Vital Signs Date Time Temp Pulse Resp B/P Pulse Ox O2 Delivery O2 Flow Rate FiO2 09/23/16 20:00 97.8 84 20 158/77 93 09/23/16 16:00 98.2 89 16 154/81 93 09/23/16 12:00 97.6 95 16 151/80 96 09/23/16 08:00 96 Room Air 21 09/23/16 08:00 97.3 80 20 153/89 94 09/23/16 04:00 97.9 86 18 134/77 93 09/23/16 00:00 97.6 93 18 140/78 95 I/O 09/22/16 09/22/16 09/22/16 09/23/16 09/23/16 09/23/16 07:00 15:00 23:00 07:00 15:00 23:00 Intake Total 240 ml 4 ml 640 ml Output Total 150 ml 350 ml 600 ml 950 ml 450 ml Balance -150 ml -350 ml -360 ml -946 ml 190 ml Intake Oral 240 ml 0 ml 640 ml IV Total 4 ml Output Urine Total 150 ml 350 ml 600 ml 950 ml 450 ml # Bowel Movements 2 3 2 1 1 Result Diagram: 09/23/16 1100 09/23/16 1100 Objective Remarks GENERAL: Alert and appears in no acute distress. SKIN: Warm and dry. HEAD: Atraumatic. Normocephalic. EYES: Pupils equal and round. No scleral icterus. No injection or drainage. ENT: No nasal bleeding or discharge. Mucous membranes pink and moist. NECK: Trachea midline. No JVD. CARDIOVASCULAR: Regular rate and rhythm. RESPIRATORY: No accessory muscle use. Clear to auscultation. Breath sounds equal bilaterally. GASTROINTESTINAL: Abdomen soft, non-tender, nondistended. Hepatic and splenic margins not palpable. MUSCULOSKELETAL: Extremities without clubbing, cyanosis, or edema. No obvious deformities. NEUROLOGICAL: Awake and alert. No obvious cranial nerve deficits. Motor grossly within normal limits. Normal speech. PSYCHIATRIC: Appropriate mood with periods of mild confusion. Assessment and Plan Assessment and Plan ASSESSMENT 1. Early Sepsis. 2. Acute Community Acquired Pneumonia. 3. Acute Encephalopathy. 4. Urinary Tract Infection, on admission. 5. Acute Kidney Injury. 6. Dehydration. 7. 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 8. Occlusion of the Ventricular-Peritoneal Shunt. 9. Normal Pressure Hydrocephalus. 10. Dementia with Memory Loss. PLAN 1. Will continue with the current medication regimen. 2. Intravenous benzodiazepine use, only as needed. 3. Intravenous antibiotics are converted to oral form. 4. Bronchodilator via Nebulizer. 5. Intravenous corticosteroids are converted to oral form. 6. Physical Therapy, as tolerated. 7. Monitor intake and output closely. 8. Follow up laboratory assessment. 9. DVT, PE and PUD prophylaxis. Enrique Silva MD Sep 23, 2016 21:25
[2016-09-23] MEDS: ENOXAPARIN SODIUM 30 MG/0.3 ML SYRINGE SQ SCH (22:05)
[2016-09-23] MEDS: QUEtiapine FUMARATE 100 MG TAB PO SCH (22:05)
[2016-09-24] MEDS: SODIUM CHLOR 0.9% 1000 ML INJ 1,000 ML IV SCH ×2 (04:57→08:01)
[2016-09-24] MEDS: QUEtiapine FUMARATE 25 MG TAB PO SCH ×2 (07:59→20:45)
[2016-09-24] MEDS: CALCIUM CARBONATE 1.25 GM (CA 500 MG) TAB PO SCH (07:59)
[2016-09-24] MEDS: AZITHROMYCIN 250 MG TAB PO SCH (07:59)
[2016-09-24] MEDS: BENZONATATE 100 MG CAP PO SCH ×3 (07:59→19:52)
[2016-09-24] MEDS: CEFUROXIME AXETIL 500 MG TAB PO SCH ×2 (08:00→20:59)
[2016-09-24] MEDS: LORazepam 0.5 MG TAB PO SCH (08:00)
[2016-09-24] MEDS: PANTOPRAZOLE SOD 40 MG DELAYED RELEASE TAB PO SCH (08:00)
[2016-09-24] MEDS: TAMSULOSIN HCL 0.4 MG CAP PO SCH ×2 (08:00→20:59)
[2016-09-24] MEDS: CHOLECALCIFEROL (VIT D3) 1000 UNIT TAB PO SCH (08:00)
[2016-09-24] MEDS: SODIUM CHLORIDE 0.9% FLUSH 5 ML FLUSH FLUSH SCH ×2 (08:01→19:52)
[2016-09-24] MEDS: VENLAFAXINE HCL XR 75 MG CAP PO SCH ×2 (08:01→20:59)
[2016-09-24 08:17] VITALS: BP 137/75; PULSE 88; RESP 18; TEMP 97.6; O2SAT 96
--- NOTE | 2016-09-24 08:37 | HHI.PR ---
Subjective Remarks slept 10pm -1 am and 2-430 am Objective Vital Signs Date Time Temp Pulse Resp B/P Pulse Ox O2 Delivery O2 Flow Rate FiO2 09/24/16 08:17 97.6 88 18 137/75 96 09/23/16 20:30 Room Air 09/23/16 20:00 97.8 84 20 158/77 93 09/23/16 16:00 98.2 89 16 154/81 93 09/23/16 12:00 97.6 95 16 151/80 96 I/O 09/23/16 09/23/16 09/23/16 09/24/16 09/24/16 09/24/16 07:00 15:00 23:00 07:00 15:00 23:00 Intake Total 4 ml 640 ml 120 ml 240 ml Output Total 950 ml 450 ml 275 ml Balance -946 ml 190 ml -155 ml 240 ml Intake Oral 0 ml 640 ml 120 ml 240 ml IV Total 4 ml Output Urine Total 950 ml 450 ml 275 ml # Bowel Movements 1 1 1 Result Diagram: 09/23/16 1100 09/23/16 1100 Objective Remarks awake confused moves all well Assessment and Plan Assessment and Plan [facility] to fix shunt dec sedatives Jake Peter MD Sep 24, 2016 08:37
--- NOTE | 2016-09-24 08:39 | HHI.PR ---
Subjective Remarks slept 10pm -1 am and 2-430 am Objective Vital Signs Date Time Temp Pulse Resp B/P Pulse Ox O2 Delivery O2 Flow Rate FiO2 09/24/16 08:17 97.6 88 18 137/75 96 09/23/16 20:30 Room Air 09/23/16 20:00 97.8 84 20 158/77 93 09/23/16 16:00 98.2 89 16 154/81 93 09/23/16 12:00 97.6 95 16 151/80 96 I/O 09/23/16 09/23/16 09/23/16 09/24/16 09/24/16 09/24/16 07:00 15:00 23:00 07:00 15:00 23:00 Intake Total 4 ml 640 ml 120 ml 240 ml Output Total 950 ml 450 ml 275 ml Balance -946 ml 190 ml -155 ml 240 ml Intake Oral 0 ml 640 ml 120 ml 240 ml IV Total 4 ml Output Urine Total 950 ml 450 ml 275 ml # Bowel Movements 1 1 1 Result Diagram: 09/23/16 1100 09/23/16 1100 Objective Remarks awake confused moves all well Assessment and Plan Assessment and Plan [facility] to fix shunt dec sedatives oob after shunt fixed per nusu i will fu tuesday addendum eeg some sharps dec seroquel and add Jake Ordonez MD Sep 24, 2016 08:39
[2016-09-24] MEDS ORDERED: PHENYLEPH/NS 1000 MCG/10 ML SYR IV ONE (10:41)
[2016-09-24] MEDS ORDERED: ONDANSETRON HCL 4 MG/2 ML VIAL IV PUSH ONE (10:41)
[2016-09-24] MEDS ORDERED: LACTATED RINGER'S 1000 ML INJ 1,000 ML IV ONE (10:41)
[2016-09-24] MEDS ORDERED: NEOSTIGMINE 3 MG/3 ML SYR IV ONE (10:41)
[2016-09-24] MEDS ORDERED: PROPOFOL 200 MG/20 ML AMP IV ONE (10:41)
[2016-09-24] MEDS ORDERED: ePHEDrine/NS 25 MG/5 ML SYR IV ONE (10:41)
[2016-09-24 12:01] VITALS: BP 123/72; PULSE 84; RESP 20; TEMP 98.4; O2SAT 96
[2016-09-24] MEDS: levETIRAcetam 500 MG TAB PO SCH ×2 (13:27→20:59)
--- NOTE | 2016-09-24 14:53 | RADRPT ---
EXAM DATE/TIME: 09/24/2016 14:36 [facility] COMPARISON: CT ABDOMEN & PELVIS W/O CONTRAST, July 30, 2016, 18:19. INDICATIONS : Diffuse abdominal pain; evaluate abdominal area of TIPPLE GREASER shunt. ORAL CONTRAST: No oral contrast ingested. RADIATION DOSE: 13.44 CTDIvol (mGy) MEDICAL HISTORY : Gastroesophageal reflux disease. Renal calculi. Hernia, hiatal.Myasthenia gravis; Hydrocephalus SURGICAL HISTORY : Cholecystectomy. Prostatectomy.Inguinal hernia repair.Hiatal hernia repair ENCOUNTER: Initial ACUITY: 1 day PAIN SCALE: 4/10 LOCATION: Abdomen/pelvis TECHNIQUE: Volumetric scanning of the abdomen and pelvis was performed. Using automated exposure control and ad justment of the mA and/or kV according to patient size, radiation dose was kept as low as reasonably achievable to obtain optimal diagnostic quality images. The lack of IV contrast limits the diagnosis for certain organ pathology. FINDINGS: LOWER LUNGS: Bibasilar atelectasis, left greater than right. LIVER: Homogeneous density without lesion. There is no dilation of the biliary tree. No gallbladder, surgi cody removed.. SPLEEN: Normal size without lesion. PANCREAS: Within normal limits. KIDNEYS: Normal in size and shape. There is no mass, stone, or hydronephrosis. ADRENAL GLANDS: Within normal limits. VASCULAR: There is no aortic aneurysm. BOWEL/MESENTERY: The stomach, small bowel, and colon demonstrate no acute abnormality. There is no free intraperitone al air or fluid. Scattered diverticulosis of the sigmoid colon. No inflammatory changes. There is sto ol throughout the colon. There is a TIPPLE GREASER shunt catheter entering through the right anterior abdomen. Th e catheter tip appears to end in the left mid anterior abdomen. There does not appear to be any surro unding or loculated fluid collections. This is not significant changed in position compared to the pr ior study. ABDOMINAL WALL: Within normal limits. RETROPERITONEUM: There is no lymphadenopathy. BLADDER: No wall thickening or mass. Michelle catheter in place. REPRODUCTIVE: Multiple surgical clips are seen in the deep pelvis characteristic of a prostatectomy. This is stable compared to the prior examination. INGUINAL: There is no lymphadenopathy or hernia. MUSCULOSKELETAL: Within normal limits for patient age. Diffuse bony degenerative changes. CONCLUSION: 1. TIPPLE GREASER shunt catheter enters the abdomen along the right anterior abdominal wall. The tip of the pedro ter is positioned in the anterior left abdomen without surrounding fluid. There is only approximately 11 cm of catheter in the abdomen from its point of insertion. 2. Otherwise, unremarkable and stable CT scan of the abdomen compared to the prior study. 3. Bibasilar atelectasis, left greater than right. Amilcar Palacios MD on September 24, 2016 at 14:46 Board Certified Radiologist. This report was verified electronically.
[2016-09-24] MEDS: ceFAZolin 2 GM PREMIX 50 ML IV SCH ×2 (15:37→15:51)
--- NOTE | 2016-09-24 15:38 | MG ---
cc: YENNIFER RAMOS M.D. Lab No: [id number] Date: Age: 81 Sex: M Race: REFERRING: Dr. Peter. ROOM: 1415. Awake, drowsy asleep study with photic stimulation. CT ventriculostomy tube in place with persistent dilatation of the ventricles. Age-related atrophy. Also some expansion of the frontal and cerebellar hemisphere. A 81-year-old man admitted with difficulty walking, unable to stand or sleep. Sleeping. Left-sided weakness two days ago. Incontinent. History of hydrocephalus, Myasthenia, dementia, tremors, Parkinson's. MEDICATIONS: Vancomycin, erythromycin, Ceftin, Seroquel, Flomax, Effexor, Protonix, Tessalon, Lovenox. DESCRIPTION OF RECORD: The patient has what looks like sharp wave activity seen more over the right hemisphere but it is bilateral. Also phase reversals are noted more over the right hemisphere is seen in various epochs. Photic stimulation did not elicit any significant driving response. IMPRESSION: Abnormal EEG due to diffuse sharp wave activity with phase reversals more right compared to left but seen bilateral on other epochs as well consistent with epileptic events. Clinical correlation. MD MAGGIE Hickman/AUNDREA /3:16 PM /3:31 PM
[2016-09-24] MEDS: VANCOMYCIN INJ 1,000 MG in SODIUM CHLOR 0.9% 250 ML INJ 250 ML IV SCH ×2 (15:45→15:50)
[2016-09-24 16:00] VITALS: BP 129/74; PULSE 82; RESP 18; TEMP 97.6; O2SAT 95
[2016-09-24] MEDS ORDERED: LIDOCAINE 1%/EPINEPHrine 1:100,000 SOLN 30 ML VIAL ONE (16:43)
[2016-09-24] MEDS ORDERED: THROMBIN (TOPICAL) 5,000 UNIT VIAL ONE (16:43)
[2016-09-24] MEDS ORDERED: GELATIN 12 MM/7 MM FOAM ONE (16:43)
[2016-09-24] MEDS ORDERED: BACITRACIN TOP OINT 15 GM TUBE ONE (16:44)
[2016-09-24] MEDS ORDERED: GENTAMICIN SULFATE 80 MG/2 ML VIAL ONE (16:44)
[2016-09-24] MEDS ORDERED: SODIUM CHLORIDE 0.9% FLUSH 5 ML FLUSH IVF PRN (17:30)
[2016-09-24] MEDS ORDERED: ACETAMINOPHEN/HYDROcodone 325 MG/10 MG TAB PO PRN ×2 (17:30)
[2016-09-24] MEDS ORDERED: MORPHINE SULFATE 4 MG/ML INJ IV PUSH PRN ×2 (17:30)
[2016-09-24] MEDS ORDERED: fentaNYL CITRATE 250 MCG/5 ML AMP ONE (19:10)
[2016-09-24] MEDS ORDERED: DO NOT ADM ANY ANTICOAGULANT DRUGS XX PRN (19:30)
[2016-09-24] MEDS: NS + KCL 20 MEQ INJ 1,000 ML IV SCH (19:45)
[2016-09-24] MEDS ORDERED: SODIUM CHLORIDE 0.9% FLUSH 5 ML FLUSH IVF SCH (21:00)
[2016-09-24] MEDS ORDERED: QUEtiapine FUMARATE 25 MG TAB PO SCH (21:00)
[2016-09-24 22:37] LABS: CSF LYMPHOCYTES 0 %; CSF NEUTROPHILS 0 %; SUPERNATE COLOR TUBE #1 CLEAR (CLEAR); WBC TUBE #1 0 /MM3 (0-10)
[2016-09-24 23:45] VITALS: BP 120/98; PULSE 85; RESP 20; TEMP 97; O2SAT 95
[2016-09-25] MEDS: ceFAZolin 2 GM PREMIX 50 ML IV SCH ×3 (00:14→15:27)
[2016-09-25] MEDS: NS + KCL 20 MEQ INJ 1,000 ML IV SCH ×3 (03:20→19:47)
[2016-09-25 04:00] VITALS: BP 144/73; PULSE 86; RESP 22; TEMP 97.5; O2SAT 94
[2016-09-25 08:00] VITALS: BP 133/77; PULSE 71; RESP 17; TEMP 95.8; O2SAT 98
[2016-09-25] MEDS: levETIRAcetam 500 MG TAB PO SCH ×2 (08:15→19:43)
[2016-09-25] MEDS: CEFUROXIME AXETIL 500 MG TAB PO SCH ×2 (08:15→19:44)
[2016-09-25] MEDS: CHOLECALCIFEROL (VIT D3) 1000 UNIT TAB PO SCH (08:15)
[2016-09-25] MEDS: AZITHROMYCIN 250 MG TAB PO SCH (08:15)
[2016-09-25] MEDS: PANTOPRAZOLE SODIUM 40 MG VIAL IVP SCH (08:15)
[2016-09-25] MEDS: TAMSULOSIN HCL 0.4 MG CAP PO SCH ×2 (08:16→19:44)
[2016-09-25] MEDS: CALCIUM CARBONATE 1.25 GM (CA 500 MG) TAB PO SCH (08:16)
[2016-09-25] MEDS: VENLAFAXINE HCL XR 75 MG CAP PO SCH ×2 (08:16→19:44)
[2016-09-25] MEDS: QUEtiapine FUMARATE 25 MG TAB PO SCH ×2 (08:16→19:44)
[2016-09-25] MEDS: BENZONATATE 100 MG CAP PO SCH ×3 (08:16→17:51)
[2016-09-25] MEDS: SODIUM CHLORIDE 0.9% FLUSH 5 ML FLUSH FLUSH SCH ×2 (08:17→19:45)
--- NOTE | 2016-09-25 08:56 | RADRPT ---
EXAM DATE/TIME: 09/25/2016 08:25 [facility] COMPARISON: CT BRAIN W/O CONTRAST, September 17, 2016, 20:33. INDICATIONS : Post operative evaluation of shunt. RADIATION DOSE: 45.29 CTDIvol (mGy) MEDICAL HISTORY : Dementia. SURGICAL HISTORY : Craniotomy. 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 ENCOUNTER: Initial ACUITY: 1 day PAIN SCALE: 0/10 LOCATION: cranial TECHNIQUE: Multiple contiguous axial images were obtained of the head. Using automated exposure control and adj ustment of the mA and/or kV according to patient size, radiation dose was kept as low as reasonably a chievable to obtain optimal diagnostic quality images. FINDINGS: CEREBRUM: The ventricles, sulci, and cisterns are diffusely prominent. Right-sided frontal ventriculostomy cath eter in place. The tip of the catheter is in the frontal horn of the left lateral ventricle. Allowing for differences in imaging plane, no change in size of the ventricles is seen. No evidence of midlin e shift, mass lesion, hemorrhage or acute infarction. No extra-axial fluid collections are seen. POSTERIOR FOSSA: The cerebellum and brainstem are intact. The 4th ventricle is midline. The cerebellopontine angle i s unremarkable. EXTRACRANIAL: Ethmoid sinus opacification again seen. SKULL: The calvaria is intact. No evidence of skull fracture. CONCLUSION: Prominence of the ventricles again seen. Sulci and cisterns are also prominent. Right-sided frontal v entriculostomy catheter in place. No significant interval change in the size of the ventricles. No ac [place] intracranial findings. Terence Lawson MD on September 25, 2016 at 8:50 Board Certified Radiologist. This report was verified electronically.
[2016-09-25 12:00] VITALS: BP 138/78; PULSE 81; RESP 17; TEMP 96.8; O2SAT 97
--- NOTE | 2016-09-25 13:06 | HHI.NSPN ---
(Millie Alvarado) Note Status Status: Progress Note (Millie Alvarado) Interval History Interval History Mr. Kang is a 81 year old male who underwent placement of ventriculoperitoneal shunt on 03/21/16 for Normal Pressure Hydrocephalus. Mr. Kang has had episodes of confusion and has had several hospitalizations due to so. He had suffered thoracic compression fractures that was managed nonsurgically, he also was found to have Urinary Tract Infections. Mr. Kang has been followed up in our office accompanied by his daughter, he was doing ok at that time, still at times confused. We had placed him on Bactrim for UTI. He was brought into [facility] as he was becoming weak and was unable to stand on his own. He also has had poor oral intake. He is again positive for UTI, and with metabolic abnormalities. A CT Head showed no acute pathology, there is stable signs of hydrocephalus. He underwent a Shuntogram study a few days ago which showed no patency of the catheter from below the chest, no contrast seen into the peritoneum. A neurosurgical evaluation was requested. 09/23: still confused, evaluated by Neurologist Dr. Peter 09/25: POD 1 s/p revision of [employer] shunt. Confused, sitter in room. (Millie Alvarado) Labs, Micro, & Vital Signs Results Date Time Temp Pulse Resp B/P Pulse Ox O2 Delivery O2 Flow Rate FiO2 09/25/16 08:00 95.8 71 17 133/77 98 09/25/16 04:00 97.5 86 22 144/73 94 09/24/16 23:45 97.0 85 20 120/98 95 09/24/16 23:00 98.1 76 14 137/77 97 Nasal Cannula 3 09/24/16 22:00 98.1 82 14 135/80 97 Nasal Cannula 3 09/24/16 21:00 74 17 125/79 96 Nasal Cannula 3 09/24/16 20:00 97.3 77 11 129/73 97 Nasal Cannula 3 09/24/16 19:45 73 10 131/78 97 Nasal Cannula 3 09/24/16 19:30 75 10 126/73 97 Nasal Cannula 4 09/24/16 19:15 78 12 124/76 97 Nasal Cannula 4 09/24/16 19:04 97.9 86 12 128/76 93 Nasal Cannula 4 09/24/16 16:00 97.6 82 18 129/74 95 09/25/16 07:00 Intake Total 2185 ml Output Total 1525 ml Balance 660 ml Constitutional Vital Signs Date Time Temp Pulse Resp B/P Pulse Ox O2 Delivery O2 Flow Rate FiO2 09/25/16 08:00 95.8 71 17 133/77 98 09/25/16 04:00 97.5 86 22 144/73 94 09/24/16 23:45 97.0 85 20 120/98 95 09/24/16 23:00 98.1 76 14 137/77 97 Nasal Cannula 3 09/24/16 22:00 98.1 82 14 135/80 97 Nasal Cannula 3 09/24/16 21:00 74 17 125/79 96 Nasal Cannula 3 09/24/16 20:00 97.3 77 11 129/73 97 Nasal Cannula 3 09/24/16 19:45 73 10 131/78 97 Nasal Cannula 3 09/24/16 19:30 75 10 126/73 97 Nasal Cannula 4 09/24/16 19:15 78 12 124/76 97 Nasal Cannula 4 09/24/16 19:04 97.9 86 12 128/76 93 Nasal Cannula 4 09/24/16 16:00 97.6 82 18 129/74 95 09/25/16 07:00 Intake Total 2185 ml Output Total 1525 ml Balance 660 ml (Millie Alvarado) Review of Systems/Exam Exam Mr. Kang is alert, confused, oriented to self, pleasant and smiling. In bed comfortable, no apparent distress. Follows simple commands. Surgical wounds are clean, jackie intact. Cranial nerve: pupils to be equal, round, and reactive to light. Extra-ocular movements are intact with normal convergence. Facial motor function appears normal and symmetrical. Neck is soft and supple. Moves: moves all four extremities symmetrically Sensory: reports intact to light touch x 4 Cerebellar examination is limited due to the patient condition, but no obvious deficits are noted. (Millie Alvarado) Medications Current Medications Current Medications Medications (Trade) Dose Ordered Sig/David Route PRN Reason Start Time Stop Time Status Last Admin Dose Admin IV Flush (NS Flush) 2 ml UNSCH PRN FLUSH FLUSH AFTER USING IV ACCESS 09/17/16 22:15 09/23/16 09:03 IV Flush (NS Flush) 2 ml BID FLUSH 09/18/16 09:00 09/25/16 08:17 Ondansetron HCl (Zofran Inj) 4 mg Q6H PRN IVP NAUSEA OR VOMITING 09/17/16 22:15 Naloxone HCl (Narcan Inj) 0.4 mg UNSCH PRN IV SEE LABEL COMMENTS 09/17/16 22:15 Tamsulosin HCl (Flomax) 0.4 mg Q12HR PO 09/18/16 09:00 09/25/16 08:16 Calcium Carbonate (Oscal) 1,000 mg DAILY PO 09/18/16 09:00 09/25/16 08:16 Cholecalciferol (Vitamin D3) 2,000 units DAILY PO 09/18/16 09:00 09/25/16 08:15 Venlafaxine HCl (Effexor Xr) 150 mg BID PO 09/18/16 09:00 09/25/16 08:16 Benzonatate (Tessalon) 200 mg TID PO 09/18/16 09:00 09/25/16 08:16 Azithromycin (Zithromax) 500 mg DAILY PO 09/23/16 09:00 09/25/16 08:15 Cefuroxime Axetil (Ceftin) 500 mg Q12HR PO 09/23/16 09:00 09/25/16 08:15 Quetiapine Fumarate (SEROquel) 25 mg HS PO 09/24/16 21:00 Quetiapine Fumarate (SEROquel) 25 mg DAILY PO 09/25/16 09:00 09/25/16 08:16 Levetriacetam 500 mg 500 mg Q12HR PO 09/24/16 14:00 09/25/16 08:15 Potassium Chloride/Sodium Chloride 1,000 ml @ 100 mls/hr Q10H IV 09/24/16 17:20 09/24/16 19:45 Cefazolin Sodium/ Dextrose (Ancef 2 Gm Premix) 50 ml @ 100 mls/hr Q8H IV 09/25/16 00:00 09/25/16 16:29 09/25/16 08:14 Pantoprazole Sodium (Protonix Inj) 40 mg DAILY IVP 09/25/16 09:00 09/25/16 08:15 Acetaminophen/ Hydrocodone Bitart ([place] 10-325 Mg) 1 tab Q4H PRN PO PAIN SCALE 1 TO 5 09/24/16 17:30 Acetaminophen/ Hydrocodone Bitart ([place] 10-325 Mg) 2 tab Q4H PRN PO PAIN SCALE 6 TO 10 09/24/16 17:30 Morphine Sulfate (Morphine Inj) 2 mg Q2H PRN IV PUSH PAIN SCALE 1 TO 6 09/24/16 17:30 Morphine Sulfate (Morphine Inj) 4 mg Q2H PRN IV PUSH PAIN SCALE 7 TO 10 09/24/16 17:30 Acetaminophen (Tylenol) 650 mg Q4H PRN PO TEMPERATURE > 101.5 F 09/24/16 17:30 Miscellaneous Information ALL NURSING DEPARTME... UNSCH PRN XX SEE LABEL COMMENTS 09/24/16 19:30 09/25/16 19:29 Enoxaparin Sodium (Lovenox Inj) 30 mg Q24H SQ 09/25/16 19:10 (Millie Alvarado) Medical Decision Making MDM Remarks 81 y/o male with worsening confusion, shuntogram shows occluded shunt, s/p revision of [employer] shunt 09/24/16 (Millie Alvarado) Plan Plan Remarks cont serial neuro checks therapy and rehab (Millie Alvarado) Attending Statement The exam, history, and the medical decision-making described in the above note were completed with the assistance of the mid-level provider. I reviewed and agree with the findings presented. I attest that I had a [id number] encounter with the patient on the same day, and personally performed and documented my assessment and findings in the medical record. (Jose Gee MD) Millie Alvarado Sep 25, 2016 13:06 Jose Gee MD Sep 25, 2016 18:53
--- NOTE | 2016-09-25 13:20 | PD.OP ---
Operative Report Date of Surgery: Sep 25, 2016 Preoperative Diagnosis: Hydrocephalus. Ventriculoperitoneal shunt malfunction Postoperative Diagnosis: Hydrocephalus. Ventriculoperitoneal shunt malfunction Procedure: Revision of ventriculoperitoneal shunt. Replacement of the peritoneal catheter Anesthesia: general Surgeon: Jose Gee Swimming Pool Servicer(s): tim russell Operation and Findings: NTRAOPERATIVE FINDINGS: Clear cerebrospinal fluid INDICATIONS FOR PROCEDURE: Mr Kang is a 81 year old male with history of hydrocephalus who presented with symptoms ofshunt malfunction. He had chronic communicating hydrocephalus and developed progressive altered mental status. A shuntogram with injection of contrast show occlusion of the shunt at the peritoneal catheter. A revision of the ventriculo peritoneal shunt was indicated The [id number] details of the procedure, its indications, alternatives, risks , and potential complications of the surgery were fully discussed with the patients daughter. She fully understood. All her questions were answered. No guarantees were given. She voiced requesting the surgery and signed informed consent. They were offered the alternative of continuing nonsurgical treatment. DETAILS OF THE SURGICAL PROCEDURE:After the induction of general anesthesia, endotracheal intubation was performed. A Michelle catheter, bilateral WALDO hose and sequential compression devices were placed and kept throughout the procedure. The patient was positioned supine on a 30-80 table with the head over a gel doughnut. All pressure points were carefully padded with eggcrate mattress. The right frontotemporal parietal area was shaved prepped and draped in the usual sterile fashion, as well as the neck , chest and abdomen. An incision was made adjacent to the valve with a #10 blade. Small subcutaneous bleeders were controlled with the bipolar. Using the Bovie the valve, including the proximal and distal connections were exposed. Initially the valve was disconnected at its distal point from the from the peritoneal catheter. Cerebrospinal fluid was flowing well through the valve, we small, constant, persistent drip of clear cerebrospinal fluid. Specimen was obtained and sent to the lab for analysis of the glucose protein cell count and cultures. Using the manometer filled with saline solution, the flow through the peritoneal catheter was assessed. There was no proper flow. At the attempt was made to flash the peritoneal catheter using a syringe and saline, using a luer lock connector. Proper flow with will not be established. Revision and replacement of the peritoneal catheter was indicated. A small incision was made in the patient's right upper quadrant with a #10 blade and the dissection was carried out through the subcutaneous tissue and Toy's fascia. The rectus sheath was carefully opened with Metzenbaum scissors and the rectus muscles were split along its fibers. The posterior rectus sheath was elevated and carefully opened. The peritoneum was elevated with mosquitoes and opened in the standard fashion. The peritoneal cavity was visualized and exposed. A pursestring suture was placed around the peritoneal opening. Using a tunneler a subcutaneous tunnel was created connecting the abdominal incision with the head incision. The valve was then secured to the proximal end of the peritoneal catheter using a 2-0 silk tie. Cerebrospinal fluid was noted to drip through the distal end of the peritoneal catheter. The peritoneal catheter was placed in the peritoneal cavity under direct visualization. The pursestring suture was carefully adjusted with special care not to strangulate the catheter. The rectus sheath was closed using interrupted 2-0 Vicryl suture. The Toy's fascia was approximated with 3-0 Vicryl, and the subcutaneous with 3-0 Vicryl. The skin was closed with running subcuticular 4-0 Vicryl in the abdomen. The skin incision was closed using interrupted 3-0 Vicryl for the galea and jackie to the skin. At the end of the procedure, the sponge, needle and instrument counts were all correct. The estimated blood was less than 30-50 cc. No blood transfusion was given. No intraoperative complications occurred. The patient received preoperative prophylactic antibiotics. The patient was then extubated and transferred to the recovery room in stable condition. Jose Gee MD Sep 25, 2016 13:20
[2016-09-25 16:00] VITALS: BP 142/83; PULSE 100; RESP 18; TEMP 95.7; O2SAT 98
--- NOTE | 2016-09-25 19:01 | HHI.PR ---
Subjective Remarks He had replacement of the ventricular-peritoneal catheter by Neurosurgery on yesterday. His oral intake of food and drink continues to be fair, though he feels that he did better today as compared to yesterday. He appears to be tolerating all of the medications. Objective Vital Signs Date Time Temp Pulse Resp B/P Pulse Ox O2 Delivery O2 Flow Rate FiO2 09/25/16 16:00 95.7 100 18 142/83 98 09/25/16 12:00 96.8 81 17 138/78 97 09/25/16 09:00 98 Nasal Cannula 3.00 09/25/16 08:00 95.8 71 17 133/77 98 09/25/16 04:00 97.5 86 22 144/73 94 09/24/16 23:45 97.0 85 20 120/98 95 09/24/16 23:00 98.1 76 14 137/77 97 Nasal Cannula 3 09/24/16 22:00 98.1 82 14 135/80 97 Nasal Cannula 3 09/24/16 21:00 74 17 125/79 96 Nasal Cannula 3 09/24/16 20:00 97.3 77 11 129/73 97 Nasal Cannula 3 09/24/16 19:45 73 10 131/78 97 Nasal Cannula 3 09/24/16 19:30 75 10 126/73 97 Nasal Cannula 4 09/24/16 19:15 78 12 124/76 97 Nasal Cannula 4 09/24/16 19:04 97.9 86 12 128/76 93 Nasal Cannula 4 I/O 09/24/16 09/24/16 09/24/16 09/25/16 09/25/16 09/25/16 07:00 15:00 23:00 07:00 15:00 23:00 Intake Total 240 ml 360 ml 1675 ml 150 ml 480 ml 229 ml Output Total 400 ml 425 ml 700 ml 1200 ml Balance 240 ml -40 ml 1250 ml -550 ml -720 ml 229 ml Intake Oral 240 ml 360 ml 75 ml 150 ml 480 ml IV Total 300 ml 229 ml Other 1300 ml Output Urine Total 400 ml 175 ml 700 ml 1200 ml Estimated Blood Loss 50 ml Other 200 ml # Bowel Movements 1 0 Result Diagram: 09/23/16 1100 09/23/16 1100 Objective Remarks GENERAL: Alert and appears in no acute distress. SKIN: Warm and dry. HEAD: Atraumatic. Normocephalic. EYES: Pupils equal and round. No scleral icterus. No injection or drainage. ENT: No nasal bleeding or discharge. Mucous membranes pink and moist. NECK: Trachea midline. No JVD. CARDIOVASCULAR: Regular rate and rhythm. RESPIRATORY: No accessory muscle use. Clear to auscultation. Breath sounds equal bilaterally. GASTROINTESTINAL: Abdomen soft, non-tender, nondistended. Hepatic and splenic margins not palpable. MUSCULOSKELETAL: Extremities without clubbing, cyanosis, or edema. No obvious deformities. NEUROLOGICAL: Awake and alert. No obvious cranial nerve deficits. Motor grossly within normal limits. Normal speech. PSYCHIATRIC: Appropriate mood with periods of mild confusion. Assessment and Plan Assessment and Plan ASSESSMENT 1. Early Sepsis. 2. Acute Community Acquired Pneumonia. 3. Acute Encephalopathy. 4. Urinary Tract Infection, on admission. 5. Acute Kidney Injury. 6. Dehydration. 7. 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 8. Replacement of the Ventricular-Peritoneal Shunt. 9. Normal Pressure Hydrocephalus. 10. Dementia with Memory Loss. PLAN 1. Will continue with the current medication regimen. 2. Increase activity and observe tolerance. 3. Bronchodilator via Nebulizer. 4. Monitor intake and output closely. 5. Physical Therapy to assist with increasing activity. 6. Follow up laboratory assessment. 7. DVT, PE and PUD prophylaxis. Enrique Silva MD Sep 25, 2016 19:01 Enrique Silva MD Sep 25, 2016 19:01
[2016-09-25] MEDS: ENOXAPARIN SODIUM 30 MG/0.3 ML SYRINGE SQ SCH (19:43)
[2016-09-25 20:00] VITALS: BP 145/79; PULSE 81; RESP 20; TEMP 97.7; O2SAT 99
[2016-09-26] VITALS (9 sets, daily range): BP systolic 125–149; BP diastolic 66–79; PULSE 77–97; RESP 16–20; TEMP 96.6–98.5; O2SAT 95–98
[2016-09-26 07:42] LABS: AUTOMATED NEUTROPHIL # 6.3 TH/MM3 (1.8-7.7); BASOPHIL % 0.5 % (0.0-2.0); EOSINOPHIL # 0.4 TH/MM3 (0-0.4); EOSINOPHIL % 4.2 % (0.0-4.0); HEMATOCRIT 36.4 % (39.0-51.0); HEMO FLAGS DIFF FINAL; LYMPHOCYTE # 1.6 TH/MM3 (1.0-4.8); MEAN CELL VOLUME 92.1 FL (80.0-100.0); MEAN CORPUSCULAR HEMOGLOBIN 31.2 PG (27.0-34.0); MEAN CORPUSCULAR HGB CONC 33.9 % (32.0-36.0); MONO % 10.9 % (0.0-8.0); NEUT % 67.4 % (16.0-70.0); PLATELET COUNT 348 TH/MM3 (150-450); RED BLOOD COUNT 3.95 MIL/MM3 (4.50-5.90); RED CELL DISTRIBUTION WIDTH 13.5 % (11.6-17.2); WHITE BLOOD COUNT 9.3 TH/MM3 (4.0-11.0)
[2016-09-26 07:51] LABS: BICARBONATE 23.5 MEQ/L (21.0-32.0); MAGNESIUM 1.9 MG/DL (1.5-2.5); POTASSIUM 4.1 MEQ/L (3.5-5.1)
[2016-09-26 07:53] LABS: INDIRECT BILIRUBIN 0.3 MG/DL (0.0-0.8); TOTAL BILIRUBIN ADULT 0.4 MG/DL (0.2-1.0)
[2016-09-26] MEDS: QUEtiapine FUMARATE 25 MG TAB PO SCH ×2 (08:22→22:36)
[2016-09-26] MEDS: CALCIUM CARBONATE 1.25 GM (CA 500 MG) TAB PO SCH (08:22)
[2016-09-26] MEDS: CEFUROXIME AXETIL 500 MG TAB PO SCH ×2 (08:22→22:38)
[2016-09-26] MEDS: CHOLECALCIFEROL (VIT D3) 1000 UNIT TAB PO SCH (08:22)
[2016-09-26] MEDS: AZITHROMYCIN 250 MG TAB PO SCH (08:22)
[2016-09-26] MEDS: TAMSULOSIN HCL 0.4 MG CAP PO SCH ×2 (08:23→22:36)
[2016-09-26] MEDS: levETIRAcetam 500 MG TAB PO SCH ×2 (08:23→22:38)
[2016-09-26] MEDS: BENZONATATE 100 MG CAP PO SCH ×3 (08:23→18:02)
[2016-09-26] MEDS: VENLAFAXINE HCL XR 75 MG CAP PO SCH ×2 (08:23→21:00)
[2016-09-26] MEDS: SODIUM CHLORIDE 0.9% FLUSH 5 ML FLUSH FLUSH SCH ×2 (08:23→22:38)
[2016-09-26] MEDS: PANTOPRAZOLE SODIUM 40 MG VIAL IVP SCH (08:23)
[2016-09-26] MEDS: NS + KCL 20 MEQ INJ 1,000 ML IV SCH (08:24)
[2016-09-26] MEDS: ENOXAPARIN SODIUM 30 MG/0.3 ML SYRINGE SQ SCH (18:02)
[2016-09-27 06:00] VITALS: BP 133/78; PULSE 89; RESP 15; TEMP 97.6; O2SAT 97
--- NOTE | 2016-09-27 06:39 | HHI.PR ---
Subjective Remarks He was sleeping when I came into the room this morning. The sitter for him stated that he rested well overnight. He was easily aroused from sleep and quite pleasant. He has report of tolerating all of the medications. Overall, his behavior and alertness appears to be improved since his surgery to replace the shunt. Objective Vital Signs Date Time Temp Pulse Resp B/P Pulse Ox O2 Delivery O2 Flow Rate FiO2 09/26/16 23:30 97.8 82 16 133/76 97 09/26/16 20:00 96.7 96 18 140/71 97 09/26/16 16:00 97.3 97 18 125/66 95 09/26/16 12:00 96.6 82 17 145/78 96 09/26/16 08:00 98.1 95 17 126/69 96 09/26/16 07:36 77 I/O 09/26/16 09/26/16 09/26/16 09/27/16 09/27/16 09/27/16 07:00 15:00 23:00 07:00 15:00 23:00 Intake Total 916 ml 960 ml 240 ml Output Total 550 ml 1325 ml 450 ml Balance 366 ml -365 ml -210 ml Intake Oral 960 ml 240 ml IV Total 916 ml Output Urine Total 550 ml 1325 ml 450 ml # Bowel Movements 0 1 2 Result Diagram: 09/26/1646 09/26/16 0646 Objective Remarks GENERAL: Alert and appears in no acute distress. SKIN: Warm and dry. HEAD: Atraumatic. Normocephalic. EYES: Pupils equal and round. No scleral icterus. No injection or drainage. ENT: No nasal bleeding or discharge. Mucous membranes pink and moist. NECK: Trachea midline. No JVD. CARDIOVASCULAR: Regular rate and rhythm. RESPIRATORY: No accessory muscle use. Clear to auscultation. Breath sounds equal bilaterally. GASTROINTESTINAL: Abdomen soft, non-tender, nondistended. Hepatic and splenic margins not palpable. MUSCULOSKELETAL: Extremities without clubbing, cyanosis, or edema. No obvious deformities. NEUROLOGICAL: Awake and alert. No obvious cranial nerve deficits. Motor grossly within normal limits. Normal speech. PSYCHIATRIC: Appropriate mood with periods of mild confusion. Assessment and Plan Assessment and Plan ASSESSMENT 1. Early Sepsis. 2. Acute Community Acquired Pneumonia. 3. Acute Encephalopathy. 4. Urinary Tract Infection, on admission. 5. Acute Kidney Injury. 6. Dehydration. 7. 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 8. Replacement of the Ventricular-Peritoneal Shunt. 9. Normal Pressure Hydrocephalus. 10. Dementia with Memory Loss. PLAN 1. Continue with the current medications. 2. Continue with Physical Therapy activity. 3. Continue to monitor intake and output. 4. Follow up laboratory assessment as needed. 5. DVT, PE and PUD prophylaxis. Enrique Silva MD Sep 27, 2016 06:39 Enrique Silva MD Sep 27, 2016 06:39
--- NOTE | 2016-09-27 07:48 | HHI.PR ---
Subjective Remarks slept well acc to sitter Objective Vital Signs Date Time Temp Pulse Resp B/P Pulse Ox O2 Delivery O2 Flow Rate FiO2 09/27/16 06:00 97.6 89 15 133/78 97 09/26/16 23:30 97.8 82 16 133/76 97 09/26/16 20:00 96.7 96 18 140/71 97 09/26/16 16:00 97.3 97 18 125/66 95 09/26/16 12:00 96.6 82 17 145/78 96 09/26/16 08:00 98.1 95 17 126/69 96 I/O 09/26/16 09/26/16 09/26/16 09/27/16 09/27/16 09/27/16 07:00 15:00 23:00 07:00 15:00 23:00 Intake Total 916 ml 960 ml 240 ml 240 ml Output Total 550 ml 1325 ml 450 ml 600 ml Balance 366 ml -365 ml -210 ml -360 ml Intake Oral 960 ml 240 ml 240 ml IV Total 916 ml Output Urine Total 550 ml 1325 ml 450 ml 600 ml # Bowel Movements 0 1 2 0 Result Diagram: 09/26/1646 09/26/16 0646 Objective Remarks awake confused stil not place, db moves all well Assessment and Plan Assessment and Plan imp still confused sp shunt revision dc seroquel oob addendum eeg some sharps on keppra recheck eeg am Jake Peter MD Sep 27, 2016 07:48
[2016-09-27 08:00] VITALS: BP 127/82; PULSE 79; RESP 18; TEMP 96.7; O2SAT 96
[2016-09-27] MEDS: VENLAFAXINE HCL XR 75 MG CAP PO SCH ×2 (09:00→22:51)
[2016-09-27] MEDS: CEFUROXIME AXETIL 500 MG TAB PO SCH ×2 (11:54→22:51)
[2016-09-27] MEDS: BENZONATATE 100 MG CAP PO SCH ×3 (11:54→18:26)
[2016-09-27] MEDS: PANTOPRAZOLE SODIUM 40 MG VIAL IVP SCH (11:54)
[2016-09-27] MEDS: AZITHROMYCIN 250 MG TAB PO SCH (11:55)
[2016-09-27] MEDS: CALCIUM CARBONATE 1.25 GM (CA 500 MG) TAB PO SCH (11:55)
[2016-09-27] MEDS: levETIRAcetam 500 MG TAB PO SCH ×2 (11:55→22:51)
[2016-09-27] MEDS: TAMSULOSIN HCL 0.4 MG CAP PO SCH ×2 (11:55→22:51)
[2016-09-27] MEDS: CHOLECALCIFEROL (VIT D3) 1000 UNIT TAB PO SCH (11:56)
[2016-09-27] MEDS: SODIUM CHLORIDE 0.9% FLUSH 5 ML FLUSH FLUSH SCH ×2 (11:57→21:00)
[2016-09-27 12:00] VITALS: BP 148/80; PULSE 81; RESP 17; TEMP 96; O2SAT 96
--- NOTE | 2016-09-27 14:01 | MG ---
cc: CARL HUNT M.D. Lab No: [id number] Date: 09/27/2016 Age: Sex: M TECHNIQUE 17-channel EEG. DESCRIPTION The background rhythm reveals slowing in the delta frequency. The patient is described as being asleep. Vertex sharp waves are identified. There are no lateralizing features. I do not see any true epileptiform features. There are sharp waves present but I think these are mainly vertex sharp waves from sleep. Photic stimulation was done with no significant driving response. Only sleep activity is seen. INTERPRETATION Normal sleep EEG. MD KIARRA Cook/LEXIE /1:53 PM /1:59 PM
--- NOTE | 2016-09-27 14:30 | HHI.NSPN ---
Note Status Status: Progress Note Interval History Interval History THIS NOTE IS FOR YESTERDAY 09/26/16, PATIENT SEEN AND EXAMINED Mr. Kang is a 81 year old male who underwent placement of ventriculoperitoneal shunt on 03/21/16 for Normal Pressure Hydrocephalus. Mr. Kang has had episodes of confusion and has had several hospitalizations due to so. He had suffered thoracic compression fractures that was managed nonsurgically, he also was found to have Urinary Tract Infections. Mr. Kang has been followed up in our office accompanied by his daughter, he was doing ok at that time, still at times confused. We had placed him on Bactrim for UTI. He was brought into [facility] as he was becoming weak and was unable to stand on his own. He also has had poor oral intake. He is again positive for UTI, and with metabolic abnormalities. A CT Head showed no acute pathology, there is stable signs of hydrocephalus. He underwent a Shuntogram study a few days ago which showed no patency of the catheter from below the chest, no contrast seen into the peritoneum. A neurosurgical evaluation was requested. 09/23: still confused, evaluated by Neurologist Dr. Peter 09/25: POD 1 s/p revision of [employer] shunt. Confused, sitter in room. 09/26: POD 2, denies any headaches, Labs, Micro, & Vital Signs Results Date Time Temp Pulse Resp B/P Pulse Ox O2 Delivery O2 Flow Rate FiO2 09/27/16 08:00 96.7 79 18 127/82 96 09/27/16 06:00 97.6 89 15 133/78 97 09/26/16 23:30 97.8 82 16 133/76 97 09/26/16 20:00 96.7 96 18 140/71 97 09/26/16 16:00 97.3 97 18 125/66 95 09/27/16 07:00 Intake Total 1440 ml Output Total 2375 ml Balance -935 ml Constitutional Vital Signs Date Time Temp Pulse Resp B/P Pulse Ox O2 Delivery O2 Flow Rate FiO2 09/27/16 08:00 96.7 79 18 127/82 96 09/27/16 06:00 97.6 89 15 133/78 97 09/26/16 23:30 97.8 82 16 133/76 97 09/26/16 20:00 96.7 96 18 140/71 97 09/26/16 16:00 97.3 97 18 125/66 95 09/27/16 07:00 Intake Total 1440 ml Output Total 2375 ml Balance -935 ml Review of Systems/Exam Exam THIS NOTE IS FOR YESTERDAY 09/26/16, PATIENT SEEN AND EXAMINED Mr. Kang is alert, confused, oriented to self only, sitting up . Follows simple commands. Surgical wounds are clean, jackie intact. Cranial nerve: pupils to be equal, round, and reactive to light. Extra-ocular movements are intact with normal convergence. Facial motor function appears normal and symmetrical. Neck is soft and supple. Moves: moves all four extremities symmetrically Sensory: reports intact to light touch x 4 Cerebellar examination is limited due to the patient condition, but no obvious deficits are noted. Medical Decision Making MDM Remarks THIS NOTE IS FOR YESTERDAY 09/26/16, PATIENT SEEN AND EXAMINED 81 y/o male with worsening confusion, shuntogram shows occluded shunt, s/p revision of [employer] shunt 09/24/16, stable postoperative Plan Plan Remarks THIS NOTE IS FOR YESTERDAY 09/26/16, PATIENT SEEN AND EXAMINED stable neuro exam therapy and rehab efforts THIS NOTE IS FOR YESTERDAY 09/26/16, PATIENT SEEN AND EXAMINED Millie Alvarado Sep 27, 2016 14:30
--- NOTE | 2016-09-27 15:09 | HHI.NSPN ---
(Millie Alvarado) Note Status Status: Progress Note (Millie Alvarado) Interval History Interval History Mr. Kang is a 81 year old male who underwent placement of ventriculoperitoneal shunt on 03/21/16 for Normal Pressure Hydrocephalus. Mr. Kang has had episodes of confusion and has had several hospitalizations due to so. He had suffered thoracic compression fractures that was managed nonsurgically, he also was found to have Urinary Tract Infections. Mr. Kang has been followed up in our office accompanied by his daughter, he was doing ok at that time, still at times confused. We had placed him on Bactrim for UTI. He was brought into [place] as he was becoming weak and was unable to stand on his own. He also has had poor oral intake. He is again positive for UTI, and with metabolic abnormalities. A CT Head showed no acute pathology, there is stable signs of hydrocephalus. He underwent a Shuntogram study a few days ago which showed no patency of the catheter from below the chest, no contrast seen into the peritoneum. A neurosurgical evaluation was requested. 09/23: still confused, evaluated by Neurologist Dr. Peter 09/25: POD 1 s/p revision of STOCK CLERK shunt. Confused, sitter in room. 09/26: POD 2, denies any headaches, 09/27: POD 3, he says he feels better today, has has no complaints for us, moves all four extremities. denies head pain (Millie Alvarado) Labs, Micro, & Vital Signs Results Date Time Temp Pulse Resp B/P Pulse Ox O2 Delivery O2 Flow Rate FiO2 09/27/16 08:00 96.7 79 18 127/82 96 09/27/16 06:00 97.6 89 15 133/78 97 09/26/16 23:30 97.8 82 16 133/76 97 09/26/16 20:00 96.7 96 18 140/71 97 09/26/16 16:00 97.3 97 18 125/66 95 09/27/16 07:00 Intake Total 1440 ml Output Total 2375 ml Balance -935 ml Constitutional Vital Signs Date Time Temp Pulse Resp B/P Pulse Ox O2 Delivery O2 Flow Rate FiO2 09/27/16 08:00 96.7 79 18 127/82 96 09/27/16 06:00 97.6 89 15 133/78 97 09/26/16 23:30 97.8 82 16 133/76 97 09/26/16 20:00 96.7 96 18 140/71 97 09/26/16 16:00 97.3 97 18 125/66 95 09/27/16 07:00 Intake Total 1440 ml Output Total 2375 ml Balance -935 ml (Millie Alvarado) Review of Systems/Exam Exam Mr. Kang is alert, oriented to name only, in bed appears comfortable . Follows simple commands. Surgical wounds are clean, jackie intact. Right STOCK CLERK shunt palpated with good bubble rebound Cranial nerve: pupils to be equal, round, and reactive to light. Extra-ocular movements are intact with normal convergence. Facial motor function appears normal and symmetrical. Neck is soft and supple. Moves: moves all four extremities symmetrically Sensory: reports intact to light touch x 4 Cerebellar examination is limited due to the patient condition, but no obvious deficits are noted. (Millie Alvarado) Medications Current Medications Current Medications Medications (Trade) Dose Ordered Sig/David Route PRN Reason Start Time Stop Time Status Last Admin Dose Admin IV Flush (NS Flush) 2 ml UNSCH PRN FLUSH FLUSH AFTER USING IV ACCESS 09/17/16 22:15 09/23/16 09:03 IV Flush (NS Flush) 2 ml BID FLUSH 09/18/16 09:00 09/27/16 11:57 Ondansetron HCl (Zofran Inj) 4 mg Q6H PRN IVP NAUSEA OR VOMITING 09/17/16 22:15 Naloxone HCl (Narcan Inj) 0.4 mg UNSCH PRN IV SEE LABEL COMMENTS 09/17/16 22:15 Tamsulosin HCl (Flomax) 0.4 mg Q12HR PO 09/18/16 09:00 09/27/16 11:55 Calcium Carbonate (Oscal) 1,000 mg DAILY PO 09/18/16 09:00 09/27/16 11:55 Cholecalciferol (Vitamin D3) 2,000 units DAILY PO 09/18/16 09:00 09/27/16 11:56 Venlafaxine HCl (Effexor Xr) 150 mg BID PO 09/18/16 09:00 09/27/16 09:00 Benzonatate (Tessalon) 200 mg TID PO 09/18/16 09:00 09/27/16 14:18 Azithromycin (Zithromax) 500 mg DAILY PO 09/23/16 09:00 09/27/16 11:55 Cefuroxime Axetil (Ceftin) 500 mg Q12HR PO 09/23/16 09:00 09/27/16 11:54 Levetriacetam 500 mg 500 mg Q12HR PO 09/24/16 14:00 09/27/16 11:55 Potassium Chloride/Sodium Chloride (NS + KCl 20 Meq Inj) 1,000 ml @ 100 mls/hr Q10H IV 09/24/16 17:20 09/26/16 08:24 Pantoprazole Sodium (Protonix Inj) 40 mg DAILY IVP 09/25/16 09:00 09/27/16 11:54 Acetaminophen/ Hydrocodone Bitart (Roe 10-325 Mg) 1 tab Q4H PRN PO PAIN SCALE 1 TO 5 09/24/16 17:30 Acetaminophen/ Hydrocodone Bitart (Roe 10-325 Mg) 2 tab Q4H PRN PO PAIN SCALE 6 TO 10 09/24/16 17:30 Morphine Sulfate (Morphine Inj) 2 mg Q2H PRN IV PUSH PAIN SCALE 1 TO 6 09/24/16 17:30 Morphine Sulfate (Morphine Inj) 4 mg Q2H PRN IV PUSH PAIN SCALE 7 TO 10 09/24/16 17:30 Acetaminophen (Tylenol) 650 mg Q4H PRN PO TEMPERATURE > 101.5 F 09/24/16 17:30 Enoxaparin Sodium (Lovenox Inj) 30 mg Q24H SQ 09/25/16 19:10 09/26/16 18:02 (Millie Alvarado) Medical Decision Making MDM Remarks 81 y/o male with occluded shunt, s/p revision of STOCK CLERK shunt 09/24/16, stable postoperative (Millie Alvarado) Plan Plan Remarks cont therapy and rehab effort, dw pt to avoid falls and head trauma jackie dc 10/04/16 (Millie Alvarado) Attending Statement The exam, history, and the medical decision-making described in the above note were completed with the assistance of the mid-level provider. I reviewed and agree with the findings presented. I attest that I had a [id number] encounter with the patient on the same day, and personally performed and documented my assessment and findings in the medical record. (Jose Gee MD) Millie Alvarado Sep 27, 2016 15:09 Jsoe Gee MD Sep 29, 2016 14:45
[2016-09-27] MEDS: NS + KCL 20 MEQ INJ 1,000 ML IV SCH (15:20)
[2016-09-27 16:00] VITALS: BP 154/82; PULSE 92; RESP 18; TEMP 98.5; O2SAT 96
[2016-09-27] MEDS: ENOXAPARIN SODIUM 30 MG/0.3 ML SYRINGE SQ SCH (18:26)
[2016-09-27 21:15] VITALS: BP 139/81; PULSE 95; RESP 18; TEMP 98.3; O2SAT 94
[2016-09-28] MEDS: NS + KCL 20 MEQ INJ 1,000 ML IV SCH ×2 (01:20→11:20)
[2016-09-28 04:00] VITALS: BP 148/83; PULSE 80; RESP 18; TEMP 96.8; O2SAT 96
--- NOTE | 2016-09-28 07:59 | HHI.PR ---
Subjective Remarks slept well acc to sitter again Objective Vital Signs Date Time Temp Pulse Resp B/P Pulse Ox O2 Delivery O2 Flow Rate FiO2 09/27/16 23:52 18 09/27/16 21:15 98.3 95 18 139/81 94 09/27/16 18:32 Room Air 09/27/16 16:00 98.5 92 18 154/82 96 09/27/16 12:00 96.0 81 17 148/80 96 09/27/16 08:00 96.7 79 18 127/82 96 I/O 09/27/16 09/27/16 09/27/16 09/28/16 09/28/16 09/28/16 07:00 15:00 23:00 07:00 15:00 23:00 Intake Total 240 ml 720 ml 667 ml 489 ml Output Total 600 ml 850 ml 325 ml Balance -360 ml -130 ml 342 ml 489 ml Intake Oral 240 ml 720 ml 120 ml IV Total 547 ml 489 ml Output Urine Total 600 ml 850 ml 325 ml # Bowel Movements 0 0 Result Diagram: 09/26/16 0646 09/26/16 0646 Objective Remarks awake confused still knows hospital not town or yr knows he lives in po not street moves all well vff mood good Assessment and Plan Assessment and Plan imp still confused sp shunt revision oob addendum eeg some sharps on keppra recheck eeg am nl he is ok neurowise for dc if ok with nusu and fu office i start low dose namenda today needs rehab and fu office Jake Peter MD Sep 28, 2016 07:59
[2016-09-28 08:00] VITALS: BP 134/79; PULSE 80; RESP 18; TEMP 97.1; O2SAT 95
[2016-09-28] MEDS: VENLAFAXINE HCL XR 75 MG CAP PO SCH ×2 (09:00→20:44)
[2016-09-28] MEDS: CALCIUM CARBONATE 1.25 GM (CA 500 MG) TAB PO SCH (09:01)
[2016-09-28] MEDS: TAMSULOSIN HCL 0.4 MG CAP PO SCH ×2 (09:01→20:32)
[2016-09-28] MEDS: CEFUROXIME AXETIL 500 MG TAB PO SCH ×2 (09:02→20:31)
[2016-09-28] MEDS: AZITHROMYCIN 250 MG TAB PO SCH (09:02)
[2016-09-28] MEDS: levETIRAcetam 500 MG TAB PO SCH ×2 (09:02→20:31)
[2016-09-28] MEDS: CHOLECALCIFEROL (VIT D3) 1000 UNIT TAB PO SCH (09:02)
[2016-09-28] MEDS: PANTOPRAZOLE SODIUM 40 MG VIAL IVP SCH (09:02)
[2016-09-28] MEDS: MEMANTINE HCL 5 MG TAB PO SCH (09:02)
[2016-09-28] MEDS: SODIUM CHLORIDE 0.9% FLUSH 5 ML FLUSH FLUSH SCH ×2 (09:03→20:37)
[2016-09-28] MEDS: BENZONATATE 100 MG CAP PO SCH ×3 (09:07→17:32)
[2016-09-28] MEDS: ACETAMINOPHEN 325 MG TAB PO PRN (09:07)
[2016-09-28 12:00] VITALS: BP 140/75; PULSE 89; RESP 18; TEMP 97.2; O2SAT 97
--- NOTE | 2016-09-28 13:25 | HHI.NSPN ---
(Millie Alvarado) Note Status Status: Progress Note (Millie Alvarado) Interval History Interval History Mr. Kang is a 81 year old male who underwent placement of ventriculoperitoneal shunt on 03/21/16 for Normal Pressure Hydrocephalus. Mr. Kang has had episodes of confusion and has had several hospitalizations due to so. He had suffered thoracic compression fractures that was managed nonsurgically, he also was found to have Urinary Tract Infections. Mr. Kang has been followed up in our office accompanied by his daughter, he was doing ok at that time, still at times confused. We had placed him on Bactrim for UTI. He was brought into [place] as he was becoming weak and was unable to stand on his own. He also has had poor oral intake. He is again positive for UTI, and with metabolic abnormalities. A CT Head showed no acute pathology, there is stable signs of hydrocephalus. He underwent a Shuntogram study a few days ago which showed no patency of the catheter from below the chest, no contrast seen into the peritoneum. A neurosurgical evaluation was requested. 09/23: still confused, evaluated by Neurologist Dr. Peter 09/25: POD 1 s/p revision of SCIENTIST ELECTRONICS shunt. Confused, sitter in room. 09/26: POD 2, denies any headaches, 09/27: POD 3, he says he feels better today, has has no complaints for us, moves all four extremities. denies head pain 09/28: POD 4, appears more alert, he is oriented to name, place, and year today. (Millie Alvarado) Labs, Micro, & Vital Signs Results Date Time Temp Pulse Resp B/P Pulse Ox O2 Delivery O2 Flow Rate FiO2 09/28/16 08:00 97.1 80 18 134/79 95 09/28/16 04:00 96.8 80 18 148/83 96 09/27/16 23:52 18 09/27/16 21:15 98.3 95 18 139/81 94 09/27/16 18:32 Room Air 09/27/16 16:00 98.5 92 18 154/82 96 09/28/16 07:00 Intake Total 1996 ml Output Total 1625 ml Balance 371 ml Constitutional Vital Signs Date Time Temp Pulse Resp B/P Pulse Ox O2 Delivery O2 Flow Rate FiO2 09/28/16 08:00 97.1 80 18 134/79 95 09/28/16 04:00 96.8 80 18 148/83 96 09/27/16 23:52 18 09/27/16 21:15 98.3 95 18 139/81 94 09/27/16 18:32 Room Air 09/27/16 16:00 98.5 92 18 154/82 96 09/28/16 07:00 Intake Total 1995 ml Output Total 1625 ml Balance 371 ml (Millie Alvarado) Review of Systems/Exam Exam Mr. Kang is alert, oriented to name, place, and year. Follows commands. Surgical wounds are healing well, jackie intact. Right SCIENTIST ELECTRONICS shunt palpated with good bubble rebound Cranial nerve: pupils to be equal, round, and reactive to light. Extra-ocular movements are intact with normal convergence. Facial motor function appears normal and symmetrical. Neck is soft and supple. Moves: moves all four extremities symmetrically Sensory: reports intact to light touch x 4 Plantars downgoing b/l Cerebellar examination is intact to finger to nose b/l. (Millie Alvarado) Medications Current Medications Current Medications Medications (Trade) Dose Ordered Sig/David Route PRN Reason Start Time Stop Time Status Last Admin Dose Admin IV Flush (NS Flush) 2 ml UNSCH PRN FLUSH FLUSH AFTER USING IV ACCESS 09/17/16 22:15 09/23/16 09:03 IV Flush (NS Flush) 2 ml BID FLUSH 09/18/16 09:00 09/28/16 09:03 Ondansetron HCl (Zofran Inj) 4 mg Q6H PRN IVP NAUSEA OR VOMITING 09/17/16 22:15 Naloxone HCl (Narcan Inj) 0.4 mg UNSCH PRN IV SEE LABEL COMMENTS 09/17/16 22:15 Tamsulosin HCl (Flomax) 0.4 mg Q12HR PO 09/18/16 09:00 09/28/16 09:01 Calcium Carbonate (Oscal) 1,000 mg DAILY PO 09/18/16 09:00 09/28/16 09:01 Cholecalciferol (Vitamin D3) 2,000 units DAILY PO 09/18/16 09:00 09/28/16 09:02 Venlafaxine HCl (Effexor Xr) 150 mg BID PO 09/18/16 09:00 09/28/16 09:00 Benzonatate (Tessalon) 200 mg TID PO 09/18/16 09:00 09/28/16 09:07 Azithromycin (Zithromax) 500 mg DAILY PO 09/23/16 09:00 09/28/16 09:02 Cefuroxime Axetil (Ceftin) 500 mg Q12HR PO 09/23/16 09:00 09/28/16 09:02 Levetriacetam 500 mg 500 mg Q12HR PO 09/24/16 14:00 09/28/16 09:02 Potassium Chloride/Sodium Chloride (NS + KCl 20 Meq Inj) 1,000 ml @ 100 mls/hr Q10H IV 09/24/16 17:20 09/26/16 08:24 Pantoprazole Sodium (Protonix Inj) 40 mg DAILY IVP 09/25/16 09:00 09/28/16 09:02 Acetaminophen (Tylenol) 650 mg Q4H PRN PO TEMPERATURE > 101.5 F 09/24/16 17:30 09/28/16 09:07 Enoxaparin Sodium (Lovenox Inj) 30 mg Q24H SQ 09/25/16 19:10 09/27/16 18:26 Memantine (Namenda) 5 mg DAILY PO 09/28/16 09:00 09/28/16 09:02 (Millie Alvarado) Medical Decision Making MDM Remarks 81 y/o male with occluded shunt, s/p revision of SCIENTIST ELECTRONICS shunt 09/24/16, doing well, mental status improving (Millie Alvarado) Plan Plan Remarks cont therapy, gait training, rehab dw pt to avoid falls and head trauma jackie dc 10/04/16 clear to dc from NRS standpoint (Millie Alvarado) Attending Statement The exam, history, and the medical decision-making described in the above note were completed with the assistance of the mid-level provider. I reviewed and agree with the findings presented. I attest that I had a [id number] encounter with the patient on the same day, and personally performed and documented my assessment and findings in the medical record. (Jose Gee MD) Millie Alvarado Sep 28, 2016 13:25 Jose Gee MD Sep 29, 2016 14:37
[2016-09-28 16:00] VITALS: BP 140/81; PULSE 83; RESP 18; TEMP 97.2; O2SAT 96
[2016-09-28 17:16] VITALS: PULSE 88
[2016-09-28] MEDS: ENOXAPARIN SODIUM 30 MG/0.3 ML SYRINGE SQ SCH (17:31)
[2016-09-28 20:15] VITALS: BP 142/80; PULSE 83; RESP 18; TEMP 96.5; O2SAT 96
[2016-09-29 00:15] VITALS: BP 131/88; PULSE 90; RESP 18; TEMP 97.9; O2SAT 95
[2016-09-29 04:00] VITALS: BP 131/88; PULSE 86; RESP 18; TEMP 97.3; O2SAT 95
--- NOTE | 2016-09-29 07:51 | HHI.PR ---
Subjective Remarks slept well acc to sitter again Objective Vital Signs Date Time Temp Pulse Resp B/P Pulse Ox O2 Delivery O2 Flow Rate FiO2 09/29/16 04:00 97.3 86 18 131/88 95 09/29/16 00:15 97.9 90 18 131/88 95 09/28/16 20:15 96.5 83 18 142/80 96 09/28/16 17:16 88 09/28/16 16:00 97.2 83 18 140/81 96 09/28/16 12:00 97.2 89 18 140/75 97 09/28/16 08:00 97.1 80 18 134/79 95 I/O 09/28/16 09/28/16 09/28/16 09/29/16 09/29/16 09/29/16 07:00 15:00 23:00 07:00 15:00 23:00 Intake Total 609 ml 400 ml 120 ml 120 ml Output Total 450 ml 200 ml 225 ml Balance 159 ml 200 ml 120 ml -105 ml Intake Oral 120 ml 400 ml 120 ml 120 ml IV Total 489 ml Output Urine Total 450 ml 200 ml 225 ml # Voids 1 2 1 # Bowel Movements 0 0 1 1 Result Diagram: 09/26/1646 09/26/1646 Objective Remarks awake confused still knows hospital today know town not yr but remembered it later knows he lives in not street moves all well vff mood good gait near nl Assessment and Plan Assessment and Plan imp still confused sp shunt revision oob addendum eeg some sharps on keppra recheck eeg am nl he is ok neurowise for dc if ok with nusu and fu office i start low dose namenda today needs rehab and fu office 09/29/16 he can be dced neurowise fu my office one month ? home vs rehab as gait much better Jake Peter MD Sep 29, 2016 07:51
[2016-09-29 08:00] VITALS: BP 109/62; PULSE 85; RESP 18; TEMP 96.6; O2SAT 97
--- NOTE | 2016-09-29 08:05 | HHI.PR ---
Subjective Remarks He appears comfortable sitting up in the bed. The sitter for him stated that he rested well again overnight. He has report of tolerating all of the medications. Dispositions of Neurology and Neurosurgery are appreciated. No other new adverse changes are reported. Objective Vital Signs Date Time Temp Pulse Resp B/P Pulse Ox O2 Delivery O2 Flow Rate FiO2 09/29/16 04:00 97.3 86 18 131/88 95 09/29/16 00:15 97.9 90 18 131/88 95 09/28/16 20:15 96.5 83 18 142/80 96 09/28/16 17:16 88 09/28/16 16:00 97.2 83 18 140/81 96 09/28/16 12:00 97.2 89 18 140/75 97 I/O 09/28/16 09/28/16 09/28/16 09/29/16 09/29/16 09/29/16 07:00 15:00 23:00 07:00 15:00 23:00 Intake Total 609 ml 400 ml 120 ml 120 ml Output Total 450 ml 200 ml 225 ml Balance 159 ml 200 ml 120 ml -105 ml Intake Oral 120 ml 400 ml 120 ml 120 ml IV Total 489 ml Output Urine Total 450 ml 200 ml 225 ml # Voids 1 2 1 # Bowel Movements 0 0 1 1 Result Diagram: 09/26/1664509/26/16645 Objective Remarks GENERAL: Alert and appears in no acute distress. SKIN: Warm and dry. HEAD: Atraumatic. Normocephalic. EYES: Pupils equal and round. No scleral icterus. No injection or drainage. ENT: No nasal bleeding or discharge. Mucous membranes pink and moist. NECK: Trachea midline. No JVD. CARDIOVASCULAR: Regular rate and rhythm. RESPIRATORY: No accessory muscle use. Clear to auscultation. Breath sounds equal bilaterally. GASTROINTESTINAL: Abdomen soft, non-tender, nondistended. Hepatic and splenic margins not palpable. MUSCULOSKELETAL: Extremities without clubbing, cyanosis, or edema. No obvious deformities. NEUROLOGICAL: Awake and alert. No obvious cranial nerve deficits. Motor grossly within normal limits. Normal speech. PSYCHIATRIC: Appropriate mood with periods of mild confusion. Assessment and Plan Assessment and Plan ASSESSMENT 1. Early Sepsis. 2. Acute Community Acquired Pneumonia. 3. Acute Encephalopathy. 4. Urinary Tract Infection, on admission. 5. Acute Kidney Injury. 6. Dehydration. 7. 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 8. Occlusion of the Ventricular-Peritoneal Shunt. 9. Normal Pressure Hydrocephalus. 10. Dementia with Memory Loss. PLAN 1. Will continue with the current medication regimen. 2. Continue to monitor intake and output closely. 3. Continue with Physical Therapy. 4. Monitor his behavior without a sitter. 5. DVT, PE and PUD prophylaxis. Enrique Silva MD Sep 29, 2016 08:05 Enrique Silva MD Sep 29, 2016 08:05
[2016-09-29] MEDS: CEFUROXIME AXETIL 500 MG TAB PO SCH ×2 (09:00→22:48)
[2016-09-29] MEDS: levETIRAcetam 500 MG TAB PO SCH ×2 (09:34→22:48)
[2016-09-29] MEDS: CALCIUM CARBONATE 1.25 GM (CA 500 MG) TAB PO SCH (09:34)
[2016-09-29] MEDS: CHOLECALCIFEROL (VIT D3) 1000 UNIT TAB PO SCH (09:34)
[2016-09-29] MEDS: MEMANTINE HCL 5 MG TAB PO SCH (09:34)
[2016-09-29] MEDS: AZITHROMYCIN 250 MG TAB PO SCH (09:35)
[2016-09-29] MEDS: BENZONATATE 100 MG CAP PO SCH ×3 (09:35→17:46)
[2016-09-29] MEDS: TAMSULOSIN HCL 0.4 MG CAP PO SCH ×2 (09:35→22:48)
[2016-09-29] MEDS: VENLAFAXINE HCL XR 75 MG CAP PO SCH ×2 (09:35→22:48)
[2016-09-29] MEDS: PANTOPRAZOLE SODIUM 40 MG VIAL IVP SCH (09:36)
[2016-09-29] MEDS: SODIUM CHLORIDE 0.9% FLUSH 5 ML FLUSH FLUSH SCH ×2 (09:36→22:48)
[2016-09-29] MEDS: NS + KCL 20 MEQ INJ 1,000 ML IV SCH ×3 (09:37→22:48)
[2016-09-29 12:00] VITALS: BP 137/76; PULSE 89; RESP 20; TEMP 96.9; O2SAT 96
[2016-09-29] MEDS: ACETAMINOPHEN 325 MG TAB PO PRN (14:08)
--- NOTE | 2016-09-29 14:54 | HHI.NSPN ---
(Millie Alvarado) Note Status Status: Progress Note (Millie Alvarado) Interval History Interval History Mr. Kang is a 81 year old male who underwent placement of ventriculoperitoneal shunt on 03/21/16 for Normal Pressure Hydrocephalus. Mr. Kang has had episodes of confusion and has had several hospitalizations due to so. He had suffered thoracic compression fractures that was managed nonsurgically, he also was found to have Urinary Tract Infections. Mr. Kang has been followed up in our office accompanied by his daughter, he was doing ok at that time, still at times confused. We had placed him on Bactrim for UTI. He was brought into [place] as he was becoming weak and was unable to stand on his own. He also has had poor oral intake. He is again positive for UTI, and with metabolic abnormalities. A CT Head showed no acute pathology, there is stable signs of hydrocephalus. He underwent a Shuntogram study a few days ago which showed no patency of the catheter from below the chest, no contrast seen into the peritoneum. A neurosurgical evaluation was requested. 09/23: still confused, evaluated by Neurologist Dr. Peter 09/25: POD 1 s/p revision of SCHOOL INSPECTOR shunt. Confused, sitter in room. 09/26: POD 2, denies any headaches, 09/27: POD 3, he says he feels better today, has has no complaints for us, moves all four extremities. denies head pain 09/28: POD 4, appears more alert, he is oriented to name, place, and year today. 09/29: POD 5, doing well, denies headaches, vomiting, no acute events overnight. (Millie Alvarado) Labs, Micro, & Vital Signs Results Date Time Temp Pulse Resp B/P Pulse Ox O2 Delivery O2 Flow Rate FiO2 09/29/16 12:00 96.9 89 20 137/76 96 09/29/16 08:00 96.6 85 18 109/62 97 09/29/16 04:00 97.3 86 18 131/88 95 09/29/16 00:15 97.9 90 18 131/88 95 09/28/16 20:15 96.5 83 18 142/80 96 09/28/16 17:16 88 09/28/16 16:00 97.2 83 18 140/81 96 09/29/16 07:00 Intake Total 640 ml Output Total 425 ml Balance 215 ml Constitutional Vital Signs Date Time Temp Pulse Resp B/P Pulse Ox O2 Delivery O2 Flow Rate FiO2 09/29/16 12:00 96.9 89 20 137/76 96 09/29/16 08:00 96.6 85 18 109/62 97 09/29/16 04:00 97.3 86 18 131/88 95 09/29/16 00:15 97.9 90 18 131/88 95 09/28/16 20:15 96.5 83 18 142/80 96 09/28/16 17:16 88 09/28/16 16:00 97.2 83 18 140/81 96 09/29/16 07:00 Intake Total 640 ml Output Total 425 ml Balance 215 ml (Millie Alvarado) Review of Systems/Exam Exam Mr. Kang is alert, oriented to name, place, and year. Follows commands. Surgical wounds, scalp and abdomen, are healing well, scalp jackie intact. Right SCHOOL INSPECTOR shunt palpated with good bubble rebound Cranial nerve: pupils to be equal, round, and reactive to light. Extra-ocular movements are intact with normal convergence. Facial motor function appears normal and symmetrical. Neck is soft and supple. Moves: moves all four extremities symmetrically Sensory: reports intact to light touch x 4 Plantars downgoing b/l Cerebellar examination is intact to finger to nose b/l. (Millie Alvarado) Medical Decision Making MDM Remarks 81 y/o male with occluded shunt, s/p revision of SCHOOL INSPECTOR shunt 09/24/16, doing well, mental status improving (Millie Alvarado) Plan Plan Remarks cont therapy, gait training, rehab dw pt to avoid falls and head trauma jackie dc 1 week, can f/u in our office clear to dc from NRS standpoint (Millie Alvarado) Attending Statement The exam, history, and the medical decision-making described in the above note were completed with the assistance of the mid-level provider. I reviewed and agree with the findings presented. I attest that I had a [id number] encounter with the patient on the same day, and personally performed and documented my assessment and findings in the medical record. (Jose Gee MD) Millie Alvarado Sep 29, 2016 14:54 Jose Gee MD Oct 01, 2016 08:42
[2016-09-29 16:00] VITALS: BP 125/68; PULSE 85; RESP 19; TEMP 96.8; O2SAT 97
[2016-09-29] MEDS: ENOXAPARIN SODIUM 30 MG/0.3 ML SYRINGE SQ SCH (17:46)
[2016-09-29 20:00] VITALS: BP 119/76; PULSE 87; RESP 16; TEMP 96.6; O2SAT 96
[2016-09-29] MEDS: LORazepam 1 MG TAB PO SCH (22:48)
[2016-09-30] VITALS: BP 128/82; PULSE 86; RESP 17; TEMP 97; O2SAT 97
[2016-09-30 08:00] VITALS: BP 136/82; PULSE 86; RESP 18; TEMP 97.3; O2SAT 95
[2016-09-30] MEDS: SODIUM CHLORIDE 0.9% FLUSH 5 ML FLUSH FLUSH SCH ×2 (09:22→23:09)
[2016-09-30] MEDS: PANTOPRAZOLE SODIUM 40 MG VIAL IVP SCH (09:23)
[2016-09-30] MEDS: levETIRAcetam 500 MG TAB PO SCH ×2 (09:24→21:05)
[2016-09-30] MEDS: CEFUROXIME AXETIL 500 MG TAB PO SCH ×2 (09:24→21:06)
[2016-09-30] MEDS: CALCIUM CARBONATE 1.25 GM (CA 500 MG) TAB PO SCH (09:24)
[2016-09-30] MEDS: AZITHROMYCIN 250 MG TAB PO SCH (09:24)
[2016-09-30] MEDS: MEMANTINE HCL 5 MG TAB PO SCH (09:24)
[2016-09-30] MEDS: TAMSULOSIN HCL 0.4 MG CAP PO SCH ×2 (09:24→21:06)
[2016-09-30] MEDS: VENLAFAXINE HCL XR 75 MG CAP PO SCH ×2 (09:25→21:06)
[2016-09-30] MEDS: BENZONATATE 100 MG CAP PO SCH ×3 (09:25→17:45)
[2016-09-30] MEDS: CHOLECALCIFEROL (VIT D3) 1000 UNIT TAB PO SCH (09:25)
[2016-09-30 12:00] VITALS: BP 115/78; PULSE 86; RESP 18; TEMP 97.5; O2SAT 95
--- NOTE | 2016-09-30 12:30 | HHI.PR ---
Subjective Remarks He appears comfortable sitting up in the chair with his legs elevated. He did not require a sitter overnight. He has report of tolerating all of the medications. He appears quite pleasant and states he is ready to go to Rehab. Objective Vital Signs Date Time Temp Pulse Resp B/P Pulse Ox O2 Delivery O2 Flow Rate FiO2 09/30/16 08:00 97.3 86 18 136/82 95 09/30/16 00:00 97.0 86 17 128/82 97 09/29/16 20:00 96.6 87 16 119/76 96 09/29/16 19:15 Room Air 09/29/16 16:00 96.8 85 19 125/68 97 I/O 09/29/16 09/29/16 09/29/16 09/30/16 09/30/16 09/30/16 06:59 14:59 22:59 06:59 14:59 22:59 Intake Total 120 ml 240 ml 240 ml 240 ml Output Total 225 ml Balance -105 ml 240 ml 240 ml 240 ml Intake Oral 120 ml 240 ml 240 ml 240 ml Output Urine Total 225 ml # Voids 1 2 1 2 # Bowel Movements 1 0 0 1 Result Diagram: 09/26/1646 09/26/16 0646 Objective Remarks GENERAL: Alert and appears in no acute distress. SKIN: Warm and dry. HEAD: Atraumatic. Normocephalic. EYES: Pupils equal and round. No scleral icterus. No injection or drainage. ENT: No nasal bleeding or discharge. Mucous membranes pink and moist. NECK: Trachea midline. No JVD. CARDIOVASCULAR: Regular rate and rhythm. RESPIRATORY: No accessory muscle use. Clear to auscultation. Breath sounds equal bilaterally. GASTROINTESTINAL: Abdomen soft, non-tender, nondistended. Hepatic and splenic margins not palpable. MUSCULOSKELETAL: Extremities without clubbing, cyanosis, or edema. No obvious deformities. NEUROLOGICAL: Awake and alert. No obvious cranial nerve deficits. Motor grossly within normal limits. Normal speech. PSYCHIATRIC: Appropriate mood with periods of mild confusion. Assessment and Plan Assessment and Plan ASSESSMENT 1. Early Sepsis. 2. Acute Community Acquired Pneumonia. 3. Acute Encephalopathy. 4. Urinary Tract Infection, on admission. 5. Acute Kidney Injury. 6. Dehydration. 7. 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 8. Replacement of the Ventricular-Peritoneal Shunt. 9. Normal Pressure Hydrocephalus. 10. Dementia with Memory Loss. PLAN 1. Continue with the current treatment regimen. 2. Continue with Physical Therapy. 3. Discharge Planning for Rehab. 4. Observe his oral intake closely. 5. DVT, PE and PUD prophylaxis. Enrique Silva MD Sep 30, 2016 12:30 9. DVT, PE and PUD prophylaxis. Enrique Silva MD Sep 30, 2016 12:30
[2016-09-30] MEDS ORDERED: LORA-474 PO (12:37)
[2016-09-30] MEDS ORDERED: LEVE500 PO (12:37)
[2016-09-30] MEDS ORDERED: NAME5TAB2 PO (12:37)
[2016-09-30] MEDS: NS + KCL 20 MEQ INJ 1,000 ML IV SCH ×2 (13:20→23:20)
[2016-09-30 16:45] VITALS: BP 131/79; PULSE 87; RESP 16; TEMP 97.3; O2SAT 95
[2016-09-30] MEDS: ENOXAPARIN SODIUM 30 MG/0.3 ML SYRINGE SQ SCH (17:45)
[2016-09-30 19:55] VITALS: BP 142/78; PULSE 88; RESP 16; TEMP 98.3; O2SAT 95
[2016-09-30] MEDS: LORazepam 1 MG TAB PO SCH (21:05)
[2016-10-01] VITALS: BP 115/73; PULSE 83; RESP 18; TEMP 97.1; O2SAT 97
[2016-10-01 04:00] VITALS: BP 118/76; PULSE 84; RESP 16; TEMP 97.4; O2SAT 95
[2016-10-01 08:00] VITALS: BP 130/79; PULSE 83; RESP 15; TEMP 96.2; O2SAT 95
[2016-10-01] MEDS: VENLAFAXINE HCL XR 75 MG CAP PO SCH (09:00)
[2016-10-01] MEDS: NS + KCL 20 MEQ INJ 1,000 ML IV SCH (09:20)
[2016-10-01] MEDS: CEFUROXIME AXETIL 500 MG TAB PO SCH (10:08)
[2016-10-01] MEDS: AZITHROMYCIN 250 MG TAB PO SCH (10:08)
[2016-10-01] MEDS: MEMANTINE HCL 5 MG TAB PO SCH (10:08)
[2016-10-01] MEDS: BENZONATATE 100 MG CAP PO SCH (10:08)
[2016-10-01] MEDS: levETIRAcetam 500 MG TAB PO SCH (10:09)
[2016-10-01] MEDS: TAMSULOSIN HCL 0.4 MG CAP PO SCH (10:09)
[2016-10-01] MEDS: CALCIUM CARBONATE 1.25 GM (CA 500 MG) TAB PO SCH (10:09)
[2016-10-01] MEDS: SODIUM CHLORIDE 0.9% FLUSH 5 ML FLUSH FLUSH SCH (10:11)
[2016-10-01] MEDS: PANTOPRAZOLE SODIUM 40 MG VIAL IVP SCH (10:11)
[2016-10-01] MEDS: CHOLECALCIFEROL (VIT D3) 1000 UNIT TAB PO SCH (10:17)
[2016-10-05] MEDS ORDERED: LEVE500 PO (09:50)
--- NOTE | 2017-01-20 17:54 | MD ---
cc: ROHIT SILVA M.D. ADMISSION DATE: 09/17/2016 DISCHARGE DATE: 10/01/2016 ADMISSION DIAGNOSES 1. Change in mental status. 2. Difficulty standing. DISCHARGE DIAGNOSES 1. Early sepsis. 2. Acute community-acquired pneumonia. 3. Acute metabolic encephalopathy. 4. Urinary tract infection, on admission. 5. Acute kidney injury. 6. Dehydration. 7. Chronic anemia secondary to chronic illness. 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 9. Normal pressure hydrocephalus. 10. Dementia with memory loss. BRIEF HISTORY This patient is a 81-year-old male who had been noticed by his daughter to have a change in his overall mental character as well as change in activity. The patient would normally get physical therapy but was having difficulty understanding simple instruction commands from the therapist. He had also become very weak and was not able to stand very long on his own. Due to the major changes of his status, the daughter became quite concerned. There was denial of any fever or any chills. The patient also was with report of having decrease in oral intake of food and drink. Secondary to the major changes in his status, the patient was transported to [facility] Emergency Department for evaluation. He was found with a presentation of pneumonia, mental confusion and dehydrated state. He was admitted to the hospital for aggressive treatment in this regard. PERTINENT PHYSICAL FINDINGS GENERAL: The patient was alert and appeared with some confusion. HEENT: The head appeared atraumatic. Pupils were equal and reactive. The nasal passages were clear. Oropharynx was clear as well. Tongue protruded in the midline. Gag reflex was intact. NECK: Supple without presence of carotid bruits, thyromegaly, jugular venous distension or masses. HEART: Regular rhythm with S1 and S2 distinct. LUNGS: A few rhonchus sounds were noted with few expiratory wheezes. Breath sounds appear to be equal. ABDOMEN: Soft and nontender status. Bowel sounds were present. EXTREMITIES: Good range of motion. Pulses at 3+/4+. No peripheral edema to exam. NEUROLOGICAL: The patient was awake, he appeared alert. No lateralizing focal motor deficits to gross examination. HOSPITAL COURSE The patient was admitted to the hospital and blood and urine cultures were obtained. Intravenous antibiotic was started. The patient also was placed on intravenous corticosteroid therapy, intravenous hydration with electrolyte repletion. Bronchodilator therapy via nebulizer was given in his behalf as well. He had monitoring of his intake and output status and followup laboratory investigations were to be done. The patient had shown some improvement by the third hospitalization day, and physical therapy was consulted with regard to improving the patient's activity. He also had better breathing status with less presentation for rhonchi and wheezes. As the patient did not do well for his standing and his navigation was somewhat erratic and ataxic, consultation was made to Neurosurgery. The consultation to Neurosurgery was to reassess the patient's ventriculoperitoneal shunt for patency. With the evaluation done on this patient, consultation was also made to Neurology in his regard. It was felt by Neurology that the primary dysfunction for the patient was related to his ventricular shunt. As the evaluation showed that the patient required improvement of the ventricular shunt, plans were made by Neurosurgery for replacement and revision. Revision of the ventriculoperitoneal shunt was done with replacement of the peritoneal catheter. This was performed on 09/25/2016. After the shunt was placed, physical therapy was resumed for this patient and he had followup chest x-ray which it showed improved status with regard to the pneumonia. He continued with aggressive antibiotic treatment as well as bronchodilator therapy treatment via nebulizer. On 09/29/2016 the patient was comfortable and was sitting up in bed and was having less complaints with regard to disorientation thoughts. For 2-3 days prior to this date, the patient had been with mental confusion and was requiring a sitter to be with him most of the night. Medications have been adjusted to assist in this and he had continued progress for his overall status. He was assessed again on 09/30/2016 and the patient was comfortable, sitting up in his chair and also did not require a sitter overnight. He appeared quite pleasant and was quite oriented. He stated he was ready to attend rehabilitation to get stronger. Case Management was notified in this regard and plans were made for the patient to go to a rehabilitation center. The discharge plans were finalized on 10/01/2016 and the patient was medically stable for discharge. DISCHARGE DISPOSITION Diet. The patient will be of a low-salt diet. MEDICATIONS 1. Venlafaxine 150 mg b.i.d. 2. Tamsulosin 0.4 mg q.12 hours. 3. Namenda 5 mg daily. 4. Lorazepam 1 mg q.h.s. 5. Keppra 500 mg q.12 hours. 6. Nexium 40 mg daily. 7. Vitamin D3 2000 I.U. daily. 8. Calcium carbonate 1200 mg daily. 9. Vitamin B complex with biotin and folic acid one capsule daily. ACTIVITY The patient will be discharged to a rehab center and his activity will be as per physical therapy recommendations. FOLLOWUP The patient will followup with Dr. Silva one week after discharge from the rehabilitation center. MD SEVERIANO Jacobsen/BJF /4:53 PM /5:33 PM
== END 2016-10-01 12:04 | DRG 853 ==
LOC: NEPE 18:35 → NEDA 22:00 → NEPHCDU 09-18 00:46 → N04B 09-19 16:52 → N06B 09-24 17:14 → N06A 09-27 17:51
PROVIDERS: ADMIT Internal Medicine; ATTEND Internal Medicine
PROC: B0281ZZ Computerized Tomography (CT Scan) of Cerebral Ventricle(s) using Low Osmolar Contrast (ICD-10-PCS; 2016-09-20)
PROC: 0WWG0JZ Revision of Synthetic Substitute in Peritoneal Cavity, Open Approach (ICD-10-PCS; principal; 2016-09-24 16:54)
DX: A41.9 Sepsis, unspecified organism (principal); J18.9 Pneumonia, unspecified organism; G93.40 Encephalopathy, unspecified; N17.9 Acute kidney failure, unspecified; T85.01XA Breakdown (mechanical) of ventricular intracranial (communicating) shunt, initial encounter; E86.0 Dehydration; G91.2 (Idiopathic) normal pressure hydrocephalus; N39.0 Urinary tract infection, site not specified; G20 Parkinson's disease; D63.8 Anemia in other chronic diseases classified elsewhere; F02.80 Dementia in other diseases classified elsewhere, unspecified severity, without behavioral disturbance, psychotic disturbance, mood disturbance, and anxiety; E78.5 Hyperlipidemia, unspecified; G47.33 Obstructive sleep apnea (adult) (pediatric); K21.9 Gastro-esophageal reflux disease without esophagitis; F10.21 Alcohol dependence, in remission; F01.50 Vascular dementia, unspecified severity, without behavioral disturbance, psychotic disturbance, mood disturbance, and anxiety; I10 Essential (primary) hypertension; F41.8 Other specified anxiety disorders; Z87.11 Personal history of peptic ulcer disease; Z85.828 Personal history of other malignant neoplasm of skin; Z87.442 Personal history of urinary calculi; Y75.2 Prosthetic and other implants, materials and neurological devices associated with adverse incidents; Z87.440 Personal history of urinary (tract) infections
CPT/HCPCS: 61070; 70450; 71010; 74176; 75809; 76000; 80048; 80053; 80076; 81001; 82550; 82945; 83605; 83735; 84157; 84484; 85025; 85610; 85730; 87040; 87070; 87086; 87205; 89051; 93005; 94640; 94664; 95819; 96374; 96375; C9113; J0456; J0690; J0696; J1580; J1630; J1650; J2060; J2370; J2405; J2710; J2930; J3010; J3370; J3480; J7030; J7050; J7120

== ENCOUNTER 2017-04-20 13:59 | Inpatient (IN) | payer MEDICARE ==
[~2017-04-20] VITALS: Ht 175.3 cm; Wt 93.7 kg
[~2017-04-20 13:59] MED LIST changes: -AZEL0.056; -BACT800T5 PO; -DESO0.0560; -DOXY50; -FLUO0.0121; -KETO2SHA; +LEVE500 PO; -LORA-373; -LORA-392 PO; +LORA-474 PO; -MICR1TAB; -MIRA33504 PO; +NAME5TAB2 PO; -PRAV20TA2; -PYRI60; -QUET1TAB7 PO; -TRAM50TA
[2017-04-20 14:00] VITALS: BP 160/82; PULSE 90; RESP 20; TEMP 97.8; O2SAT 95
--- NOTE | 2017-04-20 14:06 | PD ---
Physical Exam Date Seen by Provider: Apr 20, 2017 Time Seen by Provider: 14:03 Narrative 82-year-old white male presents to emergency Department with complaints of urinary incontinence. He states that he has hydrocephalus with a ONION TIER shunt. Patient has worsening chronic gait disturbance, dizziness and incontinence over the last 2 days. Patient's neurosurgeon is Dr. Gee. PCP is Frederick Silva. No trauma. No recent illness. No fever or chills. No nausea vomiting. No focal numbness or tingling. Vital signs reviewed. Awaiting bed placement. Data Data Last Documented VS Vital Signs Date Time Temp Pulse Resp B/P (MAP) Pulse Ox O2 Delivery O2 Flow Rate FiO2 04/20/17 14:00 97.8 90 20 160/82 (108) 95 Room Air [facility] Medical Record Reviewed: No Supervised Visit with JANIYA: Jose Hicks Apr 20, 2017 14:06
--- NOTE | 2017-04-20 15:39 | PD ---
HPI Chief Complaint: Neuro Symptoms/ Deficits Time Seen by Provider: 14:36 Travel History International Travel<30 days: No Contact w/Intl Traveler<30days: No Traveled to known affect area: No History of Present Illness HPI 82-year-old male that presents to the ED for evaluation of balance issues, confusion and urinary incontinence. Patient has a history of dementia as well as hydrocephalus that presents to the ED for evaluation of 2 days of having issues with his balance as well as increased confusion and urinary incontinence. Daughter takes care of the patient and he is noted to decline for the past 2 days. Patient for the most part is demented but is able to recognize family members but for the past today his been more confused per family members. He has urinary retention. He has a history of hydrocephalus and had a shunt placed by Dr. Gee about a year and a half ago and had one episode where it got obstructed. Patient states that the symptoms feel very similar to that episode. He denies any other medical issues. No fevers chills or sweats. No chest pain. Patient complains of no pain whatsoever. He does appear to be pleasantly confused. Per daughter he checked the urine yesterday for possible UTI and this was negative. He has no allergies to medication. No other medical issues. He complains of no pain. Most of the history is obtained from family members. Vision has had a couple of "stumbles "but per family member he has not hit his head or falling. PFSH Past Medical History Arthritis: No Asthma: No Anxiety: No Depression: No Heart Rhythm Problems: No Cancer: Yes (Skin Cancer--spots removed) Cardiovascular Problems: Yes High Cholesterol: Yes Chest Pain: No Congestive Heart Failure: No COPD: No Cerebrovascular Accident: No Dementia: Yes Diabetes: No Diminished Hearing: No Endocrine: No Gastrointestinal Disorders: Yes GERD: Yes Glaucoma: No Genitourinary: Yes Headaches: Yes Hepatitis: No Hiatal Hernia: Yes (repaired) Hypertension: No Kidney Stones: Yes Medical other: No Musculoskeletal: Yes Neurologic: Yes (hydrocephalus) Parkinson's Disease: Yes Psychiatric: No Reproductive: No Respiratory: Yes Immunizations Current: No Migraines: No Seizures: No Sleep Apnea: Yes Thyroid Disease: No Ulcer: No ?: Not Past Surgical History Abdominal Surgery: Yes AICD: No Arteriovenous Shunt: No Cardiac Surgery: No Cholecystectomy: Yes Ear Surgery: No Eye Surgery: Yes (CATARACTS REMOVED BILAT) Genitourinary Surgery: Yes (PROSTATE, LEFT INGUINAL HERNIA) Insulin Pump: No Joint Replacement: No Oral Surgery: No Pacemaker: No Prostatectomy: Yes Thoracic Surgery: No Other Surgery: Yes (crainotomy 2014, EPIC INTERFACE ANALYST SHUNT 2016 ) Social History Alcohol Use: Yes (ocassionally) Tobacco Use: No Substance Use: No Allergies-Medications (Allergen,Severity, Reaction): Coded Allergies: No Known Allergies (Verified , 04/20/17) Reported Meds & Prescriptions Reported Meds & Active Scripts Active Namenda (Memantine) 5 Mg Tab 5 Mg PO DAILY Ativan (Lorazepam) 1 Mg Tab 1 Mg PO HS Keppra (Levetiracetam) 500 Mg Tab 500 Mg PO Q12HR Flomax (Tamsulosin HCl) 0.4 Mg Cap 0.4 Mg PO Q12HR Reported Keppra (Levetiracetam) 500 Mg Tab 500 Mg PO BID Vitamin D (Cholecalciferol) 2,000 Unit Tab 2,000 Units PO DAILY Calcium (Calcium Carbonate) 1,250 Mg Tab 1,200 Mg PO DAILY 1,250 mg calcium carbonate (500 mg elemental calcium) Super B-Complex (B-Complex W/Biotin & Folic Acid) 1 Cap 1 Cap PO Effexor (Venlafaxine HCl) 75 Mg Tab 150 Mg PO BID Nexium (Esomeprazole DR) 40 Mg Capdr 40 Mg PO DAILY Review of Systems Except as stated in HPI: all other systems reviewed are Neg Physical Exam Narrative GENERAL: SKIN: Warm and dry. HEAD: Atraumatic. Normocephalic. EYES: Pupils equal and round 4 mm reactive to light and accommodation. No scleral icterus. No injection or drainage. ENT: No nasal bleeding or discharge. Mucous membranes pink and moist. Tongue is midline. No uvula deviation. NECK: Trachea midline. No JVD. CARDIOVASCULAR: Regular rate and rhythm. No murmurs, S3, S4. RESPIRATORY: No accessory muscle use. Clear to auscultation. Breath sounds equal bilaterally. GASTROINTESTINAL: Abdomen soft, non-tender, nondistended. Hepatic and splenic margins not palpable. MUSCULOSKELETAL: Extremities without clubbing, cyanosis, or edema. No obvious deformities. Full range of motion of the upper and lower extremities bilaterally. 2+ pulses bilaterally. NEUROLOGICAL: Awake and alert. No obvious cranial nerve deficits. Motor grossly within normal limits. Five out of 5 muscle strength in the arms and legs. Normal speech. PSYCHIATRIC: Appropriate mood and affect; insight and judgment normal. Data Data Last Documented VS Vital Signs Date Time Temp Pulse Resp B/P (MAP) Pulse Ox O2 Delivery O2 Flow Rate FiO2 04/20/17 14:00 97.8 90 20 160/82 (108) 95 Room Air Orders Orders Electrocardiogram (04/20/17 14:36) Complete Blood Count With Diff (04/20/17 14:36) Comprehensive Metabolic Panel (04/20/17 14:36) Troponin I (04/20/17 14:36) Urinalysis - C+S If Indicated (04/20/17 14:36) Cath For Specimen (04/20/17 14:36) Magnesium (Mg) (04/20/17 14:36) Thyroid Stimulating Hormone (04/20/17 14:36) Ct Brain W/O Iv Contrast(Rout) (04/20/17 14:36) Iv Access Insert/Monitor (04/20/17 14:36) Ecg Monitoring (04/20/17 14:36) Oximetry (04/20/17 14:36) Orthostatic Vital Signs (04/20/17 14:36) Shunt Series (04/20/17 ) Lactic Acid Sepsis Protocol (04/20/17 16:02) Admit Order (Ed Use Only) (04/20/17 17:30) Labs Laboratory Tests Test 04/20/17 16:19 White Blood Count 8.3 TH/MM3 Red Blood Count 4.48 MIL/MM3 Hemoglobin 14.6 GM/DL Hematocrit 42.8 % Mean Corpuscular Volume 95.6 FL Mean Corpuscular Hemoglobin 32.6 PG Mean Corpuscular Hemoglobin Concent 34.2 % Red Cell Distribution Width 13.3 % Platelet Count 311 TH/MM3 Mean Platelet Volume 7.0 FL Neutrophils (%) (Auto) 56.6 % Lymphocytes (%) (Auto) 26.6 % Monocytes (%) (Auto) 12.6 % Eosinophils (%) (Auto) 3.7 % Basophils (%) (Auto) 0.5 % Neutrophils # (Auto) 4.7 TH/MM3 Lymphocytes # (Auto) 2.2 TH/MM3 Monocytes # (Auto) 1.0 TH/MM3 Eosinophils # (Auto) 0.3 TH/MM3 Basophils # (Auto) 0.0 TH/MM3 CBC Comment DIFF FINAL Differential Comment Blood Urea Nitrogen 13 MG/DL Creatinine 1.19 MG/DL Random Glucose 112 MG/DL Total Protein 7.8 GM/DL Albumin 3.8 GM/DL Calcium Level 8.9 MG/DL Magnesium Level 2.2 MG/DL Alkaline Phosphatase 94 U/L Aspartate Amino Transf (AST/SGOT) 15 U/L Alanine Aminotransferase (ALT/SGPT) 25 U/L Total Bilirubin 0.5 MG/DL Sodium Level 138 MEQ/L Potassium Level 4.1 MEQ/L Chloride Level 105 MEQ/L Carbon Dioxide Level 25.2 MEQ/L Anion Gap 8 MEQ/L Estimat Glomerular Filtration Rate 59 ML/MIN Lactic Acid Level 1.0 mmol/L Troponin I LESS THAN 0.02 NG/ML Thyroid Stimulating Hormone 3rd Gen 1.830 uIU/ML MDM Medical Decision Making Medical Screen Exam Complete: Yes Emergency Medical Condition: Yes Medical Record Reviewed: Yes Interpretation(s) Last Impressions Head CT 04/20/17 1436 Signed Impressions: Service Date/Time: Thursday, April 20, 2017 15:42 - CONCLUSION: 1. Ventricles are again noted the prominent but unchanged. 2. Chronic ischemic small vessel arthropathy. Krunal Rodriguez MD Shunt Study (Imaging) 04/20/17 0000 Signed Impressions: Service Date/Time: Thursday, April 20, 2017 15:25 - CONCLUSION: Shunt is intact, however, distal tip now overlies the right upper quadrant and inferior heart. This represents a change from the prior study. Suggest correlation with clinical history to determine if it has been revised since the prior examination. Favio Gimenez MD CBC & BMP Diagram 04/20/17 16:19 Total Protein 7.8, Albumin 3.8, Calcium Level 8.9, Magnesium Level 2.2, Alkaline Phosphatase 94, Aspartate Amino Transf (AST/SGOT) 15, Alanine Aminotransferase (ALT/SGPT) 25, Total Bilirubin 0.5 Differential Diagnosis Normal pressure hydrocephalus versus versus altered mental status versus UTI versus sepsis versus CVA Narrative Course 82-year-old male that presents to the ED for evaluation of confusion and balance issues. Patient was properly examined and was found to have signs and symptoms concerning for possible normal pressure hydrocephalus. Patient does have a history of this in the past and there is concern for blockage again. Labs and imaging were ordered. Labs and imaging showed no sign of acute disease. Case was discussed in my attending Dr Bedolla who recommends admission. Case discussed with Dr. Silva as well as the family who agree with admission plan. Diagnosis Primary Impression: Altered mental status Qualified Codes: R41.82 - Altered mental status, unspecified Additional Impression: Normal pressure hydrocephalus Admitting Information Admitting Physician Requests: Observation Brien Carmona Apr 20, 2017 15:39
--- NOTE | 2017-04-20 15:53 | RADRPT ---
EXAM DATE/TIME: 04/20/2017 15:42 [facility] COMPARISON: CT BRAIN W/O CONTRAST, September 25, 2016, 8:25. INDICATIONS : Confusion with altered mental status. RADIATION DOSE: 38.77 CTDIvol (mGy) MEDICAL HISTORY : Hydrocephalus. SURGICAL HISTORY : NUTRITIONAL SERVICES DIRECTOR Shunt. ENCOUNTER: Initial ACUITY: 1 day PAIN SCALE: 3/10 LOCATION: Bilateral cranial TECHNIQUE: Multiple contiguous axial images were obtained of the head. Using automated exposure control and adj ustment of the mA and/or kV according to patient size, radiation dose was kept as low as reasonably a chievable to obtain optimal diagnostic quality images. DICOM format image data is available electro nically for review and comparison. FINDINGS: CEREBRUM: Right frontal ventriculostomy catheter is unchanged. Areas of low-attenuation in the periventricular white matter. The ventricles are again noted to be mildly prominent. No evidence of midline shift, m ass lesion, hemorrhage or acute infarction. No extra-axial fluid collections are seen. POSTERIOR FOSSA: The cerebellum and brainstem are intact. The 4th ventricle is midline. The cerebellopontine angle i s unremarkable. EXTRACRANIAL: The visualized portion of the orbits is intact. SKULL: Right eye craniotomy. No evidence of skull fracture. CONCLUSION: 1. Ventricles are again noted the prominent but unchanged. 2. Chronic ischemic small vessel arthropathy. Krunal Rodriguez MD on April 20, 2017 at 15:51 Board Certified Radiologist. This report was verified electronically.
--- NOTE | 2017-04-20 16:26 | RADRPT ---
EXAM DATE/TIME: 04/20/2017 15:25 [facility] COMPARISON: CT ABDOMEN & PELVIS W/O CONTRAST, September 24, 2016, 14:36. SHUNT SERIES, June 13, 2016, 14:59. INDICATIONS : Dizziness. MEDICAL HISTORY : Dementia. SURGICAL HISTORY : Craniotomy. SEGMENT ASSEMBLER Shunt. Prior shunt malfunction. ENCOUNTER: Initial ACUITY: 1 day PAIN SCORE: 0/10 LOCATION: Shunt. FINDINGS: 7 views were obtained and demonstrate a right sided ventricular shunt in place with tip crossing the midline. The reservoir demonstrates no abnormality. Tubing is intact throughout its course along the right neck, a right anterior chest wall, and right abdomen. Distal tip overlies the right upper quadr ant and inferior heart. This represents a change from the prior studies. The visualized surrounding s tructures demonstrate no acute finding. CONCLUSION: Shunt is intact, however, distal tip now overlies the right upper quadrant and inferior heart. This r epresents a change from the prior study. Suggest correlation with clinical history to determine if it has been revised since the prior examination. Favio Gimenez MD on April 20, 2017 at 16:16 Board Certified Radiologist. This report was verified electronically.
[2017-04-20 16:38] LABS: AUTOMATED NEUTROPHIL # 4.7 TH/MM3 (1.8-7.7); BASOPHIL % 0.5 % (0.0-2.0); EOSINOPHIL # 0.3 TH/MM3 (0-0.4); EOSINOPHIL % 3.7 % (0.0-4.0); HEMATOCRIT 42.8 % (39.0-51.0); HEMO FLAGS DIFF FINAL; LYMPH % 26.6 % (9.0-44.0); LYMPHOCYTE # 2.2 TH/MM3 (1.0-4.8); MEAN CELL VOLUME 95.6 FL (80.0-100.0); MEAN CORPUSCULAR HEMOGLOBIN 32.6 PG (27.0-34.0); MEAN CORPUSCULAR HGB CONC 34.2 % (32.0-36.0); MONO % 12.6 % (0.0-8.0); NEUT % 56.6 % (16.0-70.0); PLATELET COUNT 311 TH/MM3 (150-450); RED BLOOD COUNT 4.48 MIL/MM3 (4.50-5.90); RED CELL DISTRIBUTION WIDTH 13.3 % (11.6-17.2); WHITE BLOOD COUNT 8.3 TH/MM3 (4.0-11.0)
[2017-04-20 17:02] LABS: ALT (GPT) 25 U/L (12-78); ANION GAP 8 MEQ/L (5-15); AST (GOT) 15 U/L (15-37); BICARBONATE 25.2 MEQ/L (21.0-32.0); BLOOD UREA NITROGEN 13 MG/DL (7-18); CHLORIDE 105 MEQ/L (98-107); GLOMERULAR FILTRATION RATE 59 ML/MIN (>89); MAGNESIUM 2.2 MG/DL (1.5-2.5); POTASSIUM 4.1 MEQ/L (3.5-5.1); SODIUM (NA) 138 MEQ/L (136-145)
[2017-04-20 17:12] LABS: ALKALINE PHOSPHATASE 94 U/L (45-117); TOTAL BILIRUBIN ADULT 0.5 MG/DL (0.2-1.0)
[2017-04-20 17:57] VITALS: BP_SYST 109; BP_SYST 121; BP_SYST 134; BP_DIAS 65; BP_DIAS 68; RESP 20
[2017-04-20 17:58] VITALS: BP 121/68; PULSE 92; RESP 20; O2SAT 96
[2017-04-20] MEDS ORDERED: NALOXONE HCL 0.4 MG/ML AMP IV PUSH PRN (18:00)
[2017-04-20] MEDS ORDERED: BISACODYL 10 MG SUPP RECTAL PRN (18:00)
[2017-04-20] MEDS ORDERED: LACTULOSE SYRUP 20 GM/30 ML CUP PO PRN (18:00)
[2017-04-20] MEDS ORDERED: SODIUM CHLORIDE 0.9% FLUSH 10 ML FLUSH IV FLUSH PRN (18:00)
[2017-04-20] MEDS ORDERED: TEMAZEPAM 15 MG CAP PO PRN (18:00)
[2017-04-20] MEDS ORDERED: ONDANSETRON HCL 4 MG/2 ML VIAL IVP PRN (18:00)
[2017-04-20] MEDS ORDERED: SENNOSIDES 8.6 MG TAB PO PRN (18:00)
[2017-04-20] MEDS ORDERED: MAGNESIUM HYDROXIDE SUSP 30 ML CUP PO PRN (18:00)
[2017-04-20] MEDS ORDERED: LORA1TAB12 PO (18:11)
[2017-04-20] MEDS ORDERED: VITATAB11 PO (18:11)
[2017-04-20] MEDS ORDERED: VITA1000 PO (18:11)
[2017-04-20 18:34] LABS: BLOOD, URINE NEG (NEG); GLUCOSE,URINE NEG (NEG); KETONE, URINE NEG (NEG); NITRITE,URINE NEG (NEG); SQUAMOUS EPITHELIAL CELL URINE <1 /hpf (0-5); URINE COLOR YELLOW (YELLW/STRAW)
[2017-04-20 18:37] LABS: COMMENT (UR) CULT NOT INDICATED; CULTURE IF INDICATED CULT NOT INDICATED
[2017-04-20] MEDS: HEPARIN SODIUM - SQ 10,000 UNITS/ML VIAL SQ SCH (19:59)
[2017-04-20 20:00] VITALS: BP 150/78; PULSE 80; RESP 18; TEMP 97.7; O2SAT 97
[2017-04-20] MEDS: TAMSULOSIN HCL 0.4 MG CAP PO SCH (22:45)
[2017-04-20] MEDS: DOCUSATE SODIUM 50 MG/SENNA 8.6 MG TAB PO SCH (22:45)
[2017-04-20] MEDS: levETIRAcetam 500 MG TAB PO SCH (22:45)
[2017-04-20] MEDS: LORazepam 1 MG TAB PO SCH (22:45)
[2017-04-20] MEDS: SODIUM CHLORIDE 0.9% FLUSH 10 ML FLUSH IV FLUSH SCH (22:46)
--- NOTE | 2017-04-20 23:34 | EKG ---
Date Performed: 04/20/2017 Time Performed: 16:09:23 PTAGE: 82 years EKG: Sinus rhythm MARKED LEFT AXIS DEVIATION LOW QRS VOLTAGE IN PRECORDIAL LEADS POSSIBLE ANTERIOR MYOCARDIAL INFARCTI ON ABNORMAL ECG PREVIOUS TRACING : 09/17/2016 20.30 Compared to prior tracing no significant change DOCTOR: Farhat Bolden Interpretating Date/Time 04/20/2017 23:33:51
[2017-04-21 04:00] VITALS: BP 137/74; PULSE 90; RESP 18; TEMP 97.2; O2SAT 95
--- NOTE | 2017-04-21 08:49 | HHI.HP ---
History of Present Illness Service INTERNAL MEDICINE Primary Care Physician ENRIQUE SILVA MD Admission Diagnosis NORMAL PRESSURE HYDROCEPHALUS. MENTAL CONFUSION. FREQUENT FALLS. Diagnoses: History of Present Illness This patient is an 82 year old male who has had off and on occurrences of severe lower extremity weakness and several falls. In the past two to three days, he has shown changes from his baseline mental status. He is showing more confusion. He has further been noted to have urinary incontinence much more than his normal baseline of occasional urinary leakage. He was seen in the office two days ago and had little difficulty for standing from sitting in a chair unassisted. He was also able to take his time and have reasonable ambulation. The current symptoms are a departure from his usual state. He is in need of evaluation of his ventricular shunt and his metabolic status. Review of Systems Constitutional: COMPLAINS OF: Fatigue, Weight loss, Change in appetite Endocrine: COMPLAINS OF: Polyuria Neurologic: COMPLAINS OF: Abnormal gait, Poor Balance Psychiatric: COMPLAINS OF: Confusion, Mood changes Past Family Social History Allergies: Coded Allergies: No Known Allergies (Verified , 04/20/17) Past Medical History 1. Chronic Peptic Ulcer Disease. 2. Alcoholism. 3. Hyperlipidemia. 4. Cerebellar Degeneration. 5. Gait Disturbance. 6. Subdural Hematoma. 7. Normal Pressure Hydrocephalus. 8. Obstructive Sleep Apnea Syndrome. 9. Compression Fractures of Spine. 10. Parkinson's Disease. 11. Anxiety Disorder. 12. Depression. Past Surgical History 1. Ventriculoperitoneal Shunt Placement. 2. Craniotomy with Evacuation of Subdural Hematoma. 3. Cholecystectomy. 4. Inguinal Hernia Repair. 5. Prostatectomy. 6. Colonoscopy. Family History This patient is an only child. He has a daughter with "gastrointestinal problems". He has a granddaughter in good health. Social History He is retired and is . He is a nonsmoker and has a strong history of heavy alcohol intake. His use of alcohol is diminished over the past year to no usage at all at this time There is no use of recreational drugs. Physical Exam Vital Signs Vital Signs Date Time Temp Pulse Resp B/P (MAP) Pulse Ox O2 Delivery O2 Flow Rate FiO2 04/21/17 04:00 97.2 90 18 137/74 (95) 95 04/20/17 20:11 04/20/17 20:00 97.7 80 18 150/78 (102) 97 04/20/17 17:58 92 20 121/68 (85) 96 Room Air 04/20/17 17:57 84 20 134/68 (90) 89 20 109/65 (80) 92 20 121/68 (85) 04/20/17 14:00 97.8 90 20 160/82 (108) 95 Room Air Physical Exam GENERAL: This is a well-nourished, well-developed patient, in no apparent distress. He is with periods of confusion. SKIN: No rashes, ecchymoses or lesions. Cool and dry. HEAD: Atraumatic. Normocephalic. No temporal or scalp tenderness. EYES: Pupils equal round and reactive. Extraocular motions intact. No scleral icterus. No injection or drainage. ENT: Nose without bleeding, purulent drainage or septal hematoma. Throat without erythema, tonsillar hypertrophy or exudate. Uvula midline. Airway patent. NECK: Trachea midline. No JVD or lymphadenopathy. Supple, nontender, no meningeal signs. CARDIOVASCULAR: Regular rate and rhythm without murmurs, gallops, or rubs. RESPIRATORY: Clear to auscultation. Breath sounds equal bilaterally. No wheezes , rales, or rhonchi. GASTROINTESTINAL: Abdomen soft, non-tender, nondistended. No hepato-splenomegaly , or palpable masses. No guarding. MUSCULOSKELETAL: Extremities without clubbing, cyanosis, or edema. No joint tenderness, effusion, or edema noted. No calf tenderness. Negative Homans sign bilaterally. NEUROLOGICAL: Awake and alert. Cranial nerves II through XII intact. Motor and sensory grossly within normal limits. Five out of 5 muscle strength in all muscle groups. Normal speech. Unsteady gait. Laboratory Laboratory Tests Test 04/20/17 16:19 04/20/17 18:00 White Blood Count 8.3 Red Blood Count 4.48 Hemoglobin 14.6 Hematocrit 42.8 Mean Corpuscular Volume 95.6 Mean Corpuscular Hemoglobin 32.6 Mean Corpuscular Hemoglobin Concent 34.2 Red Cell Distribution Width 13.3 Platelet Count 311 Mean Platelet Volume 7.0 Neutrophils (%) (Auto) 56.6 Lymphocytes (%) (Auto) 26.6 Monocytes (%) (Auto) 12.6 Eosinophils (%) (Auto) 3.7 Basophils (%) (Auto) 0.5 Neutrophils # (Auto) 4.7 Lymphocytes # (Auto) 2.2 Monocytes # (Auto) 1.0 Eosinophils # (Auto) 0.3 Basophils # (Auto) 0.0 CBC Comment DIFF FINAL Differential Comment Blood Urea Nitrogen 13 Creatinine 1.19 Random Glucose 112 Total Protein 7.8 Albumin 3.8 Calcium Level 8.9 Magnesium Level 2.2 Alkaline Phosphatase 94 Aspartate Amino Transf (AST/SGOT) 15 Alanine Aminotransferase (ALT/SGPT) 25 Total Bilirubin 0.5 Sodium Level 138 Potassium Level 4.1 Chloride Level 105 Carbon Dioxide Level 25.2 Anion Gap 8 Estimat Glomerular Filtration Rate 59 Lactic Acid Level 1.0 Troponin I LESS THAN 0.02 Thyroid Stimulating Hormone 3rd Gen 1.830 Urine Color YELLOW Urine Turbidity CLEAR Urine pH 6.0 Urine Specific [place] 1.013 Urine Protein NEG Urine Glucose (UA) NEG Urine Ketones NEG Urine Occult Blood NEG Urine Nitrite NEG Urine Bilirubin NEG Urine Urobilinogen LESS THAN 2.0 Urine Leukocyte Esterase NEG Urine RBC LESS THAN 1 Urine WBC 1 Urine Squamous Epithelial Cells <1 Microscopic Urinalysis Comment CULT NOT INDICATED Result Diagram: 04/20/17 1619 04/20/17 161 Caprini VTE Risk Assessment Caprini VTE Risk Assessment: Mod/High Risk (score >= 2) Caprini Risk Assessment Model Point Value = 1 Point Value = 2 Point Value = 3 Point Value = 5 Age 41-60 Minor surgery BMI > 25 kg/m2 Swollen legs Varicose veins or History of unexplained or recurrent spontaneous Oral contraceptives or hormone replacement Sepsis (< 1 month) Serious lung disease, including pneumonia (< 1 month) Abnormal pulmonary function Acute myocardial infarction Congestive heart failure (< 1 month) History of inflammatory bowel disease Medical patient at bed rest Age 61-74 Arthroscopic surgery Major open surgery (> 45 min) Laparoscopic surgery (> 45 min) Malignancy Confined to bed (> 72 hours) Immobilizing plaster cast Central venous access Age >= 75 History of VTE Family history of VTE Factor V Leiden Prothrombin [id number] Lupus anticoagulant Anticardiolipin antibodies Elevated serum homocysteine Heparin-induced thrombocytopenia Other congenital or acquired thrombophilia Stroke (< 1 month) Elective arthroplasty Hip, pelvis, or leg fracture Acute spinal cord injury (< 1 month) Prophylaxis Regimen Total Risk Factor Score Risk Level Prophylaxis Regimen 0-1 Low Early ambulation 2 Moderate Order ONE of the following: *Sequential Compression Device (SCD) *Heparin 5000 units SQ BID 3-4 Higher Order ONE of the following medications: *Heparin 5000 units SQ TID *Enoxaparin/Lovenox 40 mg SQ daily (WT < 150 kg, CrCl > 30 mL/min) *Enoxaparin/Lovenox 30 mg SQ daily (WT < 150 kg, CrCl > 10-29 mL/min) *Enoxaparin/Lovenox 30 mg SQ BID (WT < 150 kg, CrCl > 30 mL/min) AND/OR *Sequential Compression Device (SCD) 5 or more Highest Order ONE of the following medications: *Heparin 5000 units SQ TID (Preferred with Epidurals) *Enoxaparin/Lovenox 40 mg SQ daily (WT < 150 kg, CrCl > 30 mL/min) *Enoxaparin/Lovenox 30 mg SQ daily (WT < 150 kg, CrCl > 10-29 mL/min) *Enoxaparin/Lovenox 30 mg SQ BID (WT < 150 kg, CrCl > 30 mL/min) AND *Sequential Compression Device (SCD) Assessment and Plan Assessment and Plan ASSESSMENT 1. Normal Pressure Hydrocephalus. 2. Acute Encephalopathy. 3. Mental Confusion. 4. Frequent Falls. 5. 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 PLAN 1. Admit to the hospital as an Inpatient. 2. Laboratory assessment to be done. 3. Consultation to Neurosurgery. 4. Monitor intake and output closely. 5. DVT, PE and PUD prophylaxis. Enrique Silva MD Apr 21, 2017 08:49
[2017-04-21 09:19] VITALS: BP 107/60; PULSE 80; RESP 20; TEMP 97.4; O2SAT 92
[2017-04-21] MEDS: CHOLECALCIFEROL (VIT D3) 1000 UNIT TAB PO SCH (09:59)
[2017-04-21] MEDS: TAMSULOSIN HCL 0.4 MG CAP PO SCH ×2 (09:59→22:04)
[2017-04-21] MEDS: PANTOPRAZOLE SOD 40 MG DELAYED RELEASE TAB PO SCH (09:59)
[2017-04-21] MEDS: VENLAFAXINE HCL XR 75 MG CAP PO SCH (09:59)
[2017-04-21] MEDS: DOCUSATE SODIUM 50 MG/SENNA 8.6 MG TAB PO SCH ×2 (09:59→22:04)
[2017-04-21] MEDS: MEMANTINE HCL 5 MG TAB PO SCH (10:00)
[2017-04-21] MEDS: levETIRAcetam 500 MG TAB PO SCH ×2 (10:00→22:05)
[2017-04-21] MEDS: HEPARIN SODIUM - SQ 10,000 UNITS/ML VIAL SQ SCH ×2 (10:00→22:05)
[2017-04-21] MEDS: SODIUM CHLORIDE 0.9% FLUSH 10 ML FLUSH IV FLUSH SCH ×2 (10:00→22:05)
[2017-04-21 11:20] LABS: AUTOMATED NEUTROPHIL # 4.2 TH/MM3 (1.8-7.7); BASOPHIL # 0.1 TH/MM3 (0-0.2); BASOPHIL % 0.8 % (0.0-2.0); EOSINOPHIL # 0.3 TH/MM3 (0-0.4); EOSINOPHIL % 4.1 % (0.0-4.0); HEMATOCRIT 40.5 % (39.0-51.0); HEMO FLAGS DIFF FINAL; LYMPH % 31.8 % (9.0-44.0); LYMPHOCYTE # 2.6 TH/MM3 (1.0-4.8); MEAN CELL VOLUME 96.4 FL (80.0-100.0); MEAN CORPUSCULAR HEMOGLOBIN 32.1 PG (27.0-34.0); MEAN CORPUSCULAR HGB CONC 33.3 % (32.0-36.0); MONO % 12.2 % (0.0-8.0); NEUT % 51.1 % (16.0-70.0); PLATELET COUNT 327 TH/MM3 (150-450); RED CELL DISTRIBUTION WIDTH 13.3 % (11.6-17.2); WHITE BLOOD COUNT 8.3 TH/MM3 (4.0-11.0)
[2017-04-21 11:51] LABS: ALT (GPT) 21 U/L (12-78); ANION GAP 7 MEQ/L (5-15); AST (GOT) 12 U/L (15-37); BICARBONATE 26.7 MEQ/L (21.0-32.0); BLOOD UREA NITROGEN 14 MG/DL (7-18); CHLORIDE 106 MEQ/L (98-107); GLOMERULAR FILTRATION RATE 61 ML/MIN (>89); POTASSIUM 4.1 MEQ/L (3.5-5.1); SODIUM (NA) 140 MEQ/L (136-145)
[2017-04-21 11:54] LABS: ALKALINE PHOSPHATASE 90 U/L (45-117); TOTAL BILIRUBIN ADULT 0.5 MG/DL (0.2-1.0)
[2017-04-21 12:14] VITALS: BP 129/75; PULSE 80; RESP 19; TEMP 97.4; O2SAT 95
--- NOTE | 2017-04-21 15:21 | HHI.NSPN ---
(Millie Alvarado) Note Status Status: Progress Note (Millie Alvarado) Interval History Interval History Mr. Kang is a 82 year old male with NPH underwent ventriculoperitoneal shunt placement. His shunt was last reprogrammed to 100 cm H20. He complains of gait instability, urine incontinence and memory loss. CT Brain showed prominent ventricles. Neurosurgery was asked to evaluate. (Millie Alvarado) Labs, Micro, & Vital Signs Results Date Time Temp Pulse Resp B/P (MAP) Pulse Ox O2 Delivery O2 Flow Rate FiO2 04/21/17 12:14 97.4 80 19 129/75 (93) 95 04/21/17 09:19 97.4 80 20 107/60 (76) 92 04/21/17 04:00 97.2 90 18 137/74 (95) 95 04/20/17 20:11 04/20/17 20:00 97.7 80 18 150/78 (102) 97 04/20/17 17:58 92 20 121/68 (85) 96 Room Air 04/20/17 17:57 84 20 134/68 (90) 89 20 109/65 (80) 92 20 121/68 (85) 04/22/17 07:00 Intake Total 360 ml Balance 360 ml Constitutional Vital Signs Date Time Temp Pulse Resp B/P (MAP) Pulse Ox O2 Delivery O2 Flow Rate FiO2 04/21/17 12:14 97.4 80 19 129/75 (93) 95 04/21/17 09:19 97.4 80 20 107/60 (76) 92 04/21/17 04:00 97.2 90 18 137/74 (95) 95 04/20/17 20:11 04/20/17 20:00 97.7 80 18 150/78 (102) 97 04/20/17 17:58 92 20 121/68 (85) 96 Room Air 04/20/17 17:57 84 20 134/68 (90) 89 20 109/65 (80) 92 20 121/68 (85) 04/22/17 07:00 Intake Total 360 ml Balance 360 ml (Millie Alvarado) Medications Current Medications Current Medications Medications (Trade) Dose Ordered Sig/David Route PRN Reason Start Time Stop Time Status Last Admin Dose Admin Sodium Chloride (NS Flush) 2 ml UNSCH PRN IV FLUSH FLUSH AFTER USING IV ACCESS 04/20/17 18:00 Sodium Chloride (NS Flush) 2 ml BID IV FLUSH 04/20/17 21:00 04/21/17 10:00 Ondansetron HCl (Zofran Inj) 4 mg Q6H PRN IVP NAUSEA OR VOMITING 04/20/17 18:00 Heparin Sodium (Porcine) (Heparin Inj) 5,000 units Q12H SQ 04/20/17 20:00 04/21/17 10:00 Naloxone HCl (Narcan Inj) 0.4 mg UNSCH PRN IV PUSH SEE LABEL COMMENTS 04/20/17 18:00 Senna/Docusate Sodium (Tiffanie-Colace) 1 tab BID PO 04/20/17 21:00 04/21/17 09:59 Magnesium Hydroxide (Milk Of Magnesia Liq) 30 ml Q12H PRN PO MILD - MODERATE CONSTIPATION 04/20/17 18:00 Sennosides (Senokot) 17.2 mg Q12H PRN PO MODERATE - SEVERE CONSTIPATION 04/20/17 18:00 Bisacodyl (Dulcolax Supp) 10 mg DAILY PRN RECTAL SEVERE CONSITIPATION 04/20/17 18:00 Lactulose (Lactulose Liq) 30 ml DAILY PRN PO SEVERE CONSITIPATION 04/20/17 18:00 Levetriacetam (Keppra) 500 mg Q12HR PO 04/20/17 21:00 04/21/17 10:00 Lorazepam (Ativan) 1 mg HS PO 04/20/17 21:00 04/20/17 22:45 Memantine (Namenda) 5 mg DAILY PO 04/21/17 09:00 04/21/17 10:00 Tamsulosin HCl (Flomax) 0.4 mg Q12HR PO 04/20/17 21:00 04/21/17 09:59 Cholecalciferol (Vitamin D3) 2,000 units DAILY PO 04/21/17 09:00 04/21/17 09:59 Pantoprazole Sodium (Protonix) 40 mg DAILY PO 04/21/17 09:00 04/21/17 09:59 Venlafaxine HCl (Effexor Xr) 300 mg DAILY PO 04/21/17 09:00 04/21/17 09:59 (Millie Alvarado) Medical Decision Making MDM Remarks 82 y/o male with persistent NPH symptoms (Millie Alvarado) Plan Plan Remarks His shunt setting will be lowered to allow for more CSF drainage. Using a [employer] computer, the shunt was reprogrammed as follows: Ultrasound gel was placed over the valve and the transfuser was calibrated at a pressure of 90 mm/H20. The shunt was then reprogrammed and a visual and audible sound confirmed the new settings. The patient tolerated the procedure well without complication. (Millie Alvarado) Attending Statement Using a [employer] computer, the shunt was reprogrammed as follows: Ultrasound gel was placed over the valve and the transfuser was calibrated at a pressure of 90 mm/H20. The shunt was then reprogrammed and a visual and audible sound confirmed the new settings. The patient tolerated the procedure well without complication. The exam, history, and the medical decision-making described in the above note were completed with the assistance of the mid-level provider. I reviewed and agree with the findings presented. I attest that I had a [id number] encounter with the patient on the same day, and personally performed and documented my assessment and findings in the medical record. (Jose Gee MD) Millie Alvarado Apr 21, 2017 15:21 Jose Gee MD Apr 24, 2017 20:47
[2017-04-21 16:36] VITALS: BP 132/74; PULSE 89; RESP 20; TEMP 98.5; O2SAT 94
[2017-04-21 20:30] VITALS: BP 125/77; PULSE 84; RESP 17; TEMP 98.4; O2SAT 97
[2017-04-21] MEDS: LORazepam 1 MG TAB PO SCH (22:04)
[2017-04-22 01:10] VITALS: BP 132/75; PULSE 79; RESP 17; TEMP 97.9; O2SAT 98
[2017-04-22 05:52] VITALS: BP 125/70; PULSE 81; RESP 17; TEMP 98.1; O2SAT 95
[2017-04-22 08:26] VITALS: BP 129/74; PULSE 79; RESP 17; TEMP 98; O2SAT 96
[2017-04-22] MEDS: DOCUSATE SODIUM 50 MG/SENNA 8.6 MG TAB PO SCH (08:45)
[2017-04-22] MEDS: CHOLECALCIFEROL (VIT D3) 1000 UNIT TAB PO SCH (08:45)
[2017-04-22] MEDS: PANTOPRAZOLE SOD 40 MG DELAYED RELEASE TAB PO SCH (08:45)
[2017-04-22] MEDS: levETIRAcetam 500 MG TAB PO SCH (08:45)
[2017-04-22] MEDS: TAMSULOSIN HCL 0.4 MG CAP PO SCH (08:45)
[2017-04-22] MEDS: MEMANTINE HCL 5 MG TAB PO SCH (08:45)
[2017-04-22] MEDS: VENLAFAXINE HCL XR 75 MG CAP PO SCH (08:45)
[2017-04-22] MEDS: HEPARIN SODIUM - SQ 10,000 UNITS/ML VIAL SQ SCH (08:46)
[2017-04-22] MEDS: SODIUM CHLORIDE 0.9% FLUSH 10 ML FLUSH IV FLUSH SCH (08:46)
--- NOTE | 2017-04-22 10:51 | HHI.NSPN ---
(Millie Alvarado) Note Status Status: Progress Note (Millie Alvarado) Interval History Interval History Mr. Kang is a 82 year old male with NPH underwent ventriculoperitoneal shunt placement. His shunt was last reprogrammed to 100 cm H20. He complains of gait instability, urine incontinence and memory loss. CT Brain showed prominent ventricles. Neurosurgery was asked to evaluate. 04/22: reprots today thinking much clearer. has not ambulated much so cannot tell if walking is better, still using depends for incontinence but using the bathroom this morning to urinate. (Millie Alvarado) Labs, Micro, & Vital Signs Results Date Time Temp Pulse Resp B/P (MAP) Pulse Ox O2 Delivery O2 Flow Rate FiO2 04/22/17 08:26 98.0 79 17 129/74 (92) 96 04/22/17 05:52 98.1 81 17 125/70 (88) 95 04/22/17 01:10 97.9 79 17 132/75 (94) 98 04/21/17 20:30 98.4 84 17 125/77 (93) 97 04/21/17 16:36 98.5 89 20 132/74 (93) 94 04/21/17 12:14 97.4 80 19 129/75 (93) 95 Constitutional Vital Signs Date Time Temp Pulse Resp B/P (MAP) Pulse Ox O2 Delivery O2 Flow Rate FiO2 04/22/17 08:26 98.0 79 17 129/74 (92) 96 04/22/17 05:52 98.1 81 17 125/70 (88) 95 04/22/17 01:10 97.9 79 17 132/75 (94) 98 04/21/17 20:30 98.4 84 17 125/77 (93) 97 04/21/17 16:36 98.5 89 20 132/74 (93) 94 04/21/17 12:14 97.4 80 19 129/75 (93) 95 (Millie Alvarado) Review of Systems Constitutional: DENIES: Fever, Chills Eyes: DENIES: Diplopia Ears, nose, mouth, throat: DENIES: Vertigo Gastrointestinal: DENIES: Nausea, Vomiting Genitourinary: COMPLAINS OF: Urinary incontinence Neurologic: COMPLAINS OF: Abnormal gait, Poor Balance, DENIES: Headache (Millie Alvarado) Physical Exam Mr. Kang is alert, awake and oriented to month, year, city, place and person. Speech is fluent. Follows commands well. Cranial nerve examination: pupils equal. Extra-ocular movements are intact. Facial motor and sensory function are normal and symmetrical. Neck is soft and supple. Muscle strength is 5/5 in all muscle groups of both upper and lower extremities Gait: ambulated with minimal side assistance, taking short steps (Millie Alvarado) Medical Decision Making MDM Remarks 82 y/o male with persistent NPH symptoms (Millie Alvarado) Plan Plan Remarks cont shunt drainage at 90 mm H20, follow up NPH symptoms, may continue to lower accordingly if no significant improvement, this may be done in the office as outpatient cont medical management physical therapy (Millie Alvarado) Attending Statement The patient tolerated the procedure well without complication. The exam, history , and the medical decision-making described in the above note were completed with the assistance of the mid-level provider. I reviewed and agree with the findings presented. I attest that I had a [id number] encounter with the patient on the same day, and personally performed and documented my assessment and findings in the medical record. (Jose Gee MD) Millie Alvarado Apr 22, 2017 10:51 Jose Gee MD Apr 24, 2017 20:50
[2017-04-22 12:02] VITALS: BP 128/76; PULSE 80; RESP 18; TEMP 97.8; O2SAT 95
[2017-04-22 16:15] VITALS: BP 120/76; PULSE 81; RESP 18; TEMP 97.7; O2SAT 94
--- NOTE | 2017-04-22 16:18 | HHI.PR ---
Subjective Remarks He is lying in bed at this time. He was seen by Neurosurgery earlier this morning. Disposition is given for discharge and follow up. Objective - Vital Signs Date Time Temp Pulse Resp B/P (MAP) Pulse Ox O2 Delivery O2 Flow Rate FiO2 04/22/17 12:02 97.8 80 18 128/76 (93) 95 04/22/17 08:26 98.0 79 17 129/74 (92) 96 04/22/17 05:52 98.1 81 17 125/70 (88) 95 04/22/17 01:10 97.9 79 17 132/75 (94) 98 04/21/17 20:30 98.4 84 17 125/77 (93) 97 04/21/17 16:36 98.5 89 20 132/74 (93) 94 I/O 04/21/17 04/21/17 04/21/17 04/22/17 04/22/17 04/22/17 07:00 15:00 23:00 07:00 15:00 23:00 Intake Total 360 ml 360 ml Balance 360 ml 360 ml Intake Oral 360 ml 360 ml # Voids 4 2 3 Result Diagram: 04/21/17 1000 04/21/17 1000 Objective Remarks GENERAL: SKIN: Warm and dry. HEAD: Normocephalic. EYES: No scleral icterus. No injection or drainage. NECK: Supple, trachea midline. No JVD or lymphadenopathy. CARDIOVASCULAR: Regular rate and rhythm without murmurs, gallops, or rubs. RESPIRATORY: Breath sounds equal bilaterally. No accessory muscle use. GASTROINTESTINAL: Abdomen soft, non-tender, nondistended. MUSCULOSKELETAL: No cyanosis, or edema. BACK: Nontender without obvious deformity. No CVA tenderness. A/P Assessment and Plan ASSESSMENT 1. Normal Pressure Hydrocephalus. 2. Acute Encephalopathy. 3. Mental Confusion. 4. Frequent Falls. 5. 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 PLAN 1. Adjustmenets have been made in the ventricular shunt flow. 2. Neurosurgery disposition is noted. 3. Activity up as tolerated with assistance. 4. DVT, PE and PUD prophylaxis. 5. Home Today with Close Outpatient Follow Up. Enrique Silva MD Apr 22, 2017 16:18
--- NOTE | 2017-04-24 12:34 | MB ---
cc: JOSE MORENO DANNIE E. MD VINAS, FEDERICO C. M.D. DATE OF CONSULTATION: 04/24/2017 CHIEF COMPLAINT: Dizziness. REQUESTING PHYSICIAN: Dr. Jose Moreno HISTORY OF PRESENT ILLNESS Mr. Kang is an 82-year-old male who reportedly had suffered from lower extremity weakness and recurrent falls. The patient came to the emergency room reporting three days of difficulty ambulating, and altered mental status. He has a history of normal pressure hydrocephalus and he has an implanted peritoneal shunt with good results. He is now showing more confusion. He has developed progressive memory loss, urinary incontinence and occasional urinary leakage. He had developed difficulty standing from a sitting position. His symptoms have been accentuated over the week prior to admission. He denies any focal motor weakness. He does not experience no nausea, no vomiting. No stool incontinence. CT of the brain was obtained which failed to show any hemorrhage, mild ventriculomegaly. Neurosurgical consultation was requested. PAST MEDICAL HISTORY 1. Peptic ulcer disease. 2. Hyperlipidemia. 3. Cerebellar degeneration. 4. Alcoholism 5. History of subdural hematoma. 6. Normal pressure hydrocephalus. 7. Obstructive sleep apnea. 8. Compression fractures of his spine with osteoporosis. 9. Parkinson's disease 10. Anxiety disorder. 11. Depression 12. Osteoporosis PAST SURGICAL HISTORY: 1. Ventriculoperitoneal shunt 2. Craniotomy with evacuation of subdural hematoma. 3. Cholecystectomy. 4. Herniorrhaphy. 5. Prostatectomy. 6. Colonoscopy. FAMILY HISTORY: The patient is an only child. He does not remember the history of his parents. He was told to have some gastrointestinal disease. He has a granddaughter who is healthy. SOCIAL HISTORY: The patient is retired. He is . He is a nonsmoker. He has a prior history of alcohol use but has diminished over the past year. No history of illicit drug use. REVIEW OF SYSTEMS: He denies any double vision. He denies any visual loss. Denies any headaches. Denies any nauseous, denies any vomiting. Denies any chest pain, shortness of breath. Denies any palpitations. Denies any history of hepatic, pulmonary, renal, thyroid disease, cancer, lupus, seizure, stroke. He denies any skin conditions. He denies any bleeding disorder. He has mild hearing loss. Denies any visual loss. He has urinary incontinence. He has been having progressive difficulty with his gait. NEUROLOGIC EXAMINATION Cranial Nerves: Pupils are equal, round, reactive to light. Extraocular movements are intact. There is no nystagmus. There is no papilledema. Face musculature is symmetrical in all branches of the distribution of the facial nerve. Face sensation is symmetrical in a V1, V2 and V3 distribution of the trigeminal nerve to pinprick. The tongue protrudes in the midline and moves normally. The sternocleidomastoid and trapezius are symmetrical. There is no evidence of rhinorrhea. There is no evidence of hemotympanum. Neck/cervical spine has a full range of motion on flexion, extension, lateral bending and rotation without pain. There is no tenderness to palpation of the spinous processes or paraspinal muscles. Muscle tone and bulk is normal. Strength is 5/5 in all major muscle groups of both upper and lower extremities symmetrically including both extensor hallucis longus. There is no spasticity, tone is normal. There is no cogwheel rigidity. Deep tendon reflexes are 1+ in both brachioradialis, biceps, knees and ankles. There is a bilateral plantar flexion response. There is no clonus, spasticity, fasciculations or abnormal reflexes. Sensory examination is intact to light touch, pinprick, proprioception and double simultaneous stimuli in both upper and lower extremities. Cerebellar examination is unremarkable. Caprini VTE Risk Assessment Caprini Risk Assessment Model Point Value = 1 Point Value = 2 Point Value = 3 Point Value = 5 Age 41-60 Minor surgery BMI > 25 kg/m2 Swollen legs Varicose veins or History of unexplained or recurrent spontaneous Oral contraceptives or hormone replacement Sepsis (< 1 month) Serious lung disease, including pneumonia (< 1 month) Abnormal pulmonary function Acute myocardial infarction Congestive heart failure (< 1 month) History of inflammatory bowel disease Medical patient at bed rest Age 61-74 Arthroscopic surgery Major open surgery (> 45 min) Laparoscopic surgery (> 45 min) Malignancy Confined to bed (> 72 hours) Immobilizing plaster cast Central venous access Age >= 75 History of VTE Family history of VTE Factor V Leiden Prothrombin [id number] Lupus anticoagulant Anticardiolipin antibodies Elevated serum homocysteine Heparin-induced thrombocytopenia Other congenital or acquired thrombophilia Stroke (< 1 month) Elective arthroplasty Hip, pelvis, or leg fracture Acute spinal cord injury (< 1 month) Prophylaxis Regimen Total Risk Factor Score Risk Level Prophylaxis Regimen 0-1 Low Early ambulation 2 Moderate Order ONE of the following: *Sequential Compression Device (SCD) *Heparin 5000 units SQ BID 3-4 Higher Order ONE of the following medications: *Heparin 5000 units SQ TID *Enoxaparin/Lovenox 40 mg SQ daily (WT < 150 kg, CrCl > 30 mL/min) *Enoxaparin/Lovenox 30 mg SQ daily (WT < 150 kg, CrCl > 10-29 mL/min) *Enoxaparin/Lovenox 30 mg SQ BID (WT < 150 kg, CrCl > 30 mL/min) AND/OR *Sequential Compression Device (SCD) 5 or more Highest Order ONE of the following medications: *Heparin 5000 units SQ TID (Preferred with Epidurals) *Enoxaparin/Lovenox 40 mg SQ daily (WT < 150 kg, CrCl > 30 mL/min) *Enoxaparin/Lovenox 30 mg SQ daily (WT < 150 kg, CrCl > 10-29 mL/min) *Enoxaparin/Lovenox 30 mg SQ BID (WT < 150 kg, CrCl > 30 mL/min) AND *Sequential Compression Device (SCD) IMPRESSION 1. The patient is an 82 year-old male with normal pressure hydrocephalus, progressive memory loss, cognitive dysfunction and urinary incontinence. 2. Chronic anemia. MEDICAL DECISION MAKING The patient has been admitted to [facility]. I recommend neuro checks in a serial fashion. I have reviewed his head CT which shows mild ventriculomegaly but no evidence of hemorrhage or acute changes. Shunt series will be beneficial. I RECOMMEND A SHUNTOGRAM WITH CONTRAST I recommend to readjust his shunt to a lower setting in order to allow moderate intracerebral spinal fluid. We will assess whether these changes benefit his symptoms. If the patient fails to improve, he may need to under shuntogram with injection of contrast into the shunt. With regard to his anemia, this is secondary to chronic disease. I will defer workup to Dr. Silva. Pulmonary.. Continue aggressive pulmonary toilette, nasotracheal suction, and breathing treatments with nebulizers. Nutrition. NPO Renal. monitor closely urine output, BUN and creatinine Endocrine. Monitor serial Acu checks and SSI as needed in detail ID monitor for signs of infection Protonix for stress ulcer prophylaxis Prosper lizarraga and SCD's for DVT prophylaxis. MD NANCY Gates /10:51 AM /11:53 AM [id number]
== END 2017-04-22 18:09 | disposition home or self-care (01) | DRG 56 ==
LOC: NEPC 13:59 → NEDA 17:31 → N05A 20:17
PROVIDERS: ADMIT Physician Assistant Medical; ATTEND Physician Assistant Medical
DX: G91.2 (Idiopathic) normal pressure hydrocephalus (principal); G93.40 Encephalopathy, unspecified; F03.90 Unspecified dementia, unspecified severity, without behavioral disturbance, psychotic disturbance, mood disturbance, and anxiety; G20 Parkinson's disease; K21.9 Gastro-esophageal reflux disease without esophagitis; E78.5 Hyperlipidemia, unspecified; F41.9 Anxiety disorder, unspecified; F32.9 Major depressive disorder, single episode, unspecified; D63.8 Anemia in other chronic diseases classified elsewhere; G47.33 Obstructive sleep apnea (adult) (pediatric); R26.2 Difficulty in walking, not elsewhere classified; M81.0 Age-related osteoporosis without current pathological fracture; R29.6 Repeated falls; Z98.2 Presence of cerebrospinal fluid drainage device; Z85.828 Personal history of other malignant neoplasm of skin
CPT/HCPCS: 70250; 70450; 71010; 72040; 74000; 80053; 81001; 83605; 83735; 84443; 84484; 85025; 93005; 96372; J1644

== ENCOUNTER 2017-06-02 22:09 | Inpatient (IN) | payer OTHER, MEDICARE ==
[~2017-06-02] VITALS: Ht 175.3 cm; Wt 86.6 kg
[~2017-06-02 22:09] MED LIST changes: -B-COCAP9 PO; -CALC500T17 PO; -LEVE500 PO; -LORA-474 PO; +LORA1TAB12 PO; +VITATAB11 PO
[2017-06-02 22:11] VITALS: BP 155/85; PULSE 105; RESP 16; TEMP 98.4; O2SAT 95
[2017-06-02] MEDS ORDERED: SODIUM CHLORIDE 0.9% FLUSH 5 ML FLUSH IV FLUSH PRN (22:45)
--- NOTE | 2017-06-02 22:46 | PD ---
HPI Chief Complaint: Altered Mental Status Time Seen by Provider: 22:33 Travel History International Travel<30 days: No Contact w/Intl Traveler<30days: No Traveled to known affect area: No History of Present Illness HPI 82-year-old male with history of early Parkinson's, and normal pressure hydrocephalus as well as history of subarachnoid bleed, treated by Dr. Gee in April with CP shunt and evacuation of subarachnoid hemorrhage. Patient has been seen several times by Dr. Gee with adjustments to his shunt flow, and the daughter who is here with him states that his physical ailments such as his gait and urinary symptoms are improved. Patient is felt to have increased confusion, and delusions according to the daughter. She states she thinks she has 10 houses, and told under his homes. The patient has no complaints of recent illness. He appears alert and oriented. Dr. Silva, his primary care physician, felt that he should be seen here for evaluation due to the daughter's concerns about his psychiatric symptoms. The daughter states that he was recently seen by his neuropsych Doctor, and a few of his meds were decreased, as they were felt to possibly exacerbate his confusion. These include Nexium and Xanax. The patient has no known drug allergies. PFSH Past Medical History Arthritis: No Asthma: No Anxiety: No Depression: No Heart Rhythm Problems: No Cancer: Yes (Skin Cancer--spots removed) Cardiovascular Problems: Yes High Cholesterol: Yes Chest Pain: No Congestive Heart Failure: No COPD: No Cerebrovascular Accident: Yes (MICRO BLEEDS) Dementia: Yes Diabetes: No Diminished Hearing: No Endocrine: No Gastrointestinal Disorders: Yes GERD: Yes Glaucoma: No Genitourinary: Yes Headaches: Yes Hepatitis: No Hiatal Hernia: Yes (repaired) Hypertension: No Immune Disorder: No Kidney Stones: Yes Musculoskeletal: Yes Neurologic: Yes (hydrocephalus) Parkinson's Disease: Yes Psychiatric: No Reproductive: No Respiratory: Yes Immunizations Current: No Migraines: No Seizures: No Sleep Apnea: Yes Thyroid Disease: No Ulcer: No Past Surgical History Abdominal Surgery: Yes AICD: No Arteriovenous Shunt: No Cardiac Surgery: No Cholecystectomy: Yes Ear Surgery: No Eye Surgery: Yes (CATARACTS REMOVED BILAT) Genitourinary Surgery: Yes (PROSTATE, LEFT INGUINAL HERNIA) Insulin Pump: No Joint Replacement: No Oral Surgery: No Pacemaker: No Prostatectomy: Yes Thoracic Surgery: No Other Surgery: Yes (crainotomy 2014, CUSTOMER TRAINING SPECIALIST SHUNT 2016 ) Social History Alcohol Use: Yes (ocassionally) Tobacco Use: No Substance Use: No Allergies-Medications (Allergen,Severity, Reaction): Coded Allergies: No Known Allergies (Verified Adverse Reaction, Unknown, 06/02/17) Reported Meds & Prescriptions Reported Meds & Active Scripts Active Namenda (Memantine) 5 Mg Tab 5 Mg PO DAILY Flomax (Tamsulosin HCl) 0.4 Mg Cap 0.4 Mg PO Q12HR Reported Vitamin B Complex (B-Complex Vitamins) 1 Tab 1 Tab PO DAILY Lorazepam 1 Mg Tab 1 Mg PO BID PRN Vitamin D (Cholecalciferol) 2,000 Unit Tab 2,000 Units PO DAILY Effexor (Venlafaxine HCl) 75 Mg Tab 150 Mg PO BID Nexium (Esomeprazole DR) 40 Mg Capdr 40 Mg PO DAILY Review of Systems ROS Limitations: Altered Mental Status Except as stated in HPI: all other systems reviewed are Neg General / Constitutional: No: Fever Eyes: No: Visual changes HENT: No: Headaches Cardiovascular: No: Chest Pain or Discomfort Respiratory: No: Shortness of Breath Gastrointestinal: No: Abdominal Pain Genitourinary: No: Dysuria Musculoskeletal: No: Pain Skin: No Rash Neurologic: No: Weakness Psychiatric: No: Depression Endocrine: No: Polydipsia Hematologic/Lymphatic: No: Easy Bruising Physical Exam Exam Limitations: Altered Mental Status Narrative GENERAL: Patient appears in no acute distress. SKIN: Warm and dry. Normal color. Normal turgor. HEAD: Atraumatic. Normocephalic. EYES: Pupils equal and round. No scleral icterus. No injection or drainage. ENT: No nasal bleeding or discharge. Mucous membranes pink and moist. NECK: Trachea midline. Supple and nontender. CARDIOVASCULAR: Regular rate and rhythm. RESPIRATORY: No accessory muscle use. Clear to auscultation. Breath sounds equal bilaterally. GASTROINTESTINAL: Abdomen soft, non-tender, nondistended. Hepatic and splenic margins not palpable. MUSCULOSKELETAL: Extremities without clubbing, cyanosis, or edema. No obvious deformities. NEUROLOGICAL: Awake and alert. No obvious cranial nerve deficits. Motor grossly within normal limits. Five out of 5 muscle strength in the arms and legs. Normal speech. PSYCHIATRIC: Appropriate mood and affect; insight and judgment normal. Patient is alert to person, place, and time. He knows his daughter's name. He states that he has one home. He is confused as to his address only. Data Data Last Documented VS Vital Signs Date Time Temp Pulse Resp B/P (MAP) Pulse Ox O2 Delivery O2 Flow Rate FiO2 06/02/17 22:11 98.4 105 16 155/85 (108) 95 Room Air Orders Orders Electrocardiogram (06/02/17 22:31) Ammonia (06/02/17 22:31) Complete Blood Count With Diff (06/02/17:) Comprehensive Metabolic Panel (06/02/17 22:31) Creatine Kinase (Cpk) (06/02/17 22:31) Prothrombin Time / Inr (Pt) (06/02/17:) Act Partial Throm Time (Ptt) (06/02/17:) Urinalysis - C+S If Indicated (06/02/17 22:31) Ct Brain W/O Iv Contrast(Rout) (06/02/17 22:31) Blood Glucose (06/02/17 22:31) Ecg Monitoring (06/02/17:31) Iv Access Insert/Monitor (06/02/17 22:31) Oximetry (06/02/17 22:31) Sodium Chloride 0.9% Flush (Ns Flush) (06/02/17 22:45) MDM Medical Decision Making Medical Screen Exam Complete: Yes Emergency Medical Condition: Yes Medical Record Reviewed: Yes Differential Diagnosis Altered mental status. Confusion. Possible psychiatric issue. History normal pressure hydrocephalus. History dementia with behavioral disturbance. Narrative Course Patient appears medically stable at time of exam. Altered mental status protocol is initiated with chest x-ray, EKG, labs, and CT of the brain. Patient is discussed with Dr. Ortega. 2300 hrs., Dr. Ortega assumes care of the patient will determine final disposition. Condition: Stable Gustavo Esposito Jun 02, 2017 22:46
[2017-06-02 22:47] VITALS: RESP 20
[2017-06-02 23:05] LABS: AUTOMATED NEUTROPHIL # 6.7 TH/MM3 (1.8-7.7); BASOPHIL # 0.1 TH/MM3 (0-0.2); BASOPHIL % 0.7 % (0.0-2.0); EOSINOPHIL # 0.3 TH/MM3 (0-0.4); HEMATOCRIT 40.6 % (39.0-51.0); HEMOGLOBIN 14.3 GM/DL (13.0-17.0); LYMPH % 22.6 % (9.0-44.0); LYMPHOCYTE # 2.5 TH/MM3 (1.0-4.8); MEAN CELL VOLUME 94.8 FL (80.0-100.0); MEAN CORPUSCULAR HEMOGLOBIN 33.5 PG (27.0-34.0); MEAN CORPUSCULAR HGB CONC 35.3 % (32.0-36.0); MEAN PLATELET VOLUME 7.2 FL (7.0-11.0); MONO % 11.8 % (0.0-8.0); MONOCYTE # 1.3 TH/MM3 (0-0.9); NEUT % 61.9 % (16.0-70.0); PLATELET COUNT 320 TH/MM3 (150-450); RED BLOOD COUNT 4.29 MIL/MM3 (4.50-5.90); RED CELL DISTRIBUTION WIDTH 13.1 % (11.6-17.2); WHITE BLOOD COUNT 10.9 TH/MM3 (4.0-11.0)
[2017-06-02 23:13] LABS: ALBUMIN 3.5 GM/DL (3.4-5.0); AST (GOT) 16 U/L (15-37); BICARBONATE 23.8 MEQ/L (21.0-32.0); BLOOD UREA NITROGEN 24 MG/DL (7-18); CALCIUM 8.9 MG/DL (8.5-10.1); CHLORIDE 102 MEQ/L (98-107); CREATININE 1.43 MG/DL (0.60-1.30); GLOMERULAR FILTRATION RATE 48 ML/MIN (>89); GLUCOSE,RANDOM 105 MG/DL (74-106); PROTHROMBIN TIME - PATIENT 10.9 SEC (9.8-11.6); SODIUM (NA) 136 MEQ/L (136-145)
[2017-06-02 23:14] LABS: ALT (GPT) 25 U/L (12-78)
[2017-06-02 23:16] LABS: ALKALINE PHOSPHATASE 91 U/L (45-117); TOTAL BILIRUBIN ADULT 0.3 MG/DL (0.2-1.0); TOTAL PROTEIN 7.3 GM/DL (6.4-8.2)
--- NOTE | 2017-06-02 23:51 | RADRPT ---
EXAM DATE/TIME: 06/02/2017 23:32 [facility] COMPARISON: CT BRAIN W/O CONTRAST, September 17, 2016, 20:33. CT BRAIN W/O CONTRAST, April 20, 2017, 15:42. INDICATIONS : Altered mental status. RADIATION DOSE: 56.35 CTDIvol (mGy) MEDICAL HISTORY : Dementia. Parkinsons. CVA. Hydrocephalus. SURGICAL HISTORY : Craniotomy. Shunt. ENCOUNTER: Initial ACUITY: 1 day PAIN SCALE: 0/10 LOCATION: cranial TECHNIQUE: Multiple contiguous axial images were obtained of the head. Using automated exposure control and adj ustment of the mA and/or kV according to patient size, radiation dose was kept as low as reasonably a chievable to obtain optimal diagnostic quality images. DICOM format image data is available electro nically for review and comparison. FINDINGS: No intracranial hemorrhage or hematoma. No mass, mass effect or midline shift. Ventriculostomy cathet er again noted with tip in the left lateral ventricle. Moderate ventriculomegaly is unchanged. No zara dence of transependymal flow of CSF. Atrophy and chronic periventricular white matter changes are again noted. Patient has had previous ri ght craniotomy. CONCLUSION: No acute abnormality demonstrated. Moderate diffuse ventriculomegaly without change. Patient is shunt ed. Favio Sneed MD on June 02, 2017 at 23:48 Board Certified Radiologist. This report was verified electronically.
[2017-06-03 01:07] LABS: AMORPHOUS SEDIMENT, URINE RARE; BILIRUBIN, URINE NEG (NEG); BLOOD, URINE NEG (NEG); GLUCOSE,URINE NEG (NEG); KETONE, URINE NEG (NEG); NITRITE,URINE NEG (NEG); PH, URINE 5.5 (5.0-8.5); SQUAMOUS EPITHELIAL CELL URINE 1 /hpf (0-5); URINE COLOR LIGHT-YELLOW (YELLW/STRAW); URINE LEUKOCYTE ESTERASE NEG (NEG)
--- NOTE | 2017-06-03 01:15 | PD ---
Physical Exam Narrative I, Dr. Ortega, have reviewed the advance practice practitioner's documentation and am in agreement, met with the patient face to face, made the diagnosis, and the medical decision making was done by me. *My assessment and Findings: Delirium vs. dementia 82yo M with parkinson's and normal pressure hydrocephalus s/p HOME CHILD CARE PROVIDER shunt sent here by PMD for psych evaluation. Pt has been more delusional as per daughter. He said he has a grilfriend when he has been for years. Said there is an underground tunnel. Pt is AAOx3 and denies any headache, chest pain, sob, n/v, abdominal pain, focal weakness or numbness. Daughter said it was worst for the last week and his neurologist Dr. Peter recently decreased his ativan. Labs reviewed, no leukocytosis. Ammonia normal. UA negative. CT brain negative. Patient is shunted. His daughter's name and number is Ruba Wiseman [phone]. She is the health care proxy. I think this is more dementia. Pt is medically clear for psych evaluation. Data Data Last Documented VS Vital Signs Date Time Temp Pulse Resp B/P (MAP) Pulse Ox O2 Delivery O2 Flow Rate FiO2 06/03/17 08:15 77 18 127/87 (100) 98 Room Air 06/02/17 22:11 98.4 Orders Orders Electrocardiogram (06/02/17 22:31) Ammonia (06/02/17 22:31) Complete Blood Count With Diff (06/02/17 22:31) Comprehensive Metabolic Panel (06/02/17 22:31) Creatine Kinase (Cpk) (06/02/17 22:31) Prothrombin Time / Inr (Pt) (06/02/17 22:31) Act Partial Throm Time (Ptt) (06/02/17 22:31) Urinalysis - C+S If Indicated (06/02/17 22:31) Ct Brain W/O Iv Contrast(Rout) (06/02/17 22:31) Blood Glucose (06/02/17 22:31) Ecg Monitoring (06/02/17 22:31) Iv Access Insert/Monitor (06/02/17 22:31) Oximetry (06/02/17 22:31) Sodium Chloride 0.9% Flush (Ns Flush) (06/02/17 22:45) Psych Screen (06/03/17 01:11) Admit Order (Ed Use Only) (06/03/17 09:45) Labs Laboratory Tests Test 06/02/17 22:45 06/03/17 01:00 White Blood Count 10.9 TH/MM3 Red Blood Count 4.29 MIL/MM3 Hemoglobin 14.3 GM/DL Hematocrit 40.6 % Mean Corpuscular Volume 94.8 FL Mean Corpuscular Hemoglobin 33.5 PG Mean Corpuscular Hemoglobin Concent 35.3 % Red Cell Distribution Width 13.1 % Platelet Count 320 TH/MM3 Mean Platelet Volume 7.2 FL Neutrophils (%) (Auto) 61.9 % Lymphocytes (%) (Auto) 22.6 % Monocytes (%) (Auto) 11.8 % Eosinophils (%) (Auto) 3.0 % Basophils (%) (Auto) 0.7 % Neutrophils # (Auto) 6.7 TH/MM3 Lymphocytes # (Auto) 2.5 TH/MM3 Monocytes # (Auto) 1.3 TH/MM3 Eosinophils # (Auto) 0.3 TH/MM3 Basophils # (Auto) 0.1 TH/MM3 CBC Comment DIFF FINAL Differential Comment Prothrombin Time 10.9 SEC Prothromb Time International Ratio 1.0 RATIO Activated Partial Thromboplast Time 26.0 SEC Blood Urea Nitrogen 24 MG/DL Creatinine 1.43 MG/DL Random Glucose 105 MG/DL Total Protein 7.3 GM/DL Albumin 3.5 GM/DL Calcium Level 8.9 MG/DL Alkaline Phosphatase 91 U/L Aspartate Amino Transf (AST/SGOT) 16 U/L Alanine Aminotransferase (ALT/SGPT) 25 U/L Total Bilirubin 0.3 MG/DL Sodium Level 136 MEQ/L Potassium Level 4.3 MEQ/L Chloride Level 102 MEQ/L Carbon Dioxide Level 23.8 MEQ/L Anion Gap 10 MEQ/L Estimat Glomerular Filtration Rate 48 ML/MIN Ammonia 25 MCMOL/L Total Creatine Kinase 67 U/L Urine Color LIGHT-YELLOW Urine Turbidity CLEAR Urine pH 5.5 Urine Specific [place] 1.012 Urine Protein NEG mg/dL Urine Glucose (UA) NEG mg/dL Urine Ketones NEG mg/dL Urine Occult Blood NEG Urine Nitrite NEG Urine Bilirubin NEG Urine Urobilinogen LESS THAN 2.0 MG/DL Urine Leukocyte Esterase NEG Urine WBC LESS THAN 1 /hpf Urine Squamous Epithelial Cells 1 /hpf Urine Amorphous Sediment RARE Microscopic Urinalysis Comment CATH-CULT NOT IND MDM Supervised Visit with JANIYA: Yes Interpretation(s) EKG: NSR 85bpm. LAD. No ST segment elevation or depression. Unchanged from prior. Diagnosis Primary Impression: Delusion Condition: Stable Sharda Ortega DO Jun 03, 2017 01:15
[2017-06-03 04:11] VITALS: PULSE 78; RESP 22; O2SAT 98
[2017-06-03 08:15] VITALS: BP 127/87; PULSE 77; RESP 18; O2SAT 98
[2017-06-03] MEDS ORDERED: ACETAMINOPHEN 325 MG TAB PO PRN (10:00)
[2017-06-03] MEDS ORDERED: MAGNESIUM HYDROXIDE SUSP 30 ML CUP PO PRN (10:00)
[2017-06-03] MEDS ORDERED: ALUMINUM/MAGNESIUM/SIMETH 30 ML CUP PO PRN (10:00)
[2017-06-03] MEDS ORDERED: LORazepam 2 MG/ML VIAL IM PRN (10:00)
--- NOTE | 2017-06-03 10:08 | HHI.HP ---
Provisional Diagnosis Admission Date Jun 03, 2017 at 09:47 [place] I. Dementia with behavioral disturbance Certification of Person's Competence To Provide Express and Informed Consent I have personally examined Eric Kang , a person being served at [facility] on, Jun 03, 2017 09:55. Express and informed consent means consent voluntarily given in writing, by a competent person, after sufficient explanation and disclosure of the subject matter involved to enable the person to make a knowing and willful decision without any element of force, fraud, deceit, duress, or other form of constraint or coercion. This person is 18 years of age or older, is not now known to be incompetent to consent to treatment with a guardian advocate, and does not have a health care surrogate or proxy currently making medical treatment decisions. I have found this person to be one of the following: [] Competent to provide express and informed consent, as defined above, for voluntary admission to this facility and is competent to provide express and informed consent for treatment. He/she has the consistent capacity to make well reasoned, willful, and knowing decisions concerning his or her medical or mental health treatment. The person fully and consistently understands the purpose of the admission for examination/placement and is fully capable of personally exercising all rights [place] [x] Incompetent to provide express and informed consent to voluntary admission, and this is incompetent to provide express and informed consent to treatment. The person must be transferred to involuntary status and a petition for a guardian advocate filed with the Circuit Court. [] Refusing to provide express and informed consent to voluntary admission but is competent to provide express and informed consent for treatment. The person must be discharged or transferred to involuntary status. Form shall be completed within 24 hours of a person's arrival at the receiving facility and filed in the clinical record of each person: 1. Admitted on a voluntary basis 2. Permitted to provide express and informed consent to his/her own treatment 3. Allowed to transfer from involuntary to voluntary status 4. Prior to permitting a person to consent to his or her own treatment after having been previously found incompetent to consent to treatment. History of Present Illness Capacity: Lacks Capacity HPI 82-year-old male brought in by his daughter for delusional thinking, agitation, anxiety and sundowning-like behavior. Patient reportedly has diagnosis of early Parkinson's, dementia, status post subarachnoid hemorrhage, status post CP shunt for normal pressure hydrocephalus and evacuation of subarachnoid bleed. He has been treated by Dr. Stanley and undergone adjustments to his shunt. Daughter reports patient appears to be getting more anxious, more confused, delusional, agitated and unable to care for when he sun downs and fights her. Patient has made comments that he has 10 houses that he owns. He has apparently made comments that he has gold under his houses. He has made comments that his girlfriend lives in [place]. (Apparently he has been to his for over 50 years.) Lastly, there have been some adjustments to his medications recently which may have been causing or contributing to his deterioration of behavior and delusional thinking. Patient is followed by Dr. Silva as his primary care physician and Dr. Peter as his neurologist. Review of Systems ROS Limitations: Altered Mental Status Except as stated in HPI: all other systems reviewed are Neg Past Psych History Psychological trauma history No known psychological trauma or psychiatric history. Violence risk - others (6 mos) High. Violence risk - self (6 mos) Unable to care for himself. Substance Abuse History Drugs/Alcohol past 12 months None Past Family Social History Coded Allergies: No Known Allergies (Verified Adverse Reaction, Unknown, 06/02/17) Active Scripts Memantine (Namenda) 5 Mg Tab, 5 MG PO DAILY for dementia, #30 TAB Prov:Enrique Silva MD 09/30/16 Tamsulosin (Flomax) 0.4 Mg Cap, 0.4 MG PO Q12HR for URINARY RETENTION, #60 CAP Prov:Enrique Silva MD 08/06/16 Reported Medications B-Complex Vitamins (Vitamin B Complex) 1 Tab, 1 TAB PO DAILY 04/20/17 Lorazepam (Lorazepam) 1 Mg Tab, 1 MG PO BID Y for ANXIETY, TAB 0 Refills 04/20/17 Cholecalciferol (Vitamin D) 2,000 Unit Tab, 2000 UNITS PO DAILY 06/14/16 Venlafaxine (Effexor) 75 Mg Tab, 150 MG PO BID, #30 TAB 0 Refills 06/13/[address] (Nexium) 40 Mg Capdr, 40 MG PO DAILY, CAP 0 Refills 06/13/16 Current Medications Medications (Trade) Dose Ordered Sig/David Route Start Time Stop Time Status Last Admin (NS Flush) 2 ml UNSCH PRN IV FLUSH 06/02/17 22:45 (Ativan) 1 mg Q6H PRN PO 06/03/17 10:00 UNV (Ativan Inj) 1 mg Q6H PRN IM 06/03/17 10:00 UNV (Tylenol) 650 mg Q4H PRN PO 06/03/17 10:00 UNV (Milk Of Magnesia Liq) 30 ml DAILY PRN PO 06/03/17 10:00 UNV (Mag-Al Plus Susp Liq) 30 ml Q6H PRN PO 06/03/17 10:00 UNV Family Psych History Unknown Social History Patient is retired and unemployed. He does have some family support from his daughter. His is reportedly alcoholic and they are no longer living together. Daughter is attempting to care for patient at her home. Patient's is apparently staying in their home. Patient's Strengths (min. 2) Verbal and has access to healthcare. Physical Exam GENERAL: SKIN: Warm and dry. HEAD: Normocephalic. EYES: No scleral icterus. No injection or drainage. NECK: Supple, trachea midline. No JVD or lymphadenopathy. CARDIOVASCULAR: Regular rate and rhythm without murmurs, gallops, or rubs. RESPIRATORY: Breath sounds equal bilaterally. No accessory muscle use. GASTROINTESTINAL: Abdomen soft, non-tender, nondistended. MUSCULOSKELETAL: No cyanosis, or edema. BACK: Nontender without obvious deformity. No CVA tenderness. Vital Signs Vital Signs Date Time Temp Pulse Resp B/P (MAP) Pulse Ox O2 Delivery O2 Flow Rate FiO2 06/03/17 08:15 77 18 127/87 (100) 98 Room Air 06/02/17 22:11 98.4 Lab Results Test 06/02/17 22:45 06/03/17 01:00 White Blood Count 10.9 TH/MM3 Red Blood Count 4.29 MIL/MM3 Hemoglobin 14.3 GM/DL Hematocrit 40.6 % Mean Corpuscular Volume 94.8 FL Mean Corpuscular Hemoglobin 33.5 PG Mean Corpuscular Hemoglobin Concent 35.3 % Red Cell Distribution Width 13.1 % Platelet Count 320 TH/MM3 Mean Platelet Volume 7.2 FL Neutrophils (%) (Auto) 61.9 % Lymphocytes (%) (Auto) 22.6 % Monocytes (%) (Auto) 11.8 % Eosinophils (%) (Auto) 3.0 % Basophils (%) (Auto) 0.7 % Neutrophils # (Auto) 6.7 TH/MM3 Lymphocytes # (Auto) 2.5 TH/MM3 Monocytes # (Auto) 1.3 TH/MM3 Eosinophils # (Auto) 0.3 TH/MM3 Basophils # (Auto) 0.1 TH/MM3 CBC Comment DIFF FINAL Differential Comment Prothrombin Time 10.9 SEC Prothromb Time International Ratio 1.0 RATIO Activated Partial Thromboplast Time 26.0 SEC Blood Urea Nitrogen 24 MG/DL Creatinine 1.43 MG/DL Random Glucose 105 MG/DL Total Protein 7.3 GM/DL Albumin 3.5 GM/DL Calcium Level 8.9 MG/DL Alkaline Phosphatase 91 U/L Aspartate Amino Transf (AST/SGOT) 16 U/L Alanine Aminotransferase (ALT/SGPT) 25 U/L Total Bilirubin 0.3 MG/DL Sodium Level 136 MEQ/L Potassium Level 4.3 MEQ/L Chloride Level 102 MEQ/L Carbon Dioxide Level 23.8 MEQ/L Anion Gap 10 MEQ/L Estimat Glomerular Filtration Rate 48 ML/MIN Ammonia 25 MCMOL/L Total Creatine Kinase 67 U/L Urine Color LIGHT-YELLOW Urine Turbidity CLEAR Urine pH 5.5 Urine Specific [place] 1.012 Urine Protein NEG mg/dL Urine Glucose (UA) NEG mg/dL Urine Ketones NEG mg/dL Urine Occult Blood NEG Urine Nitrite NEG Urine Bilirubin NEG Urine Urobilinogen LESS THAN 2.0 MG/DL Urine Leukocyte Esterase NEG Urine WBC LESS THAN 1 /hpf Urine Squamous Epithelial Cells 1 /hpf Urine Amorphous Sediment RARE Microscopic Urinalysis Comment CATH-CULT NOT IND Mental Status Examination Appearance: Appropriate Consciousness: Alert Orientation: Person, Place Motor Activity: Abnormal gait Speech: Hesitant Language: Other Fund of Knowledge: Inadequate Attention and Concentration: Easily Distracted Memory: Impaired Mood: Appropriate, Anxious Affect: Anxious Thought Process & Associations: Circumstantial, Disorganized, Tangential Thought Content: Bizarre thinking, Delusional Hallucination Type: None Delusion Type: Bizarre Suicidal Ideation: No Suicidal Plan: No Suicidal Intention: No Homicidal Ideation: No Homicidal Plan: No Homicidal Intention: No Insight: Adequate Judgment: Adequate Assessment & Plan Problem List: (1) Parkinson's disease dementia ICD Codes: G20 - Parkinson's disease; F02.80 - Dementia in other diseases classified elsewhere without behavioral disturbance (2) Dementia in other diseases classified elsewhere with behavioral disturbance ICD Codes: F02.81 - Dementia in other diseases classified elsewhere with behavioral disturbance (3) Normal pressure hydrocephalus ICD Codes: G91.2 - (Idiopathic) normal pressure hydrocephalus Assessment & Plan Estimated LOS: days. 82-year-old male brought in by daughter due to inability to care for patient. Patient apparently sundowning, delusional, becoming agitated and aggressive with caretakers, making his situation precarious and dangerous. This physician feels because of the sundowning behavior and delusional thinking that patient is a danger to self and unable to care for self. For these reasons he is being admitted for evaluation and treatment. This physician is ordering a CBC and comprehensive metabolic panel to determine if any infectious process or metabolic process may be causing or contributing to his confusion and delusions. Additionally, this physician is checking the patient's thyroid-stimulating hormone level, vitamin B-12 level and vitamin D level to determine if deficiencies in these areas exist and may be causing or contributing to his confusion and psychosis. This physician has consulted the hospitalist regarding the patient's multiple medical issues including urinary incontinence. This physician has also consulted the patient's neurologist, Dr. Peter to assist with evaluation of his Parkinson's, etc. This physician has ordered an EKG to determine the patient's cardiac conduction status. Patient is noted to be on Effexor, 75 mg twice a day but it is uncertain as to whether this is for depression or simply being left in place due to a possible withdrawal syndrome. This physician has placed the patient back on when necessary Ativan as this is another possible source of confusion for him. Nexium was also restarted. This physician spoke to the patient's nurse, Ros, regarding his recent behavioral and psychotic issues. Finally, case management will be involved to gather more information and assist with disposition planning. Isauro Blanton MD Jun 03, 2017 10:08
[2017-06-03] MEDS: PANTOPRAZOLE SOD 40 MG DELAYED RELEASE TAB PO SCH (11:14)
[2017-06-03] MEDS: CHOLECALCIFEROL (VIT D3) 1000 UNIT TAB PO SCH (11:14)
[2017-06-03] MEDS: TAMSULOSIN HCL 0.4 MG CAP PO SCH ×2 (11:14→21:11)
[2017-06-03 11:27] VITALS: BP 145/78; PULSE 82; RESP 18; TEMP 98.8; O2SAT 97
--- NOTE | 2017-06-03 12:08 | EKG ---
Date Performed: 06/02/2017 Time Performed: 22:41:38 PTAGE: 82 years EKG: Sinus rhythm LOW QRS VOLTAGE IN PRECORDIAL LEADS LEFT ANTERIOR FASCICULAR BLOCK POSSIBLE ANTERIOR MYOCARDIAL INFA RCTION ABNORMAL ECG Compared to prior tracing no significant change PREVIOUS TRACING : 04/20/2017 16.09 DOCTOR: Anup Spivey Interpretating Date/Time 06/03/2017 12:07:17
[2017-06-03] MEDS: VENLAFAXINE HCL 75 MG TAB PO SCH ×2 (14:11→21:11)
[2017-06-03] MEDS: VITAMIN B COMPLEX/VIT C TAB PO SCH (14:11)
[2017-06-03] MEDS: MEMANTINE HCL 5 MG TAB PO SCH (14:11)
[2017-06-03 21:00] VITALS: BP 158/67; PULSE 97
[2017-06-03] MEDS: LORazepam 1 MG TAB PO PRN (21:11)
[2017-06-04 05:18] VITALS: BP 104/56; PULSE 86; RESP 18; TEMP 97.4; O2SAT 96
[2017-06-04] MEDS: MEMANTINE HCL 5 MG TAB PO SCH (08:38)
[2017-06-04] MEDS: VITAMIN B COMPLEX/VIT C TAB PO SCH (08:38)
[2017-06-04] MEDS: TAMSULOSIN HCL 0.4 MG CAP PO SCH ×2 (08:38→20:29)
[2017-06-04] MEDS: CHOLECALCIFEROL (VIT D3) 1000 UNIT TAB PO SCH (08:39)
[2017-06-04] MEDS: PANTOPRAZOLE SOD 40 MG DELAYED RELEASE TAB PO SCH (08:39)
[2017-06-04] MEDS: VENLAFAXINE HCL 75 MG TAB PO SCH ×2 (08:39→20:30)
[2017-06-04 12:20] LABS: AUTOMATED NEUTROPHIL # 7.4 TH/MM3 (1.8-7.7); BASOPHIL # 0.1 TH/MM3 (0-0.2); BASOPHIL % 0.6 % (0.0-2.0); EOSINOPHIL # 0.2 TH/MM3 (0-0.4); HEMATOCRIT 41.5 % (39.0-51.0); HEMOGLOBIN 14.2 GM/DL (13.0-17.0); LYMPH % 16.4 % (9.0-44.0); LYMPHOCYTE # 1.7 TH/MM3 (1.0-4.8); MEAN CELL VOLUME 95.2 FL (80.0-100.0); MEAN CORPUSCULAR HEMOGLOBIN 32.6 PG (27.0-34.0); MEAN CORPUSCULAR HGB CONC 34.2 % (32.0-36.0); MEAN PLATELET VOLUME 6.9 FL (7.0-11.0); MONO % 8.7 % (0.0-8.0); MONOCYTE # 0.9 TH/MM3 (0-0.9); NEUT % 72.3 % (16.0-70.0); PLATELET COUNT 336 TH/MM3 (150-450); RED BLOOD COUNT 4.36 MIL/MM3 (4.50-5.90); WHITE BLOOD COUNT 10.2 TH/MM3 (4.0-11.0)
[2017-06-04 12:53] LABS: ALBUMIN 3.6 GM/DL (3.4-5.0); AST (GOT) 17 U/L (15-37); BICARBONATE 23.1 MEQ/L (21.0-32.0); BLOOD UREA NITROGEN 20 MG/DL (7-18); CALCIUM 9.1 MG/DL (8.5-10.1); CHLORIDE 105 MEQ/L (98-107); CHOLESTEROL 163 MG/DL (120-200); CREATININE 1.18 MG/DL (0.60-1.30); GLOMERULAR FILTRATION RATE 59 ML/MIN (>89); GLUCOSE,RANDOM 126 MG/DL (74-106); MAGNESIUM 1.9 MG/DL (1.5-2.5); SODIUM (NA) 137 MEQ/L (136-145); TRIGLYCERIDES 122 MG/DL (42-150)
--- NOTE | 2017-06-04 13:15 | PD.PSY.CON ---
Provisional Diagnosis Admission Date Jun 03, 2017 at 09:47 [place]. Dementia with behavioral disturbance History of Present Illness Service Psychiatry Consult Requested By Psychiatry Reason for Consult 2nd Opinion Primary Care Physician Enrique Silva MD HPI Chart reviewed, Pt seen and chart reviewed. He was admitted due to agitation and delusional thinking. Staff report that pt sundowned yesterday evening and became highly agitated and tried to call 911. Today he was suspicious about medications and expressed paranoia toward nurses and treatment. He has previous diagnoses of early Parkinson's, dementia, status post subarachnoid hemorrhage, status post CP shunt for normal pressure hydrocephalus and evacuation of subarachnoid bleed. Today pt states that his mood is fine but he has to "get out of here." He states that he gets "confused a bit" at times but isn't worried about it. No SI/HI Past Family Social History Coded Allergies: No Known Allergies (Verified Adverse Reaction, Unknown, 06/02/17) Active Scripts Memantine (Namenda) 5 Mg Tab, 5 MG PO DAILY for dementia, #30 TAB Prov:Enrique Silva MD 09/30/16 Tamsulosin (Flomax) 0.4 Mg Cap, 0.4 MG PO Q12HR for URINARY RETENTION, #60 CAP Prov:Enrique Silva MD 08/06/16 Reported Medications B-Complex Vitamins (Vitamin B Complex) 1 Tab, 1 TAB PO DAILY 04/20/17 Lorazepam (Lorazepam) 1 Mg Tab, 1 MG PO BID Y for ANXIETY, TAB 0 Refills 04/20/17 Cholecalciferol (Vitamin D) 2,000 Unit Tab, 2000 UNITS PO DAILY 06/14/16 Venlafaxine (Effexor) 75 Mg Tab, 150 MG PO BID, #30 TAB 0 Refills 06/13/[address] (Nexium) 40 Mg Capdr, 40 MG PO DAILY, CAP 0 Refills 06/13/16 Current Medications Medications (Trade) Dose Ordered Sig/David Route Start Time Stop Time Status Last Admin (NS Flush) 2 ml UNSCH PRN IV FLUSH 06/02/17 22:45 (Ativan) 1 mg Q6H PRN PO 06/03/17 10:00 06/03/17 21:11 (Ativan Inj) 1 mg Q6H PRN IM 06/03/17 10:00 (Tylenol) 650 mg Q4H PRN PO 06/03/17 10:00 (Milk Of Magnesia Liq) 30 ml DAILY PRN PO 06/03/17 10:00 (Mag-Al Plus Susp Liq) 30 ml Q6H PRN PO 06/03/17 10:00 (Namenda) 5 mg DAILY PO 06/03/17 10:00 06/04/17 08:38 (Flomax) 0.4 mg Q12HR PO 06/03/17 10:00 06/04/17 08:38 (Allbee C) 1 tab DAILY PO 06/03/17 11:00 06/04/17 08:38 (Vitamin D3) 2,000 units DAILY PO 06/03/17 11:00 06/04/17 08:39 (Protonix) 40 mg DAILY PO 06/03/17 11:00 06/04/17 08:39 (Effexor) 150 mg BID PO 06/03/17 12:00 06/04/17 08:39 Social History . Lives with family, retired Patient's Strengths (min. 2) Verbal and has access to healthcare. Physical Exam Vital Signs Vital Signs Date Time Temp Pulse Resp B/P (MAP) Pulse Ox O2 Delivery O2 Flow Rate FiO2 06/04/17 05:18 97.4 86 18 104/56 (72) 96 06/03/17 08:15 Room Air I/O 06/04/17 06/04/17 06/05/17 08:00 16:00 00:00 Intake Total 360 ml Balance 360 ml Lab Results Test 06/04/17 11:52 White Blood Count 10.2 TH/MM3 Red Blood Count 4.36 MIL/MM3 Hemoglobin 14.2 GM/DL Hematocrit 41.5 % Mean Corpuscular Volume 95.2 FL Mean Corpuscular Hemoglobin 32.6 PG Mean Corpuscular Hemoglobin Concent 34.2 % Red Cell Distribution Width 13.0 % Platelet Count 336 TH/MM3 Mean Platelet Volume 6.9 FL Neutrophils (%) (Auto) 72.3 % Lymphocytes (%) (Auto) 16.4 % Monocytes (%) (Auto) 8.7 % Eosinophils (%) (Auto) 2.0 % Basophils (%) (Auto) 0.6 % Neutrophils # (Auto) 7.4 TH/MM3 Lymphocytes # (Auto) 1.7 TH/MM3 Monocytes # (Auto) 0.9 TH/MM3 Eosinophils # (Auto) 0.2 TH/MM3 Basophils # (Auto) 0.1 TH/MM3 CBC Comment DIFF FINAL Differential Comment Erythrocyte Sedimentation Rate 31 mm/hr Blood Urea Nitrogen 20 MG/DL Creatinine 1.18 MG/DL Random Glucose 126 MG/DL Albumin 3.6 GM/DL Calcium Level 9.1 MG/DL Magnesium Level 1.9 MG/DL Aspartate Amino Transf (AST/SGOT) 17 U/L Sodium Level 137 MEQ/L Potassium Level 4.0 MEQ/L Chloride Level 105 MEQ/L Carbon Dioxide Level 23.1 MEQ/L Anion Gap 9 MEQ/L Estimat Glomerular Filtration Rate 59 ML/MIN Triglycerides Level 122 MG/DL Cholesterol Level 163 MG/DL Mental Status Examination Appearance: Appropriate Consciousness: Alert Orientation: Person, Place Motor Activity: Abnormal gait Speech: Hesitant Language: Other Fund of Knowledge: Inadequate Attention and Concentration: Easily Distracted Memory: Impaired Mood: Appropriate, Anxious Affect: Anxious Thought Process & Associations: Tangential Thought Content: Bizarre thinking, Delusional Hallucination Type: None Delusion Type: Paranoid Suicidal Ideation: No Suicidal Plan: No Suicidal Intention: No Homicidal Ideation: No Homicidal Plan: No Homicidal Intention: No Insight: Adequate Judgment: Adequate Assessment & Plan Problem List: (1) Parkinson's disease dementia ICD Codes: G20 - Parkinson's disease; F02.80 - Dementia in other diseases classified elsewhere without behavioral disturbance (2) Dementia in other diseases classified elsewhere with behavioral disturbance ICD Codes: F02.81 - Dementia in other diseases classified elsewhere with behavioral disturbance (3) Normal pressure hydrocephalus ICD Codes: G91.2 - (Idiopathic) normal pressure hydrocephalus Assessment & Plan continue current tx plan. Estimated LOS: Shruthi Caballero MD Jun 04, 2017 13:15
[2017-06-04 13:20] LABS: ALKALINE PHOSPHATASE 97 U/L (45-117); ALT (GPT) 26 U/L (12-78); C-REACTIVE PROTEIN LESS THAN 0.29 MG/DL (0.00-0.30); CHOLESTEROL/ HDL RATIO 2.63 RATIO; HDL CHOLESTEROL 61.8 MG/DL (40.0-60.0); LDL CHOLESTEROL 77 MG/DL (0-99); THYROXINE (T4) 8.5 MCG/DL (4.5-12.1); TOTAL BILIRUBIN ADULT 0.7 MG/DL (0.2-1.0); TOTAL PROTEIN 7.6 GM/DL (6.4-8.2)
[2017-06-04 13:23] LABS: FOLATE GREATER THAN 20.0 NG/ML (3.1-17.5)
--- NOTE | 2017-06-04 13:29 | PD.CONS ---
History of Present Illness Service INTERNAL MEDICINE Consult Requested By ROSALVA ROMERO M.D. Reason for Consult MANAGE OF MEDICAL PROBLEMS Primary Care Physician ENRIQUE STEVENS MD Diagnoses: History of Present Illness This patient is an 82 year old male who has a history of having a ventricular- peritoneal shunt placed secondary to having Normal Pressure Hydrocephalus. He also has a history of heavy alcohol intake to the point of alcoholism. This has resulted in Cerebellar Degeneration by imaging studies. He further has a diagnosis of Parkinson's Disease. He has been noted with recurrent behavior changes for inappropriate actions and confusion for his mentation. He has been found with loss of orientation for his home surroundings and confusion for the family members at times. There is no history of recent travel, recent illness or recent trauma. He is admitted to the Psychiatry Service to manage his mental state. He is now seen by me for management of his medical problems. Past Family Social History Allergies: Coded Allergies: No Known Allergies (Verified Adverse Reaction, Unknown, 06/02/17) Physical Exam Vital Signs Vital Signs Date Time Temp Pulse Resp B/P (MAP) Pulse Ox O2 Delivery O2 Flow Rate FiO2 06/04/17 05:18 97.4 86 18 104/56 (72) 96 06/03/17 21:00 97 158/67 (97) Physical Exam GENERAL: This is a well-nourished, well-developed patient, in no apparent distress. SKIN: No rashes, ecchymoses or lesions. Cool and dry. HEAD: Atraumatic. Normocephalic. No temporal or scalp tenderness. EYES: Pupils equal round and reactive. Extraocular motions intact. No scleral icterus. No injection or drainage. ENT: Nose without bleeding, purulent drainage or septal hematoma. Throat without erythema, tonsillar hypertrophy or exudate. Uvula midline. Airway patent. NECK: Trachea midline. No JVD or lymphadenopathy. Supple, nontender, no meningeal signs. CARDIOVASCULAR: Regular rate and rhythm without murmurs, gallops, or rubs. RESPIRATORY: Clear to auscultation. Breath sounds equal bilaterally. No wheezes , rales, or rhonchi. GASTROINTESTINAL: Abdomen soft, non-tender, nondistended. No hepato-splenomegaly , or palpable masses. No guarding. MUSCULOSKELETAL: Extremities without clubbing, cyanosis, or edema. No joint tenderness, effusion, or edema noted. No calf tenderness. Negative Homans sign bilaterally. NEUROLOGICAL: Awake and alert. Cranial nerves II through XII intact. Motor and sensory grossly within normal limits. Five out of 5 muscle strength in all muscle groups. Normal speech. Laboratory Laboratory Tests Test 06/04/17 11:52 White Blood Count 10.2 Red Blood Count 4.36 Hemoglobin 14.2 Hematocrit 41.5 Mean Corpuscular Volume 95.2 Mean Corpuscular Hemoglobin 32.6 Mean Corpuscular Hemoglobin Concent 34.2 Red Cell Distribution Width 13.0 Platelet Count 336 Mean Platelet Volume 6.9 Neutrophils (%) (Auto) 72.3 Lymphocytes (%) (Auto) 16.4 Monocytes (%) (Auto) 8.7 Eosinophils (%) (Auto) 2.0 Basophils (%) (Auto) 0.6 Neutrophils # (Auto) 7.4 Lymphocytes # (Auto) 1.7 Monocytes # (Auto) 0.9 Eosinophils # (Auto) 0.2 Basophils # (Auto) 0.1 CBC Comment DIFF FINAL Differential Comment Erythrocyte Sedimentation Rate 31 Blood Urea Nitrogen 20 Creatinine 1.18 Random Glucose 126 Total Protein 7.6 Albumin 3.6 Calcium Level 9.1 Magnesium Level 1.9 Alkaline Phosphatase 97 Aspartate Amino Transf (AST/SGOT) 17 Alanine Aminotransferase (ALT/SGPT) 26 Total Bilirubin 0.7 Sodium Level 137 Potassium Level 4.0 Chloride Level 105 Carbon Dioxide Level 23.1 Anion Gap 9 Estimat Glomerular Filtration Rate 59 C-Reactive Protein LESS THAN 0.29 Triglycerides Level 122 Cholesterol Level 163 LDL Cholesterol 77 HDL Cholesterol 61.8 Cholesterol/HDL Ratio 2.63 Vitamin B12 Level 630 25-Hydroxy Vitamin D Total 22.2 Folate GREATER THAN 20.0 Thyroxine (T4) 8.5 Thyroid Stimulating Hormone 3rd Gen 1.710 Result Diagram: 06/04/17 1152 06/04/17 1152 Assessment and Plan Assessment and Plan ASSESSMENT 1. Dementia with Behavioral Disturbance. 2. Parkinson's Disease. 3. Normal Pressure Hydrocephalus. 4. Cerebellar Degeneration. 5. Alcoholism. 6. Hyperlipidemia. 7. Chronic Peptic Ulcer Disease. 8. Obstructive Sleep Apnea. 9. 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 10. Vitamin D Deficiency. PLAN 1. Continue with use of his usual Home Medications. 2. Assess the need for continued use of Effexor vs Other Medication. 3. Continue to encourage good oral intake of food and drink. 4. Follow up laboratory assessment as needed. 5. DVT, PE and PUD prophylaxis. THANKS. WILL FOLLOW WITH YOU, NEEDED. Enrique Stevens MD Jun 04, 2017 13:29
[2017-06-04 13:40] LABS: HEMOGLOBIN A1C 5.6 % (4.3-6.0)
[2017-06-04] MEDS ORDERED: CHOLECALCIFEROL (VIT D3) 1000 UNIT TAB PO SCH (13:45)
[2017-06-04 18:00] VITALS: BP 110/62; PULSE 91; RESP 18; TEMP 98.5; O2SAT 98
[2017-06-04] MEDS: LORazepam 1 MG TAB PO PRN (20:30)
[2017-06-05 05:39] VITALS: BP 128/66; PULSE 81; RESP 16; TEMP 98.4; O2SAT 96
--- NOTE | 2017-06-05 08:34 | MB ---
cc: GLORIA ARORA MD DATE OF CONSULTATION: 06/05/2017 REASON FOR CONSULTATION "Sundowning". HISTORY OF PRESENT ILLNESS This is a 82-year-old male is seen at the psychiatry unit. He was brought into the [facility] by his daughter for delusional thinking , agitation, anxiety and sundowning-like behavior, as per the psychiatry assessment. The patient has reportedly a diagnosis of Parkinson's disease, dementia, status post subarachnoid hemorrhage, status post PTA shunt for normal pressure hydrocephalus and evacuation of blood. He has been seen by Dr. Gee and adjustment of the shunt was done. The patient follows up with Dr. Peter as an outpatient. The daughter reported to the psychiatry unit that the patient appears to be getting more anxious and confused, delusional, agitated, unable to care when he sundowns and fights her. Center. The patient is seen with no family members at the bedside, walking in the hallway in the psychiatry unit, calm and cooperative. As per nursing staff who has just seen him and started working with him, they do not report any agitation at night. The patient wants to leave the facility and go back home. REVIEW OF SYSTEMS A 12-point review of systems is negative except for what is stated in the HPI. PAST MEDICAL HISTORY Dementia, Parkinson's disease. PAST SURGICAL HISTORY PTA shunt for subarachnoid hemorrhage. SOCIAL HISTORY Denies alcohol, illicit drugs or smoking. FAMILY HISTORY Noncontributory. MEDICATIONS 1. Memantine 5 mg daily. 2. Tamsulosin. 3. B complex. 4. Lorazepam 1 mg. 5. Venlafaxine. 6. Esomeprazole. PHYSICAL EXAMINATION GENERAL: Awake, alert, calm, good historian. HEENT: Atraumatic, normocephalic. Intact hearing. Intact vision. NECK: Supple. No carotid bruit. CARDIOVASCULAR: Regular rate and rhythm. RESPIRATORY: Clear to auscultation. No wheezes. GASTROINTESTINAL: Soft abdomen, nontender. MUSCULOSKELETAL: No clubbing or cyanosis. NEUROLOGIC: Awake, alert, oriented to time, person and place. Positive blink reflex. No dysphasia. No dysarthria. Cranial nerves II-XII are grossly intact. Mild cognitive rigidity right greater than left. Very subtle coarse tremor upper extremities. Motor and sensory examination is grossly normal with 5/5 bilateral symmetrical. Normal tone. Sensation is intact throughout. Reflexes 1+ bilateral and symmetrical. [id number] test is intact. Gait: Mild stoop, slow arm swing. Mild wide-base gait. PSYCHIATRIC: Calm, cooperative. No hallucinations. DIAGNOSTIC STUDIES LABORATORY DATA WBC 10.2, hemoglobin 14.2, platelets 336, sodium 137, potassium 4, anion gap 23.1, BUN 20, creatinine 118, B12 630, folate greater than 20. Thyroid function test normal. DIAGNOSTIC IMAGING - Head CT scan shows no acute abnormality. Moderate diffuse ventriculomegaly without change, shunt is present. DIAGNOSTIC IMPRESSION 1. History of dementia. 2. Parkinson's disease. 3. Behavioral changes. 4. History of subarachnoid hemorrhage status post evacuation and shunt. PLAN 1. Neuro checks q. 4 hourly. 2. Increase memantine dose from 5 mg daily to 5 mg twice daily for a week, then 10 mg twice daily. 3. Continue venlafaxine. 4. Avoid benzodiazepines. 5. Fall precautions. Thank you for the opportunity to participate in the care of your patient. MD ERNESTINA Guaman/MITCHELL /8:08 AM /9:03 AM DEMAR
--- NOTE | 2017-06-05 08:34 | MB ---
cc: GLORIA ARORA MD DATE OF CONSULTATION: 06/05/2017 REASON FOR CONSULTATION "Sundowning". HISTORY OF PRESENT ILLNESS This is a 82-year-old male is seen at the psychiatry unit. He was brought into the [facility] by his daughter for delusional thinking , agitation, anxiety and sundowning-like behavior, as per the psychiatry assessment. The patient has reportedly a diagnosis of Parkinson's disease, dementia, status post subarachnoid hemorrhage, status post HOME HEALTH NURSE shunt for normal pressure hydrocephalus and evacuation of blood. He has been seen by Dr. Gee and adjustment of the shunt was done. The patient follows up with Dr. Peter as an outpatient. The daughter reported to the psychiatry unit that the patient appears to be getting more anxious and confused, delusional, agitated, unable to care when he sundowns and fights her. Center. The patient is seen with no family members at the bedside, walking in the hallway in the psychiatry unit, calm and cooperative. As per nursing staff who has just seen him and started working with him, they do not report any agitation at night. The patient wants to leave the facility and go back home. REVIEW OF SYSTEMS A 12-point review of systems is negative except for what is stated in the HPI. PAST MEDICAL HISTORY Dementia, Parkinson's disease. PAST SURGICAL HISTORY HOME HEALTH NURSE shunt for subarachnoid hemorrhage. SOCIAL HISTORY Denies alcohol, illicit drugs or smoking. FAMILY HISTORY Noncontributory. MEDICATIONS 1. Memantine 5 mg daily. 2. Tamsulosin. 3. B complex. 4. Lorazepam 1 mg. 5. Venlafaxine. 6. Esomeprazole. PHYSICAL EXAMINATION GENERAL: Awake, alert, calm, good historian. HEENT: Atraumatic, normocephalic. Intact hearing. Intact vision. NECK: Supple. No carotid bruit. CARDIOVASCULAR: Regular rate and rhythm. RESPIRATORY: Clear to auscultation. No wheezes. GASTROINTESTINAL: Soft abdomen, nontender. MUSCULOSKELETAL: No clubbing or cyanosis. NEUROLOGIC: Awake, alert, oriented to time, person and place. Positive blink reflex. No dysphasia. No dysarthria. Cranial nerves II-XII are grossly intact. Mild cognitive rigidity right greater than left. Very subtle coarse tremor upper extremities. Motor and sensory examination is grossly normal with 5/5 bilateral symmetrical. Normal tone. Sensation is intact throughout. Reflexes 1+ bilateral and symmetrical. [id number] test is intact. Gait: Mild stoop, slow arm swing. Mild wide-base gait. PSYCHIATRIC: Calm, cooperative. No hallucinations. DIAGNOSTIC STUDIES LABORATORY DATA WBC 10.2, hemoglobin 14.2, platelets 336, sodium 137, potassium 4, anion gap 23.1, BUN 20, creatinine 118, B12 630, folate greater than 20. Thyroid function test normal. DIAGNOSTIC IMAGING - Head CT scan shows no acute abnormality. Moderate diffuse ventriculomegaly without change, shunt is present. DIAGNOSTIC IMPRESSION 1. History of dementia. 2. Parkinson's disease. 3. Behavioral changes. 4. History of subarachnoid hemorrhage status post evacuation and shunt. PLAN 1. Neuro checks q. 4 hourly. 2. Increase memantine dose from 5 mg daily to 5 mg twice daily for a week, then 10 mg twice daily. 3. Continue venlafaxine. 4. Avoid benzodiazepines. 5. Fall precautions. Thank you for the opportunity to participate in the care of your patient. MD ERNESTINA Guaman/MITCHELL /8:08 AM /9:03 AM DEMAR
[2017-06-05] MEDS: VITAMIN B COMPLEX/VIT C TAB PO SCH (09:29)
[2017-06-05] MEDS: TAMSULOSIN HCL 0.4 MG CAP PO SCH ×2 (09:30→19:45)
[2017-06-05] MEDS: PANTOPRAZOLE SOD 40 MG DELAYED RELEASE TAB PO SCH (09:30)
[2017-06-05] MEDS: VENLAFAXINE HCL 75 MG TAB PO SCH ×2 (09:30→19:45)
[2017-06-05] MEDS: MEMANTINE HCL 5 MG TAB PO SCH (09:30)
[2017-06-05] MEDS: CHOLECALCIFEROL (VIT D3) 1000 UNIT TAB PO SCH (09:30)
--- NOTE | 2017-06-05 10:59 | HHI.PYPN ---
Subjective Remarks Pt seen and discussed with staff. He has been pleasant and cooperative. He derails in conversation and becomes increasingly delusional, but does not get agitated. He states that there is nothing wrong with his memory and he feels great. No SI/HI Mental Status Examination Appearance: Appropriate Consciousness: Alert Orientation: Person, Place Motor Activity: Abnormal gait Speech: Hesitant Language: Adequate Fund of Knowledge: Inadequate Attention and Concentration: Easily Distracted Memory: Impaired Mood: Appropriate, Anxious Affect: Anxious Thought Process & Associations: Tangential Thought Content: Bizarre thinking, Delusional Hallucination Type: None Delusion Type: Paranoid Suicidal Ideation: No Suicidal Plan: No Suicidal Intention: No Homicidal Ideation: No Homicidal Plan: No Homicidal Intention: No Insight: Adequate Judgment: Adequate Results Labs Test 06/04/17 11:52 White Blood Count 10.2 TH/MM3 Red Blood Count 4.36 MIL/MM3 Hemoglobin 14.2 GM/DL Hematocrit 41.5 % Mean Corpuscular Volume 95.2 FL Mean Corpuscular Hemoglobin 32.6 PG Mean Corpuscular Hemoglobin Concent 34.2 % Red Cell Distribution Width 13.0 % Platelet Count 336 TH/MM3 Mean Platelet Volume 6.9 FL Neutrophils (%) (Auto) 72.3 % Lymphocytes (%) (Auto) 16.4 % Monocytes (%) (Auto) 8.7 % Eosinophils (%) (Auto) 2.0 % Basophils (%) (Auto) 0.6 % Neutrophils # (Auto) 7.4 TH/MM3 Lymphocytes # (Auto) 1.7 TH/MM3 Monocytes # (Auto) 0.9 TH/MM3 Eosinophils # (Auto) 0.2 TH/MM3 Basophils # (Auto) 0.1 TH/MM3 CBC Comment DIFF FINAL Differential Comment Erythrocyte Sedimentation Rate 31 mm/hr Blood Urea Nitrogen 20 MG/DL Creatinine 1.18 MG/DL Random Glucose 126 MG/DL Total Protein 7.6 GM/DL Albumin 3.6 GM/DL Calcium Level 9.1 MG/DL Magnesium Level 1.9 MG/DL Alkaline Phosphatase 97 U/L Aspartate Amino Transf (AST/SGOT) 17 U/L Alanine Aminotransferase (ALT/SGPT) 26 U/L Total Bilirubin 0.7 MG/DL Sodium Level 137 MEQ/L Potassium Level 4.0 MEQ/L Chloride Level 105 MEQ/L Carbon Dioxide Level 23.1 MEQ/L Anion Gap 9 MEQ/L Estimat Glomerular Filtration Rate 59 ML/MIN Hemoglobin A1c 5.6 % C-Reactive Protein LESS THAN 0.29 MG/DL Triglycerides Level 122 MG/DL Cholesterol Level 163 MG/DL LDL Cholesterol 77 MG/DL HDL Cholesterol 61.8 MG/DL Cholesterol/HDL Ratio 2.63 RATIO Vitamin B12 Level 630 PG/ML 25-Hydroxy Vitamin D Total 22.2 ng/ML Folate GREATER THAN 20.0 NG/ML Thyroxine (T4) 8.5 MCG/DL Thyroid Stimulating Hormone 3rd Gen 1.710 uIU/ML Vitals/IOs Vital Signs Date Time Temp Pulse Resp B/P (MAP) Pulse Ox O2 Delivery O2 Flow Rate FiO2 06/05/17 05:39 98.4 81 16 128/66 (86) 96 06/03/17 08:15 Room Air Intake and Output 06/05/17 06/05/17 06/06/17 08:00 16:00 00:00 Intake Total 0 ml Balance 0 ml Assessment & Plan Problem List: (1) Parkinson's disease dementia ICD Codes: G20 - Parkinson's disease; F02.80 - Dementia in other diseases classified elsewhere without behavioral disturbance (2) Dementia in other diseases classified elsewhere with behavioral disturbance ICD Codes: F02.81 - Dementia in other diseases classified elsewhere with behavioral disturbance (3) Normal pressure hydrocephalus ICD Codes: G91.2 - (Idiopathic) normal pressure hydrocephalus Assessment & Plan Pt improving. Continue current tx plan. Estimated LOS: days Justification for Cont. Inpt. risk of decompensation Shruthi Caballero MD Jun 05, 2017 10:59
--- NOTE | 2017-06-05 11:44 | EKG ---
Date Performed: 06/04/2017 Time Performed: 09:39:34 PTAGE: 82 years EKG: Sinus rhythm MARKED LEFT AXIS DEVIATION Left anterior fascicular block ABNORMAL ECG PREVIOUS TRACING : 06/02/2017 22.41 DOCTOR: Alejandro Cardoso Interpretating Date/Time 06/05/2017 11:44:21
[2017-06-05] MEDS: LORazepam 1 MG TAB PO PRN ×2 (13:12→19:45)
[2017-06-05 17:39] VITALS: BP 124/78; PULSE 74; RESP 16; TEMP 98.1; O2SAT 96
[2017-06-06 04:53] VITALS: BP 120/72; PULSE 81; RESP 18; TEMP 99.2; O2SAT 94
[2017-06-06] MEDS: CHOLECALCIFEROL (VIT D3) 1000 UNIT TAB PO SCH (08:47)
[2017-06-06] MEDS: VENLAFAXINE HCL 75 MG TAB PO SCH ×2 (08:47→20:55)
[2017-06-06] MEDS: TAMSULOSIN HCL 0.4 MG CAP PO SCH ×2 (08:47→20:55)
[2017-06-06] MEDS: VITAMIN B COMPLEX/VIT C TAB PO SCH (08:47)
[2017-06-06] MEDS: MEMANTINE HCL 5 MG TAB PO SCH (08:47)
[2017-06-06] MEDS: PANTOPRAZOLE SOD 40 MG DELAYED RELEASE TAB PO SCH (08:48)
--- NOTE | 2017-06-06 12:08 | HHI.PYPN ---
Subjective Remarks Patient initially admitted by Dr. Isauro Blanton, his initial psych eval reviewed and agreed with. I have completed the psychiatric admission template. Patient seen by me with nurse Stefano and medical student Brian. Patient is an alert white male appears stated age fairly well oriented to place and time somewhat confused as to situation and days. He does acknowledge having intermittent confusion. He initially stated he lived with his mother and father that he just graduated high school. Is somewhat confusing about his education and is employment history. Though he did acknowledge working [employer] for a number of years. Jodie being "crespo" with somewhat of her short tempered. Staff is seen some evidence of this so far this hospitalization and late afternoon and early evening. I also did discuss this with Dr. Silva. He states patient has some early Parkinson's. He does have the dementia with more sundowning type behaviors. He agrees a trial of low-dose Seroquel would be appropriate. I will start patient on Seroquel 25 mg at noon and 4 PM and 10 PM. Will attempt to meet with patient's family the next 1-2 days to further discuss treatment medication and discharge planning Review of Systems Except as stated in HPI: all other systems reviewed are Neg Mental Status Examination Appearance: Appropriate Consciousness: Alert Orientation: Person, Place Motor Activity: Abnormal gait Speech: Hesitant Language: Adequate Fund of Knowledge: Inadequate Attention and Concentration: Easily Distracted Memory: Impaired Mood: Appropriate, Anxious Affect: Anxious Thought Process & Associations: Tangential Thought Content: Bizarre thinking, Delusional Hallucination Type: None Delusion Type: Paranoid Suicidal Ideation: No Suicidal Plan: No Suicidal Intention: No Homicidal Ideation: No Homicidal Plan: No Homicidal Intention: No Insight: Adequate Judgment: Adequate Results Vitals/IOs Vital Signs Date Time Temp Pulse Resp B/P (MAP) Pulse Ox O2 Delivery O2 Flow Rate FiO2 06/06/17 04:53 99.2 81 18 120/72 (88) 94 06/03/17 08:15 Room Air Intake and Output 06/06/17 06/06/17 06/07/17 08:00 16:00 00:00 Intake Total 0 ml Balance 0 ml Assessment & Plan Problem List: (1) Parkinson's disease dementia ICD Codes: G20 - Parkinson's disease; F02.80 - Dementia in other diseases classified elsewhere without behavioral disturbance (2) Dementia in other diseases classified elsewhere with behavioral disturbance ICD Codes: F02.81 - Dementia in other diseases classified elsewhere with behavioral disturbance (3) Normal pressure hydrocephalus ICD Codes: G91.2 - (Idiopathic) normal pressure hydrocephalus Assessment & Plan Estimated LOS: days patient remains confused demented, though showing some acknowledgment of his mood issues. She medication adjustment above. We'll attempt to meet with family the next few days Justification for Cont. Inpt. At this time patient decompensate the placed in the lower level of care Discharge Planning Plans are hopefully return home with his Request HC Surrog/Guard Advoc?: Yes Favio Tilley MD Jun 06, 2017 12:07
[2017-06-06] MEDS: QUEtiapine FUMARATE 25 MG TAB PO SCH ×3 (12:47→21:11)
[2017-06-06 18:09] VITALS: BP 123/71; PULSE 79; RESP 18; TEMP 98; O2SAT 98
[2017-06-07 05:42] VITALS: BP 127/72; PULSE 78; RESP 17; TEMP 98; O2SAT 95
[2017-06-07] MEDS: PANTOPRAZOLE SOD 40 MG DELAYED RELEASE TAB PO SCH (08:29)
[2017-06-07] MEDS: VENLAFAXINE HCL 75 MG TAB PO SCH (08:29)
[2017-06-07] MEDS: CHOLECALCIFEROL (VIT D3) 1000 UNIT TAB PO SCH (08:29)
[2017-06-07] MEDS: VITAMIN B COMPLEX/VIT C TAB PO SCH (08:29)
[2017-06-07] MEDS: MEMANTINE HCL 5 MG TAB PO SCH (08:30)
[2017-06-07] MEDS: TAMSULOSIN HCL 0.4 MG CAP PO SCH (08:30)
--- NOTE | 2017-06-07 10:10 | HHI.PYPN ---
Subjective Remarks Patient seen in the day room with medical student Davie and nurse Janae, chart review, patient compliant medications. Patient continues calm pleasant cooperative continues oriented only to self. Though he is no behavior problems at this time Review of Systems Except as stated in HPI: all other systems reviewed are Neg Mental Status Examination Appearance: Appropriate Consciousness: Alert Orientation: Person, Place Motor Activity: Abnormal gait Speech: Hesitant Language: Adequate Fund of Knowledge: Inadequate Attention and Concentration: Easily Distracted Memory: Impaired Mood: Appropriate, Anxious Affect: Anxious Thought Process & Associations: Tangential Thought Content: Bizarre thinking, Delusional Hallucination Type: None Delusion Type: Paranoid Suicidal Ideation: No Suicidal Plan: No Suicidal Intention: No Homicidal Ideation: No Homicidal Plan: No Homicidal Intention: No Insight: Adequate Judgment: Adequate Results Vitals/IOs Vital Signs Date Time Temp Pulse Resp B/P (MAP) Pulse Ox O2 Delivery O2 Flow Rate FiO2 06/07/17 05:42 98.0 78 17 127/72 (90) 95 06/03/17 08:15 Room Air Assessment & Plan Problem List: (1) Parkinson's disease dementia ICD Codes: G20 - Parkinson's disease; F02.80 - Dementia in other diseases classified elsewhere without behavioral disturbance (2) Dementia in other diseases classified elsewhere with behavioral disturbance ICD Codes: F02.81 - Dementia in other diseases classified elsewhere with behavioral disturbance (3) Normal pressure hydrocephalus ICD Codes: G91.2 - (Idiopathic) normal pressure hydrocephalus Assessment & Plan Estimated LOS: days patient continues demented confused basically oriented only to self. But no behavioral issues. For now continue treatment Justification for Cont. Inpt. At this time patient will decompensate the placed in a lower level of care Discharge Planning Consul continues to work on placement issues Request HC Surrog/Guard Advoc?: Yes Favio Tilley MD Jun 07, 2017 10:10
[2017-06-07] MEDS ORDERED: TAMS5CAP PO (10:58)
[2017-06-07] MEDS ORDERED: SERO25TA PO (10:58)
[2017-06-07] MEDS ORDERED: PANT40TA3 PO (10:58)
[2017-06-07] MEDS ORDERED: NAME5TAB2 PO (10:58)
[2017-06-07] MEDS ORDERED: VITA1000 PO (10:58)
[2017-06-07] MEDS ORDERED: ALLBC PO (10:58)
[2017-06-07] MEDS ORDERED: VENL75TA PO (10:58)
--- NOTE | 2017-06-07 11:03 | HHI.DS ---
Psychiatry Discharge Summary Inpatient Psychiatric care?: Yes Advance Directive: Yes Mental Health AdvanceDirective: No Health Care Proxy: No Admission Admission Date Jun 03, 2017 at 09:47 Admission Diagnosis: (1) Parkinson's disease dementia ICD Code: G20 - Parkinson's disease; F02.80 - Dementia in other diseases classified elsewhere without behavioral disturbance (2) Normal pressure hydrocephalus ICD Code: G91.2 - (Idiopathic) normal pressure hydrocephalus (3) Dementia in other diseases classified elsewhere with behavioral disturbance ICD Code: F02.81 - Dementia in other diseases classified elsewhere with behavioral disturbance Brief History Chart reviewed, Pt seen and chart reviewed. He was admitted due to agitation and delusional thinking. Staff report that pt sundowned yesterday evening and became highly agitated and tried to call 911. Today he was suspicious about medications and expressed paranoia toward nurses and treatment. He has previous diagnoses of early Parkinson's, dementia, status post subarachnoid hemorrhage, status post CP shunt for normal pressure hydrocephalus and evacuation of subarachnoid bleed. Today pt states that his mood is fine but he has to "get out of here." He states that he gets "confused a bit" at times but isn't worried about it. No SI/HI Tobacco Use In Past 30 Days: No Tobacco Past 30 Days Alcohol Use: Never Hospital Course Patient's hospital course was uneventful, he showed no behavioral issues, has been compliant with medications. We met today with patient's daughter and . They're quite supportive with the patient. Patient's daughter will be having her father and mother move in with her she can assist in patient's care. Daughter's adult granddaughter also be assisting. Along with home health care. They feel he is stable no willing to take responsibility for him in the home. Patient show compliance with his medications. He denies any suicidality. Is excited also about returning home with his family. Family was also advised of the risks involved with this. Thus patient be discharged today to home, with home health care referral including psychiatric nursing medication management. With Rx 1 month. Also follow-up with primary care physician Dr. Silva Results Blood Pressure 127 / 72 Vital Signs Date Time Temp Pulse Resp B/P (MAP) Pulse Ox O2 Delivery O2 Flow Rate FiO2 06/07/17 05:42 98.0 78 17 127/72 (90) 95 06/03/17 08:15 Room Air Laboratory Tests Test 06/04/17 11:52 Red Blood Count 4.36 MIL/MM3 (4.50-5.90) Mean Platelet Volume 6.9 FL (7.0-11.0) Neutrophils (%) (Auto) 72.3 % (16.0-70.0) Monocytes (%) (Auto) 8.7 % (0.0-8.0) Erythrocyte Sedimentation Rate 31 mm/hr (0-20) Blood Urea Nitrogen 20 MG/DL (7-18) Random Glucose 126 MG/DL (74-106) Estimat Glomerular Filtration Rate 59 ML/MIN (>89) HDL Cholesterol 61.8 MG/DL (40.0-60.0) 25-Hydroxy Vitamin D Total 22.2 ng/ML (30-100) Folate GREATER THAN 20.0 NG/ML Laboratory Results Test 06/04/17 11:52 Cholesterol Level 163 MG/DL (120-200) HDL Cholesterol 61.8 MG/DL (40.0-60.0) Hemoglobin A1c 5.6 % (4.3-6.0) LDL Cholesterol 77 MG/DL (0-99) Triglycerides Level 122 MG/DL (42-150) Summary of Procedures None done Imaging Last Impressions Head CT 06/02/171 Signed Impressions: Service Date/Time: June 23:32 - CONCLUSION: No acute abnormality demonstrated. Moderate diffuse ventriculomegaly without change. Patient is shunted. Favio Sneed MD Pending results at discharge: No Medications # of Antipsychotic meds at D/C: 1 Approp Antipsych med options 1 - Minimum of three failed multiple trials of monotherapy. 2 - Documented plan to taper to monotherapy due to previous use of multiple meds OR cross-taper in progress at D/C. 3 - Documentation of augmentation of Clozapine. 4 - Justification other than those listed in allowable values 1-3, document here : Discharge Discharge Date: Jun 07, 2017 Discharge Diagnosis: (1) Normal pressure hydrocephalus Diagnosis: Secondary ICD Code: G91.2 - (Idiopathic) normal pressure hydrocephalus (2) Parkinson's disease dementia Diagnosis: Secondary ICD Code: G20 - Parkinson's disease; F02.80 - Dementia in other diseases classified elsewhere without behavioral disturbance (3) Dementia in other diseases classified elsewhere with behavioral disturbance Diagnosis: Principal ICD Code: F02.81 - Dementia in other diseases classified elsewhere with behavioral disturbance Pt Condition on Discharge: Stable Discharge Disposition: Discharge Home Discharge Instructions Diet Instructions: As Tolerated, No Restrictions Activities you can perform: Regular-No Restrictions Scheduled Appointment: refer home health care with psychiatric nurse, follow- up PCP Dr. Silva Discharge Time > 30 minutes Mental Status Examination Appearance: Appropriate Consciousness: Alert Orientation: Person, Place Motor Activity: Abnormal gait Speech: Hesitant Language: Adequate Fund of Knowledge: Inadequate Attention and Concentration: Easily Distracted Memory: Impaired Mood: Appropriate, Anxious Affect: Anxious Thought Process & Associations: Tangential Thought Content: Bizarre thinking, Delusional Hallucination Type: None Delusion Type: Paranoid Suicidal Ideation: No Suicidal Plan: No Suicidal Intention: No Homicidal Ideation: No Homicidal Plan: No Homicidal Intention: No Insight: Adequate Judgment: Adequate Discharge/Advance Care Plan Health Problems: (1) Parkinson's disease dementia (2) Dementia in other diseases classified elsewhere with behavioral disturbance (3) Normal pressure hydrocephalus Goals to promote your health * To prevent worsening of your condition and complications * To maintain your health at the optimal level Directions to meet your goals Take your medications as prescribed Follow your dietary instruction Follow activity as directed Keep your appointments as scheduled Take your immunizations and boosters as scheduled If your symptoms worsen call your PCP, if no PCP go to Urgent Care Center or Emergency Room For 21/02 questions related to your inpatient stay or results of tests pending at discharge, please contact Dr. Favio Tilley at Smoking is Dangerous to Your Health. Avoid second hand smoking Favio Tilley MD Jun 07, 2017 11:03
[2017-06-07] MEDS: QUEtiapine FUMARATE 25 MG TAB PO SCH ×2 (11:29→15:53)
== END 2017-06-07 16:50 | disposition home or self-care (01) | DRG 57 ==
LOC: NEPE 22:09 → NEDA 06-03 09:47 → H4EA 06-03 11:20 → H250 06-03 13:20
PROVIDERS: ADMIT Psychiatry & Neurology Psychiatry; ATTEND Psychiatry & Neurology Psychiatry
DX: G20 Parkinson's disease (principal); F02.81 Dementia in other diseases classified elsewhere, unspecified severity, with behavioral disturbance; G91.2 (Idiopathic) normal pressure hydrocephalus; Z98.2 Presence of cerebrospinal fluid drainage device; E78.5 Hyperlipidemia, unspecified; G47.33 Obstructive sleep apnea (adult) (pediatric); D63.8 Anemia in other chronic diseases classified elsewhere; E55.9 Vitamin D deficiency, unspecified; Z87.11 Personal history of peptic ulcer disease
CPT/HCPCS: 70450; 80053; 80061; 81001; 82140; 82306; 82550; 82607; 82746; 83036; 83735; 84425; 84436; 84443; 85025; 85610; 85652; 85730; 86140; 93005

== ENCOUNTER 2017-07-22 08:34 | Day surgery (SDC) | payer MEDICARE ==
[~2017-07-22] VITALS: Ht 175.3 cm; Wt 94.5 kg
[~2017-07-22 08:34] MED LIST changes: +ALLBC PO; -NEXI40CA PO; +PANT40TA3 PO; +SERO25TA PO; +VITA1000 PO; -VITA20003 PO; -VITATAB11 PO
[2017-07-22 08:52] VITALS: BP 149/98; PULSE 85; RESP 20; TEMP 98.6; O2SAT 97
[2017-07-22] MEDS ORDERED: SODIUM CHLOR 0.9% 1000 ML INJ 1,000 ML IV SCH (09:00)
[2017-07-22 09:36] LABS: AUTOMATED NEUTROPHIL # 5.5 TH/MM3 (1.8-7.7); BASOPHIL # 0.1 TH/MM3 (0-0.2); BASOPHIL % 0.6 % (0.0-2.0); EOSINOPHIL # 0.5 TH/MM3 (0-0.4); HEMATOCRIT 42.6 % (39.0-51.0); HEMOGLOBIN 14.7 GM/DL (13.0-17.0); LYMPH % 28.5 % (9.0-44.0); LYMPHOCYTE # 2.9 TH/MM3 (1.0-4.8); MEAN CELL VOLUME 95.5 FL (80.0-100.0); MEAN CORPUSCULAR HEMOGLOBIN 33.1 PG (27.0-34.0); MEAN CORPUSCULAR HGB CONC 34.6 % (32.0-36.0); MEAN PLATELET VOLUME 7.5 FL (7.0-11.0); MONO % 12.6 % (0.0-8.0); MONOCYTE # 1.3 TH/MM3 (0-0.9); NEUT % 53.3 % (16.0-70.0); PLATELET COUNT 346 TH/MM3 (150-450); RED BLOOD COUNT 4.46 MIL/MM3 (4.50-5.90); RED CELL DISTRIBUTION WIDTH 13.4 % (11.6-17.2); WHITE BLOOD COUNT 10.2 TH/MM3 (4.0-11.0)
[2017-07-22 09:39] LABS: PROTHROMBIN TIME - PATIENT 10.3 SEC (9.8-11.6)
[2017-07-22 10:28] LABS: LYMPHOCYTES 35 % (9-44); MONOCYTES 7 % (0-8); MYELOCYTES 1 % (0-0); NEUTROPHIL # MANUAL DIFF 5.1 TH/MM3 (1.8-7.7); POLYS (SEG NEUTROPHILS) 49 % (16-70)
[2017-07-22] MEDS ORDERED: MIDAZOLAM HCL 2 MG/2 ML VIAL ONE ×2 (10:32)
--- NOTE | 2017-07-22 11:09 | PD.RAD ---
Post CT Procedure Prog Note Pre Procedure Diagnosis: (1) Plasma cell dyscrasia Post Procedure Diagnosis: (1) Plasma cell dyscrasia Procedure Date: Jul 22, 2017 Supervising Radiologist: Shoaib Saleem JR Anesthesia: Conscious Sedation Plan of Activity Patient to Unit: [facility] Patient Condition: Good See PACS Report for procedural detail/treatment Biopsy Imaging Guidance: CT Side: Left Biopsy Procedure: Bone Marrow Specimen: Core Biopsy, Fine Needle Aspirate Findings: Bone marrow bx and aspiration performed with good samples noted. No complications Jr. Saleem Thomas Justin MD Jul 22, 2017 11:09
[2017-07-22 11:15] VITALS: BP 136/75; PULSE 84; RESP 16; TEMP 97.6; O2SAT 93
[2017-07-22 11:30] VITALS: BP 123/82; PULSE 78; RESP 16; O2SAT 93
--- NOTE | 2017-07-22 11:48 | RADRPT ---
EXAM DATE/TIME: 07/22/2017 10:42 [facility] COMPARISON: No previous studies available for comparison. INDICATIONS : Monoclonal gammopathy SEDATION TIME: 15 minutes BIOPSY SITE: ilium 1.) 3 mg midazolam (Versed) IV 2.) 150 mcg fentanyl (Sublimaze) IV DEVICE(S): 1.) 11 gauge On-Control needle MEDICAL HISTORY : None. SURGICAL HISTORY : None. ENCOUNTER: Initial ACUITY: 1 day PAIN SCORE: 0/10 LOCATION: pelvis A total of one core specimen(s) were obtained and sent to the laboratory for pathologic evaluation. PROCEDURE: 1. CT guided bone marrow biopsy. Prior to the procedure informed consent was obtained. Any appropriate prior imaging studies were rev iewed. Using automated exposure control and adjustment of the mA and/or kV according to patient size , radiation dose was kept as low as reasonably achievable to obtain optimal diagnostic quality images . DICOM format image data is available electronically for review and comparison. The site was prepped in a sterile fashion. Full sterile technique was used, including cap, mask, keith rile gloves and gown and a large sterile sheet. Hand hygiene and 2% chlorhexidine and/or betadine/al cohol prep was utilized per protocol for cutaneous antisepsis. The skin and subcutaneous tissues wer e infiltrated with local anesthetic solution. With CT guidance the previously identified target was localized. Biopsy was performed using the presc ribed needle as above. Following biopsy marrow aspiration was performed with repeat puncture. Adequa te hemostasis was obtained with compression at the puncture site. Follow-up CT scan reveals no hemorrhage. Conscious sedation was performed with the prescribed dosages and duration as above in the presence of an independent trained radiology nurse to assist in the monitoring of the patient. EKG and oximetry remained stable throughout the procedure. The patient tolerated the procedure well and there were no complications. The patient was sent to Radiology Outpatient Unit in stable condition. CONCLUSION: 1. Uncomplicated CT guided bone marrow aspirate. 2. Uncomplicated CT guided bone marrow biopsy. Shoaib Saleem Jr., MD on July 22, 2017 at 11:46 Board Certified Radiologist. This report was verified electronically.
[2017-07-22 12:00] VITALS: BP 129/76; PULSE 73; RESP 16; O2SAT 93
[2017-07-22 12:30] VITALS: BP 129/76; PULSE 73; RESP 16; O2SAT 93
[2017-07-22 13:00] VITALS: BP 136/75; PULSE 73; RESP 16; O2SAT 93
== END 2017-07-22 13:30 | disposition home or self-care (01) ==
LOC: HROP 08:34 → HRIP 08:35 → HROP 13:30
PROVIDERS: ATTEND Internal Medicine Hematology & Oncology
DX: D47.2 Monoclonal gammopathy (principal); D75.89 Other specified diseases of blood and blood-forming organs; G20 Parkinson's disease; F02.81 Dementia in other diseases classified elsewhere, unspecified severity, with behavioral disturbance; G91.2 (Idiopathic) normal pressure hydrocephalus
CPT/HCPCS: 38221; 77012; 85007; 85027; 85097; 85610; 85730; 88184; 88185; 88237; 88264; 88280; 88305; 88311; 88313; 88341; 88342; 99152; C1830; G0364; J2250; J3010